=== PATIENT | female | born 1950 | race Caucasian/White ===

== ENCOUNTER 2017-02-07 13:46 | Emergency (ER) | payer MEDICARE, MEDICAID, SELFPAY | END 2017-02-07 17:44 | disposition home or self-care (01) | PROVIDERS: Emergency Provider Emergency Medicine; Family Provider Nurse Practitioner Family; PCP Nurse Practitioner Family; Visit Provider Emergency Medicine | DX: N39.0 Urinary tract infection, site not specified (principal); R31.9 Hematuria, unspecified; E87.6 Hypokalemia; I10 Essential (primary) hypertension; F20.9 Schizophrenia, unspecified; F79 Unspecified intellectual disabilities; F32.9 Major depressive disorder, single episode, unspecified; F41.9 Anxiety disorder, unspecified; R41.82 Altered mental status, unspecified; Z90.710 Acquired absence of both cervix and uterus; E11.9 Type 2 diabetes mellitus without complications; J45.909 Unspecified asthma, uncomplicated; Z79.51 Long term (current) use of inhaled steroids; Z79.899 Other long term (current) drug therapy | CPT/HCPCS: 36415; 71010; 80053; 81001; 82550; 82553; 83605; 84484; 85025; 87040; 87077; 87086; 87088; 87186; 93005; 93041; 99283 ==

== ENCOUNTER 2017-02-08 12:40 | Inpatient (IN) | payer MEDICAID, MEDICARE, SELFPAY | END 2017-02-10 15:37 | DRG 690 | PROVIDERS: Admitting Provider Emergency Medicine; Emergency Provider Emergency Medicine; Family Provider Emergency Medicine; Visit Provider Emergency Medicine | DX: N39.0 Urinary tract infection, site not specified (principal); B95.2 Enterococcus as the cause of diseases classified elsewhere; E11.9 Type 2 diabetes mellitus without complications; I10 Essential (primary) hypertension; B96.20 Unspecified Escherichia coli [E. coli] as the cause of diseases classified elsewhere | CPT/HCPCS: 36415; 36569; 70450; 71010; 80048; 80053; 81001; 82550; 82553; 82803; 82962; 83605; 84484; 85025; 87040; 87077; 87086; 87088; 87186; 93005; 93041; 94760; 96365; 96366; 99283; 99285; C1751; J3370 ==

== ENCOUNTER → 2017-02-12 | Outpatient (CLI) | payer MEDICARE, MEDICAID, SELFPAY | PROVIDERS: Visit Provider Emergency Medicine | DX: N39.0 Urinary tract infection, site not specified (principal); R41.82 Altered mental status, unspecified; E87.6 Hypokalemia; Z51.81 Encounter for therapeutic drug level monitoring | CPT/HCPCS: 80048; 80202 ==

== ENCOUNTER → 2017-02-17 | Outpatient (CLI) | payer MEDICARE, MEDICAID, SELFPAY | PROVIDERS: Visit Provider Emergency Medicine | DX: R41.82 Altered mental status, unspecified (principal); N39.0 Urinary tract infection, site not specified; Z51.81 Encounter for therapeutic drug level monitoring | CPT/HCPCS: 80202 ==

== ENCOUNTER → 2017-03-14 13:27 | Outpatient (CLI) | payer MEDICARE, MEDICAID, SELFPAY ==
--- NOTE | 2017-03-14 13:36 | XR_ITS ---
XR ankle RT min 3V HISTORY: Right ankle pain and swelling and bruising ITS.REASON: possible right ankle fracture ORDERING PHYSICIAN: Shilo Martínez MD PATIENT AGE: 66 years COMPARISON: None FINDINGS: No fracture or dislocation. No lytic or blastic change. There is normal mineralization.. The joint spaces are well-preserved. No significant degenerative/arthritic changes. No erosive changes evident. There are 2 small calcific densities at the tip of the medial malleolus and may be due to old injury. IMPRESSION: No acute finding
== END ==
PROVIDERS: PCP Emergency Medicine; Visit Provider Orthopaedic Surgery
DX: S99.919A Unspecified injury of unspecified ankle, initial encounter (principal)
CPT/HCPCS: 73610

== ENCOUNTER → 2017-03-24 09:23 | Outpatient (CLI) | payer MEDICARE, MEDICAID, SELFPAY ==
--- NOTE | 2017-03-24 09:29 | XR_ITS ---
XR ankle RT min 3V HISTORY: Follow-up fracture ITS.REASON: RT ankle fracture ORDERING PHYSICIAN: Shilo Martínez MD PATIENT AGE: 66 years COMPARISON: 03/14/2017 FINDINGS: Limited evaluation with limited patient positioning and shot through a splint. No displaced fracture or dislocation apparent. Small calcific densities once again noted with tip of the medial malleolus possibly related to avulsion injuries either acute or old. Otherwise negative. IMPRESSION: Limited study. Avulsion fractures age-indeterminate at the tip of the medial malleolus otherwise negative
== END ==
PROVIDERS: PCP Emergency Medicine; Visit Provider Orthopaedic Surgery
DX: S82.899A Other fracture of unspecified lower leg, initial encounter for closed fracture (principal)
CPT/HCPCS: 73610

== ENCOUNTER → 2017-04-19 12:42 | Outpatient (CLI) | payer MEDICARE, MEDICAID, SELFPAY ==
--- NOTE | 2017-04-19 12:47 | XR_ITS ---
XR ankle RT min 3V HISTORY: Follow-up fracture ITS.REASON: right ankle fracture ORDERING PHYSICIAN: Shilo Martínez MD PATIENT AGE: 66 years COMPARISON: 03-24-17 FINDINGS: There is a splint present posteriorly and medially. Avulsion fracture noted tip of the medial malleolus as before. No other significant anomalies evident. There is generalized osteopenia. IMPRESSION: Overall no change age-indeterminate avulsion fracture of the medial malleolus
== END ==
PROVIDERS: PCP Emergency Medicine; Visit Provider Orthopaedic Surgery
DX: S99.911A Unspecified injury of right ankle, initial encounter (principal)
CPT/HCPCS: 73610

== ENCOUNTER → 2017-06-14 12:20 | Outpatient (CLI) | payer MEDICARE, MEDICAID, SELFPAY ==
--- NOTE | 2017-06-14 12:25 | CA_ITS ---
PROCEDURE: 2-D M-mode and color Doppler study INDICATIONS FOR THE TEST: Chest pain+ COPD Heart Murmur Tobacco Smoking Palpitations Fatigue+ Syncope Edema+ Hypertension+Diabetes Mellitus+ Rheumatic Fever SOB GO Obesity Hyperlipidemia+ Family History HD Additional History tachycardia, abn ekg, cardiomegaly, dizziness PATIENT INFORMATION HEIGHT: 65 WEIGHT: 212 GENDER: Female B/P:147/79 2-D/M-MODE INTERPRETATION: 2-D MEASUREMENTS OBSERVED VALUES IN CMS Right Ventricular Dimension (RVDd) 2.8 Interventricular Septum (Thickness)(IVsd) 1.0 Left Ventricular Internal Dimensions(LVIDd) 4.2 Left Ventricular Posterior Wall (Thickness)(LVPWd) 1.0 Aortic Root 2.9 Aortic Cusp Separation 2.1 Left Atrial Dimensions (LAD) 4.0 2D 1. Technically difficult study because of the patient's factor and poor acoustic windows. 2. The left atrium is mildly enlarged, left ventricle is normal size, left ventricle wall thickness is upper limit of the normal, there is preserved left ventricular systolic function, visually estimated ejection fraction 55% with no obvious regional wall motion abnormality, endocardial surface of very poorly visualized. 3. The right atrium and right ventricle are mildly enlarged with normal contractility. 4. The aortic valve is minimally thickened and fibrosed. 5. The mitral and tricuspid valve are grossly normal. 6. No significant pericardial effusion noted. DOPPLER INTERROGATION: Doppler interrogation of the aortic, mitral and tricuspid valvular presence of mild mitral and tricuspid regurgitation, tricuspid and jet velocity insufficient for calculation of the right ventricular systolic pressure, diastolic parameters are inconclusive. CONCLUSION: 1. Technically difficult study because of the patient's factor and poor acoustic windows 2. Mildly enlarged left atrium, normal left ventricular size, visually estimated ejection fraction of 55% with no obvious regional wall motion abnormality, diastolic parameters are inconclusive. 3. Mild mitral and tricuspid regurgitation 4. No significant pericardial effusion noted.
== END ==
PROVIDERS: Family Provider Emergency Medicine; PCP Emergency Medicine; Visit Provider Internal Medicine
DX: R94.31 Abnormal electrocardiogram [ECG] [EKG] (principal)
CPT/HCPCS: 93306

== ENCOUNTER → 2017-08-02 12:50 | Outpatient (CLI) | payer MEDICARE, MEDICAID, SELFPAY ==
--- NOTE | 2017-08-02 12:53 | XR_ITS ---
XR humerus RT CLINICAL INDICATION: ITS.REASON: Right upper arm pain ORDERING PHYSICIAN: Shilo Martínez MD PATIENT AGE: 67 years Comparison: None FINDINGS: No fracture or dislocation. There are at least 4 calcific densities along the proximal aspect of the humerus at the humeral neck region the largest of these calcifications measures 10 x 7 mm. These are consistent with synovial osteochondromas IMPRESSION: Synovial osteochondromas along the proximal humerus otherwise negative
== END ==
PROVIDERS: PCP Emergency Medicine; Visit Provider Orthopaedic Surgery
DX: M79.621 Pain in right upper arm (principal)
CPT/HCPCS: 73060

== ENCOUNTER → 2018-07-03 17:00 | Outpatient (CLI) | payer MEDICARE, MEDICAID, SELFPAY ==
[2018-07-03 18:24] LABS: Occult Blood,Stool Positive (Negative)
== END ==
PROVIDERS: Visit Provider Emergency Medicine
DX: K92.1 Melena (principal); Z79.899 Other long term (current) drug therapy
CPT/HCPCS: 82272; G0328

== ENCOUNTER → 2018-08-28 08:43 | Outpatient (CLI) | payer MEDICARE, MEDICAID, SELFPAY ==
--- NOTE | 2018-08-28 09:18 | XR_ITS ---
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 Barium enema could therefore not be performed. There are osteoarthritic changes of the hips and degenerative changes of the spine. IMPRESSION: Constipation with rectal impaction
== END ==
PROVIDERS: PCP Emergency Medicine; Visit Provider Surgery
DX: K59.00 Constipation, unspecified (principal); R10.9 Unspecified abdominal pain
CPT/HCPCS: 74018

== ENCOUNTER → 2018-09-04 09:49 | Outpatient (CLI) | payer MEDICARE, MEDICAID, SELFPAY ==
--- NOTE | 2018-09-04 10:26 | XR_ITS ---
XR KUB HISTORY: ITS.REASON: UNSUCCESSFUL PREP FOR BE ORDERING PHYSICIAN: Keenan Castellanos MD PATIENT AGE: 68 years COMPARISON: 08/28/2018 FINDINGS: The patient was scheduled for barium enema. Although the amount of formed stool appears decreased compared to the previous exam, there is still moderate amount of feces in the splenic flexure with mild amount of feces in the sigmoid colon. Patient is instructed to repeat the prep and reschedule barium enema. There is a moderate amount of gas also present in the colon and small bowel. IMPRESSION: Residual feces and gas within the colon
== END ==
PROVIDERS: PCP Emergency Medicine; Visit Provider Surgery
DX: R10.9 Unspecified abdominal pain (principal); K59.00 Constipation, unspecified
CPT/HCPCS: 74018

== ENCOUNTER → 2018-09-05 10:05 | Outpatient (CLI) | payer MEDICARE, MEDICAID, SELFPAY ==
--- NOTE | 2018-09-05 10:18 | FL_ITS ---
FL barium enema CLINICAL INDICATION: ITS.REASON: abdominal pain and constipation ORDERING PHYSICIAN: Keenan Castellanos MD PATIENT AGE: 68 years Comparison: None Fluoroscopy time: 1 minute and 21 seconds FINDINGS: The braider operator exam showed a mild amount of residual stool and moderate amount of residual gas within the colon. This was a patient's third attempt for colon cleansing for the barium enema. The enema was therefore performed. Contrast was instilled into the rectum to the mid sigmoid region. The patient immediately loss the barium and was unable to retain the barium for the exam. Study was then discontinued. No abnormality is evident within the rectosigmoid region. The remaining colon was not able to be visualized. IMPRESSION: Incomplete exam. Unremarkable rectosigmoid area
== END ==
PROVIDERS: PCP Emergency Medicine; Visit Provider Surgery
DX: K59.00 Constipation, unspecified (principal); R10.9 Unspecified abdominal pain
CPT/HCPCS: 74270

== ENCOUNTER → 2018-12-13 10:25 | Outpatient (CLI) | payer MEDICARE, MEDICAID, SELFPAY ==
[2018-12-13 10:52] LABS: Anion Gap 10.5 mEq/L (5-15); Blood Urea Nitrogen 17 mg/dL (7-18); Calcium 8.4 mg/dL (8.5-10.1); Carbon Dioxide 30 mmol/L (21.0-32.0); Chloride 100 mmol/L (98-107); Creatinine,Serum 1.31 mg/dL (0.55-1.02); Estimated Glomerular Filt Rate 40 ml/min (>60); GFR (African American) 49 ML/MIN (>60); Glucose 102 mg/dL (74-106); Potassium 3.5 mmoL/L (3.5-5.1); Sodium 137 mmol/L (136-145)
== END ==
PROVIDERS: Visit Provider Emergency Medicine
DX: E83.51 Hypocalcemia (principal)
CPT/HCPCS: 80048

== ENCOUNTER 2019-04-09 10:30 | Inpatient (IN) ==
[2019-04-09 11:05] LABS: Eosinophils # 0.3 K/mm3 (0.0-0.4); Lymphocytes # 0.9 K/mm3 (0.7-4.5); Mean Platelet Volume 7.4 fl (7.4-10.4); Monocytes # 0.6 K/mm3 (0.1-1.0)
--- NOTE | 2019-04-09 11:07 | Emergency Department Note ---
ED Disposition Clinical Impression: Vasovagal syncope, Anemia, Hypokalemia Clinical Impression: (Ruled Out): Hypocalcemia Disposition: Admitted As Inpatient Condition on Discharge: Fair Instructions: DI for Syncope in Adults (Fainting), DI for Syncope in Children (Fainting) Referrals: Jose Antoine MD [Primary Care Provider] - - Critical Care Critical Care Time: No Attestation: On 04/09/19, the high probability of a clinically significant, sudden or life threatening deterioration of the following system(s) required my full and direct attention, intervention and personal management. The time I documented below is in addition to time spent performing reported procedures but includes the following listed in this critical care notation. Medical Decision Making - Brigido Inquiry Pt receiving controlled substance: No Brigido was queried for this patient: No Comment: Call Dr. Baker and discussed the case with him and accepted the patient. Vital Signs: 04/09/19 10:26 04/09/19 10:56 Temperature 98.4 F Temperature Source Oral Pulse Rate [Radial] 84 68 Respiratory Rate 18 18 Blood Pressure [Right Arm] 118/52 L 112/58 L Blood Pressure Mean [Right Arm] 74 76 Blood Pressure Source [Right Arm] Automatic Cuff Automatic Cuff Blood Pressure Position [Right Arm] Sitting 02 Sat by Pulse Oximetry 98 97 Oxygen Delivery Method Room Air Room Air - Lab Data Lab Results 04/09/19 10:56: WBC 14.8 H, RBC 3.46 L, Hgb 5.9 L*, Hct 22.9 L*, MCV 66.0 L, MCH 17.2 L, MCHC 26.0 L, RDW 18.4 H, Plt Count 472 H, MPV 7.4, Neut % (Auto) 87.6 H, Lymph % (Auto) 6.2 L, [place] % (Auto) 4.0, Eos % (Auto) 1.7, Baso % (Auto) 0.4, Neut # (Auto) 12.9 H, Lymph # (Auto) 0.9, [place] # (Auto) 0.6, Eos # (Auto) 0.3, Baso # (Auto) 0.1, Total Counted 100, Neutrophils % (Manual) 89 H, Lymphocytes % (Manual) 9 L, Eosinophils % (Manual) 2, Nucleated RBCs 4, Platelet Estimate Normal, Hypochromasia 3+, Poikilocytosis 2+, Anisocytosis 2+, Microcytosis 2+, Ovalocytes 2+, Stomatocytes 1+, Rouleaux 1+ 04/09/19 10:56: Sodium 139, Potassium 2.6 L*, Chloride 107, Carbon Dioxide 23, Anion Gap 11.6, BUN 13, Creatinine 1.08 H, Estimated Creat Clear 66, Estimated GFR 50 L, Est GFR ( Amer) 61, Glucose 91, Calcium 6.1 L, Total Bilirubin 0.2, AST 20, ALT 18, Alkaline Phosphatase 119 H, Troponin I 0.02, Total Protein 4.7 L, Albumin 1.9 L, Globulin 2.8, Albumin/Globulin Ratio 0.7 L 04/09/19 11:28: Stool Occult Blood Positive A Result diagrams: 04/09/19 10:56 04/09/19 10:56 Orders (Tests/Meds): ED MEDICATIONS Generic Name Dose Route Start Last Admin Trade Name Freq PRN Reason Stop Dose Admin Sodium Chloride 250 mls @ 25 mls/hr 04/09/19 12:00 Sod Chlor 0.9% 250ml Bag IV 04/10/19 11:59 .Q10H ROSALEE Discontinued Medications Generic Name Dose Route Start Last Admin Trade Name Freq PRN Reason Stop Dose Admin Sodium Chloride 1,000 mls @ 999 mls/hr 04/09/19 10:45 04/09/19 11:04 Sod Chlor 0.9% 1000ml Bag IV 04/09/19 11:45 999 mls/hr .Q1H1M ROSALEE Administration ORDERS Category Date Time Status Blood transfusion [Red Blood Cells] Stat BBK 04/09/19 11:48 Ordered Type and Screen Stat BBK 04/09/19 11:[address] head/brain wo con Stat Cat Scan 04/09/19 11:08 Ordered Lactic Acid Stat Lab 04/09/19 11:17 Ordered Troponin I Q3H Lab 04/09/19 13:45 Ordered Troponin I Q3H Lab 04/09/19 16:45 Ordered Blood Culture Stat Micro 04/09/19 11:17 Ordered General Adult HPI - General Chief complaint: Syncope Stated complaint: syncope Time Seen by Provider: 04/09/19 10:40 Mode of Arrival: EMS Limitations: No Limitations Description of Symptoms (Recalled from ER Triage Doc. by RN): Per alf patient went unresponsive and was not breathing for 2-3 minutes. States she may have had a syncopal episode. Patient is alert and oriented at this time and states that it just hurts to breathe. - History of Present Illness HPI narrative: -year-old female who lives in a alf. History of schizophrenia. According to nursing staff she had one episode of syncope. Lasted about 1 minute. Patient in the emergency room denies any chest pain or shortness of breath. She is very alert oriented and follows commands. Denies any complaints. - Related Data Home Medications Medication Instructions Recorded Confirmed acetaminophen 500 mg capsule 500 mg PO Q6H PRN 03/14/17 03/26/19 allopurinol 300 mg tablet 300 mg PO QDAY 03/14/17 03/26/19 bethanechol chloride 25 mg tablet 25 mg PO TID 03/14/17 03/26/19 bisacodyl 10 mg rectal suppository 10 mg MS QDAY PRN 03/14/17 03/26/19 dicyclomine 20 mg tablet 20 mg PO Q6H 03/14/17 03/26/19 glipizide 5 mg tablet 5 mg PO BID 03/14/17 03/26/19 montelukast 10 mg tablet 10 mg PO QHS 03/14/17 03/26/19 olanzapine 10 mg tablet 10 mg PO QDAY 03/14/17 03/26/19 oxcarbazepine 600 mg tablet 600 mg PO BID 03/14/17 03/26/19 pravastatin 20 mg tablet 20 mg PO QHS 03/14/17 03/26/19 triamterene 37.5 1 cap PO QAM 03/14/17 03/26/19 mg-hydrochlorothiazide 25 mg capsule polyethylene glycol 3350 17 17 g PO Q10M 03/24/17 03/26/19 gram/dose oral powder sennosides 8.6 mg-docusate sodium 1 tab PO QHS PRN 03/24/17 03/26/19 50 mg tablet desvenlafaxine 100 mg 100 mg PO DAILY tab 06/06/17 03/26/19 tablet,extended release 24 hour fluticasone propionate 50 50 mcg INTRANASAL DAILY g 06/06/17 03/26/19 mcg/actuation nasal spray,suspension risperidone 2 mg tablet 2 mg PO DAILY tab 06/06/17 03/26/19 potassium chloride 20 mEq 20 meq PO DAILY tab 07/11/17 03/26/19 tablet,extended release(part/cryst) ropinirole 1 mg tablet 1 mg PO QHS tab 07/11/17 03/26/19 aluminum hydrox-magnesium carb 95 15 ml PO QPCHS 08/17/18 03/26/19 mg-358 mg/15 mL oral suspension ranitidine HCl 150 mg capsule 150 mg PO DAILY 08/17/18 03/26/19 Sodium, Potassium,Mag Sulfates 177 ml PO DAILY 09/28/18 03/26/19 [Suprep Bowel Prep Kit] bisoproloL fumarate [Bisoprolol 10 mg PO DAILY 09/28/18 03/26/19 10mg Tablet] Amantadine HCl [Amantadine] 50 mg PO DAILY 10/02/18 03/26/19 Eyelid Cleanser Combination #9 1 each TP DAILY 10/02/18 03/26/19 [Systane] Lactulose 10 gm PO DAILY 10/02/18 03/26/19 Levocetirizine Dihydrochloride 5 mg PO DAILY 10/02/18 03/26/19 Mag Carb/Aluminum Hydrox/Algin 355 ml PO DAILY 10/02/18 03/26/19 [Gaviscon Liquid] guaiFENesin [Robafen] 100 mg PO DAILY 10/02/18 03/26/19 Allergies Allergy/AdvReac Type Severity Reaction Status Date / Time Antihistamines - Alkylamine Allergy Unknown Verified 03/26/19 18:17 [ANTIHISTAMINES - ALKYLAMINE] aspirin [ASPIRIN] Allergy Unknown Verified 03/26/19 18:17 loratadine [LORATADINE] Allergy Unknown Verified 03/26/19 18:17 sertraline [SERTRALINE] Allergy Unknown Verified 03/26/19 18:17 [facility] History - Hepatitis A Screen Drug use history?: No High risk sexual behaviors?: No History of sexually transmitted infection?: No Currently employed?: No Childcare worker?: No Do you have indoor plumbing?: Yes Do you have electricity?: Yes Attestation statement:: This patient has been screened for Hepatitis A risk factors. Medical History: Reports:: Anxiety, Asthma, Depression, Diabetes Mellitus Type 2, Hyperlipidemia, Hypertension, Lung Disease, Migraine, Renal Disease Denies:: Diabetes Mellitus Type 1, Internal Pacemaker, Seizures Other Medical History: Reports: Other. Denies: Blood Transfusion Reaction Comment: ibs,extrapyramidal and movement dz,rls,schizophrenia,mild intellectual disabilities Other Surgeries: Yes: Colonoscopy, Other. No: Pacemaker Amputation: No Fractures: No - Social History Educational Level: Completed High School Smoking Status: Never smoker Alcohol Intake: never Alcohol Intake Frequency:: other Substance Use Type: denies use Occupational Status: other Housing: house - Psychiatric History Pschychiatric History:: Reports:: Anxiety, Depression Family Hx:: Unable to obtain ROS Obtained: Yes All systems reviewed & no additional complaints - Constitutional Constitutional: Reports system reviewed and no additional complaints, except as docu - Eyes Eyes: Reports system reviewed and no additional complaints, except as docu - ENT Ears, Nose, Mouth, and Throat: Reports system reviewed and no additional complaints, except as docu - Cardiovascular Cardiovascular: Reports system reviewed and no additional complaints, except as docu - Respiratory Respiratory: Yes system reviewed and no additional complaints, except as docu - Gastrointestinal Gastrointestingal: Reports: system reviewed and no additional complaints, except as docu - Musculoskeletal Musculoskeletal: Reports system reviewed and no additional complaints, except as docu - Integumentary/Breasts Skin/Breast: Reports system reviewed and no additional complaints, except as docu - Neurologic Neurologic: Reports system reviewed and no additional complaints, except as docu, Reports dizziness - Endocrine Endocrine: Reports system reviewed and no additional complaints, except as docu - Hematologic/Lymphatic Henatologic/Lymphatic: Reports system reviewed and no additional complaints, except as docu - Allergic/Immunologic Allergic/Immunologic: Reports system reviewed and no additional complaints, except as docu Physical Exam - General General appearance: alert, in no apparent distress - Head Head exam: atraumatic, normocephalic, normal inspection - Eye Eye exam: Present: normal appearance, PERRL, EOMI - ENT ENT exam: Present: normal exam, normal oropharynx, mucous membranes moist, TM's normal bilaterally, normal external ear exam - Neck Neck exam: Present: normal inspection, full ROM, trachea midline. Absent: meningismus, lymphadenopathy - Chest Chest inspection: Present: normal inspection, symmetric chest wall rise. Absent: tenderness - Respiratory Respiratory exam: Present: normal lung sounds bilaterally. Absent: respiratory distress - Cardiovascular Cardiovascular exam: Present: regular rate, normal rhythm. Absent: JVD - Abdominal Exam Abdominal exam: Present: soft, normal bowel sounds. Absent: distention, tendern ess, guarding - Extremities Exam Extremities exam: Present: normal inspection, full ROM, normal capillary refill. Absent: calf tenderness - Back Exam Back exam: Present: normal inspection. Absent: tenderness - Neurological Exam Neurological exam: Present: alert, oriented X3 - Psychiatric Psychiatric exam: Present: normal affect, normal mood - Skin Skin exam: Present: warm, dry, intact, normal color - Lymphatic Lymphatic Findings: no adenopathy
[2019-04-09 11:10] LABS: Basophils # 0.1 K/mm3 (0-0.2); Basophils % 0.4 % (0.1-2.0); Eosinophils % 1.7 % (0.1-12.0); Lymphocytes % 6.2 % (10-50); Neutrophils # 12.9 K/mm3 (1.8-7.8); Neutrophils % 87.6 % (37.0-80.0); Platelet Count 472 K/mm3 (142-424); Red Blood Count 3.46 M/mm3 (4.20-5.40); Red Cell Distribution Width 18.4 % (11.5-17.5); White Blood Count 14.8 K/mm3 (4.8-10.8)
[2019-04-09 11:12] LABS: Hematocrit 22.9 % (37.0-47.0); Hemoglobin 5.9 g/dL (12.2-16.2)
[2019-04-09 11:18] LABS: Albumin Level 1.9 g/dL (3.4-5.0); Albumin/Globulin Ratio 0.7 (1.1-1.8); Anion Gap 11.6 mEq/L (5-15); Bilirubin,Total 0.2 mg/dL (0.2-1.0); Globulin 2.8 g/dL (1.3-3.2); Total Protein,Serum 4.7 g/dL (6.4-8.2)
[2019-04-09 11:19] LABS: Eosinophils % 2 % (0-3); Lymphocytes % 9 % (10-50); Neutrophils % 89 % (42-76); Nucleated Red Blood Cells 4; Total Cells Counted 100
[2019-04-09 11:20] LABS: Anisocytosis 2+; Hypochromasia 3+; Rouleaux 1+
[2019-04-09 11:21] LABS: Ovalocytes 2+; Stomatocytes 1+
[2019-04-09 11:29] LABS: Calcium 6.1 mg/dL (8.5-10.1)
--- NOTE | 2019-04-09 13:55 | Pharmacy Consult Notes ---
[facility] Pharmacy VTE Monitoring - Patient Demographics Admission date: 04/09/19 Report Date: 04/09/19 Time: 13:54 Allergies/Adverse Reactions: Patient Allergies Antihistamines - Alkylamine [ANTIHISTAMINES - ALKYLAMINE] Allergy (Unknown, Verified 03/26/19 18:17) aspirin [ASPIRIN] Allergy (Unknown, Verified 03/26/19 18:17) loratadine [LORATADINE] Allergy (Unknown, Verified 03/26/19 18:17) sertraline [SERTRALINE] Allergy (Unknown, Verified 03/26/19 18:17) Height: 1.65 m Weight: 86.183 kg Patient Problems: Current Active Problems Vasovagal syncope (Acute) Anemia (Acute) Hypokalemia (Acute) - VTE Risk Labs: VTE Related Lab Results Hgb 5.9 g/dL (12.2-16.2) L* 04/09/19 10:56 Hct 22.9 % (37.0-47.0) L* 04/09/19 10:56 Plt Count 472 K/mm3 (142-424) H 04/09/19 10:56 BUN 13 mg/dL (7-18) 04/09/19 10:56 Creatinine 1.08 mg/dL (0.55-1.02) H 04/09/19 10:56 Estimated Creat Clear 66 mL/min (50-200) 04/09/19 10:56 - Prophylaxis VTE Prophylaxis Ordered?: Yes Types of VTE Prophylaxis: TEDS Knee High Location of Applied Device: Bilateral Lower Extremeties
[2019-04-09 16:33] LABS: ABG Base Excess -0.7 mmol/L (-2.4-2.3); ABG Oxygen Saturation 95 % (90-100); ABG PCO2 39.6 mmhg (35.0-45.0); ABG PO2 82.3 mmhg (80-100); ABG TCO2 25.3 mmhg (23-27)
[2019-04-09 16:35] LABS: Allen's Test Patient Unable; Oxygen Room Air %
--- NOTE | 2019-04-09 20:28 | Electrocardiograph Report ---
APPROVED REPORT Exam: Resting ECG HR:81 bpm ECG Measurements Heart Rate 81 AXES [place] 208 P 48 QRSd 88 QRS 57 QT 372 T9 QTc 432 <Conclusion> Normal sinus rhythm Cannot rule out Anterior infarct, age undetermined Abnormal ECG Electronically signed by : Hernandez Yi, 04/09/2019 20:27:59
[2019-04-09 23:00] LABS: Hematocrit 26.3 % (37.0-47.0)
[2019-04-09 23:05] LABS: Hemoglobin 7.5 g/dL (12.2-16.2)
[2019-04-10 07:38] LABS: Basophils # 0.1 K/mm3 (0-0.2); Basophils % 0.6 % (0.1-2.0); Eosinophils # 0.4 K/mm3 (0.0-0.4); Eosinophils % 3.6 % (0.1-12.0); Hematocrit 27.9 % (37.0-47.0); Lymphocytes # 1.1 K/mm3 (0.7-4.5); Lymphocytes % 11.1 % (10-50); Mean Corpuscular HGB Conc 28.3 g/dL (31.8-35.4); Mean Corpuscular Volume 70.6 fl (81-99); Mean Platelet Volume 8.3 fl (7.4-10.4); Monocytes # 0.4 K/mm3 (0.1-1.0); Monocytes % 4.4 % (1.7-9.3); Neutrophils # 7.7 K/mm3 (1.8-7.8); Neutrophils % 80.2 % (37.0-80.0); Platelet Count 414 K/mm3 (142-424); Red Blood Count 3.95 M/mm3 (4.20-5.40); Red Cell Distribution Width 20.4 % (11.5-17.5); White Blood Count 9.7 K/mm3 (4.8-10.8)
[2019-04-10 07:46] LABS: Hemoglobin 7.9 g/dL (12.2-16.2)
--- NOTE | 2019-04-10 10:15 | History & Physical Report ---
*Admission Date: 04/09/19 *Chief complaint: Syncope *History of present illness: 68 YOF year-old female who lives in a [facility]pc. History of schizophrenia. According to nursing staff she had one episode of syncope. Lasted about 1 minute. Patient in the emergency room denies any chest pain or shortness of breath. She is very alert oriented and follows commands. Denies any complaints (Per Dr. Martin). Per fpc: patient went unresponsive and was not breathing for 2-3 minutes. States she may have had a syncopal episode. Patient is alert and oriented at this time and states that it just hurts to breathe. She went to the floor and rec 2 units PRBC's, H/H this AM 7.9/27.9. She will rec 2 more units PRBC's today She is C/O mid-sternal CP, denies radiation or SOA. She reports she has had this pain "for sometime, maybe months". 04/09/2019 CXR: IMPRESSION: Hypoinflation with bibasilar lung densities right greater than left. Atelectasis is favored over pneumonitis. Dictated by: Dr. Gonzales 04/09/[address]: IMPRESSION: No acute intracranial finding Dictated by: Christian [facility] History Medical History: Reports:: Anxiety, Asthma, Depression, Diabetes Mellitus Type 2, Hyperlipidemia, Hypertension, Lung Disease, Migraine, Renal Disease Denies:: Diabetes Mellitus Type 1, Internal Pacemaker, Seizures *Have you ever received a pneumonia vaccine?: No (unsure) *Have you received a flu vaccine this season?: No (unsure) Other Medical History: Reports: Other. Denies: Blood Transfusion Reaction Other Surgeries: Yes: Colonoscopy, Other. No: Pacemaker Amputation: No Fractures: No - *Social History Educational Level: Completed High School Smoking Status: Never smoker Alcohol Intake: never Alcohol Intake Frequency:: other Substance Use Type: denies use *Occupational Status:: disabled Housing: house *Travel in the last 8 weeks: None - Psychiatric History Pschychiatric History:: Reports:: Anxiety, Depression Family Hx:: Unable to obtain Review of Systems - Constitutional Denies anorexia, Denies body ache(s) - Eyes Denies blurry vision, Denies change in vision - ENT Denies difficulty swallowing, Denies nasal congestion - *Cardiovascular Denies chest pain, Denies shortness of breath - *Respiratory Denies shortness of breath - *Gastrointestinal Denies abdominal pain, Denies constipation - *Musculoskeletal Denies joint pain, Denies decreased muscle mass - Integumentary/Breasts Denies yellowing of the skin, Denies unusual bruising - *Neurologic Reports dizziness - Psychiatric Denies anxiety - Endocrine Denies rapid, pounding, or irregular heartbeat - Hematologic/Lymphatic Denies easy bleeding, Denies easy bruising - Allergic/Immunologic Denies throat swelling, Denies tongue swelling Meds Home Medications Medication Instructions Recorded Confirmed Type bethanechol chloride 25 mg tablet 25 mg PO TID 03/14/17 04/09/19 History dicyclomine 20 mg tablet 20 mg PO DAILY 03/14/17 04/09/19 History glipizide 5 mg tablet 5 mg PO DAILY 03/14/17 04/09/19 History montelukast 10 mg tablet 10 mg PO HS 03/14/17 04/09/19 History pravastatin 20 mg tablet 20 mg PO HS 03/14/17 04/09/19 History sennosides 8.6 mg-docusate sodium 2 tab PO BID 03/24/17 04/09/19 History 50 mg tablet potassium chloride 20 mEq 20 meq PO DAILY tab 07/11/17 04/09/19 History tablet,extended release(part/cryst) Levocetirizine Dihydrochloride 5 mg PO DAILY 10/02/18 04/09/19 History Acetaminophen [Non-Aspirin Extra 500 mg PO Q4HP PRN 04/09/19 04/09/19 History Strength] Bisacodyl [Dulcolax 10mg Supp] 10 mg RC DAILYP PRN 04/09/19 04/09/19 History Bisoprolol Fumarate [Bisoprolol 5 mg PO DAILY 04/09/19 04/09/19 History 5mg Tablet] Guaifenesin/Dextromethorphan 10 ml PO Q4HP PRN 04/09/19 04/09/19 History [Robafen-Dm Syrup] Lactulose [Lactulose 10gm/15ml 30 ml PO DAILYP PRN 04/09/19 04/09/19 History Oral Soln] Mag Carb/Aluminum Hydrox/Algin 30 ml PO QIDP PRN 04/09/19 04/09/19 History [Gaviscon Extra Strength Liquid] OLANZapine [Olanzapine] 10 mg PO BID 04/09/19 04/09/19 History OXcarbazepine [Trileptal] 600 mg PO BID 04/09/19 04/09/19 History Propylene Glycol [Systane Balance] 2 drops OU TIDP PRN 04/09/19 04/09/19 History Rivaroxaban [Xarelto 20mg Tablet*] 20 mg PO DAILY 04/09/19 04/09/19 History Ropinirole HCl [Requip 1mg Tablet] 1 mg PO HS 04/09/19 04/09/19 History Simethicone [Gas Relief 80] 80 mg PO TIDP PRN 04/09/19 04/09/19 History Triamterene/Hydrochlorothiazid 1 each PO DAILY 04/09/19 04/09/19 History [Dyazide 37.5-25 Capsule] Venlafaxine HCl 50 mg PO TID 04/09/19 04/09/19 History allopurinoL [Allopurinol 300mg 300 mg PO DAILY 04/09/19 04/09/19 History tablet] amantadine HCL [Symmetrel 100mg 100 mg PO DAILY 04/09/19 04/09/19 History capsule] polyethylene glycoL 3350 17 g PO DAILYP PRN 04/09/19 04/09/19 History [Polyethylene Glycol 3350] risperiDONE [Risperdal 1mg Tablet] 1 mg PO BID 04/09/19 04/09/19 History Allergies Allergy/AdvReac Type Severity Reaction Status Date / Time Antihistamines - Alkylamine Allergy Unknown Verified 03/26/19 18:17 [ANTIHISTAMINES - ALKYLAMINE] aspirin [ASPIRIN] Allergy Unknown Verified 03/26/19 18:17 loratadine [LORATADINE] Allergy Unknown Verified 03/26/19 18:17 sertraline [SERTRALINE] Allergy Unknown Verified 03/26/19 18:17 Exam Vital signs and Labs for Last 24 Hours: Temp Pulse Resp BP Pulse Ox 98.1 F 94 H 18 142/88 H 90 L 04/10/19 07:25 04/10/19 07:25 04/10/19 07:25 04/10/19 07:25 04/10/19 07:25 Laboratory Results - last 24 hr 04/09/19 10:56: WBC 14.8 H, RBC 3.46 L, Hgb 5.9 L*, Hct 22.9 L*, MCV 66.0 L, MCH 17.2 L, MCHC 26.0 L, RDW 18.4 H, Plt Count 472 H, MPV 7.4, Neut % (Auto) 87.6 H , Lymph % (Auto) 6.2 L, [place] % (Auto) 4.0, Eos % (Auto) 1.7, Baso % (Auto) 0.4, Neut # (Auto) 12.9 H, Lymph # (Auto) 0.9, [place] # (Auto) 0.6, Eos # (Auto) 0.3, Baso # (Auto) 0.1, Total Counted 100, Neutrophils % (Manual) 89 H, Lymphocytes % (Manual) 9 L, Eosinophils % (Manual) 2, Nucleated RBCs 4, Platelet Estimate Normal, Hypochromasia 3+, Poikilocytosis 2+, Anisocytosis 2+, Microcytosis 2+, Ovalocytes 2+, Stomatocytes 1+, Rouleaux 1+ 04/09/19 10:56: Sodium 139, Potassium 2.6 L*, Chloride 107, Carbon Dioxide 23, Anion Gap 11.6, BUN 13, Creatinine 1.08 H, Estimated Creat Clear 66, Estimated GFR 50 L, Est GFR ( Amer) 61, Glucose 91, Calcium 6.1 L, Total Bilirubin 0.2, AST 20, ALT 18, Alkaline Phosphatase 119 H, Troponin I 0.02, Total Protein 4.7 L, Albumin 1.9 L, Globulin 2.8, Albumin/Globulin Ratio 0.7 L 04/09/19 11:28: Stool Occult Blood Positive A 04/09/19 12:35: Lactate 2.2 H 04/09/19 12:35: Blood Type O Positive, Antibody Screen Negative, Crossmatch (AHG) See Detail 04/09/19 13:08: Blood Type Confirm O Positive 04/09/19 16:09: POC Glucose 135 H 04/09/19 16:14: Specimen Source Right brachial, O2 % Room air, ABG pH 7.40, ABG pCO2 39.6, ABG pO2 82.3, ABG HCO3 24.0, ABG Total CO2 25.3, ABG O2 Saturation 95, ABG Base Excess -0.7, Howard Test Patient unable 04/09/19 17:22: Lactate 0.9 04/09/19 21:39: POC Glucose 137 H 04/09/19 22:35: Hgb 7.5 L* D, Hct 26.3 L 04/10/19 05:32: POC Glucose 139 H 04/10/19 07:20: WBC 9.7 D, RBC 3.95 L, Hgb 7.9 L*, Hct 27.9 L, MCV 70.6 L, MCH 20.0 L, MCHC 28.3 L, RDW 20.4 H, Plt Count 414, MPV 8.3, Neut % (Auto) 80.2 H, Lymph % (Auto) 11.1, [place] % (Auto) 4.4, Eos % (Auto) 3.6, Baso % (Auto) 0.6, Neut # (Auto) 7.7, Lymph # (Auto) 1.1, [place] # (Auto) 0.4, Eos # (Auto) 0.4, Baso # (Auto) 0.1 I & O for Last 24 hours: Intake & Output 04/07/19 04/08/19 04/09/19 04/10/19 23:59 23:59 23:59 23:59 Intake Total 4.71 / 2294.71 544 / 544 Output Total 1100 / 1100 Balance 4.71 / 2294.71 -556 / -556 Weight 204 lb 8 oz 204 lb 4 oz - Constitutional no acute distress - *Routine HEENT Exam Head: Present: normocephalic, atraumatic. Absent: tenderness of temporal artery Eye: Present: EOMI, PERRL. Absent: periorbital tenderness ENT: Present: mucous membranes dry. Absent: sinus tenderness - *Routine Neck Exam Present: full ROM, trachea midline. Absent: tracheal deviation - *Routine Respiratory Exam Present: wheezes. Absent: accessory muscle use - *Routine Cardiovascular Exam Present: RRR - *Routine Abdominal Exam Present: soft, normoactive bowel sounds. Absent: tenderness, firm - *Routine Extremities Exam Present: full ROM, pulses intact. Absent: calf tenderness - Routine Back/Spine/Pelvis Exam Back/Spine: Present: full ROM. Absent: CVA tenderness - *Routine Skin Exam Present: intact. Absent: erythema, jaundice - *Routine Neurological Exam Present: alert, CN II-XII intact - Routine Psychiatric Exam Present: normal affect Assessment and Plan (1) Anemia Current visit: Yes Status: Acute Category: Medical Code(s): D64.9 - Anemia, unspecified (2) Hypokalemia Current visit: Yes Status: Acute Category: Medical Code(s): E87.6 - Hypokalemia (3) Chest pain Current visit: No Status: Acute Qualifiers: Qualified Code(s): R07.89 - Other chest pain Category: Medical Code(s): R07.9 - Chest pain, unspecified - Assessment and plan all Dx Assessment and Plan for all problems:: Rounded w/ Dr. Antoine, all orders per Dr. Antoine 1. Surgery consult 2. 2 units PRBC's 3. ECHO, Trop, EKG
--- NOTE | 2019-04-10 12:33 | Consult Report ---
*Admission Date: 04/09/19 *Reason for consult:: Hemoccult positive stool *History of present illness: Patient is a 68-[facility]-old female [facility] resident with cognitive deficit, reported schizophrenia, extrapyramidal movement disorder, diabetes, anxiety, depression, chronic renal insufficiency. She is chronically debilitated and essentially wheelchair-bound. She was admitted after being seen in the [facility] department yesterday morning due to mental status changes and reported syncope. At that time she was found to be anemic with a hemoglobin of 5.9 and was found to have Hemoccult positive stool. She was admitted and transfused 2 units packed red blood cells with appropriate response with hemoglobin of 7.9. SHe is being transfused 2 additional units packed red blood cells. Surgical consultation was ordered this afternoon. History is difficult to obtain from the patient. She states that she does have some abdominal discomfort. She is hungry and states that she wants a cheeseburger. However, she was given a breakfast tray this morning. Of note, I had seen the patient last year as a referral for a colonoscopy for constipation. She had failed 2 or 3 attempts at a barium enema and she ultimately did undergo colonoscopy in September 2018 which, other than melanosis coli and findings of possible rectal prolapse and diminutive polyps, was unremarkable. Review of Systems - Review of Systems Review of systems:: unable to obtain - *Neurologic Reports dizziness [facility] History Medical History: Reports:: Anxiety, Asthma, Depression, Diabetes Mellitus Type 2 , Hyperlipidemia, Hypertension, Lung Disease, Migraine, Renal Disease Denies:: Diabetes Mellitus Type 1, Internal Pacemaker, Seizures *Have you ever received a pneumonia vaccine?: No (unsure) *Have you received a flu vaccine this season?: No (unsure) Other Medical History: Reports: Other. Denies: Blood Transfusion Reaction Other Surgeries: Yes: Colonoscopy, Other. No: Pacemaker Amputation: No Fractures: No - *Social History Educational Level: Completed High School Smoking Status: Never smoker Alcohol Intake: never Alcohol Intake Frequency:: other Substance Use Type: denies use *Occupational Status:: disabled Housing: house *Travel in the last 8 weeks: None - Psychiatric History Pschychiatric History:: Reports:: Anxiety, Depression Family Hx:: Unable to obtain Meds Home Medications Medication Instructions Recorded Confirmed Type bethanechol chloride 25 mg tablet 25 mg PO TID 03/14/17 04/09/19 History dicyclomine 20 mg tablet 20 mg PO DAILY 03/14/17 04/09/19 History glipizide 5 mg tablet 5 mg PO DAILY 03/14/17 04/09/19 History montelukast 10 mg tablet 10 mg PO HS 03/14/17 04/09/19 History pravastatin 20 mg tablet 20 mg PO HS 03/14/17 04/09/19 History sennosides 8.6 mg-docusate sodium 2 tab PO BID 03/24/17 04/09/19 History 50 mg tablet potassium chloride 20 mEq 20 meq PO DAILY tab 07/11/17 04/09/19 History tablet,extended release(part/cryst) Levocetirizine Dihydrochloride 5 mg PO DAILY 10/02/18 04/09/19 History Acetaminophen [Non-Aspirin Extra 500 mg PO Q4HP PRN 04/09/19 04/09/19 History Strength] Bisacodyl [Dulcolax 10mg Supp] 10 mg RC DAILYP PRN 04/09/19 04/09/19 History Bisoprolol Fumarate [Bisoprolol 5 mg PO DAILY 04/09/19 04/09/19 History 5mg Tablet] Guaifenesin/Dextromethorphan 10 ml PO Q4HP PRN 04/09/19 04/09/19 History [Robafen-Dm Syrup] Lactulose [Lactulose 10gm/15ml 30 ml PO DAILYP PRN 04/09/19 04/09/19 History Oral Soln] Mag Carb/Aluminum Hydrox/Algin 30 ml PO QIDP PRN 04/09/19 04/09/19 History [Gaviscon Extra Strength Liquid] OLANZapine [Olanzapine] 10 mg PO BID 04/09/19 04/09/19 History OXcarbazepine [Trileptal] 600 mg PO BID 04/09/19 04/09/19 History Propylene Glycol [Systane Balance] 2 drops OU TIDP PRN 04/09/19 04/09/19 History Rivaroxaban [Xarelto 20mg Tablet*] 20 mg PO DAILY 04/09/19 04/09/19 History Ropinirole HCl [Requip 1mg Tablet] 1 mg PO HS 04/09/19 04/09/19 History Simethicone [Gas Relief 80] 80 mg PO TIDP PRN 04/09/19 04/09/19 History Triamterene/Hydrochlorothiazid 1 each PO DAILY 04/09/19 04/09/19 History [Dyazide 37.5-25 Capsule] Venlafaxine HCl 50 mg PO TID 04/09/19 04/09/19 History allopurinoL [Allopurinol 300mg 300 mg PO DAILY 04/09/19 04/09/19 History tablet] amantadine HCL [Symmetrel 100mg 100 mg PO DAILY 04/09/19 04/09/19 History capsule] polyethylene glycoL 3350 17 g PO DAILYP PRN 04/09/19 04/09/19 History [Polyethylene Glycol 3350] risperiDONE [Risperdal 1mg Tablet] 1 mg PO BID 04/09/19 04/09/19 History Allergies Allergy/AdvReac Type Severity Reaction Status Date / Time Antihistamines - Alkylamine Allergy Unknown Verified 03/26/19 18:17 [ANTIHISTAMINES - ALKYLAMINE] aspirin [ASPIRIN] Allergy Unknown Verified 03/26/19 18:17 loratadine [LORATADINE] Allergy Unknown Verified 03/26/19 18:17 sertraline [SERTRALINE] Allergy Unknown Verified 03/26/19 18:17 Exam Vital signs and Labs for Last 24 Hours: Temp Pulse Resp BP Pulse Ox 97.9 F 79 18 123/53 L 95 04/10/19 12:20 04/10/19 12:20 04/10/19 12:20 04/10/19 12:20 04/10/19 12:20 Laboratory Results - last 24 hr 04/09/19 12:35: Lactate 2.2 H 04/09/19 12:35: Blood Type O Positive, Antibody Screen Negative, Crossmatch (AHG) See Detail 04/09/19 13:08: Blood Type Confirm O Positive 04/09/19 16:09: POC Glucose 135 H 04/09/19 16:14: Specimen Source Right brachial, O2 % Room air, ABG pH 7.40, ABG pCO2 39.6, ABG pO2 82.3, ABG HCO3 24.0, ABG Total CO2 25.3, ABG O2 Saturation 95, ABG Base Excess -0.7, Howard Test Patient unable 04/09/19 17:22: Lactate 0.9 04/09/19 21:39: POC Glucose 137 H 04/09/19 22:35: Hgb 7.5 L* D, Hct 26.3 L 04/10/19 05:32: POC Glucose 139 H 04/10/19 07:20: WBC 9.7 D, RBC 3.95 L, Hgb 7.9 L*, Hct 27.9 L, MCV 70.6 L, MCH 20.0 L, MCHC 28.3 L, RDW 20.4 H, Plt Count 414, MPV 8.3, Neut % (Auto) 80.2 H, Lymph % (Auto) 11.1, [place] % (Auto) 4.4, Eos % (Auto) 3.6, Baso % (Auto) 0.6, Neut # (Auto) 7.7, Lymph # (Auto) 1.1, [place] # (Auto) 0.4, Eos # (Auto) 0.4, Baso # (Auto) 0.1 I & O for Last 24 hours: Intake & Output 04/08/19 04/09/19 04/10/19 04/11/19 11:59 11:59 11:59 11:59 Intake Total 2598.71 / 2598.71 0 / 0 Output Total 1100 / 1100 Balance 1498.71 / 1498.71 0 / 0 Weight 190 lb 204 lb 4 oz - *Routine Abdominal Exam Present: soft. Absent: tenderness Comments: Patient has some subjective discomfort to palpation of the lower abdomen but no guarding or rebound. Her subjective complaints are unreliable and unreproducible as well. Results - Labs 04/10/19 07:20 04/09/19 10:56 Laboratory Results - last 24 hr 04/09/19 12:35: Lactate 2.2 H 04/09/19 12:35: Blood Type O Positive, Antibody Screen Negative, Crossmatch (AHG) See Detail 04/09/19 13:08: Blood Type Confirm O Positive 04/09/19 16:09: POC Glucose 135 H 04/09/19 16:14: Specimen Source Right brachial, O2 % Room air, ABG pH 7.40, ABG pCO2 39.6, ABG pO2 82.3, ABG HCO3 24.0, ABG Total CO2 25.3, ABG O2 Saturation 95, ABG Base Excess -0.7, Howard Test Patient unable 04/09/19 17:22: Lactate 0.9 04/09/19 21:39: POC Glucose 137 H 04/09/19 22:35: Hgb 7.5 L* D, Hct 26.3 L 04/10/19 05:32: POC Glucose 139 H 04/10/19 07:20: WBC 9.7 D, RBC 3.95 L, Hgb 7.9 L*, Hct 27.9 L, MCV 70.6 L, MCH 20.0 L, MCHC 28.3 L, RDW 20.4 H, Plt Count 414, MPV 8.3, Neut % (Auto) 80.2 H, Lymph % (Auto) 11.1, [place] % (Auto) 4.4, Eos % (Auto) 3.6, Baso % (Auto) 0.6, Neut # (Auto) 7.7, Lymph # (Auto) 1.1, [place] # (Auto) 0.4, Eos # (Auto) 0.4, Baso # (Auto) 0.1 Assessment and Plan - Assessment and plan all Dx Assessment and Plan for all problems:: May be reasonable to proceed with upper endoscopy at some point.
[2019-04-10 17:23] LABS: Microscopic, Urine URINE MICROSCOPIC (MICROSCOPIC)
[2019-04-10 17:33] LABS: Appearance,Urine CLEAR (Clear); Bilirubin,Urine Negative (Negative); Blood, Urine Negative (Negative); Color,Urine YELLOW (Yellow); Glucose,Urine (UA) Negative (Negative); Ketones,Urine Negative (Negative); Leukocyte Esterase,Urine TRACE (Negative); PH,Urine 7.5 (5.0-8.5); Protein,Urine Negative (Negative); Urobilinogen,Urine 0.2 EU/dl (0.2)
--- NOTE | 2019-04-10 17:44 | Electrocardiograph Report ---
APPROVED REPORT Exam: Resting ECG HR:74 bpm ECG Measurements Heart Rate 74 AXES [place] 230 P 39 QRSd 100 QRS -12 QT 408 T11 QTc 452 <Conclusion> Sinus rhythm with 1st degree AV block Otherwise normal ECG Electronically signed by : Moo Cortez, 04/10/2019 17:44:19
[2019-04-10 18:04] LABS: Bacteria,Urine 2+ /lpf
[2019-04-10 20:50] LABS: Hematocrit 32.4 % (37.0-47.0)
[2019-04-10 21:02] LABS: Hemoglobin 9.7 g/dL (12.2-16.2)
--- NOTE | 2019-04-11 06:48 | Progress Note ---
Subjective Narrative: resting Exam Vital signs and Labs for Last 24 Hours: Temp Pulse Resp BP Pulse Ox 97.9 F 81 15 142/67 H 95 04/11/19 04:00 04/11/19 04:00 04/11/19 04:00 04/11/19 04:00 04/11/19 04:00 Laboratory Results - last 24 hr 04/09/19 12:35: Blood Type O Positive, Antibody Screen Negative, Crossmatch (AHG) See Detail 04/10/19 07:20: WBC 9.7 D, RBC 3.95 L, Hgb 7.9 L*, Hct 27.9 L, MCV 70.6 L, MCH 20.0 L, MCHC 28.3 L, RDW 20.4 H, Plt Count 414, MPV 8.3, Neut % (Auto) 80.2 H, Lymph % (Auto) 11.1, [place] % (Auto) 4.4, Eos % (Auto) 3.6, Baso % (Auto) 0.6, Neut # (Auto) 7.7, Lymph # (Auto) 1.1, [place] # (Auto) 0.4, Eos # (Auto) 0.4, Baso # (Auto) 0.1 04/10/19 14:20: Troponin I < 0.01 04/10/19 15:10: Urine Color Yellow, Urine Appearance Clear, Urine pH 7.5, Ur Specific [place] 1.020, Urine Protein Negative, Urine Glucose (UA) Negative, Urine Ketones Negative, Urine Blood Negative, Urine Nitrate Negative, Urine Bilirubin Negative, Urine Urobilinogen 0.2, Ur Leukocyte Esterase Trace, Urine WBC 5-10, Ur Squamous Epith Cells 10-20, Urine Bacteria 2+ 04/10/19 17:00: Troponin I < 0.01 04/10/19 20:40: Troponin I < 0.01 04/10/19 20:40: Hgb 9.7 L D, Hct 32.4 L I & O for Last 24 hours: Intake & Output 04/08/19 04/09/19 04/10/19 04/11/19 11:59 11:59 11:59 11:59 Intake Total 2598.71 / 2598.71 272.39 / 272.39 Output Total 1100 / 1100 1750 / 1750 Balance 1498.71 / 1498.71 -1477.61 / -1477.61 Weight 190 lb 204 lb 4 oz 203 lb 4 oz - Constitutional no acute distress - *Routine Respiratory Exam Absent: respiratory distress - *Routine Cardiovascular Exam Present: RRR Progress Note: A&P (1) Anemia Status: Acute Assessment and plan: EGD later this AM Current Visit: Yes (2) Hypokalemia Status: Acute Current Visit: Yes (3) Chest pain Status: Acute Current Visit: No
[2019-04-11 08:58] LABS: Basophils % 0.5 % (0.1-2.0); Eosinophils # 0.5 K/mm3 (0.0-0.4); Eosinophils % 5.2 % (0.1-12.0); Hematocrit 32.7 % (37.0-47.0); Hemoglobin 9.7 g/dL (12.2-16.2); Lymphocytes # 1.3 K/mm3 (0.7-4.5); Lymphocytes % 14.2 % (10-50); Mean Corpuscular HGB Conc 29.6 g/dL (31.8-35.4); Mean Platelet Volume 8.6 fl (7.4-10.4); Monocytes # 0.5 K/mm3 (0.1-1.0); Monocytes % 5.9 % (1.7-9.3); Neutrophils # 6.8 K/mm3 (1.8-7.8); Neutrophils % 74.2 % (37.0-80.0); Platelet Count 377 K/mm3 (142-424); Red Blood Count 4.49 M/mm3 (4.20-5.40); Red Cell Distribution Width 21.3 % (11.5-17.5); White Blood Count 9.1 K/mm3 (4.8-10.8)
--- NOTE | 2019-04-11 09:00 | Progress Note ---
Internal Medicine - PN: Subj *Date: 04/11/19 *Time: 08:57 Interval history: Patient laying in bed Exam Vital signs and Labs for Last 24 Hours: Temp Pulse Resp BP Pulse Ox 98.0 F 78 17 137/74 96 04/11/19 07:29 04/11/19 07:29 04/11/19 07:29 04/11/19 07:29 04/11/19 07:29 Laboratory Results - last 24 hr 04/09/19 12:35: Blood Type O Positive, Antibody Screen Negative, Crossmatch (AHG) See Detail 04/10/19 14:20: Troponin I < 0.01 04/10/19 15:10: Urine Color Yellow, Urine Appearance Clear, Urine pH 7.5, Ur Specific [place] 1.020, Urine Protein Negative, Urine Glucose (UA) Negative, Urine Ketones Negative, Urine Blood Negative, Urine Nitrate Negative, Urine Bilirubin Negative, Urine Urobilinogen 0.2, Ur Leukocyte Esterase Trace, Urine WBC 5-10, Ur Squamous Epith Cells 10-20, Urine Bacteria 2+ 04/10/19 17:00: Troponin I < 0.01 04/10/19 20:40: Troponin I < 0.01 04/10/19 20:40: Hgb 9.7 L D, Hct 32.4 L I & O for Last 24 hours: Intake & Output 04/08/19 04/09/19 04/10/19 04/11/19 11:59 11:59 11:59 11:59 Intake Total 2598.71 / 2598.71 272.39 / 272.39 Output Total 1100 / 1100 1750 / 1750 Balance 1498.71 / 1498.71 -1477.61 / -1477.61 Weight 190 lb 204 lb 4 oz 203 lb 4 oz - Constitutional no acute distress, morbidly obese, chronically ill appearing - *Routine HEENT Exam Head: Present: normocephalic Eye: Present: PERRL ENT: Present: mucous membranes moist - *Routine Neck Exam Present: supple. Absent: lymphadenopathy - *Routine Respiratory Exam Present: CTA bilaterally, diminished air movement - *Routine Cardiovascular Exam Present: RRR - *Routine Abdominal Exam Present: soft, normoactive bowel sounds. Absent: tenderness - *Routine Extremities Exam Present: normal capillary refill. Absent: cyanosis, clubbing, edema - *Routine Skin Exam Present: warm. Absent: rash - *Routine Neurological Exam Present: alert, oriented X3 Patient is not mobile she is wheelchair dependent - Routine Psychiatric Exam Present: normal affect Assessment and Plan (1) Anemia Current visit: Yes Status: Acute Category: Medical Code(s): D64.9 - Anemia, unspecified EGD today (2) Hypokalemia Current visit: Yes Status: Acute Category: Medical Code(s): E87.6 - Hypokalemia (3) Chest pain Current visit: No Status: Acute Qualifiers: Chest pain type: other chest pain Qualified Code(s): R07.89 - Other chest pain; R07.8 - Other chest pain Category: Medical Code(s): R07.9 - Chest pain, unspecified (4) Wheelchair bound Current visit: Yes Status: Acute Category: Medical Code(s): Z99.3 - Dependence on wheelchair - Assessment and plan all Dx Assessment and Plan for all problems:: Rounded with Dr. Antoine all orders per Dr. Antoine EGD today Will discharge back to [place] tomorrow
[2019-04-11 09:02] LABS: Anion Gap 10.5 mEq/L (5-15)
[2019-04-11 09:03] LABS: Calcium 8.8 mg/dl (8.4-10.2)
--- NOTE | 2019-04-11 10:20 | Procedure Note ---
- Procedure: Date: 04/11/19 Procedure Performed:: Esophagogastroduodenoscopy with biopsy Indications:: Anemia Gastrointestinal bleed Performing Provider:: George Gallo MD Referring Provider:: Dr. Antoine Sedation:: Monitored anesthesia care Procedure:: After informed consent was obtained the patient was taken to the endoscopy suite. Sedation ensued after the patient was transferred to the left lateral decubitus position. Pulse, blood pressure, and oxygen saturation were monitored throughout the procedure. The endoscope was advanced beyond the duodenal bulb. Retroflexion within the gastric lumen was accomplished. The gastroscope was carefully removed and the patient was transferred to recovery in stable condition. Please see "findings" and "specimens" below for detail. Findings:: Large complex hiatal hernia Streaking proximal gastritis with small linear ulcerations No active bleeding No obvious antral/duodenal bulb ulcerations Scattered calcific changes in duodenum (including calcific inflammatory changes at ampulla) Specimens:: Biopsy of a calcified polyp/lesion in D2/D3 Antral biopsy Gastric cardia/mid gastric body junction biopsy (area of shallow linear ulceration/streaking gastritis) Recommendations:: Ideally, discontinuation of Xarelto would be beneficial as she is likely to have ongoing blood loss secondary to inflammatory changes in proximal stomach secondary to complex sliding hiatal hernia. If ongoing blood loss or recurrent blood loss becomes evident...extended evaluation for possible additional source may be necessary. She is not an ideal candidate for hiatal hernia repair; however, if she is unable to discontinue Xarelto or if she has ongoing blood loss off Xarelto consideration of repair will be ongoing (possible consultation with Dr. Aldo Edmonds at the [facility]). Particularly reasonable to consider hiatal hernia repair if no other source can be identified. Complications:: No immediate Estimated blood obtained (mL): 1
--- NOTE | 2019-04-11 16:05 | Cardiology Report ---
APPROVED REPORT EXAM: Comprehensive 2D, Doppler, and color-flow Echocardiogram Commercial Pest [employer] Technician: Seema Huynh CRT Ht: 5 ft 8 in Wt: 204lbs BSA: 2.06 BP: 142/88 mmHg Indications: Chest Pain, COPD, Diabetes, Hypertension/HDD M-Mode Dimensions RVDd 2.71 cm (0.9-2.6)LVDd 5.28 cm (3.5-5.7) LVDs 3.72 cm (3.5-5.7)IVSd 0.68 cm (0.6-1.1) PWd 0.93 cm (0.6-1.1)EF (Teich) 56.10% FS 29.50% EDV (Teich) 134.20 mL ESV (Teich) 58.90 mL LV Diastology E/A Ratio 1.10 Mitral Valve MV A Velocity 73.00 (40-130 cm/s) Left Ventricle Left atrium is mildly enlarged, left ventricle is normal size, mild concentric left ventricular hypertrophy, visually estimated ejection fraction 55% with no regional wall motion abnormality. Grade 1 diastolic dysfunction seen without tissue Doppler evidence of raise left atrial pressure. Right Ventricle Right atrium and right ventricular mildly enlarged with normal contractility. Aortic Valve Aortic valve is minimally thickened and fibrosed, there is no aortic stenosis or aortic insufficiency. Mitral Valve Mitral valve is grossly normal, there is mild mitral regurgitation. Tricuspid Valve Tricuspid valve is grossly normal, there is mild tricuspid regurgitation, tricuspid regurgitation jet velocity is inadequate for calculation of the right ventricular systolic pressure. Pulmonic Valve Pulmonic valve is poorly visualized. Great Vessels Aortic root is normal size. Pericardium No significant pericardial effusion noted Conclusion 1. Mild biatrial alignment, normal left ventricular size, mild concentric left ventricular hypertrophy, visually estimated ejection fraction 55% with no regional wall motion abnormality, grade 1 diastolic dysfunction seen without tissue Doppler evidence of raise left atrial pressure. 2. The right atrium and right ventricle are mildly enlarged with normal contractility. 3. The aortic valve is minimally thickened and fibrosed. There is no aortic stenosis or aortic insufficiency. 4. Mild mitral and tricuspid regurgitation. 5. No significant pericardial effusion noted. Electronically signed by : Edwin Acevedo, 04/11/2019 16:05:39
--- NOTE | 2019-04-12 08:59 | Discharge Summary ---
General - General Admission date:: 04/09/19 HPI HPI: 68 YOF year-old female who lives in a [facility]. History of schizophrenia. According to nursing staff she had one episode of syncope. Lasted about 1 minute. Patient in the emergency room denies any chest pain or shortness of breath. She is very alert oriented and follows commands. Denies any complaints (Per Dr. Martin). Per [facility]: patient went unresponsive and was not breathing for 2-3 minutes. States she may have had a syncopal episode. Patient is alert and oriented at this time and states that it just hurts to breathe. She went to the floor and rec 2 units PRBC's, H/H this AM 7.9/27.9. She will r ec 2 more units PRBC's today She is C/O mid-sternal CP, denies radiation or SOA. She reports she has had this pain "for sometime, maybe months". 04/09/2019 CXR: IMPRESSION: Hypoinflation with bibasilar lung densities right greater than left. Atelectasis is favored over pneumonitis. Dictated by: Dr. Gonzales 04/09/[address]: IMPRESSION: No acute intracranial finding Dictated by: Christian, Objective Vital signs: Temp Pulse Resp BP Pulse Ox 98.3 F 77 18 127/70 95 04/12/19 07:29 04/12/19 07:29 04/12/19 07:29 04/12/19 07:29 04/12/19 07:29 Results Labs on day of discharge: Labs from last 24 hours 04/11/19 04/11/19 04/10/19 08:40 08:40 15:10 WBC 9.1 RBC 4.49 Hgb 9.7 L Hct 32.7 L MCV 73.0 L MCH 21.6 L MCHC 29.6 L RDW 21.3 H Plt Count 377 MPV 8.6 Neut % (Auto) 74.2 Lymph % (Auto) 14.2 Lyman % (Auto) 5.9 Eos % (Auto) 5.2 Baso % (Auto) 0.5 Neut # (Auto) 6.8 Lymph # (Auto) 1.3 Lyman # (Auto) 0.5 Eos # (Auto) 0.5 H Baso # (Auto) 0.0 Sodium 134 L Potassium 3.5 Chloride 97 L Carbon Dioxide 30 Anion Gap 10.5 BUN 14 Creatinine 1.20 H Estimated Creat Clear 63 Estimated GFR 44 L Est GFR ( Amer) 54 L Glucose 92 Calcium 8.8 Urine Color Yellow Urine Appearance Clear Urine pH 7.5 Ur Specific [place] 1.020 Urine Protein Negative Urine Glucose (UA) Negative Urine Ketones Negative Urine Blood Negative Urine Nitrate Negative Urine Bilirubin Negative Urine Urobilinogen 0.2 Ur Leukocyte Esterase Trace Urine WBC 5-10 Ur Squamous Epith Cells 10-20 Urine Bacteria 2+ Preliminary micro results at discharge 04/09/19 12:35 Blood Culture - Preliminary Blood NO GROWTH AFTER 48 HOURS 04/09/19 12:35 Blood Culture - Preliminary Blood NO GROWTH AFTER 48 HOURS DS: Diagnosis - Discharge Diagnosis (1) Anemia Status: Acute (2) Hypokalemia Status: Acute (3) Chest pain Status: Acute (4) Wheelchair bound Status: Acute (5) Acute blood loss anemia Status: Acute (6) BMI 30.0-30.9,adult Status: Acute (7) Acute upper GI bleeding Status: Acute (8) Schizo affective schizophrenia Status: Acute (9) Hiatal hernia Status: Acute (10) Gastritis and gastroduodenitis with hemorrhage Status: Acute Discharge Plan - Patient Discharge Instructions Patient Instructions: DI for Syncope in Adults (Fainting), Anemia, DI for Hypokalemia - Follow up Plan Follow up with: Jose Antoine MD [Primary Care Provider] - Home Medications: Home Medications Medication Instructions Recorded Confirmed Type bethanechol chloride 25 mg tablet 25 mg PO TID 03/14/17 04/09/19 History dicyclomine 20 mg tablet 20 mg PO DAILY 03/14/17 04/09/19 History glipizide 5 mg tablet 5 mg PO DAILY 03/14/17 04/09/19 History montelukast 10 mg tablet 10 mg PO HS 03/14/17 04/09/19 History pravastatin 20 mg tablet 20 mg PO HS 03/14/17 04/09/19 History sennosides 8.6 mg-docusate sodium 2 tab PO BID 03/24/17 04/09/19 History 50 mg tablet potassium chloride 20 mEq 20 meq PO DAILY tab 07/11/17 04/09/19 History tablet,extended release(part/cryst) Levocetirizine Dihydrochloride 5 mg PO DAILY 10/02/18 04/09/19 History Acetaminophen [Non-Aspirin Extra 500 mg PO Q4HP PRN 04/09/19 04/09/19 History Strength] Bisacodyl [Dulcolax 10mg Supp] 10 mg RC DAILYP PRN 04/09/19 04/09/19 History Bisoprolol Fumarate [Bisoprolol 5 mg PO DAILY 04/09/19 04/09/19 History 5mg Tablet] Guaifenesin/Dextromethorphan 10 ml PO Q4HP PRN 04/09/19 04/09/19 History [Robafen-Dm Syrup] Lactulose [Lactulose 10gm/15ml 30 ml PO DAILYP PRN 04/09/19 04/09/19 History Oral Soln] Mag Carb/Aluminum Hydrox/Algin 30 ml PO QIDP PRN 04/09/19 04/09/19 History [Gaviscon Extra Strength Liquid] OLANZapine [Olanzapine] 10 mg PO BID 04/09/19 04/09/19 History OXcarbazepine [Trileptal] 600 mg PO BID 04/09/19 04/09/19 History Propylene Glycol [Systane Balance] 2 drops OU TIDP PRN 04/09/19 04/09/19 History Rivaroxaban [Xarelto 20mg Tablet*] 20 mg PO DAILY 04/09/19 04/09/19 History Ropinirole HCl [Requip 1mg Tablet] 1 mg PO HS 04/09/19 04/09/19 History Simethicone [Gas Relief 80] 80 mg PO TIDP PRN 04/09/19 04/09/19 History Triamterene/Hydrochlorothiazid 1 each PO DAILY 04/09/19 04/09/19 History [Dyazide 37.5-25 Capsule] Venlafaxine HCl 50 mg PO TID 04/09/19 04/09/19 History allopurinoL [Allopurinol 300mg 300 mg PO DAILY 04/09/19 04/09/19 History tablet] amantadine HCL [Symmetrel 100mg 100 mg PO DAILY 04/09/19 04/09/19 History capsule] polyethylene glycoL 3350 17 g PO DAILYP PRN 04/09/19 04/09/19 History [Polyethylene Glycol 3350] risperiDONE [Risperdal 1mg Tablet] 1 mg PO BID 04/09/19 04/09/19 History Prescriptions/Medication Reconciliation: No Action bethanechol chloride 25 mg tablet 25 mg PO TID dicyclomine 20 mg tablet 20 mg PO DAILY glipizide 5 mg tablet 5 mg PO DAILY montelukast 10 mg tablet 10 mg PO HS sennosides 8.6 mg-docusate sodium 50 mg tablet 2 tab PO BID potassium chloride 20 mEq tablet,extended release(part/cryst) 20 meq PO DAILY tab pravastatin 20 mg tablet 20 mg PO HS Rivaroxaban [Xarelto 20mg Tablet*] 20 mg PO DAILY Bisoprolol Fumarate [Bisoprolol 5mg Tablet] 5 mg PO DAILY OLANZapine [Olanzapine] 10 mg PO BID Ropinirole HCl [Requip 1mg Tablet] 1 mg PO HS Venlafaxine HCl 50 mg PO TID Mag Carb/Aluminum Hydrox/Algin [Gaviscon Extra Strength Liquid] 30 ml PO QIDP PRN PRN Reason: stomach upset Simethicone [Gas Relief 80] 80 mg PO TIDP PRN PRN Reason: Gas Pain And Discomfort polyethylene glycoL 3350 [Polyethylene Glycol 3350] 17 g PO DAILYP PRN PRN Reason: Constipation Lactulose [Lactulose 10gm/15ml Oral Soln] 30 ml PO DAILYP PRN PRN Reason: constipation Acetaminophen [Non-Aspirin Extra Strength] 500 mg PO Q4HP PRN PRN Reason: pain Triamterene/Hydrochlorothiazid [Dyazide 37.5-25 Capsule] 1 each PO DAILY Levocetirizine Dihydrochloride 5 mg PO DAILY allopurinoL [Allopurinol 300mg tablet] 300 mg PO DAILY amantadine HCL [Symmetrel 100mg capsule] 100 mg PO DAILY Propylene Glycol [Systane Balance] 2 drops OU TIDP PRN PRN Reason: Eye Irritation OXcarbazepine [Trileptal] 600 mg PO BID risperiDONE [Risperdal 1mg Tablet] 1 mg PO BID Guaifenesin/Dextromethorphan [Robafen-Dm Syrup] 10 ml PO Q4HP PRN PRN Reason: Cough Bisacodyl [Dulcolax 10mg Supp] 10 mg RC DAILYP PRN PRN Reason: Constipation - Problem Reconciliation Problems Reviewed?: Yes
--- NOTE | 2019-04-12 09:34 | Consult Report ---
History of Present Illness Consult date: 04/12/19 Requesting physician: Jose Antoine Chief complaint: syncope, history of a/c for DVT, now with severe anemia Additional Medical History:: 1. Schizophrenia 2. HTN A. Echo, 03/2019, 1. Mild biatrial alignment, normal left ventricular size, mild concentric left ventricular hypertrophy, visually estimated ejection fraction 55% with no regional wall motion abnormality, grade 1 diastolic dysfunction seen without tissue Doppler evidence of raise left atrial pressure. 2. The right atrium and right ventricle are mildly enlarged with normal contractility. 3. The aortic valve is minimally thickened and fibrosed. There is no aortic stenosis or aortic insufficiency. 4. Mild mitral and tricuspid regurgitation. 5. No significant pericardial effusion noted 3. Limited mobility with history of extrapyramidal movement disorder 4. History of DVT, 11/2018 A. Xarelto therapy stopped 03/2019 due to severe anemia with Hgb of 5.9 5. marked anemia with heme positive stool, 03/2019, requiring transfusion of 4 units PRBC A. EGD, 03/2019, Large complex hiatal hernia Streaking proximal gastritis with small linear ulcerations No active bleeding No obvious antral/duodenal bulb ulcerations Scattered calcific changes in duodenum (including calcific inflammatory changes at ampulla) 6. History of anxiety/depression 7. Diabetes mellitus type 2 8. History of migraine headaches 9. History of chronic kidney disease, stage II, creatinine 1.08-1.2, GFR 44-50 History of present illness: 68 YOF year-old female who lives in a correction. History of schizophrenia. According to nursing staff she had one episode of syncope. Lasted about 1 minute. Patient in the emergency room denies any chest pain or shortness of breath. She is very alert oriented and follows commands. Denies any complaints (Per Dr. Martin). Per correction: patient went unresponsive and was not breathing for 2-3 minutes. States she may have had a syncopal episode. Patient is alert and oriented at this time and states that it just hurts to breathe. She went to the floor and rec 2 units PRBC's, H/H this AM 7.9/27.9. She will rec 2 more units PRBC's today She is C/O mid-sternal CP, denies radiation or SOA. She reports she has had this pain "for sometime, maybe months". The above per Bobby Resendiz APRN for Dr. Antoine Patient is a poor historian and most information is obtained from the chart. SOA has improved since transfusion of 4 units of blood. EGD showed sliding hiatal hernia with some gastritis but no active bleeding. Non-surgical treatment recommended. Currently denies any chest pain but does relate occasional shortness of breath. EKG is sinus with first degree AV block. Troponins normal X 3. She does confirm that she has little ambulatory movement and mostly stays in the bed or in a wheelchair. Review of records shows diagnosis of DVT sometime in November 2018 at which time she was placed on Xarelto therapy. Doppler ultrasound of both lower extremities today shows no evidence of acute or chronic DVT. [facility] History Medical History: Reports:: Anxiety, Asthma, Depression, Diabetes Mellitus Type 2, Hyperlipidemia, Hypertension, Lung Disease, Migraine, Renal Disease Denies:: Diabetes Mellitus Type 1, Internal Pacemaker, Seizures *Have you ever received a pneumonia vaccine?: No (unsure) *Have you received a flu vaccine this season?: No (unsure) Other Medical History: Reports: Other. Denies: Blood Transfusion Reaction Other Surgeries: Yes: Colonoscopy, Other. No: Pacemaker Amputation: No Fractures: No - *Social History Educational Level: Completed High School Smoking Status: Never smoker Alcohol Intake: never Alcohol Intake Frequency:: other Substance Use Type: denies use *Occupational Status:: disabled Housing: house *Travel in the last 8 weeks: None - Psychiatric History Pschychiatric History:: Reports:: Anxiety, Depression Family Hx:: Unable to obtain Meds Home Medications Medication Instructions Recorded Confirmed Type bethanechol chloride 25 mg tablet 25 mg PO TID 03/14/17 04/09/19 History dicyclomine 20 mg tablet 20 mg PO DAILY 03/14/17 04/09/19 History glipizide 5 mg tablet 5 mg PO DAILY 03/14/17 04/09/19 History montelukast 10 mg tablet 10 mg PO HS 03/14/17 04/09/19 History pravastatin 20 mg tablet 20 mg PO HS 03/14/17 04/09/19 History sennosides 8.6 mg-docusate sodium 2 tab PO BID 03/24/17 04/09/19 History 50 mg tablet potassium chloride 20 mEq 20 meq PO DAILY tab 07/11/17 04/09/19 History tablet,extended release(part/cryst) Levocetirizine Dihydrochloride 5 mg PO DAILY 10/02/18 04/09/19 History Acetaminophen [Non-Aspirin Extra 500 mg PO Q4HP PRN 04/09/19 04/09/19 History Strength] Bisacodyl [Dulcolax 10mg Supp] 10 mg RC DAILYP PRN 04/09/19 04/09/19 History Bisoprolol Fumarate [Bisoprolol 5 mg PO DAILY 04/09/19 04/09/19 History 5mg Tablet] Guaifenesin/Dextromethorphan 10 ml PO Q4HP PRN 04/09/19 04/09/19 History [Robafen-Dm Syrup] Lactulose [Lactulose 10gm/15ml 30 ml PO DAILYP PRN 04/09/19 04/09/19 History Oral Soln] Mag Carb/Aluminum Hydrox/Algin 30 ml PO QIDP PRN 04/09/19 04/09/19 History [Gaviscon Extra Strength Liquid] OLANZapine [Olanzapine] 10 mg PO BID 04/09/19 04/09/19 History OXcarbazepine [Trileptal] 600 mg PO BID 04/09/19 04/09/19 History Propylene Glycol [Systane Balance] 2 drops OU TIDP PRN 04/09/19 04/09/19 History Rivaroxaban [Xarelto 20mg Tablet*] 20 mg PO DAILY 04/09/19 04/09/19 History Ropinirole HCl [Requip 1mg Tablet] 1 mg PO HS 04/09/19 04/09/19 History Simethicone [Gas Relief 80] 80 mg PO TIDP PRN 04/09/19 04/09/19 History Triamterene/Hydrochlorothiazid 1 each PO DAILY 04/09/19 04/09/19 History [Dyazide 37.5-25 Capsule] Venlafaxine HCl 50 mg PO TID 04/09/19 04/09/19 History allopurinoL [Allopurinol 300mg 300 mg PO DAILY 04/09/19 04/09/19 History tablet] amantadine HCL [Symmetrel 100mg 100 mg PO DAILY 04/09/19 04/09/19 History capsule] polyethylene glycoL 3350 17 g PO DAILYP PRN 04/09/19 04/09/19 History [Polyethylene Glycol 3350] risperiDONE [Risperdal 1mg Tablet] 1 mg PO BID 04/09/19 04/09/19 History Allergies Allergy/AdvReac Type Severity Reaction Status Date / Time Antihistamines - Alkylamine Allergy Unknown Verified 03/26/19 18:17 [ANTIHISTAMINES - ALKYLAMINE] aspirin [ASPIRIN] Allergy Unknown Verified 03/26/19 18:17 loratadine [LORATADINE] Allergy Unknown Verified 03/26/19 18:17 sertraline [SERTRALINE] Allergy Unknown Verified 03/26/19 18:17 Review of Systems - Review of Systems Review of systems:: pertinent systems reviewed and negative unless documented below - *Cardiovascular Reports shortness of breath with activity, Denies chest pain - *Respiratory Reports shortness of breath with activity - *Gastrointestinal Denies nausea, Denies vomiting - *Genitourinary Denies blood in urine - *Musculoskeletal Reports back pain, Reports muscle cramps - *Neurologic Reports dizziness Exam Vital signs and Labs for Last 24 Hours: Temp Pulse Resp BP Pulse Ox 98.3 F 77 18 127/70 95 04/12/19 07:29 04/12/19 07:29 04/12/19 07:29 04/12/19 07:29 04/12/19 07:29 Laboratory Results - last 24 hr 04/10/19 15:10: Urine Color Yellow, Urine Appearance Clear, Urine pH 7.5, Ur Specific [place] 1.020, Urine Protein Negative, Urine Glucose (UA) Negative, Ur ine Ketones Negative, Urine Blood Negative, Urine Nitrate Negative, Urine Bilirubin Negative, Urine Urobilinogen 0.2, Ur Leukocyte Esterase Trace, Urine WBC 5-10, Ur Squamous Epith Cells 10-20, Urine Bacteria 2+ I & O for Last 24 hours: Intake & Output 04/09/19 04/10/19 04/11/19 04/12/19 11:59 11:59 11:59 11:59 Intake Total 2598.71 / 2598.71 272.39 / 272.39 2226 / 2226 Output Total 1100 / 1100 1750 / 1750 1151 / 1151 Balance 1498.71 / 1498.71 -1477.61 / -1477.61 1075 / 1075 Weight 190 lb 204 lb 4 oz 203 lb 4 oz 202 lb Microbiology Reports for the Last 24 Hours: Microbiology 04/10/19 15:10 Urine,Clean Catch Urine Culture - Final Escherichia coli 04/09/19 12:35 Blood Blood Culture - Preliminary NO GROWTH AFTER 48 HOURS 04/09/19 12:35 Blood Blood Culture - Preliminary NO GROWTH AFTER 48 HOURS - *Routine HEENT Exam Head: Present: normocephalic Eye: Present: EOMI, PERRL ENT: Present: mucous membranes moist - *Routine Neck Exam Present: supple. Absent: JVD, carotid bruit - *Routine Respiratory Exam Present: CTA bilaterally, diminished air movement. Absent: accessory muscle use, rales, rhonchi, wheezes - *Routine Cardiovascular Exam Present: RRR, murmur. Absent: gallop, rubs - *Routine Abdominal Exam Present: soft. Absent: tenderness, distended, guarding - *Routine Extremities Exam Absent: edema, calf tenderness - *Routine Neurological Exam Present: alert, oriented X3, moving all extremities Assessment and Plan (1) Anemia Current visit: Yes Status: Acute Category: Medical Code(s): D64.9 - Anemia, unspecified (2) Hypokalemia Current visit: Yes Status: Acute Category: Medical Code(s): E87.6 - Hypokalemia (3) Chest pain Current visit: No Status: Acute Qualifiers: Chest pain type: other chest pain Qualified Code(s): R07.89 - Other chest pain; R07.8 - Other chest pain Category: Medical Code(s): R07.9 - Chest pain, unspecified (4) Wheelchair bound Current visit: Yes Status: Acute Category: Medical Code(s): Z99.3 - Dependence on wheelchair (5) Acute blood loss anemia Current visit: Yes Status: Acute Category: Medical Code(s): D62 - Acute posthemorrhagic anemia (6) BMI 30.0-30.9,adult Current visit: Yes Status: Acute Category: Medical Code(s): Z68.30 - Body mass index (BMI) 30.0-30.9, adult (7) Acute upper GI bleeding Current visit: Yes Status: Acute Category: Medical Code(s): K92.2 - Gastrointestinal hemorrhage, unspecified (8) Schizo affective schizophrenia Current visit: Yes Status: Acute Category: Medical Code(s): F25.9 - Schizoaffective disorder, unspecified (9) Hiatal hernia Current visit: Yes Status: Acute Category: Medical Code(s): K44.9 - Diaphragmatic hernia without obstruction or gangrene (10) Gastritis and gastroduodenitis with hemorrhage Current visit: Yes Status: Acute Category: Medical Code(s): K29.71 - Gastritis, unspecified, with bleeding; K29.91 - Gastroduodenitis, unspecified, with bleeding - Assessment and plan all Dx Assessment and Plan for all problems:: 1. Bilateral lower extremity venous Doppler today shows no evidence of acute or chronic DVT. Recommend discontinuing Xarelto therapy. Would not recommend IVC filter at this time, however, because of her limited mobility she would benefit from mechanical prophylaxis for DVT (support stockings and use of intermittent pneumatic Lower extremity compression devices like those used to treat lymphedema by the company [employer]). 2. Continue current meds including bisoprolol, maxzide and statin therapy for HTN and HLD. 3. No anticoagulation at this time. 4. Recommend getting CT of chest to look for PE due to history of DVT and complaint of SOA.
--- NOTE | 2019-04-12 10:35 | Cardiology Report ---
APPROVED REPORT Bilateral Lower Extremity Venous Study for DVT. Patient Biller: JOSE Indications hx dvt RLE 11/2018. Patient has been taking Xarelto since. Patient has been treated for GI bleed this hospital stay. Risk Factors Prior Phlebitis/DVT Immobility Obesity Past History DVT : Date : 11/2018 Vein Imaging CFV (R): compressive, spontaneous, phasic, augmentation FEM (R): compressive, spontaneous, phasic, augmentation POP (R): compressive, spontaneous, phasic, augmentation PTV (R): Compressible GSV (R): Compressible SSV (R): Compressible Peroneals (R):Compressible GAS (R): Compressible CFV (L): compressive, spontaneous, phasic, augmentation FEM (L): compressive, spontaneous, phasic, augmentation POP (L): compressive, spontaneous, phasic, augmentation PTV (L): Compressible GSV (L): compressive, spontaneous, phasic, augmentation SSV (L): Compressible Peroneals (L):Compressible GAS (L): Compressible Findings No evidence of DVT or superficial thrombophlebitis in the veins scanned of the right lower extremity. No evidence of DVT or superficial thrombophlebitis in the veins scanned of the left lower extremity. Conclusion No evidence of DVT or superficial thrombophlebitis in the veins scanned of the right lower extremity. No evidence of DVT or superficial thrombophlebitis in the veins scanned of the left lower extremity. Electronically signed by : Jimmy Gonzales, 04/12/2019 10:34:37
--- NOTE | 2019-04-12 13:08 | Consult Report ---
*Admission Date: 04/09/19 *History of present illness: Patient is a 68-year-old female correction resident with cognitive deficit, re ported schizophrenia, extrapyramidal movement disorder, diabetes, anxiety, depression, chronic renal insufficiency. pt is not available at time so history was gathered from chart. she was found to be anemic with a hemoglobin of 5.9 and was found to have Hemoccult positive stool. She was admitted and transfused 2 units packed red blood cells and then 2 additional units packed red blood cells. pt had egd showing inflammation in proximal stomach. 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 pt is wheelchair bound per chart. since admission xarelto has been stopped. she is to have ct pe protocol this afternoon. I do not know if the dvt in november was the first clot or the surr ounding circumstances. [facility] History Medical History: Reports:: Anxiety, Asthma, Depression, Diabetes Mellitus Type 2, Hyperlipidemia, Hypertension, Lung Disease, Migraine, Renal Disease Denies:: Diabetes Mellitus Type 1, Internal Pacemaker, Seizures *Have you ever received a pneumonia vaccine?: No (unsure) *Have you received a flu vaccine this season?: No (unsure) Other Medical History: Reports: Other. Denies: Blood Transfusion Reaction Other Surgeries: Yes: Colonoscopy, Other. No: Pacemaker Amputation: No Fractures: No - *Social History Educational Level: Completed High School Smoking Status: Never smoker Alcohol Intake: never Alcohol Intake Frequency:: other Substance Use Type: denies use *Occupational Status:: disabled Housing: house *Travel in the last 8 weeks: None - Psychiatric History Pschychiatric History:: Reports:: Anxiety, Depression Family Hx:: Unable to obtain Review of Systems - *Neurologic Reports dizziness Meds Home Medications Medication Instructions Recorded Confirmed Type bethanechol chloride 25 mg tablet 25 mg PO TID 03/14/17 04/09/19 History dicyclomine 20 mg tablet 20 mg PO DAILY 03/14/17 04/09/19 History glipizide 5 mg tablet 5 mg PO DAILY 03/14/17 04/09/19 History montelukast 10 mg tablet 10 mg PO HS 03/14/17 04/09/19 History pravastatin 20 mg tablet 20 mg PO HS 03/14/17 04/09/19 History sennosides 8.6 mg-docusate sodium 2 tab PO BID 03/24/17 04/09/19 History 50 mg tablet potassium chloride 20 mEq 20 meq PO DAILY tab 07/11/17 04/09/19 History tablet,extended release(part/cryst) Levocetirizine Dihydrochloride 5 mg PO DAILY 10/02/18 04/09/19 History Acetaminophen [Non-Aspirin Extra 500 mg PO Q4HP PRN 04/09/19 04/09/19 History Strength] Bisacodyl [Dulcolax 10mg Supp] 10 mg RC DAILYP PRN 04/09/19 04/09/19 History Bisoprolol Fumarate [Bisoprolol 5 mg PO DAILY 04/09/19 04/09/19 History 5mg Tablet] Guaifenesin/Dextromethorphan 10 ml PO Q4HP PRN 04/09/19 04/09/19 History [Robafen-Dm Syrup] Lactulose [Lactulose 10gm/15ml 30 ml PO DAILYP PRN 04/09/19 04/09/19 History Oral Soln] Mag Carb/Aluminum Hydrox/Algin 30 ml PO QIDP PRN 04/09/19 04/09/19 History [Gaviscon Extra Strength Liquid] OLANZapine [Olanzapine] 10 mg PO BID 04/09/19 04/09/19 History OXcarbazepine [Trileptal] 600 mg PO BID 04/09/19 04/09/19 History Propylene Glycol [Systane Balance] 2 drops OU TIDP PRN 04/09/19 04/09/19 History Rivaroxaban [Xarelto 20mg Tablet*] 20 mg PO DAILY 04/09/19 04/09/19 History Ropinirole HCl [Requip 1mg Tablet] 1 mg PO HS 04/09/19 04/09/19 History Simethicone [Gas Relief 80] 80 mg PO TIDP PRN 04/09/19 04/09/19 History Triamterene/Hydrochlorothiazid 1 each PO DAILY 04/09/19 04/09/19 History [Dyazide 37.5-25 Capsule] Venlafaxine HCl 50 mg PO TID 04/09/19 04/09/19 History allopurinoL [Allopurinol 300mg 300 mg PO DAILY 04/09/19 04/09/19 History tablet] amantadine HCL [Symmetrel 100mg 100 mg PO DAILY 04/09/19 04/09/19 History capsule] polyethylene glycoL 3350 17 g PO DAILYP PRN 04/09/19 04/09/19 History [Polyethylene Glycol 3350] risperiDONE [Risperdal 1mg Tablet] 1 mg PO BID 04/09/19 04/09/19 History Allergies Allergy/AdvReac Type Severity Reaction Status Date / Time Antihistamines - Alkylamine Allergy Unknown Verified 03/26/19 18:17 [ANTIHISTAMINES - ALKYLAMINE] aspirin [ASPIRIN] Allergy Unknown Verified 03/26/19 18:17 loratadine [LORATADINE] Allergy Unknown Verified 03/26/19 18:17 sertraline [SERTRALINE] Allergy Unknown Verified 03/26/19 18:17 Exam Vital signs and Labs for Last 24 Hours: Temp Pulse Resp BP Pulse Ox 98.3 F 77 18 127/70 95 04/12/19 07:29 04/12/19 07:29 04/12/19 07:29 04/12/19 07:29 04/12/19 08:00 I & O for Last 24 hours: Intake & Output 04/10/19 04/11/19 04/12/19 04/13/19 11:59 11:59 11:59 11:59 Intake Total 2598.71 / 2598.71 272.39 / 272.39 2226 / 2226 Output Total 1100 / 1100 1750 / 1750 1151 / 1151 Balance 1498.71 / 1498.71 -1477.61 / -1477.61 1075 / 1075 Weight 204 lb 4 oz 203 lb 4 oz 202 lb Microbiology Reports for the Last 24 Hours: Microbiology 04/10/19 15:10 Urine,Clean Catch Urine Culture - Final Escherichia coli 04/09/19 12:35 Blood Blood Culture - Preliminary NO GROWTH AFTER 48 HOURS 04/09/19 12:35 Blood Blood Culture - Preliminary NO GROWTH AFTER 48 HOURS Narrative: exam not done- pt not available - *Routine HEENT Exam Head: Present: normocephalic Eye: Present: EOMI, PERRL ENT: Present: mucous membranes moist - *Routine Neck Exam Present: supple. Absent: lymphadenopathy - *Routine Respiratory Exam Present: CTA bilaterally - *Routine Cardiovascular Exam Present: RRR - *Routine Abdominal Exam Present: soft, normoactive bowel sounds. Absent: tenderness - *Routine Extremities Exam Absent: cyanosis, clubbing, edema - *Routine Skin Exam Present: warm. Absent: rash - *Routine Neurological Exam Present: alert, oriented X3 - Detailed Eye Exam Eyelids: Left normal inspection Internal Medicine - CN: Reslt - Labs CBC & Chem 7: 04/11/19 08:40 04/11/19 08:40 - ABG Interpretation ABG results: 04/09/19 16:14 ABG pH 7.40 ABG pCO2 39.6 ABG pO2 82.3 ABG HCO3 24.0 ABG Total CO2 25.3 ABG O2 Saturation 95 ABG Base Excess -0.7 Assessment and Plan (1) Anemia Current visit: Yes Status: Acute Category: Medical Code(s): D64.9 - Anemia, unspecified (2) Hypokalemia Current visit: Yes Status: Acute Category: Medical Code(s): E87.6 - Hypokalemia (3) Chest pain Current visit: No Status: Acute Qualifiers: Chest pain type: other chest pain Qualified Code(s): R07.89 - Other chest pain; R07.8 - Other chest pain Category: Medical Code(s): R07.9 - Chest pain, unspecified (4) Wheelchair bound Current visit: Yes Status: Acute Category: Medical Code(s): Z99.3 - Dependence on wheelchair (5) Acute blood loss anemia Current visit: Yes Status: Acute Category: Medical Code(s): D62 - Acute posthemorrhagic anemia (6) BMI 30.0-30.9,adult Current visit: Yes Status: Acute Category: Medical Code(s): Z68.30 - Body mass index (BMI) 30.0-30.9, adult (7) Acute upper GI bleeding Current visit: Yes Status: Acute Category: Medical Code(s): K92.2 - Gastrointestinal hemorrhage, unspecified (8) Schizo affective schizophrenia Current visit: Yes Status: Acute Category: Medical Code(s): F25.9 - Schizoaffective disorder, unspecified (9) Hiatal hernia Current visit: Yes Status: Acute Category: Medical Code(s): K44.9 - Diaphragmatic hernia without obstruction or gangrene (10) Gastritis and gastroduodenitis with hemorrhage Current visit: Yes Status: Acute Category: Medical Code(s): K29.71 - Gastritis, unspecified, with bleeding; K29.91 - Gastroduodenitis, unspecified, with bleeding - Assessment and plan all Dx Assessment and Plan for all problems:: blood loss anemia- on xarelto for h/o dvt in november 2018. now stopped. agree with stopping anticoagulation. recent doppler of lower ext is negative for dvt. pe protocol is pending. since no current lower ext clot do not recommend ivc filter based on the infomration available. if there is a h/o recurrent dvt then she would benefit from filter. recommend compression stockings due to immoblility. anemia- check iron studies in a week. iron levels likely inaccurate now due to recent transfusiosns. may need iron replacement.
--- NOTE | 2019-04-12 14:55 | Discharge Summary ---
General - General Admission date:: 04/09/19 Discharge date: 04/12/19 HPI HPI: 68 YOF year-old female who lives in a group home. History of schizophrenia. According to nursing staff she had one episode of syncope. Lasted about 1 minute. Patient in the emergency room denies any chest pain or shortness of breath. She is very alert oriented and follows commands. Denies any complaints (Per Dr. Martin). Per group home: patient went unresponsive and was not breathing for 2-3 minutes. States she may have had a syncopal episode. Patient is alert and oriented at this time and states that it just hurts to breathe. She went to the floor and rec 2 units PRBC's, H/H this AM 7.9/27.9. She will rec 2 more units PRBC's today She is C/O mid-sternal CP, denies radiation or SOA. She reports she has had this pain "for sometime, maybe months". 04/09/2019 CXR: IMPRESSION: Hypoinflation with bibasilar lung densities right greater than left. Atelectasis is favored over pneumonitis. Dictated by: Dr. Gonzales 04/09/[address]: IMPRESSION: No acute intracranial finding Dictated by: Christian, Hospital Course Hospital Course: Laboratory Results - last 48 hr 04/09/19 04/10/19 04/10/19 12:35 14:20 15:10 WBC RBC Hgb Hct MCV MCH MCHC RDW Plt Count MPV Neut % (Auto) Lymph % (Auto) Fergus % (Auto) Eos % (Auto) Baso % (Auto) Neut # (Auto) Lymph # (Auto) Fergus # (Auto) Eos # (Auto) Baso # (Auto) Sodium Potassium Chloride Carbon Dioxide Anion Gap BUN Creatinine Estimated Creat Clear Estimated GFR Est GFR ( Amer) Glucose Calcium Troponin I < 0.01 Urine Color Yellow Urine Appearance Clear Urine pH 7.5 Ur Specific [place] 1.020 Urine Protein Negative Urine Glucose (UA) Negative Urine Ketones Negative Urine Blood Negative Urine Nitrate Negative Urine Bilirubin Negative Urine Urobilinogen 0.2 Ur Leukocyte Esterase Trace Urine WBC 5-10 Ur Squamous Epith Cells 10-20 Urine Bacteria 2+ Blood Type O Positive Antibody Screen Negative Crossmatch ([facility]) See Detail 04/10/19 04/10/19 04/10/19 17:00 20:40 20:40 WBC RBC Hgb 9.7 L D Hct 32.4 L MCV MCH MCHC RDW Plt Count MPV Neut % (Auto) Lymph % (Auto) Fergus % (Auto) Eos % (Auto) Baso % (Auto) Neut # (Auto) Lymph # (Auto) Fergus # (Auto) Eos # (Auto) Baso # (Auto) Sodium Potassium Chloride Carbon Dioxide Anion Gap BUN Creatinine Estimated Creat Clear Estimated GFR Est GFR ( Amer) Glucose Calcium Troponin I < 0.01 < 0.01 Urine Color Urine Appearance Urine pH Ur Specific [place] Urine Protein Urine Glucose (UA) Urine Ketones Urine Blood Urine Nitrate Urine Bilirubin Urine Urobilinogen Ur Leukocyte Esterase Urine WBC Ur Squamous Epith Cells Urine Bacteria Blood Type Antibody Screen Crossmatch ([facility]) 04/11/19 04/11/19 08:40 08:40 WBC 9.1 RBC 4.49 Hgb 9.7 L Hct 32.7 L MCV 73.0 L MCH 21.6 L MCHC 29.6 L RDW 21.3 H Plt Count 377 MPV 8.6 Neut % (Auto) 74.2 Lymph % (Auto) 14.2 Fergus % (Auto) 5.9 Eos % (Auto) 5.2 Baso % (Auto) 0.5 Neut # (Auto) 6.8 Lymph # (Auto) 1.3 Fergus # (Auto) 0.5 Eos # (Auto) 0.5 H Baso # (Auto) 0.0 Sodium 134 L Potassium 3.5 Chloride 97 L Carbon Dioxide 30 Anion Gap 10.5 BUN 14 Creatinine 1.20 H Estimated Creat Clear 63 Estimated GFR 44 L Est GFR ( Amer) 54 L Glucose 92 Calcium 8.8 Troponin I Urine Color Urine Appearance Urine pH Ur Specific [place] Urine Protein Urine Glucose (UA) Urine Ketones Urine Blood Urine Nitrate Urine Bilirubin Urine Urobilinogen Ur Leukocyte Esterase Urine WBC Ur Squamous Epith Cells Urine Bacteria Blood Type Antibody Screen Crossmatch ([facility]) ct abd/pelvis:IMPRESSION: Appearance of wall thickening of hepatic flexure. Differential possibilities are described. Annular constricting lesion including neoplasm or colitis could give this appearance. Spasm is a possibility. Bibasilar infiltrates and/or atelectasis with pleural effusions. Large hiatal hernia. venous doppler:Conclusion No evidence of DVT or superficial thrombophlebitis in the veins scanned of the right lower extremity. No evidence of DVT or superficial thrombophlebitis in the veins scanned of the left lower extremity. echo:Conclusion 1. Mild biatrial alignment, normal left ventricular size, mild concentric left ventricular hypertrophy, visually estimated ejection fraction 55% with no regional wall motion abnormality, grade 1 diastolic dysfunction seen without tissue Doppler evidence of raise left atrial pressure. 2. The right atrium and right ventricle are mildly enlarged with normal contractility. 3. The aortic valve is minimally thickened and fibrosed. There is no aortic stenosis or aortic insufficiency. 4. Mild mitral and tricuspid regurgitation. 5. No significant pericardial effusion noted. chest x ray: IMPRESSION: Hypoinflation with bibasilar lung densities right greater than left. Atelectasis is favored over pneumonitis. head ct:neg 2 units prbc surgery consult- see note- egd- see report dr gorman consult_see note dr trevizo see note will dc back to [facility] no blood thinners, will need colonoscopy as a outpt. out of bed daily Objective Vital signs: Temp Pulse Resp BP Pulse Ox 98.3 F 77 18 127/70 95 04/12/19 07:29 04/12/19 07:29 04/12/19 07:29 04/12/19 07:29 04/12/19 08:00 no acute distress, chronically ill appearing - *Routine HEENT Exam Head: Present: normocephalic Eye: Present: PERRL ENT: Present: mucous membranes moist - *Routine Neck Exam Present: supple - *Routine Respiratory Exam Present: CTA bilaterally - *Routine Cardiovascular Exam Present: RRR - *Routine Abdominal Exam Present: soft, normoactive bowel sounds. Absent: tenderness - *Routine Extremities Exam Present: normal capillary refill. Absent: cyanosis, clubbing, edema Comments: pt is not ambulatory - *Routine Skin Exam Present: warm. Absent: rash - *Routine Neurological Exam Present: alert, oriented X3 - Routine Psychiatric Exam Present: normal affect Results Labs on day of discharge: Preliminary micro results at discharge 04/09/19 12:35 Blood Culture - Preliminary Blood NO GROWTH AFTER 48 HOURS 04/09/19 12:35 Blood Culture - Preliminary Blood NO GROWTH AFTER 48 HOURS - Additional Comments rounded with dr douglas all orders per dr douglas DS: Diagnosis - Discharge Diagnosis (1) Anemia Status: Acute (2) Hypokalemia Status: Acute (3) Chest pain Status: Acute (4) Wheelchair bound Status: Acute (5) Acute blood loss anemia Status: Acute (6) BMI 30.0-30.9,adult Status: Acute (7) Acute upper GI bleeding Status: Acute (8) Schizo affective schizophrenia Status: Acute (9) Hiatal hernia Status: Acute (10) Gastritis and gastroduodenitis with hemorrhage Status: Acute (11) Abnormal abdominal CT scan Status: Acute Discharge Plan - Patient Discharge Instructions ACTIVITY: Continue current activity DIET: continue same diet Patient Instructions: DI for Syncope in Adults (Fainting), Anemia, DI for Hypokalemia - Follow up Plan Follow up with: Jose Douglas MD [Primary Care Provider] - George Gallo MD [Staff Physician] - 2 weeks Disposition: [facility] Home Medications: Home Medications Medication Instructions Recorded Confirmed Type bethanechol chloride 25 mg tablet 25 mg PO TID 03/14/17 04/09/19 History dicyclomine 20 mg tablet 20 mg PO DAILY 03/14/17 04/09/19 History glipizide 5 mg tablet 5 mg PO DAILY 03/14/17 04/09/19 History montelukast 10 mg tablet 10 mg PO HS 03/14/17 04/09/19 History pravastatin 20 mg tablet 20 mg PO HS 03/14/17 04/09/19 History sennosides 8.6 mg-docusate sodium 2 tab PO BID 03/24/17 04/09/19 History 50 mg tablet potassium chloride 20 mEq 20 meq PO DAILY tab 07/11/17 04/09/19 History tablet,extended release(part/cryst) Levocetirizine Dihydrochloride 5 mg PO DAILY 10/02/18 04/09/19 History Acetaminophen [Non-Aspirin Extra 500 mg PO Q4HP PRN 04/09/19 04/09/19 History Strength] Bisacodyl [Dulcolax 10mg Supp] 10 mg RC DAILYP PRN 04/09/19 04/09/19 History Bisoprolol Fumarate [Bisoprolol 5 mg PO DAILY 04/09/19 04/09/19 History 5mg Tablet] Guaifenesin/Dextromethorphan 10 ml PO Q4HP PRN 04/09/19 04/09/19 History [Robafen-Dm Syrup] Lactulose [Lactulose 10gm/15ml 30 ml PO DAILYP PRN 04/09/19 04/09/19 History Oral Soln] Mag Carb/Aluminum Hydrox/Algin 30 ml PO QIDP PRN 04/09/19 04/09/19 History [Gaviscon Extra Strength Liquid] OLANZapine [Olanzapine] 10 mg PO BID 04/09/19 04/09/19 History OXcarbazepine [Trileptal] 600 mg PO BID 04/09/19 04/09/19 History Propylene Glycol [Systane Balance] 2 drops OU TIDP PRN 04/09/19 04/09/19 History Rivaroxaban [Xarelto 20mg Tablet*] 20 mg PO DAILY 04/09/19 04/09/19 History Ropinirole HCl [Requip 1mg Tablet] 1 mg PO HS 04/09/19 04/09/19 History Simethicone [Gas Relief 80] 80 mg PO TIDP PRN 04/09/19 04/09/19 History Triamterene/Hydrochlorothiazid 1 each PO DAILY 04/09/19 04/09/19 History [Dyazide 37.5-25 Capsule] Venlafaxine HCl 50 mg PO TID 04/09/19 04/09/19 History allopurinoL [Allopurinol 300mg 300 mg PO DAILY 04/09/19 04/09/19 History tablet] amantadine HCL [Symmetrel 100mg 100 mg PO DAILY 04/09/19 04/09/19 History capsule] polyethylene glycoL 3350 17 g PO DAILYP PRN 04/09/19 04/09/19 History [Polyethylene Glycol 3350] risperiDONE [Risperdal 1mg Tablet] 1 mg PO BID 04/09/19 04/09/19 History cephALEXin [Keflex 500mg Cap] 500 mg PO BID 10 Days #20 cap 04/12/19 Rx Prescriptions/Medication Reconciliation: New cephALEXin [Keflex 500mg Cap] 500 mg PO BID 10 Days #20 cap Continued bethanechol chloride 25 mg tablet 25 mg PO TID dicyclomine 20 mg tablet 20 mg PO DAILY glipizide 5 mg tablet 5 mg PO DAILY montelukast 10 mg tablet 10 mg PO HS sennosides 8.6 mg-docusate sodium 50 mg tablet 2 tab PO BID potassium chloride 20 mEq tablet,extended release(part/cryst) 20 meq PO DAILY tab pravastatin 20 mg tablet 20 mg PO HS Bisoprolol Fumarate [Bisoprolol 5mg Tablet] 5 mg PO DAILY OLANZapine [Olanzapine] 10 mg PO BID Ropinirole HCl [Requip 1mg Tablet] 1 mg PO HS Venlafaxine HCl 50 mg PO TID Mag Carb/Aluminum Hydrox/Algin [Gaviscon Extra Strength Liquid] 30 ml PO QIDP PRN PRN Reason: stomach upset Simethicone [Gas Relief 80] 80 mg PO TIDP PRN PRN Reason: Gas Pain And Discomfort polyethylene glycoL 3350 [Polyethylene Glycol 3350] 17 g PO DAILYP PRN PRN Reason: Constipation Lactulose [Lactulose 10gm/15ml Oral Soln] 30 ml PO DAILYP PRN PRN Reason: constipation Acetaminophen [Non-Aspirin Extra Strength] 500 mg PO Q4HP PRN PRN Reason: pain Triamterene/Hydrochlorothiazid [Dyazide 37.5-25 Capsule] 1 each PO DAILY Levocetirizine Dihydrochloride 5 mg PO DAILY allopurinoL [Allopurinol 300mg tablet] 300 mg PO DAILY amantadine HCL [Symmetrel 100mg capsule] 100 mg PO DAILY Propylene Glycol [Systane Balance] 2 drops OU TIDP PRN PRN Reason: Eye Irritation OXcarbazepine [Trileptal] 600 mg PO BID risperiDONE [Risperdal 1mg Tablet] 1 mg PO BID Guaifenesin/Dextromethorphan [Robafen-Dm Syrup] 10 ml PO Q4HP PRN PRN Reason: Cough Bisacodyl [Dulcolax 10mg Supp] 10 mg RC DAILYP PRN PRN Reason: Constipation Discontinued Rivaroxaban [Xarelto 20mg Tablet*] 20 mg PO DAILY - Problem Reconciliation Problems Reviewed?: Yes
== END 2019-04-12 16:08 | DRG 378 ==
LOC: ER 10:30 → 2ND 10:30 → OBSVTOIN 13:33
PROVIDERS: ADMIT Emergency Medicine; ATTEND Emergency Medicine
DX: K31.7 Polyp of stomach and duodenum; I12.9 Hypertensive chronic kidney disease with stage 1 through stage 4 chronic kidney disease, or unspecified chronic kidney disease; Z86.718 Personal history of other venous thrombosis and embolism; E11.22 Type 2 diabetes mellitus with diabetic chronic kidney disease; K29.71 Gastritis, unspecified, with bleeding; Z88.8 Allergy status to other drugs, medicaments and biological substances; D62 Acute posthemorrhagic anemia; Z99.3 Dependence on wheelchair; J44.9 Chronic obstructive pulmonary disease, unspecified; F25.9 Schizoaffective disorder, unspecified; Z79.01 Long term (current) use of anticoagulants; K44.9 Diaphragmatic hernia without obstruction or gangrene; N18.2 Chronic kidney disease, stage 2 (mild); Z79.84 Long term (current) use of oral hypoglycemic drugs; Z79.899 Other long term (current) drug therapy
CPT/HCPCS: 36415; 70450; 71010; 71045; 71260; 74177; 80048; 80053; 81001; 82272; 82378; 82803; 82962; 83605; 84484; 85007; 85014; 85018; 85025; 86850; 87040; 87086; 87088; 87186; 88305; 93005; 93306; 93970; 96365; 99285; G0328; J1335; P9016; Q9967

== ENCOUNTER → 2019-05-29 09:20 | Outpatient (CLI) | payer MEDICARE, MEDICAID, SELFPAY ==
--- NOTE | 2019-05-29 09:23 | MM_ITS ---
PROCEDURE: MM DIG SCREENING MAMM BI W/CAD DIGITAL BREAST TOMOSYNTHESIS INCLUDED Patient Age:68Y CLINICAL INDICATION: SCREENING no hormones. Patient reportedly has cancer unknown origin and trying to find the primary COMPARISON: No exams were available for comparison CT chest March 2019 TECHNIQUE: Standard CC and MLO images were obtained. R2 CAD reviewed. Bilateral digital breast tomosynthesis included. FINDINGS: Patient was very difficult position. Wheelchair patient unable to lean into the machine so difficult to image, deep breast bilaterally not included. With less than optimal polysomnography technologist estimated that 1/4-1/2 of of deep breast was not included. Thus March CT chest was used to correlate RIGHT BREAST: On today's CC view appears to be a region of architectural distortion lateral right breast. This dissipates and becomes less evident on MLO view and less suspicious tomosynthesis views.-Thus this appearance on CC view may possibly due to difficulty in positioning. However given its striking CC view appearance at lateral breast at area labeled 'A', this area does warrant additional spot view and ultrasound to further evaluate, particularly in view of history... Axillary CC view right breast should be included as well . (I would note CT chest March 2019 does show some mild accentuated breast density towards axillary right breast which likely corresponds to area noted on today's CC view as well ) Small area labeled B at the medial breast on today's CC view also noted and would benefit from ultrasound evaluation and spot views when patient returns as well. It also is evident on the tomosynthesis view suggesting, summation shadow. (Note: Given the current fair virus environment, with this advanced age [facility] patient, I would note that these additional breast imaging not particularly urgent; can be performed when felt best and with appropriate discretion. These additional images could performed in the next 6-8 weeks with noting MLO images are quite unimpressive and tomosynthesis views less concerning as well..) LEFT BREAST: No significant findings at left breast on these limited views. The deep left breast not included may want attempted axillary CC view when the patient returns as well IMPRESSION: Wheelchair patient very difficult positioning with compromise limited mammogram. Lack of imaging of the deep breast as per technologist aging Right breast: Today's CC views suggest architectural distortion lateral right breast but this is unimpressive and does not persist other images-thus suspect may be manifestation of difficult with positioning this patient rather than true pathology. However with this appearance patient does warrant additional imaging right breast: . Ultrasound would likely easiest and initial study to perform . Additional mammogram views right breast would be suggested subsequently as well (Because of this of these additional view are not urgent and should be obtained and context of the the fair virus environment especially to limit exposure in this older [facility] patient) Also note March 2019 CT of chest demonstrated some abnormal pulmonary densities and nodules issue which you may want to [id number] as this CT chest might also helpful in this case follow-up imaging of the deep breast on right, to survey for any obvious interval change (Note: these additional view are not felt to be urgent, thus they should be obtained within context of the current fair virus environment, especially so as to to limit exposure in this older [facility] patient and others at the [facility]. And thus I feel these could be obtained in 6-8 week
== END ==
PROVIDERS: PCP Emergency Medicine; Visit Provider Emergency Medicine
DX: Z12.31 Encounter for screening mammogram for malignant neoplasm of breast (principal)
CPT/HCPCS: 77063; 77067

== ENCOUNTER → 2019-06-03 13:38 | Outpatient (CLI) | payer MEDICARE, MEDICAID, SELFPAY ==
--- NOTE | 2019-06-03 13:44 | CA_ITS ---
APPROVED REPORT EXAM: Limited 2D Echocardiogram Remelt Worker: Promise Tang RVT Ht: 5 ft 8 in Wt: 210lbs BSA: 2.09 BP: 118/52 mmHg Indications: TRACE PERICARIDAL EFFUSION AND PLEURAL EFFUSION SEEN ON RECENT PET SCAN COPD,HTN,HLD,DM PT WC BOUND-SCANNED IN W/C,TDS 2D Dimensions LVOT 1.90 cm (M/F) 1.5-2.5 M-Mode Dimensions RVDd 2.19 cm (0.9-2.6) LVDd 4.56 cm (3.5-5.7) LVDs 3.26 cm (3.5-5.7) IVSd 0.80 cm (0.6-1.1) PWd 0.76 cm (0.6-1.1) EF (Teich) 55.10% FS 28.50% EDV (Teich) 95.40 mL ESV (Teich) 42.80 mL Left Ventricle Left atrium is mildly enlarged, left ventricle is normal size, mild concentric left ventricular hypertrophy, visually estimated ejection fraction 55% with no regional wall motion abnormality. Right Ventricle Right atrium right ventricular mildly enlarged with normal contractility. Aortic Valve Aortic valve is thickened and calcified leaflet continue to display mobility, there is no aortic stenosis. Mitral Valve Mitral valve is grossly normal. Tricuspid Valve Tricuspid valve is grossly normal. Pulmonic Valve Pulmonic valve is poorly visualized. Great Vessels Aortic root is normal size. Pericardium Trivial pericardial effusion noted Conclusion 1. Mildly enlarged left atrium, normal left ventricular size, mild concentric left ventricular hypertrophy visually estimated ejection fraction 55% with no regional wall motion abnormality. 2. Trivial pericardial effusion noted 3. No Doppler performed. Electronically signed by : Edwin Acevedo, 06/03/2019 20:20:07
== END ==
PROVIDERS: PCP Emergency Medicine; Visit Provider Nurse Practitioner Family
DX: E78.2 Mixed hyperlipidemia (principal); I10 Essential (primary) hypertension; I31.3 Pericardial effusion (noninflammatory); J90 Pleural effusion, not elsewhere classified; R06.00 Dyspnea, unspecified; R60.9 Edema, unspecified; Z91.81 History of falling
CPT/HCPCS: 93308

== ENCOUNTER → 2019-06-11 13:15 | Outpatient (CLI) | payer MEDICARE, MEDICAID, SELFPAY ==
--- NOTE | 2019-06-11 13:28 | US_ITS ---
PROCEDURE: US BREAST RT COMPLETE CLINICAL INDICATION: ABN MAMM COMPARISON: MM DIG SCREENING MAMM BI W/CAD from 05/29/2019 FINDINGS: Patient was scheduled for right breast ultrasound and spot views of the right breast. Ultrasound is performed showing no suspicious abnormalities that would correspond to the area of asymmetry in the lateral aspect of the right breast. There is some mild ductal ectasia noted. The patient could not tolerate performing a right breast mammogram with inability to get patient upon the table. With a negative ultrasound, therefore would recommend six-month follow-up IMPRESSION: BI-RADS category 3 probably benign. Recommend six-month mammographic and sonographic follow-up of the right breast Dictated by: Howard Brewer MD 06/21/2019 13:49 Electronically signed by Howard Brewer MD in [place] 06/21/2019 13:49
== END ==
PROVIDERS: PCP Emergency Medicine; Visit Provider Emergency Medicine
DX: R92.8 Other abnormal and inconclusive findings on diagnostic imaging of breast (principal)
CPT/HCPCS: 76641

== ENCOUNTER → 2019-06-13 11:17 | Outpatient (CLI) | payer MEDICARE, MEDICAID, SELFPAY ==
[2019-06-13 12:12] LABS: Basophils # 0.1 K/mm3 (0-0.2); Basophils % 0.7 % (0.1-2.0); Eosinophils # 0.3 K/mm3 (0.0-0.4); Eosinophils % 3.1 % (0.1-12.0); Lymphocytes # 0.9 K/mm3 (0.7-4.5); Mean Corpuscular HGB Conc 29.6 g/dL (31.8-35.4); Mean Corpuscular Hemoglobin 22.6 pg (27.0-31.2); Mean Corpuscular Volume 76.5 fl (81-99); Mean Platelet Volume 8.2 fl (7.4-10.4); Monocytes # 0.4 K/mm3 (0.1-1.0); Monocytes % 5.1 % (1.7-9.3); Neutrophils % 81.3 % (37.0-80.0); Platelet Count 353 K/mm3 (142-424); Red Cell Distribution Width 19.1 % (11.5-17.5); White Blood Count 8.6 K/mm3 (4.8-10.8)
[2019-06-13 12:16] LABS: Hematocrit 33.1 % (37.0-47.0); Hemoglobin 9.8 g/dL (12.2-16.2); Red Blood Count 4.34 M/mm3 (4.20-5.40)
[2019-06-13 12:31] LABS: Alanine Aminotransferase 14 U/L (12-78); Albumin Level 3.5 g/dl (3.5-5.0); Albumin/Globulin Ratio 1.5 (1.1-1.8); Alkaline Phosphatase 199 U/L (38-126); Anion Gap 10.5 mEq/L (5-15); Aspartate Amino Transferase 18 U/L (14-36); Blood Urea Nitrogen 16 mg/dl (7-17); Carbon Dioxide 28 mmol/L (22.0-30.0); Chloride 98 mmol/L (98-107); Estimated Glomerular Filt Rate 44 ml/min (>60); GFR (African American) 54 ML/MIN (>60); Globulin 2.4 g/dL (1.3-3.2); Glucose 83 mg/dl (74-100); Potassium 3.5 mmoL/L (3.5-5.1); Sodium 133 mmol/L (136-145); Total Protein,Serum 5.9 g/dl (6.3-8.2)
[2019-06-13 12:32] LABS: Bilirubin,Total < 0.1 mg/dl (0.2-1.3)
[2019-06-13 13:07] LABS: Ferritin 8.59 ng/ml (11.1-264)
[2019-06-14 03:47] LABS: Iron 13 ug/dL (27-139); UIBC 320 ug/dL (118-369)
[2019-06-14 06:18] LABS: Folate 8.2 ng/mL (>3.0); Haptoglobin 256 mg/dL (37-355); Iron Saturation 4 % (15-55)
[2019-06-14 12:17] LABS: Immunoglobulin A, Qn 120 mg/dL (87-352)
[2019-06-14 14:34] LABS: Immunoglobulin G, Qn 693 mg/dL (586-1602); Immunoglobulin M, Qn 41 mg/dL (26-217); Vitamin B12 397 pg/mL (232-1245)
[2019-06-14 14:48] LABS: Alpha-1-Globulin 0.3 g/dL (0.0-0.4); Free Kappa Lt Chains 35.5 mg/L (3.3-19.4); Free Lambda Lt Chains 42.5 mg/L (5.7-26.3); Gamma Globulin 0.7 g/dL (0.4-1.8); Protein, Total 5.8 g/dL (6.0-8.5)
== END ==
PROVIDERS: Visit Provider Internal Medicine Medical Oncology
DX: D64.9 Anemia, unspecified (principal); D62 Acute posthemorrhagic anemia
CPT/HCPCS: 36415; 80053; 82607; 82728; 82746; 82784; 83010; 83540; 83550; 83883; 84155; 84165; 85025; 86334

== ENCOUNTER 2019-06-19 12:27 | Outpatient (CLI) | payer MEDICARE, MEDICAID, SELFPAY ==
[2019-06-19 13:05] VITALS: BP 120/67; PULSE 98; RESP 18; TEMP 36.9; O2SAT 98
[2019-06-19 13:35] VITALS: BP 134/89; PULSE 89; RESP 18
== END 2019-06-19 13:40 | disposition home or self-care (01) ==
LOC: INF 12:27
PROVIDERS: Visit Provider Internal Medicine Medical Oncology
DX: D50.9 Iron deficiency anemia, unspecified (principal); T45.4X5A Adverse effect of iron and its compounds, initial encounter
CPT/HCPCS: 96365; J1439

== ENCOUNTER 2019-06-26 12:42 | Outpatient (CLI) | payer MEDICARE, MEDICAID, SELFPAY ==
[2019-06-26 13:30] VITALS: BP 125/80; PULSE 91; RESP 18; TEMP 36.2; O2SAT 96
[2019-06-26 14:00] VITALS: BP 125/77; PULSE 94; RESP 18
== END 2019-06-26 14:10 | disposition home or self-care (01) ==
LOC: INF 12:42
PROVIDERS: Visit Provider Internal Medicine Medical Oncology
DX: D50.9 Iron deficiency anemia, unspecified (principal); T45.4X5A Adverse effect of iron and its compounds, initial encounter
CPT/HCPCS: 96365; J1439

== ENCOUNTER → 2019-12-11 10:02 | Outpatient (CLI) | payer MEDICARE, MEDICAID, SELFPAY ==
--- NOTE | 2019-12-11 10:10 | MM_ITS ---
PROCEDURE: MM DIG SCREENING MAMM BI W/CAD Digital Breast Tomosynthesis Included CLINICAL INDICATION: SCREENING Performed in a wheelchair, the patient could not stand and was uncooperative and MLO views could not be obtained. COMPARISON: MG MM DIG SCREENING MAMM BI W/CAD from 05/29/2019 TECHNIQUE: Standard CC and and 3D Tomosynthesis was obtained. R2 CAD reviewed. FINDINGS: Moderate fibroglandular densities are seen in the central portions of both breasts. Again noted is a slightly asymmetrically increased area of glandular elements outer quadrant right breast which is stable unchanged from the previous exam. Also the other small nodular density inner quadrant is stable and unchanged. The MLO view obtained on the previous mammogram 05/29/2019 showed no abnormality suggesting at the asymmetric density outer quadrant right breast may represent a summation shadow. There are couple of benign-appearing microcalcifications in each breast. There is no definite suspicious lesion in either breast and no suspicious microcalcifications. IMPRESSION: Somewhat incomplete exam but with no definite suspicious lesions seen BI-RAD Category: 2 Benign Finding(s) FOLLOW-UP: 1YR 1 Year Follow-up (A letter has been sent to the patient regarding results of the study.) Dictated by: Dr. Giovanni Nugent MD 12/17/2019 13:05 Dr. Giovanni Nugent MD in [place] 12/17/2019 13:05
== END ==
PROVIDERS: PCP Emergency Medicine; Visit Provider Internal Medicine Medical Oncology
DX: Z12.31 Encounter for screening mammogram for malignant neoplasm of breast (principal)
CPT/HCPCS: 77063; 77067

== ENCOUNTER 2020-06-03 12:54 | Outpatient (CLI) | payer MEDICARE, MEDICAID, SELFPAY ==
[2020-06-03 14:40] VITALS: BP 137/61; PULSE 81; RESP 20; TEMP 36.9; O2SAT 95
[2020-06-03 15:10] VITALS: BP 136/74; PULSE 68; RESP 20; TEMP 36.9; O2SAT 95
== END 2020-06-03 15:10 | disposition home or self-care (01) ==
LOC: INF 12:54
PROVIDERS: Visit Provider Internal Medicine Medical Oncology
DX: D50.9 Iron deficiency anemia, unspecified (principal)
CPT/HCPCS: 96365

== ENCOUNTER 2020-06-10 12:45 | Outpatient (CLI) | payer MEDICARE, MEDICAID, SELFPAY ==
[2020-06-10 15:05] VITALS: BP 107/69; PULSE 74; RESP 17; TEMP 36.3; O2SAT 95
[2020-06-10 15:30] VITALS: BP 130/83; PULSE 73; RESP 18
== END 2020-06-10 15:45 | disposition home or self-care (01) ==
LOC: INF 12:54
PROVIDERS: Visit Provider Internal Medicine Medical Oncology
DX: D50.9 Iron deficiency anemia, unspecified (principal)
CPT/HCPCS: 96365; J1439

== ENCOUNTER → 2020-07-30 08:36 | Outpatient (CLI) | payer MEDICARE, MEDICAID, SELFPAY ==
--- NOTE | 2020-07-30 08:40 | CT_ITS ---
PROCEDURE: CT CHEST WO CON CLINICAL INDICATION: F/U NODULE Follow-up pulmonary nodule COMPARISON: CT CT CHEST W CON from 04/12/2019 TECHNIQUE: Axial images obtained with sagittal and coronal reformats. All CT scans at the facility use one or more dose reduction, viz: automated exposure control, ma/kV adjustment per patient size (including targeted exams where dose is matched to indication, i.e. head), or iterative reconstruction technique. FINDINGS: HEART AND MEDIASTINAL STRUCTURES: 1.8 cm nodules present along the lower pole of the left thyroid gland and may be better evaluated with ultrasound. This may be slightly larger from the previous exam. Small amount fluid is present in the superior pericardial recess. There is mild thickening of the pericardium inferiorly and anteriorly. There is a large hiatal hernia containing 1/3 of the stomach.. No mediastinal or hilar mass. LUNGS AND PLEURAL SPACES: 4 mm right upper lobe nodule stable. There are trace bilateral effusions with atelectatic changes in the lung bases. There is patchy ground-glass attenuation in the left upper lobe peripherally. There is left lower lobe volume loss with mediastinal shift toward the left similar to the previous exam. Subpleural opacities are present in the left lower lobe and left upper lobe laterally which may be secondary to the volume loss. BONY STRUCTURES: Thoracic scoliosis convex right. Multilevel degenerative changes are present in the thoracic spine UPPER ABDOMEN: Unremarkable. ADDITIONAL FINDINGS: No other significant abnormalities. IMPRESSION: Overall stable CT appearance of the chest. No change in the left-sided lung volume loss with mediastinal shift toward the left with atelectatic changes in the left lower lobe and left upper lobe. No change in the right upper lobe nodule and subpleural opacities on the left and right. Trace bilateral effusions slightly smaller. Left thyroid nodule which may be slightly more prominent. Dictated by: Howard Brewer MD 07/31/2020 09:32 Howard Brewer MD in [place] 07/31/2020 09:32
== END ==
PROVIDERS: PCP Emergency Medicine; Visit Provider Emergency Medicine
DX: R91.1 Solitary pulmonary nodule (principal)
CPT/HCPCS: 71250

== ENCOUNTER → 2020-08-17 09:46 | Outpatient (CLI) | payer MEDICARE, MEDICAID, SELFPAY ==
--- NOTE | 2020-08-17 09:47 | US_ITS ---
PROCEDURE: US THYROID CLINICAL INDICATION: to evaluate nodules on thyroid COMPARISON: No exams were available for comparison FINDINGS: Right lobe: 4.5 x 1.7 x 1.4 cm. Partially cystic 14 mm nodules present in the upper pole. 7 mm cyst in the mid polar region. Hypoechoic nodule in the lower pole at 6 mm. Small cyst in the lower pole 5 mm. Left lobe: 3.6 x 1.7 x 1.3 cm. Mixed cystic and solid nodule in the lower pole at 17 mm. Isthmus: Unremarkable Additional findings: IMPRESSION: Bilateral partially cystic and cystic nodules TR level 2. Annual follow-up suggested. Dictated by: Howard Brewer MD 08/17/2020 13:43 Howard Brewer MD in [place] 08/17/2020 13:43
== END ==
PROVIDERS: PCP Emergency Medicine; Visit Provider Emergency Medicine
DX: E04.2 Nontoxic multinodular goiter (principal)
CPT/HCPCS: 76536

== ENCOUNTER 2020-09-07 14:04 | Emergency (ER) | payer MEDICARE, MEDICAID, SELFPAY ==
[2020-09-07 14:06] VITALS: BP 114/60; PULSE 73; RESP 18; TEMP 36.6; O2SAT 97; BMI 33.3
--- NOTE | 2020-09-07 14:08 | HMH.EDGENADL ---
ED Disposition Clinical Impression: Headache Qualifiers: Headache type: post-traumatic Headache chronicity pattern: acute headache Intractability: not intractable Qualified Code(s): G44.319 - Acute post-traumatic headache, not intractable Disposition: Xfer SNF Condition on Discharge: Good Referrals: Provider,Referral, [Primary Care Provider] - - Critical Care Critical Care Time: No Attestation: On , the high probability of a clinically significant, sudden or life threatening deterioration of the following system(s) required my full and direct attention, intervention and personal management. The time I documented below is in addition to time spent performing reported procedures but includes the following listed in this critical care notation. Medical Decision Making - Brigido Inquiry Pt receiving controlled substance: No Vital Signs: 09/07/20 14:06 09/07/20 15:33 09/07/20 16:01 Temperature 97.8 F Temperature Source Oral Pulse Rate 64 62 Pulse Rate [Right] 73 Respiratory Rate 18 Blood Pressure 130/72 135/72 Blood Pressure [Right Arm] 114/60 Blood Pressure Mean 91 93 Blood Pressure Mean [Right Arm] 78 Blood Pressure Source [Right Arm] Automatic Cuff Blood Pressure Position [Right Arm] Supine 02 Sat by Pulse Oximetry 97 95 98 Oxygen Delivery Method Room Air 09/07/20 16:54 Temperature 97.8 F Temperature Source Oral Pulse Rate 64 Pulse Rate [Right] Respiratory Rate 18 Blood Pressure 135/74 Blood Pressure [Right Arm] Blood Pressure Mean Blood Pressure Mean [Right Arm] Blood Pressure Source [Right Arm] Blood Pressure Position [Right Arm] 02 Sat by Pulse Oximetry Oxygen Delivery Method Orders (Tests/Meds): ED MEDICATIONS Discontinued Medications Generic Name Dose Route Start Last Admin Trade Name Mari PRN Reason Stop Dose Admin Acetaminophen 500 mg 09/07/20 14:43 09/07/20 15:00 Acetaminophen 500mg Tab PO 09/07/20 14:44 500 mg ONCE ONE Administration Prochlorperazine Edisylate 10 mg 09/07/20 14:43 09/07/20 15:00 Prochlorperazine 10mg/2ml Vial IM 09/07/20 14:44 10 mg ONCE ONE Administration Medical Decision Narrative: To the ED today after falling from her wheelchair, states that she did not pass out or lose consciousness. Differential diagnosis includes traumatic headache, concussion, subdural hematoma, subarachnoid hemorrhage. Patient is also complaining of right knee pain we will obtain x-ray of this. Patient does not require any laboratory work-up. Will administer 10 mg of IM Compazine. Patient reassessed, remains well-appearing, endorses mild dizziness, has meclizine at her nursing facility, and I have advised her to take this medication. CT head independently interpreted with no evidence of intracranial hemorrhage, subarachnoid hemorrhage, no posterior scalp hematoma. Patient's headache has improved, no evidence of fracture on the x-ray. Patient can be discharged back to nursing facility, given return precautions return to ED with worsening headache, dizziness, confusion, altered mental status and patient is verbalized understanding with this plan. General Adult HPI - General Chief complaint: Fall Stated complaint: fall Time Seen by Provider: 09/07/20 14:09 Source of Information: Patient Limitations: No Limitations - Related Data Home Medications Medication Instructions Recorded Confirmed bethanechol chloride 25 mg tablet 25 mg PO TID 03/14/17 06/10/20 glipizide 5 mg tablet 5 mg PO DAILY 03/14/17 06/10/20 montelukast 10 mg tablet 10 mg PO HS 03/14/17 06/10/20 pravastatin 20 mg tablet 20 mg PO HS 03/14/17 06/10/20 sennosides 8.6 mg-docusate sodium 2 tab PO BID 03/24/17 06/10/20 50 mg tablet potassium chloride 20 mEq 20 meq PO DAILY tab 07/11/17 06/10/20 tablet,extended release(part/cryst) Levocetirizine Dihydrochloride 5 mg PO DAILY 10/02/18 06/10/20 Acetaminophen [Non-Aspirin Extra 500 mg PO Q4HP PRN 04/09/19
--- NOTE | 2020-09-07 14:43 | CT_ITS ---
PROCEDURE: CT HEAD/BRAIN WO CON CLINICAL INDICATION: Fall onto head, headache COMPARISON: CT CT HEAD/BRAIN WO CON from 04/09/2019 TECHNIQUE: Unenhanced CT head with axial images obtained. Dose modulation, automated exposure control, and/or iterative reconstruction were used for dose reduction FINDINGS: Images are slightly degraded due to motion artifact. There is no space-occupying mass or abnormal enhancement.There is no evidence of hemorrhage. Ventricles: The ventricles are within normal limits for size, configuration, and symmetry. The reese-white differentiation is well preserved throughout, with no evidence of acute infarct. Volume: There is mild parenchymal volume loss. Periventricular and deep white matter lucencies likely indicate chronic micovascular ischemic disease. Atherosclerotic calcification are present bilaterally. Osseous Osseous structures are unremarkable. Sinuses: The paranasal sinuses are clear Mastoids: Mastoid air cells are clear. IMPRESSION: 1. No evidence of acute intracranial process. 2. Mild volume loss, chronic microvascular ischemic changes, and atherosclerotic disease. Dictated by: Arlen Ryan 09/07/2020 15:30 Arlen Ryan in [place] 09/07/2020 15:30
--- NOTE | 2020-09-07 14:43 | XR_ITS ---
PROCEDURE: XR KNEE RT 3V CLINICAL INDICATION: Knee pain COMPARISON: No exams were available for comparison FINDINGS: No fracture or dislocation. No lytic or blastic change. Generalized osteopenia is noted. The joint spaces are well-preserved. No significant degenerative/arthritic changes. No erosive changes evident. Other findings:None. IMPRESSION: Osteopenia. No acute fractures or dislocations. Dictated by: Arlen Ryan 09/07/2020 15:33 Arlen Ryan in [place] 09/07/2020 15:33
--- NOTE | 2020-09-07 14:51 | PC.NURSE ---
pt to ct
[2020-09-07 15:33] VITALS: BP 130/72; PULSE 64; O2SAT 95
[2020-09-07 16:01] VITALS: BP 135/72; PULSE 62; O2SAT 98
[2020-09-07 16:54] VITALS: BP 135/74; PULSE 64; RESP 18; TEMP 36.6; O2SAT 99
--- NOTE | 2020-09-07 17:00 | PC.NURSE ---
called report to [facility] on patient condition. EMS here for transport of patient back to [facility].
== END 2020-09-07 17:05 ==
PROVIDERS: Emergency Provider Student in an Organized Health Care Education/Training Program
DX: G44.319 Acute post-traumatic headache, not intractable (principal); F41.8 Other specified anxiety disorders; E11.9 Type 2 diabetes mellitus without complications; K21.9 Gastro-esophageal reflux disease without esophagitis; E78.5 Hyperlipidemia, unspecified; I10 Essential (primary) hypertension; Z79.899 Other long term (current) drug therapy
CPT/HCPCS: 70450; 73562; 96372; 99283

== ENCOUNTER → 2020-12-14 12:48 | Outpatient (CLI) | payer MEDICARE, MEDICAID, SELFPAY ==
--- NOTE | 2020-12-14 13:13 | US_ITS ---
PROCEDURE INFORMATION: Exam: US Right Breast, Complete Exam date and time: 12/14/2020 1:13 PM Age: 70 years old Clinical indication: Screening exam. No personal or family HX of malignancy; the patient was unable to receive mammogram due to difficulty positioning and being in wheelchair. Prior mammograms were severely limited and therefore screening sonogram was performed TECHNIQUE: Imaging protocol: Complete ultrasound of all four quadrants of the right breast and the retroareolar regions, including ultrasound of the axilla when performed. The examination was slightly limited due to difficulty elevating the patient's are and the patient deemed position in the wheelchair.. COMPARISON: US BREAST RT COMPLETE 06/11/2019 2:24 PM FINDINGS: Breast: No suspicious solid or cystic mass is present. No benign-appearing solid or cystic mass is present. No architectural distortion or shadowing is present. No axillary adenopathy is present. IMPRESSION: No sonographic evidence of malignancy. Annual mammographic screening is recommended unless otherwise clinically indicated. ASSESSMENT: BI-RADS category 1: Negative
--- NOTE | 2020-12-14 13:13 | US_ITS ---
PROCEDURE INFORMATION: Exam: US Left Breast, Complete Exam date and time: 12/14/2020 1:13 PM Age: 70 years old Clinical indication: Screening exam. No personal or family HX of malignancy; the patient was unable to receive mammogram due to difficulty positioning and being in wheelchair. Prior mammograms were severely limited and therefore screening sonogram was performed TECHNIQUE: Imaging protocol: Complete ultrasound of all four quadrants of the Left breast and the retroareolar regions, including ultrasound of the axilla when performed. The examination was slightly limited due to difficulty elevating the patient's are and the patient deemed position in the wheelchair. COMPARISON: MG MM DIG SCREENING MAMM BI W/CAD 12/11/2019 10:21 AM FINDINGS: Breast: No suspicious solid or cystic mass is present. No benign-appearing solid or cystic mass is present. No architectural distortion or shadowing is present. No axillary adenopathy is present. IMPRESSION: No sonographic evidence of malignancy. Annual mammographic screening is recommended unless otherwise clinically indicated. ASSESSMENT: BI-RADS category 1: Negative
== END ==
PROVIDERS: PCP Emergency Medicine; Visit Provider Emergency Medicine
DX: R92.8 Other abnormal and inconclusive findings on diagnostic imaging of breast (principal)
CPT/HCPCS: 76641

== ENCOUNTER → 2021-04-23 10:29 | Outpatient (CLI) | payer MEDICARE, MEDICAID, SELFPAY ==
--- NOTE | 2021-04-23 10:34 | XR_ITS ---
FINAL REPORT CLINICAL HISTORY: ankle fracture COMPARISON: April 19, 2017 FINDINGS: RIGHT ANKLE: Three views of the right ankle were obtained. The bones are osteopenic. There is mild degenerative change. There is a fracture of the distal fibular metaphysis. There is a comminuted fracture at the distal tibia with impaction. There are chronic calcifications in the region of the distal Achilles tendon consistent with Achilles tendonitis. There is soft tissue swelling. IMPRESSION: Fractures of the distal tibia and fibula. Reviewed, Interpreted and Dictated by Keenan Wan III, MD Transcribed by Kaushik Melgar Authenticated by Keenan Wan III, MD on 04/23/2021 12:18:43 PM [facility]
--- NOTE | 2021-04-23 11:54 | CT_ITS ---
FINAL REPORT CLINICAL HISTORY: ankle fracture COMPARISON: Plain films from the same day FINDINGS: CT RIGHT ANKLE WITHOUT CONTRAST Technique: Axial images through the right ankle were performed by computed tomography. 3D reconstruction images were submitted and reviewed. Sagittal and coronal reconstruction images were performed. This study was performed with techniques to keep radiation doses as low as reasonably achievable (ALARA). Individualized dose reduction techniques using automated exposure control or adjustment of mA and/or kV according to the patient's size were employed. The bones are osteopenic. There is mild degenerative change. There is a subacute fracture of the distal fibular metaphysis with some callus formation. There is 2 mm of lateral displacement of the distal fracture fragment. There is a subacute comminuted fracture of the distal tibia. Fracture lines extend to the tibiotalar joint. There is a fracture line through the base of the medial malleolus. There is some callus formation. There is a chronic calcification in the region of the distal Achilles tendon. There is circumferential subcutaneous edema. IMPRESSION: Fractures of the distal tibia and fibula as described. Reviewed, Interpreted and Dictated by Keenan Wan III, MD Transcribed by Kaushik Melgar Authenticated by Keenan Wan III, MD on 04/23/2021 01:13:20 PM [facility]
== END ==
PROVIDERS: PCP Emergency Medicine; Visit Provider Orthopaedic Surgery
DX: S82.891A Other fracture of right lower leg, initial encounter for closed fracture (principal)
CPT/HCPCS: 73610; 73700

== ENCOUNTER → 2021-04-30 10:05 | Outpatient (CLI) | payer MEDICARE, MEDICAID, SELFPAY ==
--- NOTE | 2021-04-30 10:10 | XR_ITS ---
FINAL REPORT CLINICAL HISTORY: akle fracture COMPARISON: April 23, 2021 FINDINGS: RIGHT ANKLE 3 views of the right ankle were obtained. There are fractures of the distal fibular metaphysis, base of the medial malleolus and anterior distal tibia. There is no significant change in bony alignment. The overlying cast material obscures some of the bony detail. There is a soft tissue calcification posteriorly. IMPRESSION: Multiple fractures as above without significant change in bony alignment. Reviewed, Interpreted and Dictated by Keenan Wan III, MD Transcribed by Suzie Boland Authenticated by Keenan Wan III, MD on 04/30/2021 12:29:19 PM [facility]
== END ==
PROVIDERS: PCP Emergency Medicine; Visit Provider Orthopaedic Surgery
DX: S82.891A Other fracture of right lower leg, initial encounter for closed fracture (principal)
CPT/HCPCS: 73610

== ENCOUNTER → 2021-05-14 13:12 | Outpatient (CLI) | payer MEDICARE, MEDICAID, SELFPAY ==
--- NOTE | 2021-05-14 13:16 | XR_ITS ---
FINAL REPORT CLINICAL HISTORY: F/U RT ankle fracture COMPARISON: April 30, 2021 FINDINGS: RIGHT ANKLE 3 views of the right ankle were obtained. There is an overlying cast which obscures the bony detail. There is a moderately displaced oblique fracture through the lateral malleolus. There is an oblique fracture through the base of the medial malleolus. The mortise appears intact. Soft tissues are unremarkable. IMPRESSION: In comparison to prior, the fracture fragments are unchanged in position. Reviewed, Interpreted and Dictated by Meño Torre MD Transcribed by Nandini Tripp Authenticated by Meño Torre MD on 05/14/2021 02:43:[address] [facility]
== END ==
PROVIDERS: PCP Emergency Medicine; Visit Provider Orthopaedic Surgery
DX: S99.911A Unspecified injury of right ankle, initial encounter (principal); M25.571 Pain in right ankle and joints of right foot
CPT/HCPCS: 73610

== ENCOUNTER → 2021-05-28 13:30 | Outpatient (CLI) | payer MEDICARE, MEDICAID, SELFPAY ==
--- NOTE | 2021-05-28 13:34 | XR_ITS ---
FINAL REPORT CLINICAL HISTORY: right ankle injury COMPARISON: May 14, 2021 FINDINGS: RIGHT ANKLE: Three views of the right ankle were obtained. A cast obscures detail. There is a fracture of the medial malleolus and distal fibular metaphysis. There is also a fracture of the anterior distal tibia. Bony alignment is stable. There is increased callus formation. The joint spaces and mortise are intact. There is a calcification in the region of the Achilles tendon. IMPRESSION: Stable fractures as described. Reviewed, Interpreted and Dictated by Keenan Wan III, MD Transcribed by Nandini Tripp Authenticated by Keenan Wan III, MD on 05/28/2021 02:34:06 PM [facility]
== END ==
PROVIDERS: PCP Emergency Medicine; Visit Provider Orthopaedic Surgery
DX: S99.911A Unspecified injury of right ankle, initial encounter (principal)
CPT/HCPCS: 73610

== ENCOUNTER → 2021-06-25 13:34 | Outpatient (CLI) | payer MEDICARE, MEDICAID, SELFPAY ==
--- NOTE | 2021-06-25 13:40 | XR_ITS ---
FINAL REPORT CLINICAL HISTORY: RT knee pain FINDINGS: AP, lateral and oblique views of the right knee were obtained. Comparison is made to an exam dated September 07, 2020. The bones are osteopenic. There is no acute osseous abnormality of the right knee. There is mild patellofemoral degenerative disease. The soft tissues are normal. There is no joint effusion. IMPRESSION: Mild patellofemoral degenerative disease. No acute osseous abnormality of the right knee. Reviewed, Interpreted and Dictated by Carolyne Briscoe MD Transcribed by Kaushik Melgar Authenticated by Carolyne Briscoe MD on 06/25/2021 03:43:10 PM [facility]
--- NOTE | 2021-06-25 13:40 | XR_ITS ---
FINAL REPORT CLINICAL HISTORY: F/U RT ankle fx FINDINGS: AP, oblique, and lateral views of the right ankle were obtained. Comparison is made to an exam dated May 28, 2021. A plaster cast is present. There are healing medial and lateral malleoli fractures. There is degenerative disc disease. There continues to be soft tissue edema. IMPRESSION: Healing medial and lateral malleoli fractures with degenerative disease, stable. Reviewed, Interpreted and Dictated by Carolyne Briscoe MD Transcribed by Kaushik Melgar Authenticated by Carolyne Briscoe MD on 06/25/2021 03:43:11 PM [facility]
== END ==
PROVIDERS: PCP Emergency Medicine; Visit Provider Nurse Practitioner
DX: S82.891A Other fracture of right lower leg, initial encounter for closed fracture; M25.561 Pain in right knee
CPT/HCPCS: 73562; 73610

== ENCOUNTER → 2021-06-28 06:33 | Outpatient (CLI) | payer MEDICARE, MEDICAID, SELFPAY ==
--- NOTE | 2021-06-28 06:36 | CA_ITS ---
APPROVED REPORT Exam: Pharmacologic Technologist: Yue Baldwin, Ht: 5 ft 8 in Wt: 217 lbs BSA: 2.12 m2 HR: 87 bpm BP: 135/68 mmHg Medical History Medications: Coumadin,,,,, Allopurinol,,,,, Glipizide,,,,, Tylenol,,,,, ReQUIP,,,,, ZeBETA,,,,, Singulair,,,,, GaVISCON,,,,, TriLEPTAL,,,,, ZYprexa,,,,, Zofran,,,,, AmANTADINE,,,,, Stress Test Details Test: LEXISCAN HR Resting HR: 86 bpm Max Heart Rate (APMHR): 147.459703 bpm Max HR Achieved: 97 bpm Target HR (85% APMHR): 124.363897 bpm % of APMHR: 65.99 Recovery HR: 85 bpm BP Resting BP: 135.0/68.0 mmHg Max BP: 135.0/68.0 mmHg Recovery BP: 100.0/68.0 mmHg ECG Resting ECG: NSR, NSTTW Abnormalaties Clinical Reason for Termination: Completed Protocol Exercise duration: 04:01 min Highest Stage Achieved: Exercise capacity: 1.0 METs Stress ECG Conclusion Symptoms: None Arrhythmias/Ectopy: None ST-T Changes: <1.5mm ST Segment changes Conclusion: Non-Diagnostic Test Summary RECOVERY 02:00 . . 90 . . . . Stage 1 01:00 . . 92 . . . . Stage 2 01:00 . . 96 . 104/ 51 . . Stage 3 01:00 . . 91 . 106/ 60 . . Stage 4 01:00 . . 91 . 108/ 56 . . Stage 4 01:01 . . 92 . 108/ 56 . Stop exercise at 04:01 RECOVERY 01:00 . . 91 . . . . RECOVERY 02:00 . . 90 . . . . RECOVERY 03:00 . . 85 . . . . RECOVERY 03:24 . . 92 . 100/ 68 . . Electronically signed by : Edwin Acevedo MD 06/28/2021 15:05:47
--- NOTE | 2021-06-28 06:36 | NM_ITS ---
APPROVED REPORT Exam: Nuclear Stress Test Indication: Chest pain, Abnormal EKG, HTN, DM, High cholesterol Patient Location: Outpatient Stress Tech: Yue Solares [place] Tech:Josefina Gilbert, ARRT, RT (R)(N) Ht: 5 ft 8 in Wt: 217 lbs Bra Size: B HR: 87 bpm BP: 135/68 mmHg BSA: 2.12 m2 TID: 87 BMI: 32.9 History: Chest pain, Abnormal EKG, HTN, DM, High cholesterol Procedure: Patient received a 0.4 mg of intravenous Lexiscan, resting heart rate 87 bpm, resting blood pressure 135/68 mmHg, with Lexiscan maximum heart rate achived was 96 bpm which is Less than 85 % of the maximum predicted heart rate and blood pressure was 104/51 mmHg. With Lexiscan, patient denied any complaint of chest pain. Electrocardiogram Resting electrocardiogram shows sinus rhythm nonspecific ST-T changes, with Lexiscan there is less than 1.[address] segment depression noted from the baseline EKG. The EKG portion of the Lexiscan is nondiagnostic. Cardiac Stress and Resting SPECT Images: Cardiac Stress and Resting SPECT images were obtained using technetium 99m Myoview 30.2 mCi stress and 10.33 mCi at rest. Patient unable to lay on stomach for prone images. Gated SPECT for analysis of segmental wall motion and calculation of the ejection fraction also done. Cardiac stress and rest SPECT images show uniform myocardial activity without segmental perfusion abnormality, computer derived ejection fraction is over 65% with no regional wall motion abnormality, right ventricle is normal size and contractility. Conclusion: 1. The EKG portion of the Lexiscan is nondiagnostic. 2. No scintigraphic evidence of reversible ischemia seen, computer derived ejection fraction was 65% with no regional wall motion abnormality, right ventricle is normal size and contractility. 3. Normal Lexiscan Myoview study. Electronically signed by : Edwin Acevedo MD 06/28/2021 15:08:13
--- NOTE | 2021-06-28 08:32 | HMH.ITSHM ---
Current Home Medications as stated by this patient Rebeca Williamson or education courses sales representative. []BISACIDYL ONDANSTRON ROBAFEN SIMETHICONE ALLOPURINOL BETHANECHOL BISOPROLOL FLUTICASONE GLIPIZIDE LEVOCETIRIZINE MONTELUKAST OLANZAPINE OMEPRAZOLE OXCARAZEPINE POTASSIUM PRAVASTATIN RISPERIDONE ROPINIROLE SENEXON TRIAMTERENE VENLAFAXINE WARFARIN
== END ==
PROVIDERS: PCP Emergency Medicine; Visit Provider Nurse Practitioner
DX: E11.9 Type 2 diabetes mellitus without complications (principal); E78.2 Mixed hyperlipidemia; F06.4 Anxiety disorder due to known physiological condition; F20.89 Other schizophrenia; I10 Essential (primary) hypertension; K21.9 Gastro-esophageal reflux disease without esophagitis; R07.89 Other chest pain; R42 Dizziness and giddiness; R94.31 Abnormal electrocardiogram [ECG] [EKG]; Z79.84 Long term (current) use of oral hypoglycemic drugs
CPT/HCPCS: 78452; 93017; A9502; J2785

== ENCOUNTER → 2021-07-14 10:00 | Outpatient (CLI) | payer MEDICARE, MEDICAID, SELFPAY ==
--- NOTE | 2021-07-14 10:01 | FL_ITS ---
FINAL REPORT CLINICAL HISTORY: dysphagia ft: 1:04 FINDINGS: ESOPHAGRAM History: Difficulty swallowing Findings: Examination is markedly limited due to patient's condition. The patient ingested barium contrast. The esophagus is dilated and tortuous. No convincing esophageal stricture is identified. There is a moderate to large paraesophageal hiatal hernia. IMPRESSION: Dilated tortuous esophagus. Moderate to large paraesophageal hiatal hernia. Images reviewed, dictated and interpreted by Dr. Briscoe. Transcribed by ANICETO Meléndez. Reviewed, Interpreted and Dictated by Carolyne Briscoe MD Transcribed by JESUS Meléndez Authenticated by Carolyne Briscoe MD on 07/15/2021 09:03:07 AM [facility]
== END ==
PROVIDERS: PCP Emergency Medicine; Visit Provider Nurse Practitioner Family
DX: E11.9 Type 2 diabetes mellitus without complications (principal); E78.2 Mixed hyperlipidemia; F06.4 Anxiety disorder due to known physiological condition; F20.89 Other schizophrenia; I10 Essential (primary) hypertension; K21.9 Gastro-esophageal reflux disease without esophagitis; R07.89 Other chest pain; R13.10 Dysphagia, unspecified; R42 Dizziness and giddiness; R94.31 Abnormal electrocardiogram [ECG] [EKG]; Z79.84 Long term (current) use of oral hypoglycemic drugs
CPT/HCPCS: 74220

== ENCOUNTER → 2021-08-16 10:43 | Outpatient (CLI) | payer MEDICARE, MEDICAID, SELFPAY ==
--- NOTE | 2021-08-16 11:03 | FL_ITS ---
FINAL REPORT CLINICAL HISTORY: modified barium swallow- speech therapy report is already scanned into the study FINDINGS: MODIFIED BARIUM SWALLOW History: Dysphagia FINDINGS: Fluoroscopy was provided for the speech pathologist to evaluate the swallowing mechanism. The patient was given several different consistencies of barium while the swallow was visualized fluoroscopically. The report of the speech pathologist should be consulted prior to making dietary decisions. FLUOROSCOPY TIME: 1 minute 46 seconds. 17 cine runs were obtained. IMPRESSION: Modified barium swallow under fluoroscopic guidance. Please see the report of the speech pathologist for Dietary recommendations. Films reviewed , interpreted and dictated by Dr. Wan. Transcribed by Bjorn Kraft PA-C. Reviewed, Interpreted and Dictated by Keenan Wan III, MD Transcribed by JESUS Meléndez Authenticated and [facility]
--- NOTE | 2021-08-16 13:33 | HMH.SLMBS2 ---
Speech & Language Evaluation Speech/Language Mod Barium Swallow Start: 08/16/21 11:40 Freq: once Status: Complete Protocol: Document 08/16/21 11:40 RAFAEL (Rec: 08/16/21 13:33 [id number]) General Information General Current Food Consistency Mechanical Soft,Thin Liquids Dentition Edentulous Oxygen Status Room Air Facial Symmetry Symmetrical Ability to Follow Directions Fair Communication Ability Mild Impairment MBS Recommendations Diet Dietary Recommendations Mechanical Soft,Thin Liquids Treatment/Strategies Strategy/Precaution Recommend Sitting Upright (90 deg),Small Bites and Sips,Alternate Liquids/Solids Mod Barium Swallow Impressions Summary and Impressions Oral Phase Impression Minimal Impairment Oral Phase Summary Mildly prolonged mastication noted with all solids 2' to dentition. No oral residue noted during the study. Pharyngeal Phase Impression Minimal Impairment Pharyngeal Phase Summary No aspiration or penetration noted on the study. Minimal diffuse pharyngeal residue throughout trials, which patient clears independently. Minimal retrograde flow of material through UES noted during the study. Speech/Language MBS Assessment/Goals/Plan Assessment Date of Evaluation: 08/16/21 Evaluation Type Initial Certification Does Patient Qualify for Service No Qualify/Failure Comment Based on MBSS, pt does not qualify for skilled ST services at this time. Recommendations PHYSICIAN CERTIFICATION: The specified therapy services are required, authorized, and reviewed every 30 days. Diet Recommendations Mechanical Soft Liquid Type Recommendations Normal/Thin SL Swallow Guidelines Alt bite w/sip thru meal, Standard Aspiration Prec. Dysphagia Swallow Precautions/Strategies Sitting Upright (90 deg),Small Bites and Sips,Alternate Liquids/Solids Plan Pt/Guardian verbally ack understanding Yes of dx/prognosis/goals Pt/Guardian verbally ack understanding Yes of/consent to tx prog G -code Required No Education Instructions provided MBSS recommendations discussed with pt and aide, and results were written in consult report to go back to [place]. Pt/Car
== END ==
PROVIDERS: PCP Emergency Medicine; Visit Provider Surgery
DX: R13.10 Dysphagia, unspecified (principal)
CPT/HCPCS: 70371; 92611

== ENCOUNTER → 2021-10-01 13:46 | Outpatient (CLI) | payer MEDICARE, MEDICAID, SELFPAY ==
--- NOTE | 2021-10-01 14:05 | XR_ITS ---
FINAL REPORT CLINICAL HISTORY: ankle fracture COMPARISON: June 25, 2021 FINDINGS: RIGHT ANKLE: Three views of the right ankle were obtained. A cast has been removed. There are subacute fractures of the medial and lateral malleoli and the posterior distal tibia. The bones are osteopenic. There is mild degenerative change. There is a chronic calcification in the region of the distal Achilles tendon. IMPRESSION: Subacute fractures of the medial lateral malleoli and posterior distal tibia. Reviewed, Interpreted and Dictated by Keenan Wan III, MD Transcribed by Nandini Tripp Authenticated and . [facility]
== END ==
PROVIDERS: PCP Emergency Medicine; Visit Provider Orthopaedic Surgery
DX: S82.892A Other fracture of left lower leg, initial encounter for closed fracture (principal)
CPT/HCPCS: 73610

== ENCOUNTER → 2022-03-25 12:59 | Outpatient (CLI) | payer MEDICARE, MEDICAID, SELFPAY ==
--- NOTE | 2022-03-25 13:03 | XR_ITS ---
FINAL REPORT CLINICAL HISTORY: ankle pain FINDINGS: Left knee Three views were obtained. There is no acute fracture or dislocation. There are mild degenerative changes. The bones are osteopenic. No soft tissue abnormality is identified. IMPRESSION: Mild degenerative changes. Reviewed, Interpreted and Dictated by Keenan Wan III, MD Transcribed by Bia Sims Authenticated and [facility]
== END ==
PROVIDERS: PCP Emergency Medicine; Visit Provider Orthopaedic Surgery
DX: M25.572 Pain in left ankle and joints of left foot (principal)
CPT/HCPCS: 73610

== ENCOUNTER 2022-07-12 18:07 | Emergency (ER) | payer MEDICARE, MEDICAID, SELFPAY ==
[2022-07-12] VITALS (9 sets, daily range): BP systolic 117–151; BP diastolic 48–75; PULSE 110–134; RESP 16–19; TEMP 36.6; O2SAT 90–96; BMI 34.6
--- NOTE | 2022-07-12 18:12 | CT_ITS ---
PROCEDURE INFORMATION: Exam: CT Head Without Contrast Exam date and time: 07/12/2022 6:08 PM Age: 72 years old Clinical indication: Stroke-like symptoms; Right facial droop; Additional info: Stroke alert TECHNIQUE: Imaging protocol: Computed tomography of the head without contrast. Radiation optimization: All CT scans at this facility use at least one of these dose optimization techniques: automated exposure control; mA and/or kV adjustment per patient size (includes targeted exams where dose is matched to clinical indication); or iterative reconstruction. Other technique: STROKE PROTOCOL was implemented. REPORTING DATA: Count of CT and Cardiac NM exams in prior 12 months: This patient has received 0 known CTs and 0 known cardiac nuclear medicine studies in the 12 months prior to the current study. COMPARISON: CT HEAD/BRAIN WO CON 09/07/2020 3:15 PM FINDINGS: Brain: No acute intracranial hemorrhage is visualized. The cuenca-white differentiation is preserved demonstrating no acute territorial type infarct. There is moderate cerebral white matter hypodensity, likely representing small vessel ischemic disease in a patient this age. The acuity of the white matter disease is indeterminate. Artifact limits evaluation of the brainstem. Hypodense dilated perivascular spaces are visualized below the right basal ganglia. There is no midline shift. Cerebral ventricles: There is moderate prominence of the ventricles and sulci, compatible with atrophy. Paranasal sinuses: Visualized sinuses are unremarkable. No fluid levels. Mastoid air cells: Minimal effusions within left mastoid air cells. Auditory system: Abnormal density is visualized within the right external auditory canal. Cerumen is suggested. Bones/joints: The calvarium demonstrates no evidence for a depressed fracture. Soft tissues: Unremarkable. Vasculature: Intracranial atherosclerosis visualized. IMPRESSION: 1. No acute intracranial hemorrhage or acute territorial type infarct. 2. There is moderate cerebral white matter hypodensity, likely representing small vessel ischemic disease in a patient this age. 3. Moderate atrophy. 4. Additional findings described above. 5. If further evaluation is clinically indicated, an MRI of the brain is recommended. ASSESSMENT: [facility] Stroke Program Early CT Score (ASPECTS) = 10
--- NOTE | 2022-07-12 18:12 | CT_ITS ---
PROCEDURE INFORMATION: Exam: CTA Head With Contrast, Arteriography Exam date and time: 07/12/2022 6:30 PM Age: 72 years old Clinical indication: Stroke-like symptoms; Bilateral facial droop TECHNIQUE: Imaging protocol: Computed tomographic angiography of the head with contrast. Exam focused on the arteries. 3D rendering (Not supervised by radiologist): MIP and/or 3D reconstructed images were created by the technologist. Radiation optimization: All CT scans at this facility use at least one of these dose optimization techniques: automated exposure control; mA and/or kV adjustment per patient size (includes targeted exams where dose is matched to clinical indication); or iterative reconstruction. Contrast material: ISOVUE 370; Contrast volume: 100 ml; Contrast route: INTRAVENOUS (IV); REPORTING DATA: Count of CT and Cardiac NM exams in prior 12 months: This patient has received 0 known CTs and 0 known cardiac nuclear medicine studies in the 12 months prior to the current study. COMPARISON: CT HEAD/BRAIN WO CON 07/12/2022 6:08 PM FINDINGS: ANTERIOR CIRCULATION: Right internal carotid artery: Intracranial segment is patent with no significant stenosis. No aneurysm. Right middle cerebral artery: No occlusion or significant stenosis. No aneurysm. Right anterior cerebral artery: No occlusion or significant stenosis. No aneurysm. Left internal carotid artery: Intracranial segment is patent with no significant stenosis. No aneurysm. Left middle cerebral artery: No occlusion or significant stenosis. No aneurysm. Left anterior cerebral artery: No occlusion or significant stenosis. No aneurysm. POSTERIOR CIRCULATION: Right vertebral artery: No occlusion or significant stenosis. No aneurysm. Left vertebral artery: No occlusion or significant stenosis. No aneurysm. Basilar artery: No occlusion or significant stenosis. No aneurysm. Right posterior cerebral artery: No occlusion or significant stenosis. No aneurysm. Left posterior cerebral artery: No occlusion or significant stenosis. No aneurysm. Cavernous Sinus: Evaluation of dural venous sinuses is suboptimal due to poor dural venous enhancement. Brain: Refer to the CT head report from the same day. Cerebral ventricles: There is moderate prominence of the ventricles and sulci, compatible with atrophy. Bones/joints: No acute fracture. Soft tissues: Unremarkable. IMPRESSION: 1. No large vessel arterial occlusion on this CTA head. 2. Additional findings described above.
--- NOTE | 2022-07-12 18:12 | CT_ITS ---
PROCEDURE INFORMATION: Exam: CTA Neck With Contrast Exam date and time: 07/12/2022 6:30 PM Age: 72 years old Clinical indication: Stroke-like symptoms; Speech disturbance TECHNIQUE: Imaging protocol: Computed tomographic angiography of the neck with contrast. 3D rendering (Not supervised by radiologist): MIP and/or 3D reconstructed images were created by the technologist. Radiation optimization: All CT scans at this facility use at least one of these dose optimization techniques: automated exposure control; mA and/or kV adjustment per patient size (includes targeted exams where dose is matched to clinical indication); or iterative reconstruction. Contrast material: ISOVUE 370; Contrast volume: 100 ml; Contrast route: INTRAVENOUS (IV); REPORTING DATA: Count of CT and Cardiac NM exams in prior 12 months: This patient has received 0 known CTs and 0 known cardiac nuclear medicine studies in the 12 months prior to the current study. COMPARISON: 1. CT HEAD/BRAIN WO CON 07/12/2022 6:[address] CHEST WO CON 07/30/2020 9:01 AM FINDINGS: Right common carotid artery: Artifact limits evaluation of the proximal right common carotid artery, without occlusion. No significant stenosis or occlusion of the remaining right common carotid artery. Right internal carotid artery: No stenosis of the proximal right internal carotid artery using NASCET criteria. Irregular contour of the distal right internal carotid artery, suggestive of fibromuscular dysplasia. Right external carotid artery: No occlusion or significant stenosis. Left common carotid artery: Artifact limits evaluation of the proximal to mid left common carotid artery, without occlusion. No significant stenosis or occlusion of the remaining left common carotid artery. Increased tortuosity of the left common carotid artery. Left internal carotid artery: No stenosis of the proximal left internal carotid artery using NASCET criteria. Irregular contour of the distal right internal carotid artery, suggestive of fibromuscular dysplasia. Increased tortuosity of the left internal carotid artery. There is a small vascular bulge of the distal left internal carotid artery measuring 0.2 x 0.3 cm. This is consistent with aneurysm or ulcerating plaque. Left external carotid artery: No occlusion or significant stenosis. Right vertebral artery: Mild irregular contour and stenosis of the V3 segment of the right vertebral artery proximally. Left vertebral artery: No significant stenosis. No dissection or occlusion. Aorta: Artifact limits evaluation at the ascending aorta. Salivary glands: There is hypodense fatty infiltration of the parotid glands. Thyroid: Thyroid nodules are visualized. Within the right thyroid lobe, there is a 9 mm nodule. Soft tissues: No significant soft tissue swelling. Bones/joints: Mild anterolisthesis of C3 on C4 and C4 on C5. Mild anterior wedging/compression fractures are identified of the C4 and C5 vertebral bodies, indeterminate in acuity. Degenerative changes are visualized involving the cervical and upper thoracic spine. Varying degrees of neural foraminal narrowing at multiple cervical levels. Artifact limits evaluation of the spinal canal. Rotation of C1 on C2. Lungs: Within the right upper lobe of the lung on series 5, image 1, there is a 5 mm nodule. Nonspecific increased interstitial markings and atelectatic changes are identified within the left lung. Esophagus: Mild gaseous distention of the esophagus. IMPRESSION: 1. Irregular contour of the bilateral internal carotid arteries, suggestive of fibromuscular dysplasia. 2. There is a small vascular bu
--- NOTE | 2022-07-12 18:13 | XR_ITS ---
PROCEDURE INFORMATION: Exam: XR Chest Exam date and time: 07/12/2022 6:34 PM Age: 72 years old Clinical indication: Shortness of breath; Additional info: SOA TECHNIQUE: Imaging protocol: Radiologic exam of the chest. Views: 1 view. COMPARISON: CT CHEST WO CON 07/30/2020 9:01 AM FINDINGS: Lungs: Nonspecific increased interstitial markings within the lungs. Right basilar atelectatic change. Left lung consolidation cannot be excluded due to limitations of this study. Pleural spaces: Blunting of the left costophrenic angle, with a small left pleural effusion. Heart/Mediastinum: The left heart border is partially obscured. Bones/joints: Hypertrophic degenerative changes are noted involving the spine. Diffuse osteopenia. Other findings: This study is limited by patient rotation to the left. IMPRESSION: 1. Nonspecific increased interstitial markings within the lungs. Right basilar atelectatic change. Left lung consolidation cannot be excluded due to limitations of this study. Follow-up radiographs or correlation with chest CT is recommended, as clinically indicated. 2. Blunting of the left costophrenic angle, with a small left pleural effusion.
--- NOTE | 2022-07-12 18:22 | HMH.EDGENADL ---
Discharge Plan Disposition Patient Disposition: Xfer Short-Term Hosp Condition: Good Prescriptions Prescriptions: No Action ropinirole 1 mg tablet 1 mg PO HS venlafaxine 75 mg tablet 75 mg PO DAILY omeprazole 40 mg capsule,delayed release(DR/EC) 40 mg PO DAILY amantadine HCl 100 mg capsule 100 mg PO DAILY triamterene-hydrochlorothiazid 37.5-25 mg capsule 1 cap PO DIRECTED Rx Instructions: Every M W F bisoprolol fumarate 5 mg tablet 5 mg PO DAILY bethanechol chloride 25 mg tablet 25 mg PO DAILY potassium chloride 20 mEq tablet,ER particles/crystals 20 meq PO DAILY meclizine 25 mg tablet 25 mg PO TIDP PRN (Reason: Dizziness) warfarin 2 mg tablet 2 mg PO DAILY oxcarbazepine 600 mg tablet 600 mg PO BID montelukast 10 mg tablet 10 mg PO DAILY allopurinol 300 mg tablet 300 mg PO DAILY pravastatin 20 mg tablet 20 mg PO HS fluticasone propionate 50 mcg/actuation spray,suspension 2 spray INTRANASAL DAILY risperidone 1 mg tablet 1 mg PO TID olanzapine 20 mg tablet 20 mg PO HS glipizide 5 mg tablet 5 mg PO DAILY lactulose 10 gram/15 mL solution 30 ml PO DAILYP PRN (Reason: Constipation) levocetirizine 5 mg tablet 2.5 mg PO DIRECTED Rx Instructions: Every other day Referrals Follow up/Referrals: Jose Antoine MD [Primary Care Provider] - See instructions Clinical Impressions Clinical Impression: Acute ischemic stroke Discharge ED Provider: Moisés Murphy General Adult HPI <Moisés Murphy MD - Last Filed: 07/12/22 19:50> General Chief complaint: Neuro Symptoms/Deficit Stated complaint: STROKE ALERT Time Seen by Provider: 07/12/22 18:10 Mode of Arrival: EMS Source of Information: EMS Limitations: Physical Limitations Description of Symptoms (Recalled from ER Triage Doc. by RN): 72 F presents via EMS from [facility] with last known well 1430 while giving her a bath. Staff report they went to re-check her around 1730 and noted her to be less responsive, confused, and right facial droop. Upon arrival of EMS they noted the same symptoms. FSBS 167, BP 96/63. They started a 20g to left wrist and infused 500 mL NS in route. Attending and staff met patient at ambulance door and taken straight to CT for Stroke Alert History of Present Illness HPI narrative: 72-year-old female presents via EMS from [facility] with last known normal of 1430 while they were giving her a bath. Staff reported they went in to recheck her and she was less responsive than she normally does with right facial droop. Blood sugar 167 in route. History and exam limited from patient due to dysarthria. Reportedly from the intermediate this is not her baseline. Review of the paperwork from [facility] reveals her being on Coumadin and her being full code. Related Data Home Medications Medication Instructions Recorded Confirmed allopurinol 300 mg tablet 300 mg PO DAILY Gout 07/12/22 07/12/22 amantadine HCl 100 mg capsule 100 mg PO DAILY Parkinson's Disease 07/12/22 07/12/22 bethanechol chloride 25 mg tablet 25 mg PO DAILY Urinary retention 07/12/22 07/12/22 bisoprolol fumarate 5 mg tablet 5 mg PO DAILY High blood pressure 07/12/22 07/12/22 fluticasone propionate 50 2 spray intranasal DAILY Allergy 07/12/22 07/12/22 mcg/actuation nasal symptoms spray,suspension glipizide 5 mg tablet 5 mg PO DAILY Diabetes 07/12/22 07/12/22 lactulose 10 gram/15 mL oral 30 ml PO DAILYP PRN Constipation 07/12/22 07/12/22 solution levocetirizine 5 mg tablet 2.5 mg PO DIRECTED Allergy 07/12/22 07/12/22 symptoms meclizine 25 mg tablet 25 mg PO TIDP PRN Dizziness 07/12/22 07/12/22 montelukast 10 mg tablet 10 mg PO DAILY Allergy symptoms 07/12/22 07/12/22 olanzapine 20 mg tablet 20 mg PO HS Mood 07/12/22 07/12/22 omeprazole 40 mg capsule,delayed 40 mg PO DAILY Acid reflux 05
--- NOTE | 2022-07-12 19:41 | PC.NURSE ---
Provider speaking to Nurse Navigator at [facility]
--- NOTE | 2022-07-12 19:57 | PC.NURSE ---
Attending made aware of continued HR of 130's. NAD from patient. Resting with even, unlabored breaths. Chest rise and fall
[2022-07-12 20:01] LABS: Chloride 95 mmol/L (98-107); Potassium 3.7 mmoL/L (3.5-5.1); Sodium 134 mmol/L (136-145)
[2022-07-12 20:02] LABS: Basophils % 0.2 % (0.1-2.0); Eosinophils # 0.1 K/mm3 (0.0-0.4); Eosinophils % 0.5 % (0.1-12.0); Hematocrit 45.8 % (37.0-47.0); Hemoglobin 14.6 g/dL (12.2-16.2); Lymphocytes # 0.7 K/mm3 (0.7-4.5); Lymphocytes % 3.7 % (10-50); Mean Corpuscular Volume 90.9 fl (81-99); Mean Platelet Volume 8.6 fl (7.4-10.4); Monocytes # 0.8 K/mm3 (0.1-1.0); Monocytes % 4.8 % (1.7-9.3); Neutrophils % 90.8 % (37.0-80.0); Platelet Count 452 K/mm3 (142-424); Red Blood Count 5.04 M/mm3 (4.20-5.40); Red Cell Distribution Width 15.1 % (11.5-17.5); White Blood Count 17.7 K/mm3 (4.8-10.8)
--- NOTE | 2022-07-12 20:03 | PC.NURSE ---
Attending spoke to [facility] Neuro MARKET PRESIDENT and is accepted by Dr. Olivo. Awaiting bed placement at this time
[2022-07-12 20:04] LABS: Alanine Aminotransferase 43 U/L (12-78); Albumin Level 3.3 g/dl (3.5-5.0); Albumin/Globulin Ratio 1.1 (1.1-1.8); Alkaline Phosphatase 223 U/L (38-126); Anion Gap 14.7 mEq/L (5-15); Aspartate Amino Transferase 47 U/L (14-36); Bilirubin,Total 0.9 mg/dl (0.2-1.3); Blood Urea Nitrogen 18 mg/dl (7-17); Calcium 9.2 mg/dl (8.4-10.2); Carbon Dioxide 28 mmol/L (22.0-30.0); Creatinine Clearance Estimated 54 mL/min (50-200); Estimated Glomerular Filt Rate 37 ml/min (>60); GFR (African American) 44 ML/MIN (>60); Glucose 129 mg/dl (74-100); MANUAL DIFFERENTIAL MANUAL DIFFERENTIAL (MANUAL DIFF); Total Protein,Serum 6.3 g/dl (6.3-8.2)
[2022-07-12 20:05] LABS: Magnesium 1.8 mg/dl (1.6-2.3)
[2022-07-12 20:07] LABS: INR 3.04 (0.9-1.1); Prothrombin Time 30.8 seconds (10.1-12.5)
--- NOTE | 2022-07-12 20:12 | PC.NURSE ---
faxed face-sheet to [facility]:
[2022-07-12 20:24] LABS: Troponin I 0.01 ng/ml (0.00-0.034)
[2022-07-12 20:35] LABS: Thyroid Stimulating Hormone 1.07 uIU/mL (0.465-4.68)
--- NOTE | 2022-07-12 20:36 | PC.NURSE ---
Patient had urinary incontinence and needed to be cleaned up. Completed full bed bath with tech. No pressure injuries noted to patient's skin. Urinary cath completed for urine specimen
[2022-07-12 20:38] LABS: Microscopic, Urine URINE MICROSCOPIC (MICROSCOPIC)
[2022-07-12 20:42] LABS: Appearance,Urine CLEAR (Clear); Blood, Urine Negative (Negative); Color,Urine YELLOW (Yellow); Glucose,Urine (UA) Negative (Negative); Ketones,Urine TRACE (Negative); Leukocyte Esterase,Urine TRACE (Negative); Nitrate,Urine Negative (Negative); Protein,Urine TRACE (Negative); Specific Gravity, Urine 1.025 (1.005-1.030)
[2022-07-12 20:58] LABS: Bilirubin,Urine Negative (Negative)
[2022-07-12 21:05] LABS: Bacteria,Urine 1+ /lpf; Squamous Epithelial Cell,Urine Occasional #/hpf (0-5); WBC,Urine Occasional #/hpf (0-3)
--- NOTE | 2022-07-12 22:05 | PC.NURSE ---
Gave report to Promise CLANCY with [facility]. Pt is accepted to Dr. Olivo, [facility] and asked to call when pt leaves [facility] and 10 min out. .
--- NOTE | 2022-07-12 22:10 | PC.NURSE ---
Gave update on pt condition and transfer to Margot @ [facility]
[2022-07-12 22:17] LABS: Lymphocytes % 4 % (10-50); Monocytes % 9 % (2-9); Neutrophils % 87 % (42-76); Total Cells Counted 100
[2022-07-12 22:20] LABS: Platelet Estimate Normal; RBC Morphology Normal
--- NOTE | 2022-07-12 22:55 | PC.NURSE ---
Spoke to Promise with [facility] to let her know patient is being loaded by EMS at this time
[2022-10-17 10:05] LABS: POC Glucose,Bedside 138 (70-110)
== END 2022-07-12 22:55 | disposition short-term general hospital (02) ==
PROVIDERS: Emergency Provider Emergency Medicine; PCP Emergency Medicine
DX: I63.9 Cerebral infarction, unspecified (principal); Z87.891 Personal history of nicotine dependence; Z79.899 Other long term (current) drug therapy
CPT/HCPCS: 36415; 70450; 70496; 70498; 71045; 80053; 81001; 82962; 83735; 84443; 84484; 85007; 85025; 85610; 93005; 99285; 99291; Q9967

== ENCOUNTER 2022-07-26 14:56 | Inpatient (IN) | payer MEDICAID, MEDICARE, SELFPAY ==
[2022-07-26] VITALS (22 sets, daily range): BP systolic 78–172; BP diastolic 37–96; PULSE 90–117; RESP 16–28; TEMP 32.3–36.9; O2SAT 91–98; BMI 36.6; BMI 37.5
--- NOTE | 2022-07-26 15:03 | HMH.EDGENADL ---
Discharge Plan Disposition Patient Disposition: Admitted Prescriptions Prescriptions: No Action atorvastatin 40 mg tablet 40 mg PO HS ferrous sulfate 325 mg (65 mg iron) tablet 325 mg PO DAILY budesonide 0.25 mg/2 mL suspension for nebulization 0.25 mg inhalation BID melatonin 5 mg capsule 5 mg PO HS triamterene-hydrochlorothiazid [Maxzide-25mg] 37.5-25 mg tablet 1 tab PO DIRECTED Qty: 30 3RF Rx Instructions: Take one tablet on Mon/Mon/Frid ropinirole 1 mg tablet 1 mg PO HS venlafaxine 75 mg tablet 75 mg PO DAILY omeprazole 40 mg capsule,delayed release(DR/EC) 40 mg PO DAILY amantadine HCl 100 mg capsule 100 mg PO DAILY bisoprolol fumarate 5 mg tablet 5 mg PO DAILY bethanechol chloride 25 mg tablet 25 mg PO DAILY meclizine 25 mg tablet 25 mg PO TIDP PRN (Reason: Dizziness) warfarin 2 mg tablet 2 mg PO DAILY oxcarbazepine 600 mg tablet 600 mg PO BID allopurinol 300 mg tablet 300 mg PO DAILY fluticasone propionate 50 mcg/actuation spray,suspension 2 spray INTRANASAL DAILY risperidone 1 mg tablet 1 mg PO TID olanzapine 20 mg tablet 20 mg PO HS glipizide 5 mg tablet 5 mg PO DAILY lactulose 10 gram/15 mL solution 30 ml PO DAILYP PRN (Reason: Constipation) levocetirizine 5 mg tablet 2.5 mg PO DIRECTED Rx Instructions: Every other day Clinical Impressions Clinical Impression: Acute encephalopathy, Septic shock, Sepsis with acute hypoxic respiratory failure, Diarrhea, Hypothermia Discharge ED Provider: Valerio Delacruz General Adult HPI General Stated complaint: AMS Time Seen by Provider: 07/26/22 15:03 History of Present Illness HPI narrative: Patient is a 72-year-old female sent from [facility] for change in mental status. She was actually admitted to [facility] several weeks ago for similar presentation was worked up here for a stroke and transferred EMS states that when she was transferred to [facility] they ultimately determined that this was not a stroke but is unclear what the final diagnosis was. According to EMS who from [facility], her baseline mental status is that she is confused at baseline but able to articulate most of her words and this is a change number operator the last 3 to 4 hours. The patient is altered and history is severely limited secondary to this. There have been no fevers or chills or any other symptoms that have been articulated or shared with us from EMS but there is significant amount of information that was lost in transport. We are attempting to get recent discharge summary from [facility]. Related Data Home Medications Medication Instructions Recorded Confirmed allopurinol 300 mg tablet 300 mg PO DAILY Gout 07/12/22 07/21/22 amantadine HCl 100 mg capsule 100 mg PO DAILY Parkinson's Disease 07/12/22 07/21/22 bethanechol chloride 25 mg tablet 25 mg PO DAILY Urinary retention 07/12/22 07/21/22 bisoprolol fumarate 5 mg tablet 5 mg PO DAILY High blood pressure 07/12/22 07/21/22 fluticasone propionate 50 2 spray intranasal DAILY Allergy 07/12/22 07/12/22 mcg/actuation nasal symptoms spray,suspension glipizide 5 mg tablet 5 mg PO DAILY Diabetes 07/12/22 07/21/22 lactulose 10 gram/15 mL oral 30 ml PO DAILYP PRN Constipation 07/12/22 07/21/22 solution levocetirizine 5 mg tablet 2.5 mg PO DIRECTED Allergy 07/12/22 07/21/22 symptoms meclizine 25 mg tablet 25 mg PO TIDP PRN Dizziness 07/12/22 07/21/22 olanzapine 20 mg tablet 20 mg PO HS Mood 07/12/22 07/21/22 omeprazole 40 mg capsule,delayed 40 mg PO DAILY Acid reflux 07/12/22 07/21/22 release oxcarbazepine 600 mg tablet 600 mg PO BID Seizure 07/12/22 07/21/22 risperidone 1 mg tablet 1 mg PO TID Schizophrenia 07/12/22 07/21/22 ropinirole 1 mg tablet 1 mg PO HS RLS 07/12/22 07/21/22 venlafaxine 75 mg tablet 75 mg PO DAILY Mood 07/12/22 07/21/22 warfarin 2 mg table
--- NOTE | 2022-07-26 15:10 | CT_ITS ---
PROCEDURE INFORMATION: Exam: CT Head Without Contrast Exam date and time: 07/26/2022 4:36 PM Age: 72 years old Clinical indication: Other: AMS TECHNIQUE: Imaging protocol: Computed tomography of the head without contrast. Radiation optimization: All CT scans at this facility use at least one of these dose optimization techniques: automated exposure control; mA and/or kV adjustment per patient size (includes targeted exams where dose is matched to clinical indication); or iterative reconstruction. REPORTING DATA: Count of CT and Cardiac NM exams in prior 12 months: This patient has received 3 known CTs and 0 known cardiac nuclear medicine studies in the 12 months prior to the current study. COMPARISON: CT HEAD/BRAIN WO CON 07/12/2022 6:08 PM FINDINGS: Brain: There is no evidence of acute intracranial hemorrhage, extra-axial collection or locoregional mass effect. There are scattered hypodensities in the periventricular and subcortical white matter. The appearance is nonspecific, but most likely represents chronic small vessel disease in a person of this age. Focal hypodensity in the right basal ganglia region can be either a chronic lacunar infarct or a prominent perivascular space. Cerebral ventricles: The ventricles, sulci and cisterns are normal in size and configuration for patient's age. No hydrocephalus or midline structure shift Pituitary gland and sella: Sellar/parasellar structures, craniocervical junction and orbits are unremarkable Paranasal sinuses: Visualized sinuses are unremarkable. No fluid levels. Mastoid air cells: Visualized mastoid air cells are well aerated. Bones/joints: No calvarial fracture Soft tissues: Unremarkable. IMPRESSION: No acute intracranial abnormality. No calvarial fracture. If focal neurological symptoms persist brain MRI can be obtained for better evaluation
--- NOTE | 2022-07-26 15:10 | CT_ITS ---
PROCEDURE INFORMATION: Exam: CTA Neck With Contrast Exam date and time: 07/26/2022 4:39 PM Age: 72 years old Clinical indication: Other: AMS TECHNIQUE: Imaging protocol: Computed tomographic angiography of the neck with contrast. 3D rendering (Not supervised by radiologist): MIP and/or 3D reconstructed images were created by the technologist. Radiation optimization: All CT scans at this facility use at least one of these dose optimization techniques: automated exposure control; mA and/or kV adjustment per patient size (includes targeted exams where dose is matched to clinical indication); or iterative reconstruction. Contrast material: ISOVUE; Contrast volume: 100 ml; Contrast route: INTRAVENOUS (IV); REPORTING DATA: Count of CT and Cardiac NM exams in prior 12 months: This patient has received 3 known CTs and 0 known cardiac nuclear medicine studies in the 12 months prior to the current study. COMPARISON: CT ANGIO NECK 07/12/2022 6:30 PM FINDINGS: Right common carotid artery: The right common carotid artery is widely patent. No stenosis. Right internal carotid artery: There is redemonstration of irregularity along the distal right internal carotid artery. Right external carotid artery: No occlusion or stenosis of the origin. Left common carotid artery: The left common carotid artery is widely patent. No stenosis. Left internal carotid artery: Focal outpouching in the left internal carotid artery is re-identified. There is redemonstration of irregularity along the distal left internal carotid artery. Left external carotid artery: No occlusion or stenosis of the origin. Right vertebral artery: Subtle irregularities along the V3 segment of right vertebral artery are unchanged. Right vertebral artery is otherwise unremarkable without flow-limiting stenosis. Left vertebral artery: Left vertebral artery is unremarkable without flow-limiting stenosis. Right subclavian artery: No flow-limiting stenosis in the proximal right subclavian artery. Left subclavian artery: No flow-limiting stenosis in the proximal left subclavian artery. Soft tissues: Normal. No significant soft tissue swelling. Bones/joints: No acute fracture. IMPRESSION: Findings suspicious for fibromuscular dysplasia. Subtle outpouching along the left internal carotid artery is re-identified. REFERENCES: NASCET CRITERIA. The degree of stenosis in the cervical segment of the internal carotid artery is based on NASCET criteria. Normal is no stenosis. Mild is less than 50% stenosis. Moderate is 50-69% stenosis. Severe is 70% to 99% stenosis. Total occlusion is no detectable patent lumen.
--- NOTE | 2022-07-26 15:10 | CT_ITS ---
PROCEDURE INFORMATION: Exam: CTA Head With Contrast, Arteriography Exam date and time: 07/26/2022 4:39 PM Age: 72 years old Clinical indication: Other: AMS TECHNIQUE: Imaging protocol: Computed tomographic angiography of the head with contrast. Exam focused on the arteries. 3D rendering (Not supervised by radiologist): MIP and/or 3D reconstructed images were created by the technologist. Radiation optimization: All CT scans at this facility use at least one of these dose optimization techniques: automated exposure control; mA and/or kV adjustment per patient size (includes targeted exams where dose is matched to clinical indication); or iterative reconstruction. Contrast material: ISOVUE; Contrast volume: 100 ml; Contrast route: INTRAVENOUS (IV); REPORTING DATA: Count of CT and Cardiac NM exams in prior 12 months: This patient has received 3 known CTs and 0 known cardiac nuclear medicine studies in the 12 months prior to the current study. COMPARISON: CT ANGIO HEAD 07/12/2022 6:30 PM FINDINGS: ANTERIOR CIRCULATION: Right internal carotid artery: Intracranial segment is patent with no significant stenosis. No aneurysm. Right middle cerebral artery: Right middle cerebral artery is patent. No significant stenosis. No aneurysm. Right anterior cerebral artery: No occlusion or significant stenosis. No aneurysm. Left internal carotid artery: Intracranial segment is patent with no significant stenosis. No aneurysm. Left middle cerebral artery: Left middle cerebral artery is patent. No significant stenosis. No aneurysm. Left anterior cerebral artery: No occlusion or significant stenosis. No aneurysm. POSTERIOR CIRCULATION: Right vertebral artery: Subtle irregularities along the V3 segment of right vertebral artery are re-identified. Left vertebral artery: Left vertebral artery is unremarkable without flow-limiting stenosis. Basilar artery: Basilar artery is patent. Right posterior cerebral artery: Right posterior cerebral artery is patent. No significant stenosis. No aneurysm. Left posterior cerebral artery: Left posterior cerebral artery is patent. No significant stenosis. No aneurysm. Brain: No definite mass, mass effect, or midline shift. Cerebral ventricles: No ventriculomegaly. Bones/joints: Unremarkable. No acute fracture. Soft tissues: Unremarkable. IMPRESSION: 1. No large vessel occlusion 2. Mild irregularities along the V3 segment of right vertebral artery are re-identified
--- NOTE | 2022-07-26 15:11 | XR_ITS ---
PROCEDURE INFORMATION: Exam: XR Chest Exam date and time: 07/26/2022 4:40 PM Age: 72 years old Clinical indication: Dyspnea TECHNIQUE: Imaging protocol: Radiologic exam of the chest. Views: 1 view. COMPARISON: CR XR CHEST PORTABLE 07/12/2022 6:34 PM FINDINGS: Lungs: No evidence of pneumonia or interstitial edema. Lungs are hypoaerated Pleural spaces: Unremarkable. No pleural effusion. No pneumothorax. Heart/Mediastinum: Hiatal hernia is suspected. Bones/joints: Unremarkable. IMPRESSION: No evidence of pneumonia or interstitial edema.
--- NOTE | 2022-07-26 15:30 | PC.NURSE ---
faxed request for discharge summary from [facility]
--- NOTE | 2022-07-26 15:35 | ECG_ITS ---
APPROVED REPORT Exam: Resting ECG HR:97 bpm ECG Measurements Heart Rate 97 AXES IA 143 P 248 QRSd 99 QRS -49 QT 385 T 35 QTc 439 Conclusion ECTOPIC ATRIAL RHYTHM LOW QRS VOLTAGE IN EXTREMITY LEADS [QRS DEFLECTION < 0.5 mV IN LIMB LEADS] INFERIOR MYOCARDIAL INFARCTION , OF INDETERMINATE AGE [40+ ms Q WAVE AND/OR ST/T ABNORMALITY IN II/aVF] ANTEROLATERAL MYOCARDIAL INFARCTION , PROBABLY OLD [40+ ms Q WAVE IN I/aVL/V3-V6] ABNORMAL ECG UNCONFIRMED REPORT Electronically signed by : Hernandez Yi MD 07/28/2022 09:28:33
[2022-07-26 15:37] LABS: Adenovirus F 40/41, stool Not Detected (NotDetected); Astrovirus Not Detected (NotDetected); Campylobacter Not Detected (NotDetected); Clostridium Difficile A/B, PCR Not Detected (NotDetected); Cryptosporidium Not Detected (NotDetected); Cyclospora Cayetanesis Not Detected (NotDetected); Entamoeba histolytica Not Detected (NotDetected); Enteroaggregative E coli Not Detected (NotDetected); Enteropathogenic E coli Not Detected (NotDetected); Enterotoxigenic E coli Not Detected (NotDetected); Giardia lamblia Not Detected (NotDetected); Norovirus Not Detected (NotDetected); Plesimonas Shigalloides, PCR Not Detected (NotDetected); Rotavirus A Not Detected (NotDetected); Salmonella, PCR Not Detected (NotDetected); Sapovirus Not Detected (NotDetected); Shiga-like toxin E coli Not Detected (NotDetected); Shigella Enterovasive E coli Not Detected (NotDetected); Vibrio Cholerae Not Detected (NotDetected); Vibrio, PCR Not Detected (NotDetected); Yersinia Entercolitica, PCR Not Detected (NotDetected)
[2022-07-26 15:37] LABS: Microscopic, Urine URINE MICROSCOPIC (MICROSCOPIC)
[2022-07-26 15:40] LABS: Chloride 99 mmol/L (98-107); Eosinophils # 0.1 K/mm3 (0.0-0.4); Eosinophils % 0.5 % (0.1-12.0); Lymphocytes # 0.6 K/mm3 (0.7-4.5); Lymphocytes % 2.6 % (10-50); Monocytes # 0.6 K/mm3 (0.1-1.0); Neutrophils % 94.2 % (37.0-80.0); Potassium 3.4 mmoL/L (3.5-5.1); Sodium 137 mmol/L (136-145)
[2022-07-26 15:40] LABS: Appearance,Urine CLEAR (Clear); Bilirubin,Urine Negative (Negative); Blood, Urine Negative (Negative); Color,Urine YELLOW (Yellow); Glucose,Urine (UA) Negative (Negative); Ketones,Urine Negative (Negative); Leukocyte Esterase,Urine Negative (Negative); Nitrate,Urine Negative (Negative); Protein,Urine Negative (Negative); Urobilinogen,Urine 0.2 EU/dl (0.2)
[2022-07-26 15:43] LABS: Alanine Aminotransferase 51 U/L (12-78); Albumin Level 3.5 g/dl (3.5-5.0); Albumin/Globulin Ratio 1.2 (1.1-1.8); Alkaline Phosphatase 208 U/L (38-126); Anion Gap 18.4 mEq/L (5-15); Aspartate Amino Transferase 56 U/L (14-36); Bilirubin,Total 0.8 mg/dl (0.2-1.3); Blood Urea Nitrogen 13 mg/dl (7-17); Carbon Dioxide 23 mmol/L (22.0-30.0); Estimated Glomerular Filt Rate 40 ml/min (>60); GFR (African American) 48 ML/MIN (>60); Total Protein,Serum 6.5 g/dl (6.3-8.2)
[2022-07-26 15:44] LABS: Calcium 9.1 mg/dl (8.4-10.2); Glucose 125 mg/dl (74-100)
[2022-07-26 15:45] LABS: Lactic Acid 4.6 mmol/L (0.7-2.1)
[2022-07-26 15:46] LABS: INR 1.92 (0.9-1.1)
[2022-07-26 15:50] LABS: Basophils % 0.1 % (0.1-2.0); Hematocrit 45.6 % (37.0-47.0); Hemoglobin 14.8 g/dL (12.2-16.2); Mean Corpuscular HGB Conc 32.4 g/dL (31.8-35.4); Mean Corpuscular Volume 92.5 fl (81-99); Mean Platelet Volume 8.5 fl (7.4-10.4); Monocytes % 2.6 % (1.7-9.3); Neutrophils # 21.8 K/mm3 (1.8-7.8); Platelet Count 398 K/mm3 (142-424); Red Blood Count 4.92 M/mm3 (4.20-5.40); Red Cell Distribution Width 15.6 % (11.5-17.5); White Blood Count 23.1 K/mm3 (4.8-10.8)
[2022-07-26 15:57] LABS: Coronavirus 19, PCR Not Detected (NotDetected); Influenza A, PCR Not Detected (NotDetected); Influenza B, PCR Not Detected (NotDetected)
[2022-07-26 16:01] LABS: MANUAL DIFFERENTIAL MANUAL DIFFERENTIAL (MANUAL DIFF)
[2022-07-26 16:08] LABS: VBG Base Excess -3.7 mmol/L (-2.4-2.3); VBG HCO3 22.2 mmol/L (23-30); VBG Oxygen Saturation 65.5 % (50-70); VBG PCO2 42.4 mmol/L (35-51); VBG PH 7.34 mmol/L (7.31-7.41); VBG PO2 38.6 mmol/L (28-40); VBG Total CO2 23.5 mmol/L (23-27)
[2022-07-26 16:09] LABS: Bacteria,Urine Trace /lpf
[2022-07-26 16:14] LABS: Thyroid Stimulating Hormone 7.35 uIU/mL (0.465-4.68)
[2022-07-26 16:22] LABS: Ammonia 40 umol/L (9-30)
[2022-07-26 16:31] LABS: Lymphocytes % 2 % (10-50); Monocytes % 1 % (2-9); Neutrophils % 92 % (42-76); Total Cells Counted 100
[2022-07-26 16:33] LABS: Anisocytosis 2+; Macrocytosis 2+; Platelet Estimate Slight Increase
[2022-07-26 16:36] LABS: Hypochromasia 1+
--- NOTE | 2022-07-26 16:50 | PC.NURSE ---
Dr Delacruz speaking to Dr Marie
--- NOTE | 2022-07-26 16:55 | PC.NURSE ---
pt back from CT
--- NOTE | 2022-07-26 18:04 | PC.NURSE ---
PT RESTING NOTHING NEEDED AT THIS TIME
--- NOTE | 2022-07-26 18:35 | PC.NURSE ---
attempted to call report
--- NOTE | 2022-07-26 18:37 | PC.NURSE ---
2nd liter of fluids delayed d/t abx administration. 2nd line was unable to be obtained and abx are not compatible with LR.
--- NOTE | 2022-07-26 18:55 | PC.NURSE ---
Report called from JULIETH Joseph
--- NOTE | 2022-07-26 18:59 | PC.NURSE ---
report called to JULIETH Concepcion
[2022-07-26 19:35] LABS: Reflex Lactic Add Lactic Reflex
--- NOTE | 2022-07-26 19:55 | PC.NURSE ---
pt arrived to floor at this time
--- NOTE | 2022-07-26 20:20 | PC.NURSE ---
Pt up to floor in room at this time. Vapotherm @ 25L, 80% FIo2 - sat 92-94%. Pt currently receiving rest of Vanc and LR bolus. Pt states no c/o of pain AO to person only, admission done based off of pt medical record and documents from [place]. Pt current temp 96.6 rectal, bear hugger in place Pt skin consistently moist and clammy - FS 134 BLE cold to the touch. Pedal pulses cannot be palpated but are heard with doppler. Pt appears to have drop foot bilaterally. Heel protectors placed on pt and feet elevated.
[2022-07-26 21:50] LABS: Thyroid Stimulating Hormone 3.65 uIU/mL (0.465-4.68)
--- NOTE | 2022-07-26 22:05 | PC.NURSE ---
Notified Jenna jara that pt has had only 20ml urine output x2 hrs. States to give 500ml NS bolus at this time
--- NOTE | 2022-07-26 22:11 | EXP.HP ---
History of Present Illness *Admission Date: 07/26/22 *Reason for visit:: Change in mental status *History of present illness: Ms. Williamson is a 72-year-old female who is a resident of a long-term care facility. She has a past medical history of Schizophrenia, h/o DVT on chronic anticoagulation, Anemia, HTN, GERD and is wheel chair bound. She presents to [facility] from the local [facility] due to a change in mental status. She was noted to have a similar presentation at this hospital 3-weeks earlier for similar symptoms. At that time there was concern for CVA and the patient was transferred to [facility]. Per ER documentation there was no report of CVA, but the [facility] was unsure as to patient's diagnosis at that time of admission. In the ER at [facility] today, the patient was noted on arrival to have a temperature of 90.1, HR was 105, RR was 21, WBC was 23.1, Lactic Acid was 4.6, Ammonia was 40. TSH was elevated at 7.35. Cxray showed no acute findings. CT of the head and CTA of the neck and head showed no acute occlusions. The patient was admitted with initial impression: Sepsis, she was placed on broad spectrum antibiotics, cultures were drawn in the ER. [facility] Disclaimer: The information contained in this section may have been updated after the patient was seen, as this information can be updated by other users. 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lux disease Hiatal hernia Hiatal hernia History of DVT of lower extremity Major depressive disorder, recurrent, unspecified Malignant neoplasm of left lung Malignant neoplasm of right lung Nontoxic thyroid nodule Schizo affective schizophrenia Tachycardia Wheelchair bound Surgical History History of hysterectomy Social History Smoking Status: Never smoker alcohol intake: never substance use type: denies use current occupational status: disabled Travel in the last 8 weeks: None household members: other housing: long-term caffeine: Yes Review of Systems Review of Systems Review of systems:: unable to obtain Meds Home Medications and Allergies Home Medications Medication Instructions Recorded Confirmed Type allopurinol 300 mg tablet 300 mg PO DAILY Gout 07/12/22 07/27/22 History amantadine HCl 100 mg capsule 100 mg PO DAILY Parkinson's Disease 07/12/22 07/27/22 History bethanechol chloride 25 mg tablet 25 mg PO DAILY Urinary retention 07/12/22 07/27/22 History bisoprolol fumarate 5 mg tablet 5 mg PO DAILY Hypertension 07/12/22 07/27/22 History fluticasone propionate 50 2 spray intranasal HS Allergy 07/12/22 07/27/22 History mcg/actuation nasal symptoms spray,suspension glipizide 5 mg tablet 5 mg PO DAILY Diabetes 07/12/22 07/27/22 History lactulose 10 gram/15 mL oral 30 ml PO DAILYP PRN Constipation 07/12/22 07/27/22 History solution levocetirizine 5 mg tablet 2.5 mg PO Q48H Allergy symptoms 07/12/22 07/27/22 History meclizine 25 mg tablet 25 mg PO TID PRN Dizziness 07/12/22 07/27/22 History olanzapine 20 mg tablet 20 mg PO HS Mood 07/12/22 07/27/22 History omeprazole 40 mg capsule,delayed 40 mg PO DAILY Acid reflux 07/12/22 07/27/22 History release oxcarbazepine 600 mg tablet 600 mg PO BID Seizure 07/12/22 07/27/22 History risperidone 1 mg tablet 1 mg PO TID MOOD 07/12/22 07/27/22 History ropinirole 1 mg tablet 1 mg PO HS Restless leg 07/12/22 07/27/22 History venlafaxine 75 mg tablet 75 mg PO TID Mood 07/12/22 07/27/22 History atorvastatin 40 mg tablet 40 mg PO HS Cholestero
[2022-07-26 22:28] LABS: Free T4 (Free Thyroxine) 1.09 ng/dl (0.78-2.19)
--- NOTE | 2022-07-26 22:30 | PC.NURSE ---
multiple staff from lab and nursing staff attempted to get blood work on pt for follow up lactic. Able to get small amount of blood after multiple sticks.
[2022-07-26 22:41] LABS: Hemoglobin A1C 5.1 % (4.0-6.0)
[2022-07-26 22:49] LABS: POC Glucose,Bedside 134 (70-110)
[2022-07-26 22:50] LABS: Lactic Acid Follow Up (RFLX 1) 5.5 mmol/L (0.7-2.1)
--- NOTE | 2022-07-26 23:20 | PC.NURSE ---
Rectal temp 98.5. Bare hugger removed at this time.
--- NOTE | 2022-07-26 23:55 | PC.NURSE ---
Vapotherm titrated down to 20L, 35% per RT at this time. Sat mid 92-96%
[2022-07-27] VITALS (30 sets, daily range): BP systolic 93–127; BP diastolic 35–77; PULSE 70–122; RESP 15–25; TEMP 36.6–37.1; O2SAT 93–100; BMI 33.2; BMI 33.1
[2022-07-27 00:33] LABS: Reflex Lactic (2 hrs) Add Lactic Reflex
--- NOTE | 2022-07-27 00:57 | PC.NURSE ---
Notified Jenna Ford that staff unable to get blood for repeat lactic at this time.
--- NOTE | 2022-07-27 02:55 | EXP.SEPSISRE ---
[facility] Tissue Perfusion Eval Sepsis Re-Evaluation Performed: Yes Date Performed: 07/27/22 Time Performed: 01:15
--- NOTE | 2022-07-27 04:29 | PC.NURSE ---
Notified Jenna Ford of pt low urine output, states she will order a NS bolus.
[2022-07-27 05:32] LABS: POC Glucose,Bedside 122 (70-110)
--- NOTE | 2022-07-27 06:00 | XR_ITS ---
PROCEDURE INFORMATION: Exam: XR Chest Exam date and time: 07/27/2022 5:29 AM Age: 72 years old Clinical indication: Dyspnea TECHNIQUE: Imaging protocol: Radiologic exam of the chest. Views: 1 view. COMPARISON: CR XR CHEST PORTABLE 07/26/2022 4:40 PM FINDINGS: Lungs: Stable retrocardiac opacity. No consolidation. Pleural spaces: Unremarkable. No pleural effusion. No pneumothorax. Heart/Mediastinum: Unremarkable. No cardiomegaly. Bones/joints: Unremarkable. IMPRESSION: Stable retrocardiac opacity likely atelectasis.
[2022-07-27 06:56] LABS: Basophils % 0.2 % (0.1-2.0); Eosinophils # 0.1 K/mm3 (0.0-0.4); Monocytes # 0.6 K/mm3 (0.1-1.0)
[2022-07-27 06:59] LABS: Hematocrit 39.2 % (37.0-47.0); Hemoglobin 12.2 g/dL (12.2-16.2); Lymphocytes # 0.7 K/mm3 (0.7-4.5); Lymphocytes % 5.1 % (10-50); MANUAL DIFFERENTIAL MANUAL DIFFERENTIAL (MANUAL DIFF); Mean Corpuscular HGB Conc 31.2 g/dL (31.8-35.4); Mean Corpuscular Hemoglobin 28.7 pg (27.0-31.2); Mean Platelet Volume 9.6 fl (7.4-10.4); Monocytes % 4.4 % (1.7-9.3); Neutrophils # 11.5 K/mm3 (1.8-7.8); Neutrophils % 89.3 % (37.0-80.0); Platelet Count 334 K/mm3 (142-424); Red Blood Count 4.26 M/mm3 (4.20-5.40); Red Cell Distribution Width 16.2 % (11.5-17.5); White Blood Count 12.9 K/mm3 (4.8-10.8)
[2022-07-27 07:02] LABS: Chloride 108 mmol/L (98-107); Potassium 3.9 mmoL/L (3.5-5.1); Sodium 138 mmol/L (136-145)
[2022-07-27 07:05] LABS: Alanine Aminotransferase 38 U/L (12-78); Albumin Level 2.1 g/dl (3.5-5.0); Alkaline Phosphatase 100 U/L (38-126); Anion Gap 12.9 mEq/L (5-15); Aspartate Amino Transferase 74 U/L (14-36); Bilirubin,Total 0.6 mg/dl (0.2-1.3); Blood Urea Nitrogen 15 mg/dl (7-17); Calcium 7.6 mg/dl (8.4-10.2); Carbon Dioxide 21 mmol/L (22.0-30.0); Creatinine Clearance Estimated 66 mL/min (50-200); Estimated Glomerular Filt Rate 49 ml/min (>60); GFR (African American) 59 ML/MIN (>60); Globulin 2.2 g/dL (1.3-3.2); Glucose 110 mg/dl (74-100); Total Protein,Serum 4.3 g/dl (6.3-8.2)
[2022-07-27 07:06] LABS: Magnesium 1.5 mg/dl (1.6-2.3)
--- NOTE | 2022-07-27 07:54 | DIET.NUTRFU ---
Consulted for low Chance scale. Hx of Dysphasia was indicated in chart. She is from [place], spoke to nurse and her baseline is Mechanical Soft Chopped diet with thin liquids. Needs setup assistance, likes ketchup on everything. They reported wt stable and skin intact. She is currently NPO, will evaluate for supplements when diet is upgraded
--- NOTE | 2022-07-27 08:03 | P.CONPHA_ITS ---
Pharmacy Intervention Comments: MEDICATION RECONCILIATION COMPLETED ON PATIENT USING MAR FROM [facility]. -MARIUM CLOUD, TUCKERD
--- NOTE | 2022-07-27 08:03 | HMH.PHAINT1 ---
Pharmacy Intervention Comments: MEDICATION RECONCILIATION COMPLETED ON PATIENT USING MAR FROM [facility]. -MARIUM CLOUD, [place]
--- NOTE | 2022-07-27 08:08 | EXP.PHA.CONS ---
Pharmacy Consult Date: 07/27/22 Time: 08:09 Referring provider: DR MONK Reason for Consult:: VANCOMYCIN DOSING CONSULT Allergies Allergy/AdvReac Type Severity Reaction Status Date / Time Antihistamines - Alkylamine Allergy Unknown Verified 07/12/22 18:46 [ANTIHISTAMINES - ALKYLAMINE] aspirin [ASPIRIN] Allergy Unknown Verified 03/25/22 13:21 loratadine [LORATADINE] Allergy Unknown Verified 03/25/22 13:21 sertraline [SERTRALINE] Allergy Unknown Verified 03/25/22 13:21 Home Medications Medication Instructions Recorded Confirmed Type allopurinol 300 mg tablet 300 mg PO DAILY Gout 07/12/22 07/27/22 History amantadine HCl 100 mg capsule 100 mg PO DAILY Parkinson's Disease 07/12/22 07/27/22 History bethanechol chloride 25 mg tablet 25 mg PO DAILY Urinary retention 07/12/22 07/27/22 History bisoprolol fumarate 5 mg tablet 5 mg PO DAILY Hypertension 07/12/22 07/27/22 History fluticasone propionate 50 2 spray intranasal HS Allergy 07/12/22 07/27/22 History mcg/actuation nasal symptoms spray,suspension glipizide 5 mg tablet 5 mg PO DAILY Diabetes 07/12/22 07/27/22 History lactulose 10 gram/15 mL oral 30 ml PO DAILYP PRN Constipation 07/12/22 07/27/22 History solution levocetirizine 5 mg tablet 2.5 mg PO Q48H Allergy symptoms 07/12/22 07/27/22 History meclizine 25 mg tablet 25 mg PO TID PRN Dizziness 07/12/22 07/27/22 History olanzapine 20 mg tablet 20 mg PO HS Mood 07/12/22 07/27/22 History omeprazole 40 mg capsule,delayed 40 mg PO DAILY Acid reflux 07/12/22 07/27/22 History release oxcarbazepine 600 mg tablet 600 mg PO BID Seizure 07/12/22 07/27/22 History risperidone 1 mg tablet 1 mg PO TID MOOD 07/12/22 07/27/22 History ropinirole 1 mg tablet 1 mg PO HS Restless leg 07/12/22 07/27/22 History venlafaxine 75 mg tablet 75 mg PO TID Mood 07/12/22 07/27/22 History atorvastatin 40 mg tablet 40 mg PO HS Cholesterol 07/21/22 07/27/22 History budesonide 0.25 mg/2 mL suspension 0.25 mg inhalation BID Breathing 07/21/22 07/27/22 History for nebulization problems ferrous sulfate 325 mg (65 mg 325 mg PO DAILY Supplement 07/21/22 07/27/22 History iron) tablet melatonin 5 mg tablet 5 mg PO HS SLEEP 07/27/22 07/27/22 History sennosides 8.6 mg-docusate sodium 2 tab PO BID CONSTIPATION 07/27/22 07/27/22 History 50 mg tablet (Senna Plus) triamterene 37.5 1 tab PO MOWEFR Fluid 07/27/22 07/27/22 History mg-hydrochlorothiazide 25 mg tablet (Maxzide-25mg) warfarin 3 mg tablet 3 mg PO DAILY HX OF DVT 07/27/22 07/27/22 History New Prescriptions to Start Prescriptions: Height: 1.68 m Weight: 93.6 kg Laboratory Results:: Laboratory Results - last 24 hr 07/26/22 15:05: WBC 23.1 H*, RBC 4.92, Hgb 14.8, Hct 45.6, MCV 92.5, MCH 30.0, MCHC 32.4, RDW 15.6, Plt Count 398, MPV 8.5, Neut % (Auto) 94.2 H, Lymph % (Auto) 2.6 L, Burke % (Auto) 2.6, Eos % (Auto) 0.5, Baso % (Auto) 0.1, Neut # (Auto) 21.8 H, Lymph # (Auto) 0.6 L, Burke # (Auto) 0.6, Eos # (Auto) 0.1, Baso # (Auto) 0.0, Total Counted 100, Neutrophils % (Manual) 92 H, Band Neutrophils % 5.0, Lymphocytes % (Manual) 2 L, Monocytes % (Manual) 1 L, Platelet Estimate Slight increase, Hypochromasia 1+, Anisocytosis 2+, Macrocytosis 2+ 07/26/22 15:05: PT 20.0 H, INR 1.92 H, APTT 34.0 H 07/26/22 15:05: Sodium 137, Potassium 3.4 L, Chloride 99, Carbon Dioxide 23, Anion Gap 18.4 H, BUN 13, Creatinine 1.30 H, Estimated GFR 40 L, Est GFR ( Amer) 48 L, Glucose 125 H, Calcium 9.1, Total Bilirubin 0.8, AST 56 H, ALT 51, Alkaline Phosphatase 208 H, Total Protein 6.5, Albumin 3.5, Globulin 3.0, Albumin/Globulin Ratio 1.2, TSH 7.35 H 07/26/22 15:05: Lactate 4.6 H 07/26/22 15:05: Hemoglobin A1c 5.1 07/26/22 15:24: Stl Aeromonas (PCR) Not detected, Stl C. cayetanensis PCR Not detected, Stool Rotavirus (PCR) Not detected, Stl Adenov F 40/41 PCR Not detected, Stool Astrovirus (PCR) Not detected, Stool Campylobacter PCR Not detected, Stl C.difficile Tox PCR Not detected, Stool Cryptosporidium
[2022-07-27 08:12] LABS: Lymphocytes % 8 % (10-50); Monocytes % 4 % (2-9); Neutrophils % 88 % (42-76); Platelet Estimate Normal; RBC Morphology Normal; Total Cells Counted 100
--- NOTE | 2022-07-27 08:15 | PC.NURSE ---
Notified RT to transition pt to NC from Vapotherm
--- NOTE | 2022-07-27 08:16 | EXP.ACUTE.PN ---
Subjective *Date: 07/27/22 *Time: 20:34 Medical Exam Vital signs and Labs for Last 24 Hours: Vital Signs Temp Pulse Pulse Resp BP BP Pulse Ox 07/27/22 08:00 98.5 F 84 23 102/35 L 95 07/27/22 07:57 95 07/27/22 07:00 101 H 17 101/73 L 96 07/27/22 06:32 120 H 07/27/22 06:04 96 07/27/22 04:00 98.7 F 07/27/22 06:00 96 H 17 108/77 L 96 07/27/22 05:00 117 H 18 102/53 L 95 07/26/22 21:42 110 H 07/27/22 00:00 100 H 07/27/22 04:00 116 H 22 125/76 96 07/27/22 04:00 116 H 97 07/27/22 03:00 70 25 H 117/56 L 96 07/27/22 02:00 97.8 F 117 H 18 93/41 L 94 L 07/27/22 01:00 117 H 21 103/43 L 93 L 07/27/22 00:00 122 H 94 L 07/26/22 23:55 93 L 07/27/22 00:00 98.0 F 91 H 19 101/56 L 97 07/26/22 23:00 98.5 F 117 H 23 118/79 98 07/26/22 22:00 97.3 F L 112 H 22 172/72 H 95 07/26/22 21:00 96.4 F L 115 H 28 H 114/65 92 L 07/26/22 20:15 109 H 92 L 07/26/22 20:05 96.6 F L 112 H 26 H 96/54 L 93 L 07/26/22 20:00 96.9 F L 07/26/22 19:31 106 H 106/88 L 92 L 07/26/22 19:00 105 H 109/96 L 91 L 07/26/22 19:21 95.9 F L 105 H 21 109/96 L 07/26/22 18:31 95.4 F L 105 H 19 92/57 L 95 07/26/22 18:01 104 H 94/58 L 96 07/26/22 17:33 94.8 F L 102 H 20 110/43 L 96 07/26/22 17:00 90 104/57 L 95 07/26/22 16:57 98 H 103/60 L 94 L 07/26/22 17:15 95 07/26/22 14:57 90.1 F L 102 H 16 93/51 L 98 07/26/22 16:21 95.0 F L 99 H 20 86/37 L 97 07/26/22 16:06 95 F L 97 H 20 78/52 L 96 07/26/22 15:29 93.7 F L 98 H 20 90/61 L 92 L 07/26/22 16:13 92 L FiO2 07/27/22 08:00 35 07/27/22 07:57 35 07/27/22 07:00 35 07/27/22 06:32 07/27/22 06:04 35 07/27/22 04:00 07/27/22 06:00 35 07/27/22 05:00 35 07/26/22 21:42 07/27/22 00:00 07/27/22 04:00 35 07/27/22 04:00 35 07/27/22 03:00 35 07/27/22 02:00 35 07/27/22 01:00 35 07/27/22 00:00 35 07/26/22 23:55 35 07/27/22 00:00 35 07/26/22 23:00 80 07/26/22 22:00 80 07/26/22 21:00 80 07/26/22 20:15 80 07/26/22 20:05 80 07/26/22 20:00 07/26/22 19:31 07/26/22 19:00 07/26/22 19:21 07/26/22 18:31 07/26/22 18:01 07/26/22 17:33 07/26/22 17:00 07/26/22 16:57 07/26/22 17:15 07/26/22 14:57 07/26/22 16:21 07/26/22 16:06 07/26/22 15:29 07/26/22 16:13 80 Intake and Output 07/26/22 07/27/22 07/27/22 23:59 07:59 15:59 Intake Total 2450 / 2475 1264 / 1264 Output Total 170 / 190 365 / 365 Balance 2280 / 2285 899 / 899 Intake: Intake, Oral Amount 0 / 0 Intake, Total IV Amount 2450 / 2475 1264 / 1264 0.9 % Sodium Chloride 1000ML 1, 982 / 982 000 ml @ 500 mls/hr IV .Q2H [facility] Rx#:[id number] 0.9 % Sodium Chloride 1000ML 1, 257 / 257 000 ml @ 75 mls/hr IV .[id number] [facility] Rx#:[id number] 0.9 % Sodium Chloride 1000ML 500 / 500 500 ml @ 999 mls/hr IV .Q31M [facility] Rx#:[id number] Cefepime HCl 1 gm In 0.9 % 50 / 50 Sodium Chloride 50 ml @ 100 mls /hr IV ONCE ONE Rx#:[id number] Lactated Ringers 1000ML 1,000 1000 / 1000 ml @ 999 mls/hr IV .Q1H1M [facility] Rx#:[id number] Lactated Ringers 1000ML 500 ml 500 / 500 @ 999 mls/hr IV .Q31M [facility] Rx#: [id number] Metronidaz/Sod Chl 500 mg In 100 / 100 100 ml @ 100 mls/hr IV ONCE ONE Rx#:[id number] Thiamine HCl 100 mg In 0.9 % 25 / 25 Sodium Chloride 25 ml @ 100 mls /hr IV ONCE ONE Rx#:[id number] Vancomycin/Water For Inj (Peg) 300 / 300 1.5 gm In 300 ml @ 150 mls/hr IV Q24H [facility] Rx#:[id number] Output: Output, Urine Amount 195 / 195 Output, Urine Amount (Catheter) 170 / 190 170 / 170 [place] 170 / 190 170 / 170 Other: Number of Unmeasured Voids 0 Number of B
--- NOTE | 2022-07-27 09:10 | SW/DCPLANNER ---
Addendum entered by Angeles Castellon 07/29/22 11:40: I have updated Florencia pringle/ Kala Bridges that patient will discharge back today. Original Note: Patient currently resides at [facility] level of care. I will continue to update Florencia pringle/ Kala until patient is medically stable for discharge. Discharge date is unknown at this time.
--- NOTE | 2022-07-27 10:38 | XR_ITS ---
FINAL REPORT CLINICAL HISTORY: picc placement COMPARISON: 5 hours prior FINDINGS: Right upper extremity PICC line is malpositioned in the left innominate vein. Bibasilar atelectasis is noted. There is no evidence of effusion or pneumothorax. Mediastinum is unremarkable. Heart size is mildly enlarged. IMPRESSION: Right PICC line in the left innominate vein. Reviewed, Interpreted and Dictated by Velma Carrasquillo MD Transcribed by Brittany Barr Authenticated and [facility]
--- NOTE | 2022-07-27 11:02 | XR_ITS ---
FINAL REPORT CLINICAL HISTORY: picc placement attempt number 2 COMPARISON: 07/27/2022 FINDINGS: Mild atelectasis versus scarring is present in the left lower lobe. There is no evidence of effusion or pneumothorax. A right upper extremity PICC line is present with its tip in the left innominate vein. Mediastinum is unremarkable. Heart size is normal. IMPRESSION: Right upper extremity PICC line tip is positioned in the left innominate vein. Retraction by [address] the catheter in the right innominate vein. Reviewed, Interpreted and Dictated by Velma Carrasquillo MD Transcribed by Vicky Olvera Authenticated and [facility] [place]
--- NOTE | 2022-07-27 11:24 | XR_ITS ---
FINAL REPORT CLINICAL HISTORY: line placement COMPARISON: 07/27/2022 FINDINGS: The PICC line has been withdrawn since the prior chest x-ray of 07/27/2022 and is now in the right internal jugular vein. The catheter extends 4.5 cm into the right internal jugular vein. Mild cardiomegaly is again noted. The lung sky are stable. There is no evidence of effusion or pneumothorax. Mediastinum is unremarkable. IMPRESSION: The PICC line has been withdrawn with its tip now in the right internal jugular vein, extending 4.5 cm into the right internal jugular vein. Reviewed, Interpreted and Dictated by Velma Carrasquillo MD Transcribed by Vicky Olvera Authenticated and [facility]
[2022-07-27 13:08] LABS: INR 2.77 (0.9-1.1); Prothrombin Time 28.2 seconds (10.1-12.5)
--- NOTE | 2022-07-27 17:18 | PC.NURSE ---
Called Damon, patient brother, she spoke to him.
[2022-07-27 21:05] LABS: POC Glucose,Bedside 151 (70-110)
[2022-07-28] VITALS (18 sets, daily range): BP systolic 95–146; BP diastolic 49–79; PULSE 80–109; RESP 16–32; TEMP 36.6–36.9; O2SAT 90–98; BMI 38.2
[2022-07-28 05:48] LABS: POC Glucose,Bedside 90 (70-110)
[2022-07-28 08:39] LABS: Basophils # 0.1 K/mm3 (0-0.2); Basophils % 0.5 % (0.1-2.0); Eosinophils # 0.3 K/mm3 (0.0-0.4); Eosinophils % 3.1 % (0.1-12.0); Hematocrit 34.5 % (37.0-47.0); Hemoglobin 10.9 g/dL (12.2-16.2); Lymphocytes % 9.4 % (10-50); Mean Corpuscular HGB Conc 31.6 g/dL (31.8-35.4); Mean Corpuscular Hemoglobin 29.1 pg (27.0-31.2); Mean Platelet Volume 8.4 fl (7.4-10.4); Monocytes # 0.6 K/mm3 (0.1-1.0); Monocytes % 5.1 % (1.7-9.3); Neutrophils # 8.9 K/mm3 (1.8-7.8); Neutrophils % 81.9 % (37.0-80.0); Platelet Count 303 K/mm3 (142-424); Red Blood Count 3.74 M/mm3 (4.20-5.40); Red Cell Distribution Width 16.3 % (11.5-17.5); White Blood Count 10.8 K/mm3 (4.8-10.8)
[2022-07-28 08:44] LABS: Chloride 105 mmol/L (98-107); Potassium 3.2 mmoL/L (3.5-5.1); Sodium 136 mmol/L (136-145)
[2022-07-28 08:47] LABS: Alanine Aminotransferase 40 U/L (12-78); Albumin Level 2.3 g/dl (3.5-5.0); Alkaline Phosphatase 96 U/L (38-126); Anion Gap 9.2 mEq/L (5-15); Aspartate Amino Transferase 75 U/L (14-36); Bilirubin,Total 0.5 mg/dl (0.2-1.3); Blood Urea Nitrogen 18 mg/dl (7-17); Calcium 7.7 mg/dl (8.4-10.2); Carbon Dioxide 25 mmol/L (22.0-30.0); Creatinine Clearance Estimated 70 mL/min (50-200); Estimated Glomerular Filt Rate 44 ml/min (>60); GFR (African American) 53 ML/MIN (>60); Globulin 2.4 g/dL (1.3-3.2); Glucose 91 mg/dl (74-100); Magnesium 1.9 mg/dl (1.6-2.3); Total Protein,Serum 4.7 g/dl (6.3-8.2)
[2022-07-28 08:48] LABS: INR 1.74 (0.9-1.1); Prothrombin Time 18.2 seconds (10.1-12.5)
--- NOTE | 2022-07-28 10:48 | HMH.SLDYSPHA ---
Speech & Language Evaluation Speech/Language Dysphagia Evaluation Start: 07/28/22 10:35 Freq: ONCE Status: Active Protocol: Document 07/28/22 10:36 RAFAEL (Rec: 07/28/22 10:48 [email or web address] [id number]) Dysphagia Assess/Goals/Plan Assessment Date of Evaluation: 07/28/22 Evaluation Type Initial Certification Assessment/Problems Dysphagia per MD order. NSG reports pt is coughing and spitting out solids. Does Patient Qualify for Service Yes Qualify/Failure Comment Based on the results of the clinical swallow evaluation, [employer] ATTENDANT downgrading pt diet and she would benefit from skilled ST services for continued diet texture analysis. Recommendations PHYSICIAN CERTIFICATION: The specified therapy services are required, authorized, and reviewed every 30 days. Pt will be seen # times/week 3 for # weeks [address] [facility] soft - ground Liquid Type Recommendations Normal/Thin SL Swallow Guidelines Standard Aspiration Prec.,Eat at slow rate Dysphagia Swallow Precautions/Strategies Sitting Upright (90 deg),Small Bites and Sips,Alternate Liquids/Solids Place Food on Either side of Mouth Plan Anticipate reaching STG in # weeks 2 Anticipate reaching LTG in # weeks 4 Pt/Guardian verbally ack understanding Yes of dx/prognosis/goals Pt/Guardian verbally ack understanding Yes of/consent to tx prog G -code Required No STG-Other Comment/Non-Specific 1. Pt will tolerate trials of LRD w/o any s/sxs of discomfort or distress i.e. coughing, expectorating material from oral cavity on 10/10 trials in a therapy session. Solvent Station Attendant Goals Diet LRD with Liquids Thin Liquids Education Instructions provided CSE results and recommendations discussed with pt, nursing, and care management who expressed understanding. Pt/Caregiver able to recall information Able to recall/restate Reinforcement needed No Speech & Language HPI History Present Illness Description of Patient Problem Ms. Williamson is a 72 y.o. female presenting to [facility] from her [facility] with [facility]. Upon arrival,
--- NOTE | 2022-07-28 10:55 | PC.NURSE ---
COURTESY TECH NOTE; ROUNDED ON PT 0830, ASSISTED PT WITH MEAL, PT DENIED NEED TO USE RESTROOM, NEED TO REPOSITION, CALL LIGHT WITHIN REACH, NO FURTHER REQUESTS AT THIS TIME Henry DURAN, SRNA
[2022-07-28 12:05] LABS: POC Glucose,Bedside 109 (70-110)
[2022-07-28 16:04] LABS: POC Glucose,Bedside 93 (70-110)
--- NOTE | 2022-07-28 16:14 | PC.NURSE ---
no changes noted.
--- NOTE | 2022-07-28 19:48 | EXP.ACUTE.PN ---
Subjective *Date: 07/28/22 *Time: 19:48 Interval history: Patient is done well over the past 24 hours. Weaned off oxygen this morning. Alert and oriented to self on exam. Denies any nausea or vomiting. Hemodynamic stable. No growth on blood cultures at 48 hours. Medical Exam Vital signs and Labs for Last 24 Hours: Vital Signs Temp Pulse Pulse Resp BP Pulse Ox 07/28/22 18:00 98.4 F 07/28/22 18:08 100 H 07/28/22 18:08 99 H 07/28/22 18:08 95 07/28/22 15:52 84 07/28/22 16:03 98.5 F 07/28/22 16:00 92 H 16 146/70 H 90 L 07/28/22 12:00 90 07/28/22 14:00 97.9 F 07/28/22 12:00 98.3 F 07/28/22 11:37 93 H 07/28/22 11:37 108 H 07/28/22 11:37 93 L 07/28/22 10:00 98.0 F 07/28/22 08:00 100 H 07/28/22 08:07 97.8 F 07/28/22 07:34 109 H 20 145/61 H 95 07/28/22 06:36 106 H 07/28/22 06:36 96 H 07/28/22 06:36 98 07/28/22 04:00 80 07/28/22 06:00 101 H 19 104/49 L 94 L 07/28/22 04:00 106 H 16 115/79 96 07/28/22 04:00 96 07/28/22 04:00 97.9 F 07/28/22 00:00 103 H 07/28/22 02:00 109 H 28 H 120/70 93 L 07/28/22 00:00 102 H 32 H 95/49 L 96 07/28/22 00:00 98.0 F 07/27/22 23:17 108 H 07/27/22 23:17 115 H 07/27/22 20:00 96 07/27/22 20:00 105 H 07/27/22 22:00 111 H 22 127/70 94 L 07/27/22 20:00 97.8 F 07/27/22 20:00 87 25 H 106/58 L 95 Intake and Output 07/28/22 07/28/22 07/28/22 07:59 15:59 23:59 Intake Total 480 / 1540 480 / 1540 580 / 1540 Balance 480 / 1540 480 / 1540 580 / 1540 Intake: Intake, Oral Amount 480 / 1440 480 / 1440 480 / 1440 Intake, Total IV Amount 100 / 100 Cefepime HCl 2 gm In 0.9 % 100 / 100 Sodium Chloride 100 ml @ 200 mls/hr IV Q8H [facility] Rx#:[id number] Other: Number of Unmeasured Voids 1 Number of Bowel Movements 1 Weight 107.757 kg Patient Weight 07/28/22 23:59 Weight 107.757 kg Laboratory Results - last 24 hr 07/27/22 20:57: POC Glucose 151 H 07/28/22 05:36: POC Glucose 90 07/28/22 08:30: PT 18.2 H, INR 1.74 H 07/28/22 08:30: WBC 10.8, RBC 3.74 L, Hgb 10.9 L, Hct 34.5 L, MCV 92.0, MCH 29.1, MCHC 31.6 L, RDW 16.3, Plt Count 303, MPV 8.4, Neut % (Auto) 81.9 H, Lymph % (Auto) 9.4 L, [place] % (Auto) 5.1, Eos % (Auto) 3.1, Baso % (Auto) 0.5, Neut # (Auto) 8.9 H, Lymph # (Auto) 1.0, [place] # (Auto) 0.6, Eos # (Auto) 0.3, Baso # (Auto) 0.1 07/28/22 08:30: Sodium 136, Potassium 3.2 L, Chloride 105, Carbon Dioxide 25, Anion Gap 9.2, BUN 18 H, Creatinine 1.20 H, Estimated Creat Clear 70, Estimated GFR 44 L, Est GFR ( Amer) 53 L, Glucose 91, Calcium 7.7 L, Magnesium 1.9 D, Total Bilirubin 0.5, AST 75 H, ALT 40, Alkaline Phosphatase 96, Total Protein 4.7 L, Albumin 2.3 L, Globulin 2.4, Albumin/Globulin Ratio 1.0 L 07/28/22 11:43: POC Glucose 109 07/28/22 15:57: POC Glucose 93 I & O for Labs for Last 24 Hours: Intake & Output 07/25/22 07/26/22 07/27/22 07/28/22 23:59 23:59 23:59 23:59 Intake Total 2450 / 2475 3878 / 4358 1540 / 1540 Output Total 170 / 190 620 / 620 Balance 2280 / 2285 3258 / 3738 1540 / 1540 Weight 105.8 kg 93.6 kg 107.757 kg Microbiology Reports for the Last 24 Hours: Microbiology 07/26/22 15:05 Blood Blood Culture - Preliminary NO GROWTH AFTER 48 HOURS 07/26/22 15:47 Blood Blood Culture - Preliminary NO GROWTH AFTER 48 HOURS Constitutional: Present no acute distress, obese and chronically ill appearing Head: Present atraumatic and normocephalic ENT: Present normal exam Neck: Present normal inspection Respiratory: Present normal respiratory effort; Absent rhonchi, wheezes or crackles Cardiac: Present Reg Rate and Rhythm GI: Present soft; Absent distention or tenderness Neuro: Present alert, awake and moves all extremities
[2022-07-29] VITALS: PULSE 87
[2022-07-29 00:02] LABS: POC Glucose,Bedside 112 (70-110)
[2022-07-29 04:00] VITALS: PULSE 95; BMI 39.6
[2022-07-29 06:26] LABS: POC Glucose,Bedside 84 (70-110)
[2022-07-29 08:00] VITALS: BP 111/41; PULSE 85; PULSE 87; RESP 22; TEMP 36.6; O2SAT 93
[2022-07-29 08:58] LABS: Basophils % 0.3 % (0.1-2.0); Eosinophils # 0.4 K/mm3 (0.0-0.4); Eosinophils % 4.6 % (0.1-12.0); Hematocrit 34.9 % (37.0-47.0); Hemoglobin 11.1 g/dL (12.2-16.2); Lymphocytes # 0.7 K/mm3 (0.7-4.5); Lymphocytes % 7.3 % (10-50); Mean Corpuscular HGB Conc 31.8 g/dL (31.8-35.4); Mean Corpuscular Volume 91.2 fl (81-99); Mean Platelet Volume 9.2 fl (7.4-10.4); Monocytes # 0.4 K/mm3 (0.1-1.0); Monocytes % 4.5 % (1.7-9.3); Neutrophils # 7.6 K/mm3 (1.8-7.8); Neutrophils % 83.4 % (37.0-80.0); Platelet Count 250 K/mm3 (142-424); Red Blood Count 3.82 M/mm3 (4.20-5.40); Red Cell Distribution Width 16.1 % (11.5-17.5); White Blood Count 9.2 K/mm3 (4.8-10.8)
--- NOTE | 2022-07-29 09:04 | EXP.PHA.PN ---
Subjective *Date: 07/29/22 *Time: 09:04 Medical Exam Vital signs and Labs for Last 24 Hours: Vital Signs Temp Pulse Pulse Resp BP Pulse Ox 07/29/22 08:00 97.8 F 85 22 111/41 L 93 L 07/29/22 04:00 95 H 07/29/22 00:00 87 07/28/22 20:00 93 H 07/28/22 20:00 98.3 F 103 H 20 119/54 L 93 L 07/28/22 20:00 99 H 16 119/54 L 92 L 07/28/22 18:00 98.4 F 07/28/22 18:08 100 H 07/28/22 18:08 99 H 07/28/22 18:08 95 07/28/22 15:52 84 07/28/22 16:03 98.5 F 07/28/22 16:00 92 H 16 146/70 H 90 L 07/28/22 12:00 90 07/28/22 14:00 97.9 F 07/28/22 12:00 98.3 F 07/28/22 11:37 93 H 07/28/22 11:37 108 H 07/28/22 11:37 93 L 07/28/22 10:00 98.0 F Intake and Output 07/28/22 07/29/22 07/29/22 23:59 07:59 15:59 Intake Total 580 / 1640 100 / 220 120 / 220 Output Total 0 / 0 0 / 0 Balance 580 / 1640 100 / 220 120 / 220 Intake: Intake, Oral Amount 480 / 1440 120 / 120 Intake, Total IV Amount 100 / 200 100 / 100 Cefepime HCl 2 gm In 0.9 % 100 / 200 100 / 100 Sodium Chloride 100 ml @ 200 mls/hr IV Q8H [facility] Rx#:[id number] Output: Output, Urine Amount 0 / 0 0 / 0 Other: Number of Unmeasured Voids 1 1 Weight 111.765 kg Patient Weight 07/29/22 23:59 Weight 111.765 kg Laboratory Results - last 24 hr 07/28/22 11:43: POC Glucose 109 07/28/22 15:57: POC Glucose 93 07/28/22 20:31: POC Glucose 112 H 07/29/22 06:17: POC Glucose 84 I & O for Labs for Last 24 Hours: Intake & Output 07/26/22 07/27/22 07/28/22 07/29/22 23:59 23:59 23:59 23:59 Intake Total 2450 / 2475 3878 / 4358 1540 / 1640 220 / 220 Output Total 170 / 190 620 / 620 0 / 0 0 / 0 Balance 2280 / 2285 3258 / 3738 1540 / 1640 220 / 220 Weight 105.8 kg 93.6 kg 107.757 kg 111.765 kg Microbiology Reports for the Last 24 Hours: Microbiology 07/26/22 15:05 Blood Blood Culture - Preliminary NO GROWTH AFTER 48 HOURS 07/26/22 15:47 Blood Blood Culture - Preliminary NO GROWTH AFTER 48 HOURS The patient's infection will respond to the chosen ABx?: Yes (CEFEPIME, VANCOMYCIN; BLOOD CULTURES NEGATIVE.) Is the patient receiving the right drug, dose, and route?: Yes Could a more targeted ABx be ordered?: No
[2022-07-29 09:06] LABS: Chloride 104 mmol/L (98-107); Potassium 3.8 mmoL/L (3.5-5.1); Sodium 131 mmol/L (136-145)
[2022-07-29 09:09] LABS: Alanine Aminotransferase 33 U/L (12-78); Albumin/Globulin Ratio 0.8 (1.1-1.8); Alkaline Phosphatase 82 U/L (38-126); Anion Gap 12.8 mEq/L (5-15); Aspartate Amino Transferase 72 U/L (14-36); Bilirubin,Total 0.8 mg/dl (0.2-1.3); Blood Urea Nitrogen 18 mg/dl (7-17); Calcium 7.7 mg/dl (8.4-10.2); Carbon Dioxide 18 mmol/L (22.0-30.0); Creatinine Clearance Estimated 79 mL/min (50-200); Estimated Glomerular Filt Rate 49 ml/min (>60); GFR (African American) 59 ML/MIN (>60); Globulin 2.4 g/dL (1.3-3.2); Glucose 101 mg/dl (74-100); Magnesium 1.6 mg/dl (1.6-2.3); Total Protein,Serum 4.4 g/dl (6.3-8.2)
--- NOTE | 2022-07-29 09:29 | PC.NURSE ---
COURTESY TECH NOTE; ROUNDED ON PT 0800, ASSISTED PRIMARY TECH WITH Q2H TURN, PT LEFT SIDE LYING. PRIMARY TECH BRITTA PENNY ASSISTED PT WITH DRINK, PT DENIED NEED FOR ASSISTANCE WITH RESTROOM, CALL LIGHT WITHIN REACH, NO FURTHER REQUESTS AT THIS TIME Henry DURAN, SRNA
[2022-07-29 11:39] LABS: POC Glucose,Bedside 179 (70-110)
[2022-07-29 12:00] VITALS: BP 118/64; PULSE 103; PULSE 67; RESP 18; TEMP 36.8; O2SAT 96
[2022-07-29 13:02] VITALS: PULSE 101; PULSE 102
--- NOTE | 2022-07-29 14:41 | PC.NURSE ---
COURTESY TECH NOTE; ROUNDED ON PT 1430, PT DENIED NEED FOR ASSISTANCE WITH RESTROOM, OR NEED TO REPOSITIONED. ASSISTED PT WITH DRINK, CALL LIGHT WITHIN REACH, NO FURTHER REQUESTS AT THIS TIME VIELKA DREW
--- NOTE | 2022-07-29 15:44 | EXP.DC.SUM ---
General Admission date:: 07/26/22 Discharge date: 07/29/22 HPI HPI HPI: Ms. Williamson is a 72-year-old female who is a resident of a long-term care facility. She has a past medical history of Schizophrenia, h/o DVT on chronic anticoagulation, Anemia, HTN, GERD and is wheel chair bound. She presents to [facility] from the local [place] due to a change in mental status. She was noted to have a similar presentation at this hospital 3-weeks earlier for similar symptoms. At that time there was concern for CVA and the patient was transferred to [facility]. Per ER documentation there was no report of CVA, but the [place] was unsure as to patient's diagnosis at that time of admission. In the ER at [facility] today, the patient was noted on arrival to have a temperature of 90.1, HR was 105, RR was 21, WBC was 23.1, Lactic Acid was 4.6, Ammonia was 40. TSH was elevated at 7.35. Cxray showed no acute findings. CT of the head and CTA of the neck and head showed no acute occlusions. The patient was admitted with initial impression: Sepsis, she was placed on broad spectrum antibiotics, cultures were drawn in the ER. Hospital Course Hospital Course Hospital Course: The patient met sepsis criteria on admission: temperature 90.1 - HR 105 - RR 21 - WBC 23.1. The patient was given broad spectrum antibiotics throughout the hospital course but no source of infection was found. CXR was without acute findings, stool studies were negative, covid and flu studies were negative, blood cultures were negative. The patient's hypothermia and confusion was thought to be due to polypharmacy. The patient had significant improvement within one day of holding multiple psychotropic medications including amantadine, bethanechol, olanzapine, oxcarbazepine, risperidone, ropinirole and venlafaxine. Per staff at [facility], the patient has been taking many psychotropic medications since 2017; no recent changes in medications. The patient's oxcarbazepine was resumed. At discharge her bethanochol and olanzapine were resumed. Exam Data for Last 24 hours Vital signs and Labs for Last 24 Hours: Temp Pulse Resp BP Pulse Ox FiO2 98.3 F 102 H 18 118/64 96 35 07/29/22 12:00 07/29/22 13:02 07/29/22 12:00 07/29/22 12:00 07/29/22 12:00 07/27/22 08:00 Laboratory Results - last 24 hr 07/28/22 15:57: POC Glucose 93 07/28/22 20:31: POC Glucose 112 H 07/29/22 06:17: POC Glucose 84 07/29/22 08:40: Sodium 131 L, Potassium 3.8, Chloride 104, Carbon Dioxide 18 L, Anion Gap 12.8, BUN 18 H, Creatinine 1.10 H, Estimated Creat Clear 79, Estimated GFR 49 L, Est GFR ( Amer) 59, Glucose 101 H, Calcium 7.7 L, Total Bilirubin 0.8, AST 72 H, ALT 33, Alkaline Phosphatase 82, Total Protein 4.4 L, Albumin 2.0 L D, Globulin 2.4, Albumin/Globulin Ratio 0.8 L 07/29/22 08:40: WBC 9.2, RBC 3.82 L, Hgb 11.1 L, Hct 34.9 L, MCV 91.2, MCH 29.0, MCHC 31.8, RDW 16.1, Plt Count 250, MPV 9.2, Neut % (Auto) 83.4 H, Lymph % (Auto) 7.3 L, [place] % (Auto) 4.5, Eos % (Auto) 4.6, Baso % (Auto) 0.3, Neut # (Auto) 7.6, Lymph # (Auto) 0.7, [place] # (Auto) 0.4, Eos # (Auto) 0.4, Baso # (Auto) 0.0 07/29/22 08:40: Magnesium 1.6 D 07/29/22 11:21: POC Glucose 179 H I & O for Last 24 hours: Intake & Output 07/26/22 07/27/22 07/28/22 07/29/22 23:59 23:59 23:59 23:59 Intake Total 2450 / 2475 3878 / 4358 1540 / 1640 700 / 700 Output Total 170 / 190 620 / 620 0 / 0 0 / 0 Balance 2280 / 2285 3258 / 3738 1540 / 1640 700 / 700 Weight 105.8 kg 93.6 kg 107.757 kg 111.765 kg Microbiology Reports for the Last 24 Hours: Microbiology 07/26/22 15:05 Blood Blood Culture - Preliminary NO GROWTH AFTER 48 HOURS 07/26/22 15:47 Blood Blood Culture - Preliminary NO GROWTH AFTER 48 HOURS Constitutional Constitutional: no acute distress *Routine HEENT Exam Head: Present normocephalic Eye: Present EOMI and PERRL
[2022-07-29 16:00] VITALS: BP 95/50; PULSE 88; PULSE 92; RESP 21; TEMP 36.4; O2SAT 95
--- NOTE | 2022-07-29 16:27 | PC.NURSE ---
PT IS ALERT TO SELF WITH INTERMITTENT CONFUSION NOTED. THIS IS PT'S BASELINE. PT HAS HAD NO ISSUES TODAY. NOT MUCH OF AN APPETITE. GOING BACK TO [facility]. LINES REMOVED-PT TOLERATED WELL. VSS.
--- NOTE | 2022-08-01 14:30 | CARE MANAGER ---
Spoke with nurse at [facility] for post-discharge phone interview, nurse states that patient has been back to the ER and is not getting much better. Patient PCP is coming to see her.
[2022-08-01 21:19] LABS: Oxcarbazepine 24 ug/mL (10-35)
== END 2022-07-29 17:05 | DRG 871 ==
LOC: ER 16:53 → 2ND 17:43
PROVIDERS: Nurse Practitioner Family; Admitting Provider Internal Medicine Adolescent Medicine; Emergency Provider Student in an Organized Health Care Education/Training Program; PCP Emergency Medicine; Visit Provider Internal Medicine Adolescent Medicine
DX: A41.9 Sepsis, unspecified organism (principal); J96.01 Acute respiratory failure with hypoxia; G93.40 Encephalopathy, unspecified; E87.20 Acidosis, unspecified; Z87.891 Personal history of nicotine dependence; Z99.3 Dependence on wheelchair; Z86.718 Personal history of other venous thrombosis and embolism; Z79.01 Long term (current) use of anticoagulants; K21.9 Gastro-esophageal reflux disease without esophagitis; F20.9 Schizophrenia, unspecified; R68.0 Hypothermia, not associated with low environmental temperature; E03.9 Hypothyroidism, unspecified; I12.9 Hypertensive chronic kidney disease with stage 1 through stage 4 chronic kidney disease, or unspecified chronic kidney disease; N18.9 Chronic kidney disease, unspecified; T50.915A Adverse effect of multiple unspecified drugs, medicaments and biological substances, initial encounter; Z85.118 Personal history of other malignant neoplasm of bronchus and lung
CPT/HCPCS: 36410; 36415; 70450; 70496; 70498; 71045; 80053; 80183; 81001; 82140; 82803; 82962; 83036; 83605; 83735; 84439; 84443; 85007; 85025; 85610; 85730; 87040; 87507; 87635; 87636; 92526; 92610; 93005; 93976; 94640; 94760; 94761; 99291; C1751; C9803; J0692; J3475; Q9967; U0003; U0005

== ENCOUNTER 2022-07-31 15:50 | Emergency (ER) | payer MEDICARE, MEDICAID, SELFPAY ==
[2022-07-31] VITALS (12 sets, daily range): BP systolic 112–148; BP diastolic 55–123; PULSE 88–111; RESP 19–28; TEMP 36.7–36.9; O2SAT 96–99; BMI 34.9
--- NOTE | 2022-07-31 15:48 | HMH.EDGENADL ---
Discharge Plan Disposition Patient Disposition: Home, Self-Care Prescriptions Prescriptions: No Action atorvastatin 40 mg tablet 40 mg PO HS ferrous sulfate 325 mg (65 mg iron) tablet 325 mg PO DAILY budesonide 0.25 mg/2 mL suspension for nebulization 0.25 mg inhalation BID omeprazole 40 mg capsule,delayed release(DR/EC) 40 mg PO DAILY bisoprolol fumarate 5 mg tablet 5 mg PO DAILY bethanechol chloride 25 mg tablet 25 mg PO DAILY meclizine 25 mg tablet 25 mg PO TID PRN (Reason: Dizziness) oxcarbazepine 600 mg tablet 600 mg PO BID allopurinol 300 mg tablet 300 mg PO DAILY fluticasone propionate 50 mcg/actuation spray,suspension 2 spray INTRANASAL HS olanzapine 20 mg tablet 20 mg PO HS glipizide 5 mg tablet 5 mg PO DAILY lactulose 10 gram/15 mL solution 30 ml PO DAILYP PRN (Reason: Constipation) levocetirizine 5 mg tablet 2.5 mg PO Q48H warfarin 3 mg Tablet 3 mg PO DAILY sennosides-docusate sodium [Senna Plus] 8.6-50 mg Tablet 2 tab PO BID melatonin 5 mg Tablet 5 mg PO HS Activity Restrictions/Add. Instructions Additional Instructions/Restrictions: There is no medical emergency that is identified specifically no evidence of decompensated heart failure or need for admission for IV diuretics. In fact the patient was 10 kg less at her ER visit today than she was last time she was in the hospital. She has low potassium which was placed in the emergency department and advised that you follow-up with your primary care physician regarding chronic treatment of her peripheral edema. Clinical Impressions Clinical Impression: Edema, peripheral, Hypokalemia Discharge ED Provider: Valerio Delacruz General Adult HPI General Chief complaint: Recheck/Abnormal Lab/Rx Stated complaint: CHF exacerbation Time Seen by Provider: 07/31/22 15:48 History of Present Illness HPI narrative: Patient is a 72-year-old female sent in by [facility] for increasing lower extremity edema and concerns for possible CHF exacerbation. Patient is a very poor historian however she has dramatically improved since last time I saw her in the emergency department which was when she was admitted for encephalopathy and sepsis at that time but was found to be having polypharmacy causing her symptoms. The patient is unable to tell me whether not she has increasing shortness of breath or any other symptoms and all we were told from [facility] and EMS this is that she had lower extremity edema that was worsening. Related Data Home Medications Medication Instructions Recorded Confirmed allopurinol 300 mg tablet 300 mg PO DAILY Gout 07/12/22 07/27/22 bethanechol chloride 25 mg tablet 25 mg PO DAILY Urinary retention 07/12/22 07/27/22 bisoprolol fumarate 5 mg tablet 5 mg PO DAILY Hypertension 07/12/22 07/27/22 fluticasone propionate 50 2 spray intranasal HS Allergy 07/12/22 07/27/22 mcg/actuation nasal symptoms spray,suspension glipizide 5 mg tablet 5 mg PO DAILY Diabetes 07/12/22 07/27/22 lactulose 10 gram/15 mL oral 30 ml PO DAILYP PRN Constipation 07/12/22 07/27/22 solution levocetirizine 5 mg tablet 2.5 mg PO Q48H Allergy symptoms 07/12/22 07/27/22 meclizine 25 mg tablet 25 mg PO TID PRN Dizziness 07/12/22 07/27/22 olanzapine 20 mg tablet 20 mg PO HS Mood 07/12/22 07/27/22 omeprazole 40 mg capsule,delayed 40 mg PO DAILY Acid reflux 07/12/22 07/27/22 release oxcarbazepine 600 mg tablet 600 mg PO BID Seizure 07/12/22 07/27/22 atorvastatin 40 mg tablet 40 mg PO HS Cholesterol 07/21/22 07/27/22 budesonide 0.25 mg/2 mL suspension 0.25 mg inhalation BID Breathing 07/21/22 07/27/22 for nebulization problems ferrous sulfate 325 mg (65 mg 325 mg PO DAILY Supplement 07/21/22 07/27/22 iron) tablet melatonin 5 mg tablet 5 mg PO HS SLEEP 07/27/22 07/27/22 sennosides 8.6 mg-docusate sodium 2 tab PO BID CONSTIPATION 07/27/22
--- NOTE | 2022-07-31 15:51 | XR_ITS ---
PROCEDURE INFORMATION: Exam: XR Chest Exam date and time: 07/31/2022 4:06 PM Age: 72 years old Clinical indication: Dyspnea TECHNIQUE: Imaging protocol: Radiologic exam of the chest. Views: 1 view. COMPARISON: CR XR CHEST PORTABLE 07/27/2022 11:49 AM FINDINGS: Lungs: Asymmetric ground-glass opacity in the right hemithorax is at least in part on account of summation artifact related to patient rotation. No definite acute airspace consolidation or pulmonary edema. Pleural spaces: No large pleural effusion. No pneumothorax. Heart/Mediastinum: Cardiomediastinal silouhette is within normal limits. Bones/joints: No evidence of acute osseous abnormality. IMPRESSION: No evidence of acute cardiopulmonary disease within the limits this exam.
--- NOTE | 2022-07-31 16:08 | ECG_ITS ---
APPROVED REPORT Exam: Resting ECG HR:87 bpm ECG Measurements Heart Rate 87 AXES QRSd 85 QRS 10 QT 345 T 49 QTc 390 Conclusion SUPRAVENTRICULAR RHYTHM LOW QRS VOLTAGE IN PRECORDIAL LEADS [QRS DEFLECTION < 1.0 mV IN CHEST LEADS] POSSIBLE ANTERIOR MYOCARDIAL INFARCTION , OF INDETERMINATE AGE [30 ms Q WAVE IN V3/V4, OR R < 0.2 mV IN V4] MARKED ST ELEVATION, CONSIDER INFERIOR INJURY [MARKED ST ELEVATION W/O NORMALLY INFLECTED T-WAVE IN II/aVF] ACUTE MA UNCONFIRMED REPORT Electronically signed by : Hernandez Yi MD 08/02/2022 20:14:32
--- NOTE | 2022-07-31 16:29 | PC.NURSE ---
YUMIKO ROUNDED ON PT
[2022-07-31 16:43] LABS: Basophils # 0.1 K/mm3 (0-0.2); Basophils % 0.3 % (0.1-2.0); Eosinophils # 0.3 K/mm3 (0.0-0.4); Hematocrit 29.2 % (37.0-47.0); Lymphocytes # 2.2 K/mm3 (0.7-4.5); Lymphocytes % 13.5 % (10-50); Mean Corpuscular HGB Conc 30.7 g/dL (31.8-35.4); Mean Corpuscular Hemoglobin 28.5 pg (27.0-31.2); Mean Corpuscular Volume 92.8 fl (81-99); Mean Platelet Volume 8.8 fl (7.4-10.4); Monocytes # 1.1 K/mm3 (0.1-1.0); Monocytes % 6.6 % (1.7-9.3); Neutrophils # 12.6 K/mm3 (1.8-7.8); Neutrophils % 77.7 % (37.0-80.0); Platelet Count 379 K/mm3 (142-424); Red Blood Count 3.15 M/mm3 (4.20-5.40); Red Cell Distribution Width 16.9 % (11.5-17.5); White Blood Count 16.3 K/mm3 (4.8-10.8)
[2022-07-31 16:47] LABS: Chloride 100 mmol/L (98-107); MANUAL DIFFERENTIAL MANUAL DIFFERENTIAL (MANUAL DIFF); Sodium 129 mmol/L (136-145)
[2022-07-31 16:49] LABS: Alanine Aminotransferase 49 U/L (12-78); Aspartate Amino Transferase 81 U/L (14-36); Blood Urea Nitrogen 18 mg/dl (7-17); Creatinine Clearance Estimated 61 mL/min (50-200); Estimated Glomerular Filt Rate 40 ml/min (>60); GFR (African American) 48 ML/MIN (>60)
[2022-07-31 16:50] LABS: Albumin Level 2.5 g/dl (3.5-5.0); Alkaline Phosphatase 161 U/L (38-126); Anion Gap 12.8 mEq/L (5-15); Bilirubin,Total 0.4 mg/dl (0.2-1.3); Carbon Dioxide 19 mmol/L (22.0-30.0); Globulin 2.6 g/dL (1.3-3.2); Glucose 146 mg/dl (74-100); Total Protein,Serum 5.1 g/dl (6.3-8.2)
[2022-07-31 16:57] LABS: Potassium 2.8 mmoL/L (3.5-5.1)
[2022-07-31 16:59] LABS: NT Pro Brain Natriuretic Pep. 1060 pg/mL (0-125)
[2022-07-31 17:00] LABS: Eosinophils % 1 % (0-3); Lymphocytes % 17 % (10-50); Monocytes % 5 % (2-9); Neutrophils % 77 % (42-76); Total Cells Counted 100
[2022-07-31 17:01] LABS: Platelet Estimate Normal; RBC Morphology Normal
[2022-07-31 17:02] LABS: Troponin I 0.02 ng/ml (0.00-0.034)
--- NOTE | 2022-07-31 18:55 | PC.NURSE ---
report called to Yesika at [facility]. Pt receiving second dose of K+ IV, will be discharged back to SNF once that is finished.
--- NOTE | 2022-07-31 19:31 | PC.NURSE ---
Pt waiting for ambulance transportation availability at this time.
--- NOTE | 2022-07-31 20:05 | PC.NURSE ---
notified [facility] that pt is ready to go back to [place]. Medicare/Medicaid does not require pre-auth. Awaiting other truck to get back into the [facility].
--- NOTE | 2022-07-31 21:02 | PC.NURSE ---
Rounded on pt. No needs or complaints voiced at this time.
== END 2022-07-31 21:52 | disposition home or self-care (01) ==
PROVIDERS: Emergency Provider Student in an Organized Health Care Education/Training Program; PCP Emergency Medicine
DX: E87.6 Hypokalemia (principal); D64.9 Anemia, unspecified; F25.9 Schizoaffective disorder, unspecified; N18.9 Chronic kidney disease, unspecified; I12.9 Hypertensive chronic kidney disease with stage 1 through stage 4 chronic kidney disease, or unspecified chronic kidney disease
CPT/HCPCS: 71045; 80053; 83880; 84484; 85007; 85025; 93005; 96360; 96361; 99285; J2405

== ENCOUNTER → 2022-08-04 15:47 | Outpatient (CLI) | payer MEDICARE, MEDICAID, SELFPAY ==
[2022-08-04 16:19] LABS: Chloride 102 mmol/L (98-107); Sodium 132 mmol/L (136-145)
[2022-08-04 16:22] LABS: Alanine Aminotransferase 43 U/L (12-78); Albumin Level 1.9 g/dl (3.5-5.0); Albumin/Globulin Ratio 0.9 (1.1-1.8); Alkaline Phosphatase 124 U/L (38-126); Anion Gap 9.9 mEq/L (5-15); Aspartate Amino Transferase 42 U/L (14-36); Bilirubin,Total 0.5 mg/dl (0.2-1.3); Blood Urea Nitrogen 11 mg/dl (7-17); Carbon Dioxide 23 mmol/L (22.0-30.0); Estimated Glomerular Filt Rate 70 ml/min (>60); GFR (African American) 85 ML/MIN (>60); Globulin 2.1 g/dL (1.3-3.2); Glucose 158 mg/dl (74-100)
[2022-08-04 16:30] LABS: Potassium 2.9 mmoL/L (3.5-5.1)
== END ==
PROVIDERS: PCP Emergency Medicine; Visit Provider Emergency Medicine
DX: I10 Essential (primary) hypertension (principal)
CPT/HCPCS: 80053

== ENCOUNTER 2022-08-08 08:10 | Inpatient (IN) | payer MEDICAID, MEDICARE, SELFPAY ==
[2022-08-08] VITALS (22 sets, daily range): BP systolic 89–146; BP diastolic 43–71; PULSE 90–106; RESP 18–32; TEMP 36.6–37; O2SAT 90–98; BMI 41.5; BMI 34.3; BMI 34.2
--- NOTE | 2022-08-08 08:12 | PC.NURSE ---
[id number] DR BROWN AT BEDSIDE
--- NOTE | 2022-08-08 08:17 | XR_ITS ---
FINAL REPORT CLINICAL HISTORY: Shortness of breath, fluid overload, rales COMPARISON: 07/31/2022 FINDINGS: The heart size is at the upper limits of normal. There is a moderate hiatal hernia. There is no focal infiltrate or edema. There are chronic changes at the lung bases. There are no pleural effusions. There is no pneumothorax. There is no osseous abnormality. IMPRESSION: No acute cardiopulmonary process Reviewed, Interpreted and Dictated by Meño Torre MD Transcribed by Brittany Barr Authenticated and [facility]
--- NOTE | 2022-08-08 08:19 | HMH.EDGENADL ---
Discharge Plan Disposition Patient Disposition: Admitted Chief Complaint: Shortness of Breath/Dyspnea Clinical Impressions Clinical Impression: Sepsis Discharge ED Provider: Catalino Diez General Adult HPI General Chief complaint: Shortness of Breath/Dyspnea Stated complaint: soa Time Seen by Provider: 08/08/22 08:16 Mode of Arrival: EMS Source of Information: EMS Limitations: Altered Mental Status History of Present Illness HPI narrative: This is a 72-year-old female with history of hypertension, hyperlipidemia, CKD, diabetes, DVTs on warfarin, mild intellectual disability currently residing at long-term care facility presenting with altered mental status, difficulty breathing. Per outside facility, patient typically on 3 L nasal cannula for appropriate saturations at facility, but was saturating in the mid to high 80s on this today. Was increased to 6 L and only able to saturate low 90s. Because abnormal for patient plus visible respiratory distress, brought to [facility]. Patient states she has been feeling unwell for some time. Denies any pain anywhere, but is feeling short of breath. Also notes having chest pain. Chest pain unable to be characterized during interview secondary to disorientation. Patient unable to differentiate whether or not symptoms get worse when sitting up or lying flat, or positional in any sense. States that her legs have been more swollen than usual. Denies any abdominal pain, nausea or vomiting, fevers or chills, diarrhea, rash, known sick contacts. Patient thinks she has been taking her medication as prescribed. Related Data Home Medications Medication Instructions Recorded Confirmed allopurinol 300 mg tablet 300 mg PO DAILY Gout 07/12/22 07/27/22 bethanechol chloride 25 mg tablet 25 mg PO DAILY Urinary retention 07/12/22 07/27/22 bisoprolol fumarate 5 mg tablet 5 mg PO DAILY Hypertension 07/12/22 07/27/22 fluticasone propionate 50 2 spray intranasal HS Allergy 07/12/22 07/27/22 mcg/actuation nasal symptoms spray,suspension glipizide 5 mg tablet 5 mg PO DAILY Diabetes 07/12/22 07/27/22 lactulose 10 gram/15 mL oral 30 ml PO DAILYP PRN Constipation 07/12/22 07/27/22 solution levocetirizine 5 mg tablet 2.5 mg PO Q48H Allergy symptoms 07/12/22 07/27/22 meclizine 25 mg tablet 25 mg PO TID PRN Dizziness 07/12/22 07/27/22 olanzapine 20 mg tablet 20 mg PO HS Mood 07/12/22 07/27/22 omeprazole 40 mg capsule,delayed 40 mg PO DAILY Acid reflux 07/12/22 07/27/22 release oxcarbazepine 600 mg tablet 600 mg PO BID Seizure 07/12/22 07/27/22 atorvastatin 40 mg tablet 40 mg PO HS Cholesterol 07/21/22 07/27/22 budesonide 0.25 mg/2 mL suspension 0.25 mg inhalation BID Breathing 07/21/22 07/27/22 for nebulization problems ferrous sulfate 325 mg (65 mg 325 mg PO DAILY Supplement 07/21/22 07/27/22 iron) tablet melatonin 5 mg tablet 5 mg PO HS SLEEP 07/27/22 07/27/22 sennosides 8.6 mg-docusate sodium 2 tab PO BID CONSTIPATION 07/27/22 07/27/22 50 mg tablet (Senna Plus) warfarin 3 mg tablet 3 mg PO DAILY HX OF DVT 07/27/22 07/27/22 Allergies Allergy/AdvReac Type Severity Reaction Status Date / Time Antihistamines - Alkylamine Allergy Unknown Verified 07/31/22 15:57 [ANTIHISTAMINES - ALKYLAMINE] aspirin [ASPIRIN] Allergy Unknown Verified 07/31/22 15:57 loratadine [LORATADINE] Allergy Unknown Verified 07/31/22 15:57 sertraline [SERTRALINE] Allergy Unknown Verified 07/31/22 15:57 PFSH PFS Disclaimer: The information contained in this section may have been updated after the patient was seen, as this information can be updated by other users. 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
--- NOTE | 2022-08-08 08:21 | ECG_ITS ---
APPROVED REPORT Exam: Resting ECG HR:105 bpm ECG Measurements Heart Rate 105 AXES FL 225 P 121 QRSd 84 QRS -24 QT 338 T -1 QTc 399 Conclusion SINUS TACHYCARDIA WITH FIRST DEGREE AV BLOCK POSSIBLE ANTERIOR MYOCARDIAL INFARCTION , OF INDETERMINATE AGE [30 ms Q WAVE IN V3/V4, OR R < 0.2 mV IN V4] INFERIOR MYOCARDIAL INFARCTION , OF INDETERMINATE AGE [40+ ms Q WAVE AND/OR ST/T ABNORMALITY IN II/aVF] ABNORMAL ECG UNCONFIRMED REPORT Electronically signed by : Hernandez Yi MD 08/08/2022 17:11:12
--- NOTE | 2022-08-08 08:30 | PC.NURSE ---
xr at bedside
[2022-08-08 08:38] LABS: Coronavirus 19, PCR Not Detected (NotDetected); Influenza A, PCR Not Detected (NotDetected); Influenza B, PCR Not Detected (NotDetected)
[2022-08-08 08:40] LABS: Basophils % 0.1 % (0.1-2.0); Eosinophils # 0.1 K/mm3 (0.0-0.4); Eosinophils % 0.5 % (0.1-12.0); Hematocrit 30.8 % (37.0-47.0); Hemoglobin 9.6 g/dL (12.2-16.2); Lymphocytes # 1.5 K/mm3 (0.7-4.5); Mean Corpuscular HGB Conc 31.2 g/dL (31.8-35.4); Mean Corpuscular Hemoglobin 29.3 pg (27.0-31.2); Mean Corpuscular Volume 93.7 fl (81-99); Mean Platelet Volume 8.2 fl (7.4-10.4); Microscopic, Urine URINE MICROSCOPIC (MICROSCOPIC); Monocytes # 0.8 K/mm3 (0.1-1.0); Monocytes % 3.5 % (1.7-9.3); Platelet Count 454 K/mm3 (142-424); Red Blood Count 3.29 M/mm3 (4.20-5.40); Red Cell Distribution Width 20.5 % (11.5-17.5); White Blood Count 21.3 K/mm3 (4.8-10.8)
--- NOTE | 2022-08-08 08:40 | PC.NURSE ---
RESPIRATORY AT BEDSIDE FOR ABG
[2022-08-08 08:41] LABS: Appearance,Urine CLEAR (Clear); Bilirubin,Urine Negative (Negative); Blood, Urine Negative (Negative); Color,Urine YELLOW (Yellow); Glucose,Urine (UA) Negative (Negative); Ketones,Urine Negative (Negative); Leukocyte Esterase,Urine Negative (Negative); Nitrate,Urine Negative (Negative); Protein,Urine TRACE (Negative); Urobilinogen,Urine 0.2 EU/dl (0.2)
--- NOTE | 2022-08-08 08:45 | PC.NURSE ---
AT BEDSIDE TO REEVALUATE PT
[2022-08-08 08:48] LABS: Chloride 101 mmol/L (98-107); Sodium 132 mmol/L (136-145)
[2022-08-08 08:49] LABS: Lactic Acid 1.9 mmol/L (0.7-2.1); Potassium 4.1 mmoL/L (3.5-5.1)
[2022-08-08 08:49] LABS: ABG Base Excess -2.8 mmol/L (-2.4-2.3); ABG HCO3 20.6 mmhg (22.0-26.0); ABG Oxygen Saturation 90 % (90-100); ABG PCO2 27.8 mmhg (35.0-45.0); ABG PH 7.49 mmol/L (7.35-7.45); ABG PO2 57.6 mmhg (80-100); ABG TCO2 21.4 mmhg (23-27)
[2022-08-08 08:51] LABS: Source Left Radial
[2022-08-08 08:51] LABS: Alanine Aminotransferase 44 U/L (12-78); Albumin Level 2.3 g/dl (3.5-5.0); Albumin/Globulin Ratio 0.9 (1.1-1.8); Alkaline Phosphatase 162 U/L (38-126); Anion Gap 12.1 mEq/L (5-15); Aspartate Amino Transferase 39 U/L (14-36); Bilirubin,Total 0.7 mg/dl (0.2-1.3); Blood Urea Nitrogen 12 mg/dl (7-17); Carbon Dioxide 23 mmol/L (22.0-30.0); Creatinine Clearance Estimated 37 mL/min (50-200); Estimated Glomerular Filt Rate 44 ml/min (>60); GFR (African American) 53 ML/MIN (>60); Globulin 2.6 g/dL (1.3-3.2); Total Protein,Serum 4.9 g/dl (6.3-8.2)
[2022-08-08 08:52] LABS: Calcium 7.1 mg/dl (8.4-10.2); Glucose 92 mg/dl (74-100)
[2022-08-08 08:53] LABS: Bacteria,Urine Trace /lpf; WBC,Urine Occasional #/hpf (0-3)
[2022-08-08 08:56] LABS: MANUAL DIFFERENTIAL MANUAL DIFFERENTIAL (MANUAL DIFF)
[2022-08-08 08:58] LABS: NT Pro Brain Natriuretic Pep. 433 pg/mL (0-125)
--- NOTE | 2022-08-08 09:01 | PC.NURSE ---
PT REPOSITIONED FOR COMFORT AT THIS TIME
--- NOTE | 2022-08-08 09:08 | EXP.PHA.CONS ---
Pharmacy Consult Date: 08/08/22 Time: 09:08 Referring provider: DR. BROWN Reason for Consult:: VANCOMYCIN DOSING Allergies Allergy/AdvReac Type Severity Reaction Status Date / Time Antihistamines - Alkylamine Allergy Unknown Verified 07/31/22 15:57 [ANTIHISTAMINES - ALKYLAMINE] aspirin [ASPIRIN] Allergy Unknown Verified 07/31/22 15:57 loratadine [LORATADINE] Allergy Unknown Verified 07/31/22 15:57 sertraline [SERTRALINE] Allergy Unknown Verified 07/31/22 15:57 Home Medications Medication Instructions Recorded Confirmed Type allopurinol 300 mg tablet 300 mg PO DAILY Gout 07/12/22 07/27/22 History bethanechol chloride 25 mg tablet 25 mg PO DAILY Urinary retention 07/12/22 07/27/22 History bisoprolol fumarate 5 mg tablet 5 mg PO DAILY Hypertension 07/12/22 07/27/22 History fluticasone propionate 50 2 spray intranasal HS Allergy 07/12/22 07/27/22 History mcg/actuation nasal symptoms spray,suspension glipizide 5 mg tablet 5 mg PO DAILY Diabetes 07/12/22 07/27/22 History lactulose 10 gram/15 mL oral 30 ml PO DAILYP PRN Constipation 07/12/22 07/27/22 History solution levocetirizine 5 mg tablet 2.5 mg PO Q48H Allergy symptoms 07/12/22 07/27/22 History meclizine 25 mg tablet 25 mg PO TID PRN Dizziness 07/12/22 07/27/22 History olanzapine 20 mg tablet 20 mg PO HS Mood 07/12/22 07/27/22 History omeprazole 40 mg capsule,delayed 40 mg PO DAILY Acid reflux 07/12/22 07/27/22 History release oxcarbazepine 600 mg tablet 600 mg PO BID Seizure 07/12/22 07/27/22 History atorvastatin 40 mg tablet 40 mg PO HS Cholesterol 07/21/22 07/27/22 History budesonide 0.25 mg/2 mL suspension 0.25 mg inhalation BID Breathing 07/21/22 07/27/22 History for nebulization problems ferrous sulfate 325 mg (65 mg 325 mg PO DAILY Supplement 07/21/22 07/27/22 History iron) tablet melatonin 5 mg tablet 5 mg PO HS SLEEP 07/27/22 07/27/22 History sennosides 8.6 mg-docusate sodium 2 tab PO BID CONSTIPATION 07/27/22 07/27/22 History 50 mg tablet (Senna Plus) warfarin 3 mg tablet 3 mg PO DAILY HX OF DVT 07/27/22 07/27/22 History New Prescriptions to Start Prescriptions: Height: 1.65 m Weight: 113.398 kg Laboratory Results:: Laboratory Results - last 24 hr 08/08/22 08:18: Specimen Source Left radial, O2 % 4 lpm nc, ABG pH 7.49 H, ABG pCO2 27.8 L, ABG pO2 57.6 L, ABG HCO3 20.6 L, ABG Total CO2 21.4 L, ABG O2 Saturation 90, ABG Base Excess -2.8 L 08/08/22 08:22: Urine Color Yellow, Urine Appearance Clear, Urine pH 6.0, Ur Specific [place] 1.010, Urine Protein Trace, Urine Glucose (UA) Negative, Urine Ketones Negative, Urine Blood Negative, Urine Nitrate Negative, Urine Bilirubin Negative, Urine Urobilinogen 0.2, Ur Leukocyte Esterase Negative, Urine RBC None, Urine WBC Occasional, Ur Squamous Epith Cells 3-5, Urine Bacteria Trace 08/08/22 08:22: WBC 21.3 H*, RBC 3.29 L, Hgb 9.6 L, Hct 30.8 L, MCV 93.7, MCH 29.3, MCHC 31.2 L, RDW 20.5 H, Plt Count 454 H, MPV 8.2, Neut % (Auto) 89.0 H, Lymph % (Auto) 7.0 L, [place] % (Auto) 3.5, Eos % (Auto) 0.5, Baso % (Auto) 0.1, Neut # (Auto) 19.0 H, Lymph # (Auto) 1.5, [place] # (Auto) 0.8, Eos # (Auto) 0.1, Baso # (Auto) 0.0 08/08/22 08:22: Sodium 132 L, Potassium 4.1, Chloride 101, Carbon Dioxide 23, Anion Gap 12.1, BUN 12, Creatinine 1.20 H, Estimated Creat Clear 37, Estimated GFR 44 L, Est GFR ( Amer) 53 L, Glucose 92, Calcium 7.1 L, Total Bilirubin 0.7, AST 39 H, ALT 44, Alkaline Phosphatase 162 H, NT-Pro-B Natriuret Pep 433 H, Total Protein 4.9 L, Albumin 2.3 L, Globulin 2.6, Albumin/Globulin Ratio 0.9 L 08/08/22 08:22: Lactate 1.9 Medical History: Medical History (Updated 08/02/22 @ 00:23 by Background Daemon) Anemia BMI 30.0-30.9,adult 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
[2022-08-08 09:10] LABS: Troponin I < 0.01 ng/ml (0.00-0.034)
[2022-08-08 09:15] LABS: INR 5.41 (0.9-1.1); Prothrombin Time 53.1 seconds (10.1-12.5)
--- NOTE | 2022-08-08 09:17 | CT_ITS ---
FINAL REPORT TECHNIQUE: multiple axial CT images were performed from the foramen magnum to the vertex without enhancement. CLINICAL HISTORY: ams, elevated INR/PTT COMPARISON: 07/12/2022 FINDINGS: The ventricles are enlarged. There is diffuse moderate atrophy. There is moderate periventricular white matter change likely related to small vessel disease. There is no evidence of hemorrhage. No masses are identified. No extra-axial fluid is seen. The sinuses are normal. No significant changes noted since the prior CT of July 12. IMPRESSION: Atrophy and chronic changes without acute process. MRI with diffusion-weighted images might be helpful for further evaluation. Reviewed, Interpreted and Dictated by Meño Torre MD Transcribed by Vicky Olvera Authenticated and [facility]
[2022-08-08 09:21] LABS: Eosinophils % 1 % (0-3); Lymphocytes % 10 % (10-50); Monocytes % 4 % (2-9); Neutrophils % 85 % (42-76); Platelet Estimate Normal; RBC Morphology Normal; Total Cells Counted 100
--- NOTE | 2022-08-08 09:27 | PC.NURSE ---
DR BROWN SPEAKING WITH DR GALLEGOS FOR ADMISSION
--- NOTE | 2022-08-08 09:28 | PC.NURSE ---
Dr dubois speaking with Dr Newberry hospitalist
--- NOTE | 2022-08-08 09:40 | PC.NURSE ---
PT TO CT
--- NOTE | 2022-08-08 09:52 | PC.NURSE ---
PT RETURNED FROM CT
--- NOTE | 2022-08-08 09:56 | PC.NURSE ---
Dr. Newberry, Hospitalist at
--- NOTE | 2022-08-08 10:02 | PC.NURSE ---
notified care management of admission, per dr. cuenca wants pt in step down unit dr. cuenca also request pt get a midline- have notified staff that he is requesting a midline for states they will get line put in pt when she gets to assigned room
--- NOTE | 2022-08-08 10:30 | PC.NURSE ---
REPORT GIVEN TO JULIETH MONTGOMERY
--- NOTE | 2022-08-08 10:46 | PC.NURSE ---
arrived to floor by stretcher from ED
--- NOTE | 2022-08-08 11:25 | PC.WOUNDNOTE ---
bruises noted during skin assessment upon admission r hip bilateral inner thighs
--- NOTE | 2022-08-08 11:36 | EXP.HP ---
History of Present Illness *Admission Date: 08/08/22 *Reason for visit:: Shortness of breath at residential *History of present illness: Patient with past medical history of mood disorder, diabetes, hypertension, hyperlipidemia, history of DVTs on warfarin, CKD. Patient presents from nursing facility with shortness of breath. assisted staff noticed patient struggling on 3 L nasal cannula with gurgling. O2 saturation 85 to 90% on 3 L nasal cannula. Patient normally sats in mid 90s on 3 L nasal cannula. Patient's O2 saturation increased to 6 L by residential staff, with oxygenation returning to mid 90% range. Patient subsequently sent to hospital by ambulance for evaluation of hypoxia. Patient noted to be hypotensive in emergency room with respiratory rate 20 to 25%. Lactic acid 1.9. Warfarin level above 5. Compensated respiratory acidosis with PCO2 around 27 noted on review of ABG. Patient confused at time of admission, and unable to give salient details of medical history. [facility] Disclaimer: The information contained in this section may have been updated after the patient was seen, as this information can be updated by other users. 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lux disease Hiatal hernia Hiatal hernia History of DVT of lower extremity Major depressive disorder, recurrent, unspecified Malignant neoplasm of left lung Malignant neoplasm of right lung Nontoxic thyroid nodule Schizo affective schizophrenia Tachycardia Wheelchair bound Surgical History History of hysterectomy Family History (Updated 08/08/22 @ 10:05 by Libra Mcpherson RN) Other No significant family history Social History (Updated 08/08/22 @ 10:05 by Libra Mcpherson RN) Smoking Status: Never smoker alcohol intake: never substance use type: denies use current occupational status: disabled Travel in the last 8 weeks: None household members: other housing: residential residential: Yes diet: diabetic caffeine: Yes physical activity: none Review of Systems Review of Systems Review of systems:: unable to obtain Review of systems (narrative): Patient confused at time of presentation Meds Home Medications and Allergies Home Medications Medication Instructions Recorded Confirmed Type allopurinol 300 mg tablet 300 mg PO DAILY Gout 07/12/22 07/27/22 History bethanechol chloride 25 mg tablet 25 mg PO DAILY Urinary retention 07/12/22 07/27/22 History bisoprolol fumarate 5 mg tablet 5 mg PO DAILY Hypertension 07/12/22 07/27/22 History fluticasone propionate 50 2 spray intranasal HS Allergy 07/12/22 07/27/22 History mcg/actuation nasal symptoms spray,suspension glipizide 5 mg tablet 5 mg PO DAILY Diabetes 07/12/22 07/27/22 History lactulose 10 gram/15 mL oral 30 ml PO DAILYP PRN Constipation 07/12/22 07/27/22 History solution levocetirizine 5 mg tablet 2.5 mg PO Q48H Allergy symptoms 07/12/22 07/27/22 History meclizine 25 mg tablet 25 mg PO TID PRN Dizziness 07/12/22 07/27/22 History olanzapine 20 mg tablet 20 mg PO HS Mood 07/12/22 07/27/22 History omeprazole 40 mg capsule,delayed 40 mg PO DAILY Acid reflux 07/12/22 07/27/22 History release oxcarbazepine 600 mg tablet 600 mg PO BID Seizure 07/12/22 07/27/22 History atorvastatin 40 mg tablet 40 mg PO HS Cholesterol 07/21/22 07/27/22 History ferrous sulfate 325 mg (65 mg 325 mg PO DAILY Supplement 07/21/22 07/27/22 History iron) tablet melatonin 5 mg tablet 5 mg PO HS SLEEP 07/27/22 07/27/22 History sennosides 8.6 mg-docusate sodium 2 tab PO BID CONSTIPATION 07/27/22
--- NOTE | 2022-08-08 11:52 | P.CONPHA_ITS ---
Pharmacy Intervention Comments: MEDICATION RECONCILIATION COMPLETED ON PATIENT USING MAR FROM [facility]. -MARIUM CLOUD, [place]
--- NOTE | 2022-08-08 11:52 | HMH.PHAINT1 ---
Pharmacy Intervention Comments: MEDICATION RECONCILIATION COMPLETED ON PATIENT USING MAR FROM [facility]. -MARIUM CLOUD, [place]
--- NOTE | 2022-08-08 11:57 | SW/DCPLANNER ---
Patient currently resides at [facility] level of care. I will continue to follow up with Florencia at [facility] until patient is medically stable for discharge.
--- NOTE | 2022-08-08 12:09 | DIET.NUTRFU ---
Called [facility] verified diet as pureed, thin liquids. She is following [employer] at [facility] and requiring 1:[address] was consulted for Chance score of 13-putting her at moderate risk. Adjusted diet and will evaluation need for supplements.
[2022-08-08 12:35] LABS: POC Glucose,Bedside 89 (70-110)
--- NOTE | 2022-08-08 12:38 | PC.NURSE ---
1215 Clarified order for Levophed with MD. drip is ordered on apr as needed if pt develops low Map/sbp. notified that pt has bolus infusing at this time, per Dr Newberry infuse remaining bolus at 200ml/hr. order for midline entered, notified that midline will not be inserted until approx 2-3p.
[2022-08-08 15:57] LABS: Basophils % 0.1 % (0.1-2.0); Eosinophils # 0.1 K/mm3 (0.0-0.4); Eosinophils % 0.8 % (0.1-12.0); Hematocrit 28.1 % (37.0-47.0); Hemoglobin 8.7 g/dL (12.2-16.2); Mean Corpuscular HGB Conc 30.8 g/dL (31.8-35.4); Mean Corpuscular Volume 94.1 fl (81-99); Mean Platelet Volume 8.6 fl (7.4-10.4); Monocytes # 0.5 K/mm3 (0.1-1.0); Monocytes % 3.4 % (1.7-9.3); Neutrophils # 13.2 K/mm3 (1.8-7.8); Neutrophils % 88.8 % (37.0-80.0); Platelet Count 351 K/mm3 (142-424); Red Blood Count 2.98 M/mm3 (4.20-5.40); Red Cell Distribution Width 20.9 % (11.5-17.5); White Blood Count 14.8 K/mm3 (4.8-10.8)
[2022-08-08 15:57] LABS: Adenovirus,PCR Not Detected (NotDetected); Bordetella Pertussis Not Detected (NotDetected); Chlamydophila Pneumoniae, PCR Not Detected (NotDetected); Coronavirus 19, PCR Not Detected (NotDetected); Coronavirus 229E Not Detected (NotDetected); Coronavirus NL63 Not Detected (NotDetected); Coronavirus OC43 Not Detected (NotDetected); Coronovirus HKU1,PCR Not Detected (NotDetected); Human Metapneumovirus Not Detected (NotDetected); Influenza A, PCR Not Detected (NotDetected); Influenza AH1, 2009 Not Detected (NotDetected); Influenza AH1, PCR Not Detected (NotDetected); Influenza AH3,PCR Not Detected (NotDetected); Influenza B, PCR Not Detected (NotDetected); Mycoplasma Pneumoniae, PCR Not Detected (NotDetected); Parainfluenza 1, PCR Not Detected (NotDetected); Parainfluenza 2, PCR Not Detected (NotDetected); Parainfluenza 3, PCR Not Detected (NotDetected); Parainfluenza 4, PCR Not Detected (NotDetected); Respiratory Syncytial Virus Not Detected (NotDetected); Rhinovirus/Enterovirus Not Detected (NotDetected)
[2022-08-08 16:15] LABS: Procalcitonin 0.855 ng/mL (0.0-2.0); Troponin I < 0.01 ng/ml (0.00-0.034)
[2022-08-08 16:57] LABS: POC Glucose,Bedside 94 (70-110)
--- NOTE | 2022-08-08 21:12 | PC.NURSE ---
courtesy note: assisted with bed bath & gown change.
[2022-08-08 22:10] LABS: POC Glucose,Bedside 114 (70-110)
[2022-08-09] VITALS (15 sets, daily range): BP systolic 111–162; BP diastolic 50–79; PULSE 70–107; RESP 18–20; TEMP 36.4–37.1; O2SAT 94–100; BMI 34.7
[2022-08-09 06:05] LABS: POC Glucose,Bedside 106 (70-110)
[2022-08-09 08:48] LABS: Basophils % 0.3 % (0.1-2.0); Eosinophils # 0.4 K/mm3 (0.0-0.4); Eosinophils % 2.4 % (0.1-12.0); Hematocrit 27.5 % (37.0-47.0); Hemoglobin 8.6 g/dL (12.2-16.2); Lymphocytes # 0.9 K/mm3 (0.7-4.5); Lymphocytes % 6.4 % (10-50); Mean Corpuscular HGB Conc 31.2 g/dL (31.8-35.4); Mean Corpuscular Hemoglobin 29.5 pg (27.0-31.2); Mean Corpuscular Volume 94.5 fl (81-99); Mean Platelet Volume 8.5 fl (7.4-10.4); Monocytes # 0.7 K/mm3 (0.1-1.0); Monocytes % 4.7 % (1.7-9.3); Neutrophils # 12.5 K/mm3 (1.8-7.8); Neutrophils % 86.2 % (37.0-80.0); Platelet Count 272 K/mm3 (142-424); Red Blood Count 2.91 M/mm3 (4.20-5.40); Red Cell Distribution Width 20.7 % (11.5-17.5); White Blood Count 14.5 K/mm3 (4.8-10.8)
[2022-08-09 08:50] LABS: MANUAL DIFFERENTIAL MANUAL DIFFERENTIAL (MANUAL DIFF)
[2022-08-09 08:53] LABS: Chloride 105 mmol/L (98-107)
[2022-08-09 08:54] LABS: Potassium 3.2 mmoL/L (3.5-5.1); Sodium 135 mmol/L (136-145)
[2022-08-09 08:56] LABS: Blood Urea Nitrogen 15 mg/dl (7-17); Creatinine Clearance Estimated 78 mL/min (50-200); Estimated Glomerular Filt Rate 49 ml/min (>60); GFR (African American) 59 ML/MIN (>60)
[2022-08-09 08:57] LABS: Anion Gap 9.2 mEq/L (5-15); Calcium 6.6 mg/dl (8.4-10.2); Carbon Dioxide 24 mmol/L (22.0-30.0); Glucose 94 mg/dl (74-100); Magnesium 1.1 mg/dl (1.6-2.3); Phosphorous 3.9 mg/dl (2.5-4.5)
[2022-08-09 09:15] LABS: Eosinophils % 2 % (0-3); Lymphocytes % 8 % (10-50); Monocytes % 4 % (2-9); Neutrophils % 86 % (42-76); Platelet Estimate Normal; RBC Morphology Normal; Total Cells Counted 100
--- NOTE | 2022-08-09 12:56 | DIET.NUTRFU ---
Meal intake today has been poor for both breakfast and lunch. Nursing reports only 10% at lunch, but drank her water well. Will start glucerna with meals to help meet calories and protein.Labs/meds reviewed. No BM noted yet this admit.
--- NOTE | 2022-08-09 15:34 | EXP.PN ---
Subjective *Date: 08/09/22 *Time: 15:34 Interval history: Patient normotensive, with less gurgling and respiratory distress versus yesterday examination. Sleeping comfortably at time of exam by Dr. Newberry this AM. Exam Data for Last 24 hours Vital signs and Labs for Last 24 Hours: Temp Pulse Resp BP Pulse Ox FiO2 97.9 F 105 H 22 121/63 99 97 08/09/22 15:02 08/09/22 14:00 08/08/22 18:00 08/09/22 14:00 08/09/22 14:00 08/08/22 21:59 Laboratory Results - last 24 hr 08/08/22 08:25: Chlamy pneumoniae PCR Not detected, Adenovirus (PCR) Not detected, B. pertussis DNA (PCR) Not detected, Coronavirus OC43 (PCR) Not detected, Coronavirus HKU1 (PCR) Not detected, Coronavirus 229E (PCR) Not detected, SARS-CoV-2 (PCR) Not detected, Coronavirus NL63 (PCR) Not detected, Human Metapneumovir PCR Not detected, Influenza A (H1) PCR Not detected, Influ A (H1N1/09) PCR Not detected, Influenza A (H3) PCR Not detected, Influenza Type A (PCR) Not detected, Influenza Type B (PCR) Not detected, M. pneumoniae (PCR) Not detected, Parainfluenza 1 (PCR) Not detected, Parainfluenza 2 (PCR) Not detected, Parainfluenza 3 (PCR) Not detected, Parainfluenza 4 (PCR) Not detected, RSV (PCR) Not detected, Entero/Rhino (PCR) Not detected 08/08/22 15:20: Troponin I < 0.01 08/08/22 15:20: WBC 14.8 H D, RBC 2.98 L, Hgb 8.7 L, Hct 28.1 L, MCV 94.1, MCH 29.0, MCHC 30.8 L, RDW 20.9 H, Plt Count 351, MPV 8.6, Neut % (Auto) 88.8 H, Lymph % (Auto) 7.0 L, [place] % (Auto) 3.4, Eos % (Auto) 0.8, Baso % (Auto) 0.1, Neut # (Auto) 13.2 H, Lymph # (Auto) 1.0, [place] # (Auto) 0.5, Eos # (Auto) 0.1, Baso # (Auto) 0.0 08/08/22 15:20: Lactate 2.0 08/08/22 15:20: Procalcitonin 0.855 08/08/22 16:24: POC Glucose 94 08/08/22 20:42: POC Glucose 114 H 08/09/22 05:56: POC Glucose 106 08/09/22 08:40: WBC 14.5 H, RBC 2.91 L, Hgb 8.6 L, Hct 27.5 L, MCV 94.5, MCH 29.5, MCHC 31.2 L, RDW 20.7 H, Plt Count 272, MPV 8.5, Neut % (Auto) 86.2 H, Lymph % (Auto) 6.4 L, [place] % (Auto) 4.7, Eos % (Auto) 2.4, Baso % (Auto) 0.3, Neut # (Auto) 12.5 H, Lymph # (Auto) 0.9, [place] # (Auto) 0.7, Eos # (Auto) 0.4, Baso # (Auto) 0.0, Total Counted 100, Neutrophils % (Manual) 86 H, Lymphocytes % (Manual) 8 L, Monocytes % (Manual) 4, Eosinophils % (Manual) 2, Platelet Estimate Normal, RBC Morphology Normal 08/09/22 08:40: Sodium 135 L, Potassium 3.2 L D, Chloride 105, Carbon Dioxide 24, Anion Gap 9.2, BUN 15, Creatinine 1.10 H, Estimated Creat Clear 78, Estimated GFR 49 L, Est GFR ( Amer) 59, Glucose 94, Calcium 6.6 L, Phosphorus 3.9, Magnesium 1.1 L I & O for Last 24 hours: Intake & Output 08/06/22 08/07/22 08/08/22 08/09/22 23:59 23:59 23:59 23:59 Intake Total 2790 / 2840 650 / 650 Output Total 1400 / 1400 2600 / 2600 Balance 1390 / 1440 -1950 / -1950 Weight 108.5 kg 110.223 kg Constitutional Constitutional: no acute distress *Routine HEENT Exam Head: Present normocephalic Eye: Present EOMI ENT: Present mucous membranes moist *Routine Neck Exam Neck: Present supple and full ROM *Routine Respiratory Exam Respiratory: Present decreased breath sounds and diminished air movement; Absent accessory muscle use *Routine Cardiovascular Exam Cardiovascular: Present RRR, Normal S1 and Normal S2 *Routine Abdominal Exam Abdominal: Present soft, normoactive bowel sounds and guarding; Absent rebound *Routine Rectal Exam Comments: deferred *Routine Exam Comments: deffered *Routine Extremities Exam Extremities: Present full ROM and normal capillary refill *Routine Skin Exam Skin: Present intact and dry *Routine Neurological Exam Neurological: Present alert and oriented X3 Assessment and Plan *Assessment and plan (1) Sepsis: Status: Acute Qualifiers: Sepsis acute organ dysfunction status: with acute organ dysfunction Sepsis type: sepsis due to unspecified organism Severe sepsis acute organ dysfunction type: unspecified Severe sepsis shock status: without septic shock Qualified
[2022-08-09 18:24] LABS: INR 2.01 (0.9-1.1); Prothrombin Time 20.9 seconds (10.1-12.5)
[2022-08-09 23:24] LABS: POC Glucose,Bedside 107 (70-110)
[2022-08-10] VITALS: BP 134/72; PULSE 87; PULSE 90; RESP 16; TEMP 36.8; O2SAT 95
[2022-08-10 02:00] VITALS: BP 153/106; PULSE 80; RESP 20; O2SAT 95
[2022-08-10 04:00] VITALS: BP 148/75; PULSE 81; PULSE 90; RESP 18; TEMP 36.5; O2SAT 93; BMI 34.4
[2022-08-10 05:47] LABS: POC Glucose,Bedside 102 (70-110)
[2022-08-10 06:00] VITALS: BP 116/46; PULSE 87; RESP 16; O2SAT 98
[2022-08-10 07:32] VITALS: O2SAT 93
[2022-08-10 07:38] VITALS: TEMP 36.7
--- NOTE | 2022-08-10 07:54 | EXP.DC.SUM ---
General Admission date:: 08/08/22 Discharge date: 08/10/22 HPI HPI HPI: Patient with past medical history of mood disorder, diabetes, hypertension, hyperlipidemia, history of DVTs on warfarin, CKD. Patient presents from nursing facility with shortness of breath. [facility] staff noticed patient struggling on 3 L nasal cannula with gurgling. O2 saturation 85 to 90% on 3 L nasal cannula. Patient normally sats in mid 90s on 3 L nasal cannula. Patient's O2 saturation increased to 6 L by [facility] staff, with oxygenation returning to mid 90% range. Patient subsequently sent to hospital by ambulance for evaluation of hypoxia. Patient noted to be hypotensive in emergency room with respiratory rate 20 to 25%. Lactic acid 1.9. Warfarin level above 5. Compensated respiratory acidosis with PCO2 around 27 noted on review of ABG. Patient confused at time of admission, and unable to give salient details of medical history. Hospital Course Hospital Course Hospital Course: Patient admitted with hypotension, respiratory distress and diagnosed with early sepsis. Patient initially given sepsis bolus in emergency room for resolution of hypotension. Patient then diuresed rapidly over [address] Newberry, with rapid improvement in respiratory function noted. Admission chest x-ray showed no acute cardiopulmonary disease. Admission serial lactic acid level normal limits. Admission procalcitonin 0.855 implying possible bacterial infection. Patient subsequently started on broad-spectrum IV vancomycin, Flagyl, cefepime therapy. Respiratory PCR cultures negative for infectious pathogen. UA showed no signs of infection at time of hospital admission. Blood cultures no growth to date after 48 hours observation during hospitalization. Patient's white blood count steadily trended downward, and patient afebrile throughout hospitalization. Patient ultimately diagnosed with early sepsis secondary to healthcare associated pneumonia, and discharged back to [facility] on 7 additional days of Omnicef therapy. Also special note, echocardiogram done at time of hospital admission, with results pending at time of hospital discharge. Exam Data for Last 24 hours Vital signs and Labs for Last 24 Hours: Temp Pulse Resp BP Pulse Ox FiO2 98.0 F 87 16 116/46 L 93 L 97 08/10/22 07:38 08/10/22 06:00 08/10/22 06:00 08/10/22 06:00 08/10/22 07:32 08/08/22 21:59 Laboratory Results - last 24 hr 08/09/22 08:40: WBC 14.5 H, RBC 2.91 L, Hgb 8.6 L, Hct 27.5 L, MCV 94.5, MCH 29.5, MCHC 31.2 L, RDW 20.7 H, Plt Count 272, MPV 8.5, Neut % (Auto) 86.2 H, Lymph % (Auto) 6.4 L, Gonzales % (Auto) 4.7, Eos % (Auto) 2.4, Baso % (Auto) 0.3, Neut # (Auto) 12.5 H, Lymph # (Auto) 0.9, [place] # (Auto) 0.7, Eos # (Auto) 0.4, Baso # (Auto) 0.0, Total Counted 100, Neutrophils % (Manual) 86 H, Lymphocytes % (Manual) 8 L, Monocytes % (Manual) 4, Eosinophils % (Manual) 2, Platelet Estimate Normal, RBC Morphology Normal 08/09/22 08:40: Sodium 135 L, Potassium 3.2 L D, Chloride 105, Carbon Dioxide 24, Anion Gap 9.2, BUN 15, Creatinine 1.10 H, Estimated Creat Clear 78, Estimated GFR 49 L, Est GFR ( Amer) 59, Glucose 94, Calcium 6.6 L, Phosphorus 3.9, Magnesium 1.1 L 08/09/22 18:07: PT 20.9 H, INR 2.01 H 08/09/22 20:19: POC Glucose 107 08/10/22 05:41: POC Glucose 102 I & O for Last 24 hours: Intake & Output 08/07/22 08/08/22 08/09/22 08/10/22 23:59 23:59 23:59 23:59 Intake Total 2790 / 2840 1010 / 1010 820 / 820 Output Total 1400 / 1400 3475 / 3575 2500 / 2500 Balance 1390 / 1440 -2465 / -2565 -1680 / -1680 Weight 108.5 kg 110.223 kg 109.27 kg Microbiology Reports for the Last 24 Hours: Microbiology 08/08/22 08:18 Urine,Catheterized Urine Culture - Preliminary NO GROWTH AFTER 24 HOURS Constitutional Constitutional: no acute distress and obese *Routine HEENT Exam Head: Present normocephalic Eye: Present EOMI and normal acc
--- NOTE | 2022-08-10 08:29 | DIET.NUTRFU ---
Patient was able to feed self dinner and breakfast this AM at 25%, she also drank 100% glucerna this morning and should continue at [place]. Plans to discharge back today. 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
--- NOTE | 2022-08-10 09:30 | PC.NURSE ---
Called report to Christine. Right AC IV removed. Left UA midline removed. Dressing with coban applied to both sites. Ulloa Cath removed.
[2022-08-10 11:37] LABS: Basophils % 0.1 % (0.1-2.0); Eosinophils # 0.3 K/mm3 (0.0-0.4); Eosinophils % 2.6 % (0.1-12.0); Hematocrit 27.2 % (37.0-47.0); Hemoglobin 8.3 g/dL (12.2-16.2); Lymphocytes # 0.9 K/mm3 (0.7-4.5); Lymphocytes % 8.9 % (10-50); Mean Corpuscular HGB Conc 30.7 g/dL (31.8-35.4); Mean Corpuscular Volume 94.5 fl (81-99); Mean Platelet Volume 8.6 fl (7.4-10.4); Monocytes # 0.5 K/mm3 (0.1-1.0); Monocytes % 5.5 % (1.7-9.3); Neutrophils % 82.8 % (37.0-80.0); Platelet Count 316 K/mm3 (142-424); Red Blood Count 2.87 M/mm3 (4.20-5.40); White Blood Count 9.7 K/mm3 (4.8-10.8)
[2022-08-10 11:39] LABS: Chloride 98 mmol/L (98-107); Sodium 131 mmol/L (136-145)
[2022-08-10 11:42] LABS: Blood Urea Nitrogen 18 mg/dl (7-17); Creatinine Clearance Estimated 77 mL/min (50-200); Estimated Glomerular Filt Rate 49 ml/min (>60); GFR (African American) 59 ML/MIN (>60)
[2022-08-10 11:43] LABS: Anion Gap 10.4 mEq/L (5-15); Calcium 6.4 mg/dl (8.4-10.2); Carbon Dioxide 25 mmol/L (22.0-30.0); Glucose 99 mg/dl (74-100); Magnesium 1.1 mg/dl (1.6-2.3); Phosphorous 3.3 mg/dl (2.5-4.5)
[2022-08-10 11:44] LABS: INR 1.74 (0.9-1.1); Prothrombin Time 18.2 seconds (10.1-12.5)
[2022-08-10 11:45] LABS: Potassium 2.4 mmoL/L (3.5-5.1)
== END 2022-08-10 12:33 | DRG 871 ==
LOC: ER 08:49 → 2ND 10:27
PROVIDERS: Admitting Provider Internal Medicine; Emergency Provider Emergency Medicine; Visit Provider Internal Medicine
DX: A41.9 Sepsis, unspecified organism (principal); J18.9 Pneumonia, unspecified organism; I13.0 Hypertensive heart and chronic kidney disease with heart failure and stage 1 through stage 4 chronic kidney disease, or unspecified chronic kidney disease; F33.9 Major depressive disorder, recurrent, unspecified; N17.9 Acute kidney failure, unspecified; E11.22 Type 2 diabetes mellitus with diabetic chronic kidney disease; N18.9 Chronic kidney disease, unspecified; I50.9 Heart failure, unspecified; Z86.718 Personal history of other venous thrombosis and embolism; E66.9 Obesity, unspecified; Z68.34 Body mass index [BMI] 34.0-34.9, adult; K21.9 Gastro-esophageal reflux disease without esophagitis; F70 Mild intellectual disabilities; F25.9 Schizoaffective disorder, unspecified; Z99.3 Dependence on wheelchair; E03.9 Hypothyroidism, unspecified; F39 Unspecified mood [affective] disorder; Y95 Nosocomial condition; Z79.84 Long term (current) use of oral hypoglycemic drugs; Z85.118 Personal history of other malignant neoplasm of bronchus and lung; R65.20 Severe sepsis without septic shock
CPT/HCPCS: 36410; 36415; 51702; 70450; 71045; 80048; 80053; 81001; 82803; 82962; 83605; 83735; 83880; 84100; 84145; 84484; 85007; 85025; 85610; 87040; 87086; 87581; 87632; 87636; 87798; 93005; 93306; 99285; C9803; J0692; J0696; U0003; U0005

== ENCOUNTER 2022-08-14 14:14 | Inpatient (IN) | payer MEDICAID, OTHER, SELFPAY ==
[2022-08-14] VITALS (12 sets, daily range): BP systolic 37–154; BP diastolic 20–110; PULSE 107–131; RESP 22–38; TEMP 36.8–37.3; O2SAT 84–100; BMI 41.8; BMI 39.6
--- NOTE | 2022-08-14 14:17 | ECG_ITS ---
APPROVED REPORT Exam: Resting ECG HR:120 bpm ECG Measurements Heart Rate 120 AXES MT 190 P 54 QRSd 85 QRS -31 QT 337 T 18 QTc 409 Conclusion SINUS TACHYCARDIA LOW QRS VOLTAGE IN PRECORDIAL LEADS [QRS DEFLECTION < 1.0 mV IN CHEST LEADS] POSSIBLE ANTERIOR MYOCARDIAL INFARCTION , PROBABLY OLD [30 ms Q WAVE IN V3/V4, OR R < 0.2 mV IN V4] INFERIOR MYOCARDIAL INFARCTION , PROBABLY OLD [40+ ms Q WAVE AND/OR ST/T ABNORMALITY IN II/aVF] ABNORMAL ECG UNCONFIRMED REPORT Electronically signed by : Hernandez Yi MD 08/16/2022 21:37:30
--- NOTE | 2022-08-14 14:40 | XR_ITS ---
PROCEDURE INFORMATION: Exam: XR Chest Exam date and time: 08/14/2022 2:42 PM Age: 72 years old Clinical indication: Shortness of breath; Additional info: SOA, hypoxemiua TECHNIQUE: Imaging protocol: Radiologic exam of the chest. Views: 1 view. COMPARISON: CR XR CHEST PORTABLE 08/08/2022 8:19 AM FINDINGS: Lungs: Streaky airspace opacities can be seen in the context of atelectasis versus pneumonia/aspiration. Pleural spaces: Unremarkable. No pleural effusion. No pneumothorax. Heart/Mediastinum: Hiatal hernia noted. Heart size is unchanged. Bones/joints: Unremarkable. IMPRESSION: Streaky airspace opacities can be seen in the context of atelectasis versus pneumonia/aspiration.
[2022-08-14 14:42] LABS: VBG Base Excess -5.2 mmol/L (-2.4-2.3); VBG HCO3 19.2 mmol/L (23-30); VBG Oxygen Saturation 87.4 % (50-70); VBG PH 7.42 mmol/L (7.31-7.41); VBG PO2 57.5 mmol/L (28-40); VBG Total CO2 20.1 mmol/L (23-27)
--- NOTE | 2022-08-14 14:43 | HMH.EDGENADL ---
Discharge Plan Disposition Patient Disposition: Admitted Condition: Serious Clinical Impressions Clinical Impression: Acute and chronic respiratory failure with hypoxia, Acute exacerbation of CHF (congestive heart failure) Discharge ED Provider: Catalino Diez General Adult HPI General Chief complaint: Shortness of Breath/Dyspnea Stated complaint: Respiratory disress Time Seen by Provider: 08/14/22 14:20 Mode of Arrival: EMS Source of Information: EMS Limitations: Physical Limitations Description of Symptoms (Recalled from ER Triage Doc. by RN): 72 F presents via EMS from [facility] for respiratory distress. prison called out for increased work of breathing, audible wheezing/crackles, increased peripheral edema, and overall decline. EMS reports patient was mid 80's on 4L/NC and a duoneb mask. Patient arrives here in respiratory distress. Attending at bedside. History of Present Illness HPI narrative: Is a 72-year-old female with history of hypertension, hyperlipidemia, psychiatric disorders, CHF, CAD, COPD, type 2 diabetes, hypothyroidism presenting with difficulty breathing. Patient was at nursing facility today when she seemed to be working harder to breathe. 80% on room air at nursing facility. Was transferred to [facility] for further evaluation. Patient 86% on 6 L nasal cannula with EMS. Given patient largely nonverbal, no further history available. Related Data Home Medications Medication Instructions Recorded Confirmed allopurinol 300 mg tablet 300 mg PO DAILY Gout 07/12/22 08/14/22 bethanechol chloride 25 mg tablet 25 mg PO DAILY Urinary retention 07/12/22 08/14/22 bisoprolol fumarate 5 mg tablet 5 mg PO DAILY Hypertension 07/12/22 08/14/22 fluticasone propionate 50 2 spray intranasal HS Allergy 07/12/22 08/14/22 mcg/actuation nasal symptoms spray,suspension glipizide 5 mg tablet 5 mg PO DAILY Diabetes 07/12/22 08/14/22 lactulose 10 gram/15 mL oral 30 ml PO DAILYP PRN Constipation 07/12/22 08/14/22 solution levocetirizine 5 mg tablet 2.5 mg PO Q48H Allergy symptoms 07/12/22 08/14/22 meclizine 25 mg tablet 25 mg PO TIDP PRN Dizziness 07/12/22 08/14/22 olanzapine 20 mg tablet 20 mg PO HS Mood 07/12/22 08/14/22 omeprazole 40 mg capsule,delayed 40 mg PO DAILY Acid reflux 07/12/22 08/14/22 release oxcarbazepine 600 mg tablet 600 mg PO BID Seizure 07/12/22 08/14/22 atorvastatin 40 mg tablet 40 mg PO HS Cholesterol 07/21/22 08/14/22 ferrous sulfate 325 mg (65 mg 325 mg PO DAILY Supplement 07/21/22 08/14/22 iron) tablet melatonin 5 mg tablet 5 mg PO HS SLEEP 07/27/22 08/14/22 sennosides 8.6 mg-docusate sodium 2 tab PO BID CONSTIPATION 07/27/22 08/14/22 50 mg tablet (Senna Plus) warfarin 3 mg tablet 3 mg PO DAILY HX OF DVT 07/27/22 08/14/22 amino acids-protein hydrolysate 17 1 ea PO DAILY WOUND HEALING 08/08/22 08/14/22 gram-100 kcal/30 mL liquid packet (Pro-Stat AWC) potassium chloride 20 mEq 20 meq PO DAILY Supplement 08/08/22 08/14/22 tablet,extended release(part/cryst) cefdinir 300 mg capsule 300 mg PO BID Infection 08/14/22 08/14/22 magnesium oxide 400 mg PO BID Supplement 08/14/22 08/14/22 Allergies Allergy/AdvReac Type Severity Reaction Status Date / Time Antihistamines - Alkylamine Allergy Unknown Verified 07/31/22 15:57 [ANTIHISTAMINES - ALKYLAMINE] aspirin [ASPIRIN] Allergy Unknown Verified 07/31/22 15:57 loratadine [LORATADINE] Allergy Unknown Verified 07/31/22 15:57 sertraline [SERTRALINE] Allergy Unknown Verified 07/31/22 15:57 [facility] Disclaimer: The information contained in this section may have been updated after the patient was seen, as this information can be updated by other users. 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, unspecified site COVID-19 Dizziness DVT of lower limb, acute
--- NOTE | 2022-08-14 14:50 | PC.NURSE ---
covid swab sent to lab
[2022-08-14 14:55] LABS: Basophils % 0.2 % (0.1-2.0); Eosinophils # 0.1 K/mm3 (0.0-0.4); Eosinophils % 1.6 % (0.1-12.0); Hemoglobin 9.7 g/dL (12.2-16.2); Lymphocytes % 13.8 % (10-50); Mean Corpuscular HGB Conc 29.4 g/dL (31.8-35.4); Mean Corpuscular Hemoglobin 29.2 pg (27.0-31.2); Mean Corpuscular Volume 99.3 fl (81-99); Mean Platelet Volume 9.3 fl (7.4-10.4); Monocytes # 0.4 K/mm3 (0.1-1.0); Monocytes % 5.2 % (1.7-9.3); Neutrophils # 5.7 K/mm3 (1.8-7.8); Neutrophils % 79.2 % (37.0-80.0); Platelet Count 401 K/mm3 (142-424); Red Blood Count 3.32 M/mm3 (4.20-5.40); Red Cell Distribution Width 20.6 % (11.5-17.5); White Blood Count 7.2 K/mm3 (4.8-10.8)
--- NOTE | 2022-08-14 14:55 | PC.NURSE ---
contacted pt brother Damon Williamson. verified that pt is dnr. pt code status verified with brother by Dr Diez [id number]
[2022-08-14 15:03] LABS: Coronavirus 19, PCR Not Detected (NotDetected); Influenza A, PCR Not Detected (NotDetected); Influenza B, PCR Not Detected (NotDetected)
[2022-08-14 15:07] LABS: Lactic Acid 3.2 mmol/L (0.7-2.1)
[2022-08-14 15:12] LABS: Alanine Aminotransferase 48 U/L (12-78); Albumin Level 2.3 g/dl (3.5-5.0); Albumin/Globulin Ratio 0.8 (1.1-1.8); Alkaline Phosphatase 158 U/L (38-126); Anion Gap 14.9 mEq/L (5-15); Aspartate Amino Transferase 55 U/L (14-36); Bilirubin,Total 0.8 mg/dl (0.2-1.3); Blood Urea Nitrogen 19 mg/dl (7-17); Calcium 7.4 mg/dl (8.4-10.2); Carbon Dioxide 21 mmol/L (22.0-30.0); Chloride 103 mmol/L (98-107); Creatinine Clearance Estimated 44 mL/min (50-200); Estimated Glomerular Filt Rate 61 ml/min (>60); GFR (African American) 74 ML/MIN (>60); Globulin 2.8 g/dL (1.3-3.2); Glucose 167 mg/dl (74-100); Potassium 3.9 mmoL/L (3.5-5.1); Sodium 135 mmol/L (136-145); Total Protein,Serum 5.1 g/dl (6.3-8.2)
[2022-08-14 15:25] LABS: NT Pro Brain Natriuretic Pep. 543 pg/mL (0-125)
[2022-08-14 15:26] LABS: Troponin I < 0.01 ng/ml (0.00-0.034)
[2022-08-14 15:29] LABS: Procalcitonin 0.376 ng/mL (0.0-2.0)
--- NOTE | 2022-08-14 15:38 | PC.NURSE ---
Rn and Tech @ [facility] placing Ulloa catheter for urine and output measuring
--- NOTE | 2022-08-14 15:48 | PC.NURSE ---
ER on phone with hospitalist at this time
[2022-08-14 16:01] LABS: Microscopic, Urine URINE MICROSCOPIC (MICROSCOPIC)
[2022-08-14 16:04] LABS: Appearance,Urine CLEAR (Clear); Bilirubin,Urine Negative (Negative); Blood, Urine TRACE-I (Negative); Color,Urine YELLOW (Yellow); Glucose,Urine (UA) Negative (Negative); Ketones,Urine Negative (Negative); Leukocyte Esterase,Urine Negative (Negative); Nitrate,Urine Negative (Negative); PH,Urine 6.5 (5.0-8.5); Protein,Urine Negative (Negative); Specific Gravity, Urine 1.015 (1.005-1.030); Urobilinogen,Urine 0.2 EU/dl (0.2)
[2022-08-14 16:19] LABS: RBC,Urine Occasional #/hpf (0-3); WBC,Urine Occasional #/hpf (0-3); Yeast,Urine 2+ /lpf
--- NOTE | 2022-08-14 16:24 | PC.NURSE ---
Report given to Sachi Cassidy Rn-- Waiting for transport now
--- NOTE | 2022-08-14 16:25 | EXP.HP ---
History of Present Illness *Admission Date: 08/14/22 *Reason for visit:: Respiratory failure *History of present illness: 72-year-old female with history of hypertension, hyperlipidemia, psychiatric disorders, CHF, CAD, COPD, type 2 diabetes, hypothyroidism presenting with difficulty breathing.? Patient was at nursing facility today when she seemed to be working harder to breathe.? 80% on room air at nursing facility.? Was transferred to [facility] for further evaluation.? Patient 86% on 6 L nasal cannula with EMS.? Given patient largely nonverbal, no further history available. In emergency department patient was found with BMP 33, INR 1.74 with elevated lactic acid at 3.2 chest x-ray with streaky airspace opacities concerning for atelectasis versus aspiration pneumonia. Patient placed on nonrebreather significant improvement on oxygenation. [facility] Disclaimer: The information contained in this section may have been updated after the patient was seen, as this information can be updated by other users. 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lux disease Hiatal hernia Hiatal hernia History of DVT of lower extremity Major depressive disorder, recurrent, unspecified Malignant neoplasm of left lung Malignant neoplasm of right lung Nontoxic thyroid nodule Schizo affective schizophrenia Tachycardia Wheelchair bound Surgical History History of hysterectomy Family History Other No significant family history Social History (Updated 08/08/22 @ 11:43 by Libra Yeung RN) Smoking Status: Former smoker alcohol intake: never substance use type: denies use current occupational status: disabled Travel in the last 8 weeks: None household members: other housing: prison prison: Yes diet: diabetic caffeine: Yes physical activity: none Review of Systems Review of Systems Review of systems:: unable to obtain Meds Home Medications and Allergies Home Medications Medication Instructions Recorded Confirmed Type allopurinol 300 mg tablet 300 mg PO DAILY Gout 07/12/22 08/14/22 History bethanechol chloride 25 mg tablet 25 mg PO DAILY Urinary retention 07/12/22 08/14/22 History bisoprolol fumarate 5 mg tablet 5 mg PO DAILY Hypertension 07/12/22 08/14/22 History fluticasone propionate 50 2 spray intranasal HS Allergy 07/12/22 08/14/22 History mcg/actuation nasal symptoms spray,suspension glipizide 5 mg tablet 5 mg PO DAILY Diabetes 07/12/22 08/14/22 History lactulose 10 gram/15 mL oral 30 ml PO DAILYP PRN Constipation 07/12/22 08/14/22 History solution levocetirizine 5 mg tablet 2.5 mg PO Q48H Allergy symptoms 07/12/22 08/14/22 History meclizine 25 mg tablet 25 mg PO TIDP PRN Dizziness 07/12/22 08/14/22 History olanzapine 20 mg tablet 20 mg PO HS Mood 07/12/22 08/14/22 History omeprazole 40 mg capsule,delayed 40 mg PO DAILY Acid reflux 07/12/22 08/14/22 History release oxcarbazepine 600 mg tablet 600 mg PO BID Seizure 07/12/22 08/14/22 History atorvastatin 40 mg tablet 40 mg PO HS Cholesterol 07/21/22 08/14/22 History ferrous sulfate 325 mg (65 mg 325 mg PO DAILY Supplement 07/21/22 08/14/22 History iron) tablet melatonin 5 mg tablet 5 mg PO HS SLEEP 07/27/22 08/14/22 History sennosides 8.6 mg-docusate sodium 2 tab PO BID CONSTIPATION 07/27/22 08/14/22 History 50 mg tablet (Senna Plus) warfarin 3 mg tablet 3 mg PO DAILY HX OF DVT 07/27/22 08/14/22 History amino acids-protein hydrolysate 17 1 ea PO DAILY WOUND HEALING 08/08/22 08/14/22 History
--- NOTE | 2022-08-14 16:52 | PC.NURSE ---
after many attempts to obtain BP, was extremely low adn notified RN and ERMD of results
--- NOTE | 2022-08-14 17:07 | PC.NURSE ---
Notified Sachi Cassidy RN that patient is now on Lorepi gtt for hypotension. Attending in ED notified that vasopressor started in peripheral IV and will need central access if continued infusion.
--- NOTE | 2022-08-14 17:10 | PC.NURSE ---
Attempted to call report. Nurse not available and will call back
--- NOTE | 2022-08-14 17:28 | PC.NURSE ---
arrived to floor by stretcher from ED
[2022-08-14 18:05] LABS: Troponin I 0.01 ng/ml (0.00-0.034)
[2022-08-14 18:52] LABS: Reflex Lactic Add Lactic Reflex
--- NOTE | 2022-08-14 19:42 | PC.NURSE ---
LEVOPHED DRIP STOPPED AT 1900. BP 144/61.
[2022-08-14 20:58] LABS: Lactic Acid Follow Up (RFLX 1) 3.5 mmol/L (0.7-2.1)
[2022-08-14 21:10] LABS: Troponin I 0.01 ng/ml (0.00-0.034)
[2022-08-14 22:49] LABS: Reflex Lactic (2 hrs) Add Lactic Reflex
[2022-08-14 22:51] LABS: POC Glucose,Bedside 64 (70-110)
[2022-08-14 23:36] LABS: POC Glucose,Bedside 91 (70-110)
[2022-08-15] VITALS (33 sets, daily range): BP systolic 64–126; BP diastolic 25–65; PULSE 74–121; RESP 19–28; TEMP 36.3–36.8; O2SAT 88–100; BMI 39.6
[2022-08-15] LABS: Lactic Acid Follow up (RFLX 2) 3.7 mmol/L (0.7-2.1)
[2022-08-15 00:49] LABS: Troponin I < 0.01 ng/ml (0.00-0.034)
[2022-08-15 05:43] LABS: POC Glucose,Bedside 86 (70-110)
[2022-08-15 07:45] LABS: Basophils # 0.1 K/mm3 (0-0.2); Basophils % 0.3 % (0.1-2.0); Eosinophils # 0.2 K/mm3 (0.0-0.4); Eosinophils % 1.1 % (0.1-12.0); Lymphocytes # 1.1 K/mm3 (0.7-4.5); Lymphocytes % 6.3 % (10-50); Mean Corpuscular HGB Conc 29.9 g/dL (31.8-35.4); Mean Corpuscular Hemoglobin 29.2 pg (27.0-31.2); Mean Corpuscular Volume 97.7 fl (81-99); Mean Platelet Volume 8.4 fl (7.4-10.4); Monocytes # 0.4 K/mm3 (0.1-1.0); Monocytes % 2.2 % (1.7-9.3); Neutrophils # 15.9 K/mm3 (1.8-7.8); Neutrophils % 90.2 % (37.0-80.0); Platelet Count 285 K/mm3 (142-424); Red Blood Count 3.07 M/mm3 (4.20-5.40); Red Cell Distribution Width 20.3 % (11.5-17.5); White Blood Count 17.6 K/mm3 (4.8-10.8)
[2022-08-15 07:47] LABS: MANUAL DIFFERENTIAL MANUAL DIFFERENTIAL (MANUAL DIFF)
--- NOTE | 2022-08-15 08:08 | P.CONPHA_ITS ---
Pharmacy Intervention Comments: MEDICATION RECONCILIATION COMPLETED ON PATIENT USING MAR FROM [facility]. -MARIUM CLOUD, [place]
--- NOTE | 2022-08-15 08:08 | HMH.PHAINT1 ---
Pharmacy Intervention Comments: MEDICATION RECONCILIATION COMPLETED ON PATIENT USING MAR FROM [facility]. -MARIUM CLOUD, [place]
[2022-08-15 08:32] LABS: Lymphocytes % 9 % (10-50); Monocytes % 1 % (2-9); Neutrophils % 77 % (42-76); Total Cells Counted 100
[2022-08-15 08:33] LABS: Anisocytosis 1+; Hypochromasia 1+; Macrocytosis 1+; Ovalocytes 1+; Platelet Estimate Normal
[2022-08-15 08:49] LABS: Chloride 107 mmol/L (98-107); Potassium 4.3 mmoL/L (3.5-5.1); Sodium 136 mmol/L (136-145)
[2022-08-15 08:52] LABS: Alanine Aminotransferase 40 U/L (12-78); Albumin Level 1.8 g/dl (3.5-5.0); Albumin/Globulin Ratio 0.9 (1.1-1.8); Alkaline Phosphatase 103 U/L (38-126); Anion Gap 11.3 mEq/L (5-15); Aspartate Amino Transferase 52 U/L (14-36); Bilirubin,Total 0.9 mg/dl (0.2-1.3); Blood Urea Nitrogen 22 mg/dl (7-17); Calcium 7.4 mg/dl (8.4-10.2); Carbon Dioxide 22 mmol/L (22.0-30.0); Creatinine Clearance Estimated 84 mL/min (50-200); Estimated Glomerular Filt Rate 54 ml/min (>60); GFR (African American) 66 ML/MIN (>60); Globulin 2.1 g/dL (1.3-3.2); Glucose 71 mg/dl (74-100); Total Protein,Serum 3.9 g/dl (6.3-8.2)
--- NOTE | 2022-08-15 08:52 | FL_ITS ---
FINAL REPORT CLINICAL HISTORY: . 1:28 fluoro time FINDINGS: MODIFIED BARIUM SWALLOW History: Dysphagia FINDINGS: Fluoroscopy was provided for the speech pathologist to evaluate the swallowing mechanism. The patient was given several different consistencies of barium while the swallow was visualized fluoroscopically. The report of the speech pathologist should be consulted prior to making dietary decisions. FLUOROSCOPY TIME: 1.28 minutes IMPRESSION: Modified barium swallow under fluoroscopic guidance. Please see the report of the speech pathologist for Dietary recommendations. Films reviewed , interpreted and dictated by Dr. Wan Transcribed by Vasquez Marrufo PA-C. Reviewed, Interpreted and Dictated by Keenan Wan III, MD Transcribed by JESUS Jackson Authenticated and . [facility]
[2022-08-15 08:53] LABS: Magnesium 1.5 mg/dl (1.6-2.3)
--- NOTE | 2022-08-15 09:26 | HMH.SLDYSPHA ---
Speech & Language Evaluation Speech/Language Dysphagia Evaluation Start: 08/15/22 09:06 Freq: ONCE Status: Active Protocol: Document 08/15/22 09:06 RAFAEL (Rec: 08/15/22 09:25 RAFAEL [id number]) Dysphagia Assess/Goals/Plan Assessment Date of Evaluation: 08/15/22 Evaluation Type Initial Certification Assessment/Problems Clinical swallow evaluation per MD order. Does Patient Qualify for Service Yes Qualify/Failure Comment Based on the results of the clinical swallow evaluation, further assessment required to determine current swallow function. Recommendations PHYSICIAN CERTIFICATION: The specified therapy services are required, authorized, and reviewed every 30 days. Diet Recommendations Pureed Liquid Type Recommendations Normal/Thin SL Swallow Guidelines Assist w/all meals,High aspiration risk,Standard Aspiration Prec.,Reflux precautions Dysphagia Swallow Precautions/Strategies Sitting Upright (90 deg), Liquids from Straw,Small Bites and Sips,Alternate Liquids/ Solids Place Food on Either side of Mouth Plan Pt/Guardian verbally ack understanding Yes of dx/prognosis/goals Pt/Guardian verbally ack understanding Yes of/consent to tx prog G -code Required No Education Instructions provided Results of the clinical swallow evaluation were discussed with nursing staff and care management who expressed understanding. Pt/Caregiver able to recall information Able to recall/restate Reinforcement needed No Speech & Language HPI History Present Illness Description of Patient Problem Ms. Williamson is a 72 y.o. female who presented to the ER with acute and chronic respiratory failure with hypoxia and acute exacerbation of CHF. Pt has a hx of hypertension, hyperlipidemia, psychiatric disorder, CHF, CAD , COPD, type 2 diabetes, and hypothyroidism. Pt is currently on a cardiac diet and a non-rebreather. Pt chest x-ray shown signs of atelectasis vs pneumonia. She
[2022-08-15 10:01] LABS: Procalcitonin 3.22 ng/mL (0.0-2.0)
--- NOTE | 2022-08-15 10:33 | XR_ITS ---
FINAL REPORT CLINICAL HISTORY: Nonspecific epigastric pain COMPARISON: None chest 08/08/2022 FINDINGS: Chest: The heart and mediastinal within normal limits. There are mild pulmonary opacities which may represent atelectasis or pneumonia. There is no pneumothorax. Osseous structures are unremarkable. There is a large hiatal hernia. Abdomen: AP and upright views of the abdomen were obtained. There are air-filled bowel loops in a nonspecific pattern. There is moderate amount of retained stool. Residual contrast is noted in the duodenum. There is no free air. No abnormal calcifications are identified. IMPRESSION: Mild pulmonary opacities may represent atelectasis or pneumonia. Nonspecific bowel gas pattern with a moderate amount of retained stool. Reviewed, Interpreted and Dictated by Keenan Wan III, MD Transcribed by Brittany Barr Authenticated and [facility]
--- NOTE | 2022-08-15 10:45 | DIET.NUTRFU ---
Addendum entered by Brittny Ugarte RD, LD 08/15/22 15:33: MBSS was unable to be completed, was unable to position patient correctly. Maybe able to attempt again when more alert and able to hold head in correct position. Will continue pureed diet, 25% consumed at lunch Original Note: Patient was just here, she was able to feed herself at times but needed assistance also. She does better with beverages, started glucerna with meals to help meet calories and protein needs. 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 WAXING MACHINE OPERATOR HELPER feel she demonstrates a decline since last admit. She is from [place] and was following WAXING MACHINE OPERATOR HELPER there also. Wt is stable with chronic edema present. Will continue to follow MBSS results to determine safest way to provide calories/protein
--- NOTE | 2022-08-15 10:50 | EXP.PULM.CON ---
History of Present Illness History of present illness: Ms. Williamson is a 72-[facility]-old [facility] with history hypertension, dyslipidemia, psychiatric disorder, hypothyroidism presented to the hospital with worsening respiratory distress and pulmonary was called for further evaluation. [facility] Disclaimer: The information contained in this section may have been updated after the patient was seen, as this information can be updated by other users. Medical History (Updated 08/15/22 @ 10:50 by Hank Cavanaugh MD) Anemia BMI 30.0-30.9,adult 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lux disease Hiatal hernia Hiatal hernia History of DVT of lower extremity Major depressive disorder, recurrent, unspecified Malignant neoplasm of left lung Malignant neoplasm of right lung Nontoxic thyroid nodule Schizo affective schizophrenia Shock Tachycardia Wheelchair bound Surgical History History of hysterectomy Family History Other No significant family history Social History (Updated 08/14/22 @ 18:01 by Sachi Robertson RN) Smoking Status: Former smoker alcohol intake: never substance use type: denies use current occupational status: disabled Travel in the last 8 weeks: None household members: other housing: [facility]: Yes diet: diabetic caffeine: Yes physical activity: none Review of Systems Review of Systems Review of systems (narrative): Limited review of symptoms given patient's mentation Constitutional Constitutional: Reports body ache(s) and Reports headache(s) ENT Ears, Nose, Mouth, and Throat: Reports headache(s) *Cardiovascular Cardiovascular: Reports dyspnea and Reports dyspnea on exertion *Respiratory Respiratory: Reports dyspnea and Reports dyspnea on exertion *Gastrointestinal Gastrointestinal: Reports abdominal pain *Musculoskeletal Musculoskeletal: Reports back pain Comments: Bilateral lower extremity pain and swelling *Neurologic Neurologic: Reports headache(s) Pulmonology Exam Inpatient Vital signs and Labs for Last 24 Hours: Temp Pulse Resp BP Pulse Ox FiO2 98.0 F 110 H 19 113/55 L 100 100 08/15/22 07:20 08/15/22 08:00 08/15/22 03:46 08/15/22 03:46 08/15/22 03:46 08/14/22 23:14 Laboratory Results - last 24 hr 08/14/22 13:25: WBC 7.2, RBC 3.32 L, Hgb 9.7 L, Hct 33.0 L, MCV 99.3 H, MCH 29.2, MCHC 29.4 L, RDW 20.6 H, Plt Count 401, MPV 9.3, Neut % (Auto) 79.2, Lymph % (Auto) 13.8, [place] % (Auto) 5.2, Eos % (Auto) 1.6, Baso % (Auto) 0.2, Neut # (Auto) 5.7, Lymph # (Auto) 1.0, [place] # (Auto) 0.4, Eos # (Auto) 0.1, Baso # (Auto) 0.0 08/14/22 13:25: Sodium 135 L, Potassium 3.9, Chloride 103, Carbon Dioxide 21 L, Anion Gap 14.9, BUN 19 H, Creatinine 0.90, Estimated Creat Clear 44, Estimated GFR 61, Est GFR ( Amer) 74, Glucose 167 H, Calcium 7.4 L, Total Bilirubin 0.8, AST 55 H, ALT 48, Alkaline Phosphatase 158 H, Troponin I < 0.01, NT-Pro-B Natriuret Pep 543 H, Total Protein 5.1 L, Albumin 2.3 L, Globulin 2.8, Albumin/Globulin Ratio 0.8 L, Procalcitonin 0.376 08/14/22 13:25: Lactate 3.2 H 08/14/22 14:19: SARS-CoV-2 (PCR) Not detected, Influenza A Untype (PCR) Not detected, Influenza Type B (PCR) Not detected 08/14/22 14:22: VBG pH 7.42 H, VBG pCO2 30.0 L, VBG pO2 57.5 H, VBG HCO3 19.2 L, VBG Total CO2 20.1 L, VBG O2 Saturation 87.4 H, VBG Base Excess -5.2 L 08/14/22 15:45: Urine Color Yellow, Urine Appearance Clear, Urine pH 6.5, Ur Specific [place] 1.015, Urine Protein Negative, Urine Glucose (UA) Negative, Urine Ketones Negative, Urine Blood Trace-i, Urine Nitrate Negative, Urine Bilirubin Negative, Urine Urobilin
--- NOTE | 2022-08-15 10:57 | CA_ITS ---
FINAL REPORT CLINICAL HISTORY: Hypoxia H/o DVT, psychiatric disorder, legs contracted, Hx john lung CA, DM, COPD, on coumadin FINDINGS: Color Doppler, duplex Doppler and compression sonography of the bilateral lower extremities was performed. The exam is limited secondary to technical limitations from the patient's bilateral leg contractions. There is no evidence of deep venous thrombosis from the level of the groin to the knee. The calf veins are not well seen, but the portions that were seen are unremarkable. The deep veins are patent and compressible. IMPRESSION: No evidence of deep venous thrombosis bilateral lower extremities, although overall exam is extremely limited particularly below the knee. Reviewed, Interpreted and Dictated by Keenan Wan III, MD Transcribed by Vicky Olvera Authenticated and [facility]
[2022-08-15 11:05] LABS: PHA INR Fingerstick 4.7 (0.9-1.1)
--- NOTE | 2022-08-15 11:07 | EXP.PHA.CONS ---
Pharmacy Consult Date: 08/15/22 Time: 11:08 Referring provider: DR LITTLEJOHN Reason for Consult:: VANCOMYCIN DOSING CONSULT Allergies Allergy/AdvReac Type Severity Reaction Status Date / Time Antihistamines - Alkylamine Allergy Unknown Verified 07/31/22 15:57 [ANTIHISTAMINES - ALKYLAMINE] aspirin [ASPIRIN] Allergy Unknown Verified 07/31/22 15:57 loratadine [LORATADINE] Allergy Unknown Verified 07/31/22 15:57 sertraline [SERTRALINE] Allergy Unknown Verified 07/31/22 15:57 Home Medications Medication Instructions Recorded Confirmed Type allopurinol 300 mg tablet 300 mg PO DAILY Gout 07/12/22 08/14/22 History bethanechol chloride 25 mg tablet 25 mg PO DAILY Urinary retention 07/12/22 08/14/22 History bisoprolol fumarate 5 mg tablet 5 mg PO DAILY Hypertension 07/12/22 08/14/22 History fluticasone propionate 50 2 spray intranasal HS Allergy 07/12/22 08/14/22 History mcg/actuation nasal symptoms spray,suspension glipizide 5 mg tablet 5 mg PO DAILY Diabetes 07/12/22 08/14/22 History lactulose 10 gram/15 mL oral 30 ml PO DAILYP PRN Constipation 07/12/22 08/14/22 History solution levocetirizine 5 mg tablet 2.5 mg PO Q48H Allergy symptoms 07/12/22 08/14/22 History meclizine 25 mg tablet 25 mg PO TIDP PRN Dizziness 07/12/22 08/14/22 History olanzapine 20 mg tablet 20 mg PO HS Mood 07/12/22 08/14/22 History omeprazole 40 mg capsule,delayed 40 mg PO DAILY Acid reflux 07/12/22 08/14/22 History release oxcarbazepine 600 mg tablet 600 mg PO BID Seizure 07/12/22 08/14/22 History atorvastatin 40 mg tablet 40 mg PO HS Cholesterol 07/21/22 08/14/22 History ferrous sulfate 325 mg (65 mg 325 mg PO DAILY Supplement 07/21/22 08/14/22 History iron) tablet melatonin 5 mg tablet 5 mg PO HS SLEEP 07/27/22 08/14/22 History sennosides 8.6 mg-docusate sodium 2 tab PO BID CONSTIPATION 07/27/22 08/14/22 History 50 mg tablet (Senna Plus) warfarin 3 mg tablet 3 mg PO DAILY HX OF DVT 07/27/22 08/14/22 History amino acids-protein hydrolysate 17 1 ea PO DAILY WOUND HEALING 08/08/22 08/14/22 History gram-100 kcal/30 mL liquid packet (Pro-Stat AW) cefdinir 300 mg capsule 300 mg PO BID Infection 08/14/22 08/14/22 History magnesium oxide 400 mg PO BID Supplement 08/14/22 08/14/22 History potassium chloride 20 mEq 20 meq PO DAILY Supplement 08/15/22 08/15/22 History tablet,extended release(part/cryst) triamterene 37.5 1 tab PO MOWEFR Fluid 08/15/22 08/15/22 History mg-hydrochlorothiazide 25 mg tablet New Prescriptions to Start Prescriptions: Height: 1.65 m Weight: 107.955 kg Laboratory Results:: Laboratory Results - last 24 hr 08/14/22 13:25: WBC 7.2, RBC 3.32 L, Hgb 9.7 L, Hct 33.0 L, MCV 99.3 H, MCH 29.2, MCHC 29.4 L, RDW 20.6 H, Plt Count 401, MPV 9.3, Neut % (Auto) 79.2, Lymph % (Auto) 13.8, [place] % (Auto) 5.2, Eos % (Auto) 1.6, Baso % (Auto) 0.2, Neut # (Auto) 5.7, Lymph # (Auto) 1.0, [place] # (Auto) 0.4, Eos # (Auto) 0.1, Baso # (Auto) 0.0 08/14/22 13:25: Sodium 135 L, Potassium 3.9, Chloride 103, Carbon Dioxide 21 L, Anion Gap 14.9, BUN 19 H, Creatinine 0.90, Estimated Creat Clear 44, Estimated GFR 61, Est GFR ( Amer) 74, Glucose 167 H, Calcium 7.4 L, Total Bilirubin 0.8, AST 55 H, ALT 48, Alkaline Phosphatase 158 H, Troponin I < 0.01, NT-Pro-B Natriuret Pep 543 H, Total Protein 5.1 L, Albumin 2.3 L, Globulin 2.8, Albumin/Globulin Ratio 0.8 L, Procalcitonin 0.376 08/14/22 13:25: Lactate 3.2 H 08/14/22 14:19: SARS-CoV-2 (PCR) Not detected, Influenza A Untype (PCR) Not detected, Influenza Type B (PCR) Not detected 08/14/22 14:22: VBG pH 7.42 H, VBG pCO2 30.0 L, VBG pO2 57.5 H, VBG HCO3 19.2 L, VBG Total CO2 20.1 L, VBG O2 Saturation 87.4 H, VBG Base Excess -5.2 L 08/14/22 15:45: Urine Color Yellow, Urine Appearance Clear, Urine pH 6.5, Ur Specific [place] 1.015, Urine Protein Negative, Urine Glucose (UA) Negative, Urine Ketones Negative, Urine Blood Trace-i, Urine Nitrate Negative, Urine Bilirubin Negative, Urine Urobilinoge
[2022-08-15 11:49] LABS: POC Glucose,Bedside 101 (70-110)
[2022-08-15 12:25] LABS: Thyroid Stimulating Hormone 3.14 uIU/mL (0.465-4.68)
--- NOTE | 2022-08-15 12:48 | PC.NURSE ---
ATTEMPTED MIDLINE TO LEFT SIDE X 3. ECOGENIC NEEDLE USED WITH EACH STICK AND BLOOD RETURN WAS VERIFIED WITH EACH STICK. THE GUIDE WIRE WOULD THREAD PAST 4-5 CM EACH TIME. LEFT MESSAGE WITH NURSE SARKIS TO LET MD KNOW THAT MIDLINE WAS NOT SUCCESSFUL.
--- NOTE | 2022-08-15 15:17 | XR_ITS ---
FINAL REPORT CLINICAL HISTORY: POSSIBLE PNEUMO COMPARISON: 1 day prior FINDINGS: A single portable view of the chest was obtained. The heart size is enlarged. Pulmonary vascularity is within normal limits. The mediastinum is within normal limits. No acute pulmonary abnormality is identified. No pneumothorax. The bony thorax is intact. IMPRESSION: No active cardiopulmonary disease. Reviewed, Interpreted and Dictated by Keenan Wan III, MD Transcribed by Brittany Barr Authenticated and [facility]
--- NOTE | 2022-08-15 15:23 | EXP.ACUTE.PN ---
Subjective *Date: 08/15/22 *Time: 15:23 Interval history: Minimally verbal on nasal cannula oxygen today. Nursing staff not able to get peripheral lines Medical Exam Vital signs and Labs for Last 24 Hours: Vital Signs Temp Pulse Pulse Resp BP BP Pulse Ox 08/15/22 12:00 100 H 08/15/22 11:15 98.3 F 08/15/22 08:00 110 H 08/15/22 07:20 98.0 F 08/15/22 04:00 110 H 08/15/22 03:46 106 H 19 113/55 L 100 08/15/22 00:00 110 H 08/14/22 23:52 109 H 22 119/68 100 08/14/22 23:14 08/14/22 20:00 120 H 08/14/22 20:00 99.2 F 107 H 102/67 L 100 08/14/22 17:02 36 H 90/59 L 99 08/14/22 16:50 129 H 36 H 60/22 L 99 08/14/22 16:47 129 H 36 H 59/38 L 99 08/14/22 16:44 128 H 35 H 37/20 L 97 08/14/22 16:33 131 H 35 H 41/22 L 99 08/14/22 16:25 98.3 F 119 H 27 H 110/84 08/14/22 16:01 128 H 110/84 93 L 08/14/22 15:32 122 H 25 H 111/84 98 FiO2 08/15/22 12:00 08/15/22 11:15 08/15/22 08:00 08/15/22 07:20 08/15/22 04:00 08/15/22 03:46 08/15/22 00:00 08/14/22 23:52 08/14/22 23:14 100 08/14/22 20:00 08/14/22 20:00 08/14/22 17:02 08/14/22 16:50 08/14/22 16:47 08/14/22 16:44 08/14/22 16:33 08/14/22 16:25 08/14/22 16:01 08/14/22 15:32 Intake and Output 08/14/22 08/15/22 08/15/22 23:59 07:59 15:59 Intake Total 1100 / 1250 150 / 476.888 326.888 / 476.888 Output Total 400 / 400 700 / 700 0 / 700 Balance 700 / 850 -550 / -223.112 326.888 / -223.112 Intake: Intake, Oral Amount 0 / 0 0 / 240 240 / 240 Intake, Total IV Amount 1100 / 1250 150 / 236.888 86.888 / 236.888 Cefepime HCl 2 gm In 0.9 % 100 / 100 Sodium Chloride 100 ml @ 200 mls/hr IV Q8H [facility] Rx#:[id number] Piperacillin/Tazo 3.375 gm In 0 50 / 50 .9 % Sodium Chloride 50 ml @ 100 mls/hr IV Q6H [facility] Rx#: [id number] Output: Output, Urine Amount 400 / 400 700 / 700 0 / 700 Other: Number of Unmeasured Voids 0 0 0 Weight 107.983 kg 107.955 kg 107.955 kg Patient Weight 08/15/22 23:59 Weight 107.955 kg Laboratory Results - last 24 hr 08/14/22 13:25: Troponin I < 0.01, NT-Pro-B Natriuret Pep 543 H, Procalcitonin 0.376 08/14/22 14:19: SARS-CoV-2 (PCR) Not detected, Influenza A Untype (PCR) Not detected, Influenza Type B (PCR) Not detected 08/14/22 15:45: Urine Color Yellow, Urine Appearance Clear, Urine pH 6.5, Ur Specific [place] 1.015, Urine Protein Negative, Urine Glucose (UA) Negative, Urine Ketones Negative, Urine Blood Trace-i, Urine Nitrate Negative, Urine Bilirubin Negative, Urine Urobilinogen 0.2, Ur Leukocyte Esterase Negative, Urine RBC Occasional, Urine WBC Occasional, Ur Squamous Epith Cells None, Urine Bacteria None, Urine Yeast 2+ 08/14/22 17:25: Troponin I 0.01 08/14/22 20:35: Troponin I 0.01 08/14/22 20:35: Lactate 3.5 H 08/14/22 22:45: POC Glucose 64 L 08/14/22 23:27: POC Glucose 91 08/14/22 23:40: Lactate 3.7 H 08/15/22 00:00: Troponin I < 0.01 08/15/22 05:37: POC Glucose 86 08/15/22 07:35: WBC 17.6 H D, RBC 3.07 L, Hgb 9.0 L, Hct 30.0 L, MCV 97.7, MCH 29.2, MCHC 29.9 L, RDW 20.3 H, Plt Count 285 D, MPV 8.4, Neut % (Auto) 90.2 H, Lymph % (Auto) 6.3 L, [place] % (Auto) 2.2, Eos % (Auto) 1.1, Baso % (Auto) 0.3, Neut # (Auto) 15.9 H, Lymph # (Auto) 1.1, [place] # (Auto) 0.4, Eos # (Auto) 0.2, Baso # (Auto) 0.1, Total Counted 100, Neutrophils % (Manual) 77 H, Band Neutrophils % 13.0 H, Lymphocytes % (Manual) 9 L, Monocytes % (Manual) 1 L, Platelet Estimate Normal, Hypochromasia 1+, Anisocytosis 1+, Macrocytosis 1+, Ovalocytes 1+ 08/15/22 07:35: Sodium 136, Potassium 4.3, Chloride 107, Carbon Dioxide 22, Anion Gap 11.3, BUN 22 H, Creatinine 1.00, Estimated Creat Clear 84, Estimated GFR 54 L, Est GFR ( Amer) 66, Glucose 71 L D, Calcium 7.4 L, Magnesium 1.5 L, Total Bilirubin 0.9, AST 52 H, ALT 40, Alkaline Phosphatase 103, Total Protein 3.9
--- NOTE | 2022-08-15 16:17 | XR_ITS ---
PROCEDURE INFORMATION: Exam: XR Chest Exam date and time: 08/15/2022 4:35 PM Age: 72 years old Clinical indication: Device placement; Other: Central line; Additional info: Central line placement TECHNIQUE: Imaging protocol: Radiologic exam of the chest. Views: 1 view. COMPARISON: CR XR CHEST PORTABLE 08/15/2022 3:37 PM FINDINGS: Tubes, catheters and devices: Central venous catheter with the tip in the region of the proximal superior vena cava. Lungs: Patchy persistent bibasilar airspace regions of opacification. Findings suggestive of interstitial pneumonitis. Pleural spaces: Unremarkable. No pleural effusion. No pneumothorax. Heart/Mediastinum: Linear regions of opacification superimposed upon the mediastinum which may reflect residual contrast within known hiatal hernia. Bones/joints: Unremarkable. IMPRESSION: 1. Central venous catheter with the tip in the region of the proximal superior vena cava. 2. Patchy persistent bibasilar airspace regions of opacification. Findings suggestive of interstitial pneumonitis.
--- NOTE | 2022-08-15 16:22 | EXP.SURG.CON ---
History of Present Illness *Admission Date: 08/14/22 *Reason for visit:: Central venous access *History of present illness: This is a 72-year-old female seen in consultation from the primary service for central venous access catheter placement. Please see HPI forwarded from admission H&P below. Forwarded from admission H&P: 72-year-old female with history of hypertension, hyperlipidemia, psychiatric disorders, CHF, CAD, COPD, type 2 diabetes, hypothyroidism presenting with difficulty breathing.? Patient was at nursing facility today when she seemed to be working harder to breathe.? 80% on room air at nursing facility.? [facility].? Patient 86% on 6 L nasal cannula with EMS.? Given patient largely nonverbal, no further history available. In emergency department patient was found with BMP 33, INR 1.74 with elevated lactic acid at 3.2 chest x-ray with streaky airspace opacities concerning for atelectasis versus aspiration pneumonia. Patient placed on nonrebreather significant improvement on oxygenation. [facility] Disclaimer: The information contained in this section may have been updated after the patient was seen, as this information can be updated by other users. Medical History (Updated 08/15/22 @ 16:23 by George Gallo MD) Anemia BMI 30.0-30.9,adult 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lux disease Hiatal hernia Hiatal hernia History of DVT of lower extremity Major depressive disorder, recurrent, unspecified Malignant neoplasm of left lung Malignant neoplasm of right lung Nontoxic thyroid nodule Schizo affective schizophrenia Shock Tachycardia Wheelchair bound Surgical History History of hysterectomy Family History No significant family history Social History (Updated 08/14/22 @ 18:01 by Sachi Robertson RN) Smoking Status: Former smoker alcohol intake: never substance use type: denies use current occupational status: disabled Travel in the last 8 weeks: None household members: other housing: snf snf: Yes diet: diabetic caffeine: Yes physical activity: none Review of Systems Constitutional Constitutional: Reports headache(s) ENT Ears, Nose, Mouth, and Throat: Reports headache(s) *Neurologic Neurologic: Reports headache(s) Meds Home Medications and Allergies Home Medications Medication Instructions Recorded Confirmed Type allopurinol 300 mg tablet 300 mg PO DAILY Gout 07/12/22 08/14/22 History bethanechol chloride 25 mg tablet 25 mg PO DAILY Urinary retention 07/12/22 08/14/22 History bisoprolol fumarate 5 mg tablet 5 mg PO DAILY Hypertension 07/12/22 08/14/22 History fluticasone propionate 50 2 spray intranasal HS Allergy 07/12/22 08/14/22 History mcg/actuation nasal symptoms spray,suspension glipizide 5 mg tablet 5 mg PO DAILY Diabetes 07/12/22 08/14/22 History lactulose 10 gram/15 mL oral 30 ml PO DAILYP PRN Constipation 07/12/22 08/14/22 History solution levocetirizine 5 mg tablet 2.5 mg PO Q48H Allergy symptoms 07/12/22 08/14/22 History meclizine 25 mg tablet 25 mg PO TIDP PRN Dizziness 07/12/22 08/14/22 History olanzapine 20 mg tablet 20 mg PO HS Mood 07/12/22 08/14/22 History omeprazole 40 mg capsule,delayed 40 mg PO DAILY Acid reflux 07/12/22 08/14/22 History release oxcarbazepine 600 mg tablet 600 mg PO BID Seizure 07/12/22 08/14/22 History atorvastatin 40 mg tablet 40 mg PO HS Cholesterol 07/21/22 08/14/22 History ferrous sulfate 325 mg (65 mg 325 mg PO DAILY Supplement 07/21/22 08/14/22 History iron) tablet melatonin 5 mg tablet 5 mg PO HS SLEEP
--- NOTE | 2022-08-15 16:24 | P.OP_ITS ---
Date of procedure: 08/15/22 Pre-op Diagnosis:: Inadequate venous access Post-op Diagnosis:: Same Procedure performed:: Central venous access catheter placement Surgeon:: George Gallo MD Anesthesia: local and other (0.5 Ativan) Estimated blood loss (mL): 5 Operative findings:: Carotid artery accessed at landmark site and lateral Subclavian vein attempt unsuccessful secondary to patient movement Internal jugular access after ultrasound confirmation Operative note:: This procedure was deemed emergent secondary to need for pressor agents .. The patient was initially maintained in the supine position in her hospital bed. Her left neck and chest were prepped and draped in a sterile fashion. After infiltration local anesthetic attempts were made to access the left internal jugular vein. Arterial access noted. Attempts more lateral were unsuccessful. Attempts at subclavian access were also made after infiltration with local anesthetic. Secondary to patient movement these were unsuccessful. An interval chest x-ray was completed and the patient was re-prepped and draped after ultrasound confirmation of the internal jugular (site more medial). Please note, 0.5 of Ativan also given. After infiltration local anesthetic the left internal jugular vein was accessed. Utilizing a modified Seldinger technique the 7 [place] triple-lumen catheter was secured at 16 cm. All ports flushed without difficulty after the catheter was secured with interrupted silk suture. Dressings were applied. Chest x-ray pending. Condition: other (Unchanged) Disposition: no change Complications:: No immediate. Chest x-ray pending.
[2022-08-15 16:56] LABS: POC Glucose,Bedside 113 (70-110)
--- NOTE | 2022-08-15 18:21 | PC.NURSE ---
Levophed drip titrated per protocol. Currently at 8mcg, 15ml/hr. Patient's family notified of IJ placement as midline placement failed. Patient weaned from non-rebreather to 3LNC without difficulty.
[2022-08-15 21:14] LABS: POC Glucose,Bedside 159 (70-110)
--- NOTE | 2022-08-15 21:15 | PC.NURSE ---
Levo gtt titrated up to 10mcg/min at this time.
--- NOTE | 2022-08-15 23:30 | PC.NURSE ---
Levo titrated up to 12 mcg/min
[2022-08-16] VITALS (26 sets, daily range): BP systolic 73–129; BP diastolic 29–86; PULSE 87–102; RESP 18–26; TEMP 36.1–36.7; O2SAT 92–100; BMI 41.6
--- NOTE | 2022-08-16 | PC.NURSE ---
levo titrated up to 14mcg/min at this time.
--- NOTE | 2022-08-16 02:00 | PC.NURSE ---
Levo gtt titrated down to 12mcg/min at this time.
--- NOTE | 2022-08-16 02:42 | PC.NURSE ---
Levo titrated up to 12mcg/min at this time.
--- NOTE | 2022-08-16 02:44 | PC.NURSE ---
Levo titrated up to 14mcg/min at this time.
--- NOTE | 2022-08-16 03:59 | PC.NURSE ---
Levo titrated up to 16mcg/min at this time.
--- NOTE | 2022-08-16 05:23 | PC.NURSE ---
Titrated Levo gtt down to 10mcg/min
[2022-08-16 05:46] LABS: Basophils # 0.1 K/mm3 (0-0.2); Basophils % 0.3 % (0.1-2.0); Eosinophils # 0.4 K/mm3 (0.0-0.4); Hemoglobin 9.2 g/dL (12.2-16.2); Lymphocytes # 1.6 K/mm3 (0.7-4.5); Lymphocytes % 8.5 % (10-50); Mean Corpuscular HGB Conc 29.8 g/dL (31.8-35.4); Mean Corpuscular Hemoglobin 29.6 pg (27.0-31.2); Mean Corpuscular Volume 99.1 fl (81-99); Mean Platelet Volume 8.7 fl (7.4-10.4); Monocytes # 0.6 K/mm3 (0.1-1.0); Monocytes % 2.9 % (1.7-9.3); Neutrophils # 16.6 K/mm3 (1.8-7.8); Neutrophils % 86.4 % (37.0-80.0); Platelet Count 395 K/mm3 (142-424); Red Blood Count 3.13 M/mm3 (4.20-5.40); Red Cell Distribution Width 19.9 % (11.5-17.5); White Blood Count 19.3 K/mm3 (4.8-10.8)
--- NOTE | 2022-08-16 05:49 | PC.NURSE ---
Levo titrated down to 8mcg/min
[2022-08-16 05:51] LABS: Chloride 98 mmol/L (98-107)
[2022-08-16 05:52] LABS: MANUAL DIFFERENTIAL MANUAL DIFFERENTIAL (MANUAL DIFF); Potassium 3.4 mmoL/L (3.5-5.1); Sodium 130 mmol/L (136-145)
[2022-08-16 05:54] LABS: Alanine Aminotransferase 46 U/L (12-78); Albumin Level 2.2 g/dl (3.5-5.0); Albumin/Globulin Ratio 0.8 (1.1-1.8); Alkaline Phosphatase 133 U/L (38-126); Aspartate Amino Transferase 46 U/L (14-36); Bilirubin,Total 0.6 mg/dl (0.2-1.3); Blood Urea Nitrogen 22 mg/dl (7-17); Creatinine Clearance Estimated 36 mL/min (50-200); Estimated Glomerular Filt Rate 44 ml/min (>60); GFR (African American) 53 ML/MIN (>60); Globulin 2.7 g/dL (1.3-3.2); Total Protein,Serum 4.9 g/dl (6.3-8.2)
[2022-08-16 05:55] LABS: Anion Gap 11.4 mEq/L (5-15); Calcium 7.6 mg/dl (8.4-10.2); Carbon Dioxide 24 mmol/L (22.0-30.0); Glucose 98 mg/dl (74-100); Magnesium 1.6 mg/dl (1.6-2.3)
[2022-08-16 06:08] LABS: INR 5.44 (0.9-1.1); Prothrombin Time 53.4 seconds (10.1-12.5)
[2022-08-16 06:09] LABS: POC Glucose,Bedside 108 (70-110)
[2022-08-16 06:57] LABS: Anisocytosis 1+; Eosinophils % 1 % (0-3); Lymphocytes % 10 % (10-50); Macrocytosis 1+; Monocytes % 1 % (2-9); Neutrophils % 84 % (42-76); Ovalocytes 1+; Platelet Estimate Normal; Total Cells Counted 100
--- NOTE | 2022-08-16 07:19 | PC.NURSE ---
norepinephrine titrated to 6 mcg/min at this time
--- NOTE | 2022-08-16 09:37 | DIET.NUTRFU ---
Addendum entered by Brittny Ugarte RD, LD 08/16/22 11:08: Patient receiving bolus fluids ad enema today. Nursing reported edema. This RD expressed concern for poor intake to IDT in rounds. Original Note: Spoke to nursing aid this AM, she reported patient tolerated pureed with thin liquids with no coughing. Her po intake was still poor at 10-15% of oatmeal and applesauce. She also did not want her glucerna thia morning. Nursing aid said she would try to encourage the glucerna at lunch. Patient's po intake has been poor this admit, multiple hospital stays with a decline in meal intake puts her at high risk for malnutrition. Her albumin is low at 2.2
--- NOTE | 2022-08-16 09:47 | EXP.PULM.PN ---
Subjective *Date: 08/16/22 *Time: 10:38 Interval history: No acute respiratory vents overnight. Patient mentation remained stable. No improvement. Pulmonology Exam Inpatient Vital signs and Labs for Last 24 Hours: Temp Pulse Resp BP Pulse Ox FiO2 97.9 F 90 20 92/65 L 95 100 08/16/22 07:58 08/16/22 08:00 08/16/22 08:00 08/16/22 08:00 08/16/22 08:00 08/14/22 23:14 Laboratory Results - last 24 hr 08/15/22 07:35: Procalcitonin 3.22 H 08/15/22 07:35: TSH 3.14 08/15/22 10:04: INR (Fingerstick) 4.7 H 08/15/22 11:38: POC Glucose 101 08/15/22 16:40: POC Glucose 113 H 08/15/22 20:57: POC Glucose 159 H 08/16/22 05:19: PT 53.4 H, INR 5.44 H 08/16/22 05:19: Magnesium 1.6 08/16/22 05:19: WBC 19.3 H, RBC 3.13 L, Hgb 9.2 L, Hct 31.0 L, MCV 99.1 H, MCH 29.6, MCHC 29.8 L, RDW 19.9 H, Plt Count 395 D, MPV 8.7, Neut % (Auto) 86.4 H, Lymph % (Auto) 8.5 L, [place] % (Auto) 2.9, Eos % (Auto) 2.0, Baso % (Auto) 0.3, Neut # (Auto) 16.6 H, Lymph # (Auto) 1.6, [place] # (Auto) 0.6, Eos # (Auto) 0.4, Baso # (Auto) 0.1, Total Counted 100, Neutrophils % (Manual) 84 H, Band Neutrophils % 4.0, Lymphocytes % (Manual) 10, Monocytes % (Manual) 1 L, Eosinophils % (Manual) 1, Platelet Estimate Normal, Anisocytosis 1+, Macrocytosis 1+, Ovalocytes 1+ 08/16/22 05:19: Sodium 130 L, Potassium 3.4 L D, Chloride 98, Carbon Dioxide 24, Anion Gap 11.4, BUN 22 H, Creatinine 1.20 H, Estimated Creat Clear 36, Estimated GFR 44 L, Est GFR ( Amer) 53 L, Glucose 98 D, Calcium 7.6 L, Total Bilirubin 0.6, AST 46 H, ALT 46, Alkaline Phosphatase 133 H, Total Protein 4.9 L D, Albumin 2.2 L D, Globulin 2.7, Albumin/Globulin Ratio 0.8 L 08/16/22 06:02: POC Glucose 108 I & O for Labs for Last 24 Hours: Intake & Output 08/13/22 08/14/22 08/15/22 08/16/22 23:59 23:59 23:59 23:59 Intake Total 1100 / 1250 1326.888 / 1326.888 964.972 / 964.972 Output Total 400 / 400 1100 / 1100 350 / 350 Balance 700 / 850 226.888 / 226.888 614.972 / 614.972 Weight 238 lb 1 oz 238 lb 250 lb Constitutional: Present moderate distress Head: Present normocephalic and atraumatic ENT: Present normal exam, normal oropharynx and mucous membranes moist Neck: Present normal inspection and full ROM Respiratory: Present respiratory distress and able to speak in complete sentences; Absent accessory muscle use, prolonged expiratory phase or wheezes Cardiac: Present S1/S2, Tachycardia and radial pulses present GI: Present soft, distention, tenderness and rigidity; Absent guarding Comments:: LUQ tendernedd with no guarding Rectal (female): Present deferred (female): Present deferred Skin: Present intact; Absent cyanosis or jaundice Neuro: Present awake; Absent alert or oriented x 3 Extremities: Present normal inspection and edema; Absent clubbing or cyanosis Psychiatric: Present normal affect and cooperative Assessment and Plan *Assessment and plan (1) Shock: Status: Acute Category: Medical Code(s): R57.9 - Shock, unspecified (2) Acute and chronic respiratory failure with hypoxia: Status: Acute Category: Medical Code(s): J96.21 - Acute and chronic respiratory failure with hypoxia Plan Ms. Williamson is a 72-year-old female [place] [facility] resident with history hypertension, dyslipidemia, psychiatric disorder, hypothyroidism presented to the hospital with worsening respiratory distress and pulmonary was called for further evaluation. Patient on admission also found to be in hypotension needing vasopressor support. Leukocytosis upon admission, neutrophilic predominant. Afebrile. ABG upon admission did not show any evidence of hypercarbic respiratory failure. Lactate elevated at 3.2 upon admission, increased to 3.7 on subsequent labs chest x-ray bilateral lower lobe airspace disease/atelectasis. No dense consolidation noted. Echo from 08/08/2022 no evidence of systolic heart failure EF of greater than 70%. Inadequate TR to evaluate RVSP. Patient also receiving sabino
[2022-08-16 10:09] LABS: VBG Base Excess -3.2 mmol/L (-2.4-2.3); VBG HCO3 20.9 mmol/L (23-30); VBG Oxygen Saturation 57.2 % (50-70); VBG PCO2 31.4 mmol/L (35-51); VBG PH 7.44 mmol/L (7.31-7.41); VBG PO2 32.1 mmol/L (28-40); VBG Total CO2 21.9 mmol/L (23-27)
--- NOTE | 2022-08-16 10:11 | SW/DCPLANNER ---
Addendum entered by Angeles Castellon 08/19/22 10:19: I have updated Florencia pringle/ Kala Bridges [facility] Note: Patient currently resides at [facility] level of care. Discharge date is unknown at this time: updated patient information has been faxed. I will continue to follow up with Florencia at [facility] until discharge date is known.
[2022-08-16 10:18] LABS: Lactate Arterial 1.5 mmol/L (0.4-2.0)
[2022-08-16 11:11] LABS: POC Glucose,Bedside 105 (70-110)
--- NOTE | 2022-08-16 13:07 | PC.NURSE ---
norepinephrine titrated to 4 mcg/min at this time
--- NOTE | 2022-08-16 13:27 | EXP.ACUTE.PN ---
Subjective *Date: 08/16/22 *Time: 14:24 Interval history: Patient more alert this morning. Blood pressure still necessitating Levophed. Complaining of abdominal discomfort. States she has not had a bowel movement almost a week. No nausea or vomiting. More alert today per nursing than yesterday. On room air this morning on rounds. Medical Exam Vital signs and Labs for Last 24 Hours: Vital Signs Temp Pulse Pulse Resp BP Pulse Ox 08/16/22 13:05 92 H 08/16/22 13:05 93 H 08/16/22 12:00 97.2 F L 08/16/22 08:00 90 08/16/22 08:00 90 20 92/65 L 95 08/16/22 08:00 90 95 08/16/22 07:58 97.9 F 08/16/22 06:12 87 08/16/22 06:12 90 08/16/22 06:12 92 L 08/16/22 05:49 103/71 L 08/16/22 05:00 129/42 L 08/16/22 04:00 90 08/16/22 04:00 97.1 F L 08/16/22 03:59 88 22 73/41 L 96 08/16/22 00:00 90 08/15/22 20:00 90 08/16/22 00:00 89 18 82/54 L 93 L 08/15/22 23:30 84 81/51 L 08/15/22 21:15 87 20 85/49 L 93 L 08/15/22 20:00 89 22 94/57 L 94 L 08/16/22 02:00 87 26 H 120/86 92 L 08/16/22 00:00 97.5 F L 08/15/22 23:28 74 08/15/22 23:28 74 08/15/22 20:00 97.4 F L 08/15/22 20:00 89 94 L 08/15/22 18:20 88 08/15/22 18:20 86 08/15/22 18:20 98 08/15/22 18:00 83 27 H 88/49 L 100 08/15/22 17:45 89 27 H 95/38 L 97 08/15/22 17:15 90 26 H 87/33 L 96 08/15/22 16:30 83 28 H 90/61 L 99 08/15/22 16:00 91 H 26 H 115/47 L 91 L 08/15/22 15:30 103 H 27 H 82/50 L 100 08/15/22 15:15 93 H 26 H 126/44 L 98 08/15/22 14:30 88 26 H 64/25 L 88 L 08/15/22 14:00 83 25 H 84/56 L 100 08/15/22 13:30 100 H 26 H 87/65 L 95 08/15/22 16:00 90 Intake and Output 08/15/22 08/16/22 08/16/22 23:59 07:59 15:59 Intake Total 850 / 1326.888 484.972 / 1444.972 960 / 1444.972 Output Total 0 / 1100 350 / 450 100 / 450 Balance 850 / 226.888 134.972 / 994.972 860 / 994.972 Intake: Intake, Oral Amount 240 / 480 960 / 960 Intake, Total IV Amount 610 / 846.888 484.972 / 484.972 Cefepime HCl 2 gm In 0.9 % 100 / 200 Sodium Chloride 100 ml @ 200 mls/hr IV Q8H [facility] Rx#:[id number] Cefepime HCl 2 gm In 0.9 % 100 / 100 Sodium Chloride 100 ml @ 200 mls/hr IV Q8H [facility] Rx#:[id number] Magnesium Sulfate 1 gm In 0.9 % 50 / 50 Sodium Chloride 50 ml @ 50 mls /hr IV ONCE ONE Rx#:[id number] Norepinephrine Bitartrate 8 mg 110 / 110 236 / 236 In Dextrose 5 % in Water 250 ml @ 3 MCG/MIN 5.805 mls/hr IV . Q24H [facility] Rx#:[id number] Vancomycin/Water For Inj (Peg) 350 / 350 1.75 gm In 350 ml @ 175 mls/hr IV Q24H [facility] Rx#:[id number] Output: Output, Urine Amount 0 / 700 350 / 450 100 / 450 Other: Number of Unmeasured Voids 0 0 Weight 113.398 kg Patient Weight 08/16/22 23:59 Weight 113.398 kg Laboratory Results - last 24 hr 08/15/22 16:40: POC Glucose 113 H 08/15/22 20:57: POC Glucose 159 H 08/16/22 05:19: PT 53.4 H, INR 5.44 H 08/16/22 05:19: Magnesium 1.6 08/16/22 05:19: WBC 19.3 H, RBC 3.13 L, Hgb 9.2 L, Hct 31.0 L, MCV 99.1 H, MCH 29.6, MCHC 29.8 L, RDW 19.9 H, Plt Count 395 D, MPV 8.7, Neut % (Auto) 86.4 H, Lymph % (Auto) 8.5 L, [place] % (Auto) 2.9, Eos % (Auto) 2.0, Baso % (Auto) 0.3, Neut # (Auto) 16.6 H, Lymph # (Auto) 1.6, [place] # (Auto) 0.6, Eos # (Auto) 0.4, Baso # (Auto) 0.1, Total Counted 100, Neutrophils % (Manual) 84 H, Band Neutrophils % 4.0, Lymphocytes % (Manual) 10, Monocytes % (Manual) 1 L, Eosinophils % (Manual) 1, Platelet Estimate Normal, Anisocytosis 1+, Macrocytosis 1+, Ovalocytes 1+ 08/16/22 05:19: Sodium 130 L, Potassium 3.4 L D, Chloride 98, Carbon Dioxide 24, Anion Gap 11.4, BUN 22 H, Creatinine 1.20 H, Estimated Creat Clear 36, Estimated GFR 44 L, Est GFR ( Amer) 53 L, Glucose 98
--- NOTE | 2022-08-16 14:00 | PC.NURSE ---
norephinephrine titrated to 2 mcg/min
--- NOTE | 2022-08-16 15:00 | PC.NURSE ---
norepinephrine put on standby at this time
--- NOTE | 2022-08-16 15:31 | PC.NURSE ---
per Dr. Cavanaugh if norepinephrine needs to be turned back on, give 250 mL LR bolus first
--- NOTE | 2022-08-16 16:05 | PC.NURSE ---
SRNA NOTE: nurse made aware of low pt temperature @ 1600 vitals.
[2022-08-16 16:21] LABS: POC Glucose,Bedside 113 (70-110)
--- NOTE | 2022-08-16 18:15 | PC.NURSE ---
pt has been awake most of shift, has not ate well but has drank some, norepi is currently off, LR bolus running per Dr. Cavanaugh, norepi on standby for low pressures, pitting edema to BLE and BUE
--- NOTE | 2022-08-16 18:50 | PC.NURSE ---
SRNA NOTE: pt requested a snack. pt was then given pudding. pt tolerated pudding well.
--- NOTE | 2022-08-16 20:02 | PC.NURSE ---
Levo gtt restarted at 2mcg/min at this time.
--- NOTE | 2022-08-16 20:17 | PC.NURSE ---
Levo to 4mcg/min at this time.
[2022-08-16 20:29] LABS: POC Glucose,Bedside 120 (70-110)
--- NOTE | 2022-08-16 21:30 | PC.NURSE ---
[place] pt gargling down hallway, when entering pt had thrown up a large amount of greenish yellow emesis. Pt was sat up, suctioned, zofran administered. Pt cleaned up.
[2022-08-17] VITALS (28 sets, daily range): BP systolic 70–120; BP diastolic 44–71; PULSE 84–103; RESP 16–20; TEMP 36.6–37; O2SAT 94–98; BMI 43.2
--- NOTE | 2022-08-17 03:17 | PC.NURSE ---
Levo up to 6mcg/min
--- NOTE | 2022-08-17 05:03 | PC.NURSE ---
levo down to 4mcg/min
[2022-08-17 05:09] LABS: POC Glucose,Bedside 97 (70-110)
--- NOTE | 2022-08-17 05:45 | PC.NURSE ---
levo up to 6 mcg/min
[2022-08-17 07:46] LABS: Chloride 97 mmol/L (98-107); Sodium 127 mmol/L (136-145)
[2022-08-17 07:48] LABS: Blood Urea Nitrogen 27 mg/dl (7-17); Creatinine Clearance Estimated 39 mL/min (50-200)
[2022-08-17 07:49] LABS: Alanine Aminotransferase 36 U/L (12-78); Albumin Level 1.8 g/dl (3.5-5.0); Albumin/Globulin Ratio 0.7 (1.1-1.8); Alkaline Phosphatase 127 U/L (38-126); Anion Gap 9.7 mEq/L (5-15); Aspartate Amino Transferase 41 U/L (14-36); Bilirubin,Total 0.6 mg/dl (0.2-1.3); Calcium 7.2 mg/dl (8.4-10.2); Carbon Dioxide 23 mmol/L (22.0-30.0); Estimated Glomerular Filt Rate 49 ml/min (>60); GFR (African American) 59 ML/MIN (>60); Globulin 2.5 g/dL (1.3-3.2); Glucose 80 mg/dl (74-100); Magnesium 1.4 mg/dl (1.6-2.3); Total Protein,Serum 4.3 g/dl (6.3-8.2)
[2022-08-17 07:54] LABS: Basophils % 0.2 % (0.1-2.0); Eosinophils # 0.4 K/mm3 (0.0-0.4); Eosinophils % 2.4 % (0.1-12.0); Hematocrit 28.6 % (37.0-47.0); Hemoglobin 8.6 g/dL (12.2-16.2); Lymphocytes # 1.3 K/mm3 (0.7-4.5); Lymphocytes % 8.3 % (10-50); Mean Corpuscular HGB Conc 30.1 g/dL (31.8-35.4); Mean Corpuscular Hemoglobin 29.4 pg (27.0-31.2); Mean Corpuscular Volume 97.6 fl (81-99); Mean Platelet Volume 8.9 fl (7.4-10.4); Monocytes # 0.5 K/mm3 (0.1-1.0); Monocytes % 3.1 % (1.7-9.3); Neutrophils # 13.8 K/mm3 (1.8-7.8); Neutrophils % 86.1 % (37.0-80.0); Platelet Count 294 K/mm3 (142-424); Red Blood Count 2.94 M/mm3 (4.20-5.40); Red Cell Distribution Width 19.9 % (11.5-17.5)
[2022-08-17 08:00] LABS: Potassium 2.7 mmoL/L (3.5-5.1)
[2022-08-17 08:08] LABS: MANUAL DIFFERENTIAL MANUAL DIFFERENTIAL (MANUAL DIFF)
--- NOTE | 2022-08-17 08:13 | PC.NURSE ---
0800 critical lab result received from lab. K+ 2.7. results repeated and verified back [address] Marie via phone of critical lab results. no new orders received at this time.
[2022-08-17 08:21] LABS: Prothrombin Time 61.3 seconds (10.1-12.5)
[2022-08-17 09:12] LABS: Lymphocytes % 17 % (10-50); Monocytes % 2 % (2-9); Neutrophils % 81 % (42-76); Platelet Estimate Normal; RBC Morphology Normal; Total Cells Counted 100
--- NOTE | 2022-08-17 09:25 | DIET.NUTRFU ---
Addendum entered by Brittny Ugarte RD, [place] 08/17/22 11:43: She continues to take her prostat BID to provide additional protein/calories along with vitamin C, zinc and [employer] to help with skin integrity. Her Chance score is 12- high risk. Patient is dependent on staff for most positioning and mobility Addendum entered by Brittny Ugarte RD, [place] 08/17/22 11:26: Spoke to nursing confirmed no BM yesterday, lactulose was changed to scheduled. She is also receiving another bolus IVF fluid today Addendum entered by Brittny Ugarte RD, [place] 08/17/22 09:30: liberalized diet- discontinued the cardiac and diabetic restrictions- she is not consuming enough to put herself at risk. Her last A1c was 5.5 and BS have been fairly controlled during admit. She likes ketchup on most foods, seems to like oatmeal. Based on current po intake, increased edema with possible weight loss, severely depleted albumin and lack of mobility she now triggers for severe PCM. Made some menu changes- added pudding with meals, high protein mashed potatoes lunch and dinner. glucerna with all trays Original Note: spoke to nursing aid, she was able to get patient to drink 2 glucerna yesterday and she was going to try 1 again this morning. Patient continues to have poor po intake. She dislikes the pureed food. She except some pudding yesterday. Will try to provide foods that do not appear puree and see if that helps. No BM noted yesterday, enema and lactulose was given yesterday. Labs reviewed potassium was 2.7-provider aware. Albumin is now 1.8 and edema continues to be noted to BLE
--- NOTE | 2022-08-17 09:36 | EXP.PULM.PN ---
Subjective *Date: 08/17/22 *Time: 11:11 Interval history: No acute respiratory events overnight. Patient continued remain on room air Pulmonology Exam Inpatient Vital signs and Labs for Last 24 Hours: Temp Pulse Resp BP Pulse Ox FiO2 98.0 F 97 H 20 93/57 L 97 100 08/17/22 07:46 08/17/22 08:00 08/17/22 08:00 08/17/22 08:00 08/17/22 08:00 08/14/22 23:14 Laboratory Results - last 24 hr 08/16/22 10:06: VBG pH 7.44 H, VBG pCO2 31.4 L, VBG pO2 32.1, VBG HCO3 20.9 L, VBG Total CO2 21.9 L, VBG O2 Saturation 57.2, VBG Base Excess -3.2 L 08/16/22 10:17: ABG Lactate 1.5 08/16/22 11:03: POC Glucose 105 08/16/22 16:14: POC Glucose 113 H 08/16/22 20:06: POC Glucose 120 H 08/17/22 05:02: POC Glucose 97 08/17/22 07:32: Sodium 127 L, Potassium 2.7 L* D, Chloride 97 L, Carbon Dioxide 23, Anion Gap 9.7, BUN 27 H, Creatinine 1.10 H, Estimated Creat Clear 39, Estimated GFR 49 L, Est GFR ( Amer) 59, Glucose 80, Calcium 7.2 L, Magnesium 1.4 L D, Total Bilirubin 0.6, AST 41 H, ALT 36, Alkaline Phosphatase 127 H, Total Protein 4.3 L, Albumin 1.8 L D, Globulin 2.5, Albumin/Globulin Ratio 0.7 L 08/17/22 07:51: PT 61.3 H, INR 6.30 H 08/17/22 07:51: WBC 16.0 H, RBC 2.94 L, Hgb 8.6 L, Hct 28.6 L, MCV 97.6, MCH 29.4, MCHC 30.1 L, RDW 19.9 H, Plt Count 294 D, MPV 8.9, Neut % (Auto) 86.1 H, Lymph % (Auto) 8.3 L, [place] % (Auto) 3.1, Eos % (Auto) 2.4, Baso % (Auto) 0.2, Neut # (Auto) 13.8 H, Lymph # (Auto) 1.3, [place] # (Auto) 0.5, Eos # (Auto) 0.4, Baso # (Auto) 0.0, Total Counted 100, Neutrophils % (Manual) 81 H, Lymphocytes % (Manual) 17, Monocytes % (Manual) 2, Platelet Estimate Normal, RBC Morphology Normal I & O for Labs for Last 24 Hours: Intake & Output 08/14/22 08/15/22 08/16/22 08/17/22 23:59 23:59 23:59 23:59 Intake Total 1100 / 1250 1326.888 / 9511.961 4753.972 / 3570.972 580 / 580 Output Total 400 / 400 1100 / 1100 750 / 750 600 / 600 Balance 700 / 850 226.888 / 260.322 9062.972 / 2820.972 -20 / -20 Weight 238 lb 1 oz 238 lb 250 lb 259 lb 4.8 oz Microbiology Reports for the Last 24 Hours: Microbiology 08/14/22 15:20 Blood Blood Culture - Preliminary NO GROWTH AFTER 48 HOURS 08/14/22 14:20 Blood Blood Culture - Preliminary NO GROWTH AFTER 48 HOURS 08/15/22 12:40 Urine,[place] Urine Culture - Preliminary NO GROWTH AFTER 24 HOURS Constitutional: Present moderate distress Head: Present normocephalic and atraumatic ENT: Present normal exam, normal oropharynx and mucous membranes moist Neck: Present normal inspection and full ROM Respiratory: Present respiratory distress and able to speak in complete sentences; Absent accessory muscle use, prolonged expiratory phase or wheezes Cardiac: Present S1/S2, Tachycardia and radial pulses present GI: Present soft, distention, tenderness and rigidity; Absent guarding Comments:: LUQ tendernedd with no guarding Rectal (female): Present deferred (female): Present deferred Skin: Present intact; Absent cyanosis or jaundice Neuro: Present awake; Absent alert or oriented x 3 Extremities: Present normal inspection and edema; Absent clubbing or cyanosis Psychiatric: Present normal affect and cooperative Assessment and Plan *Assessment and plan (1) Shock: Status: Acute Category: Medical Code(s): R57.9 - Shock, unspecified (2) Acute and chronic respiratory failure with hypoxia: Status: Acute Category: Medical Code(s): J96.21 - Acute and chronic respiratory failure with hypoxia (3) Acute respiratory failure with hypoxia: Status: Acute Category: Medical Code(s): J96.01 - Acute respiratory failure with hypoxia Plan Ms. Williamson is a 72-year-old female prison resident with history hypertension, dyslipidemia, psychiatric disorder, hypothyroidism presented to the hospital with worsening respiratory distress and pulmonary was called for fu
--- NOTE | 2022-08-17 09:48 | PC.NURSE ---
Addendum entered by Libra Yeung RN 08/17/22 15:58: 1520 drip decreased to 4mcg/min r/t bp 91/56 (67) 102/50 (67) Addendum entered by Libra Yeung RN 08/17/22 10:56: 1054 drip increased to 6mcg/min r/t bp 82/39 (53) 80/36 (50) Original Note: start of shift pt Levophed drip infusing at 6mcg/min. 0900 pt drip decreased to 4mcg/min r/t bp 112/74 (86) 120/66 (84)
[2022-08-17 12:16] LABS: Vancomycin,Trough 25.3 ug/mL (5.0-10.0)
[2022-08-17 12:18] LABS: POC Glucose,Bedside 102 (70-110)
[2022-08-17 17:34] LABS: POC Glucose,Bedside 124 (70-110)
--- NOTE | 2022-08-17 23:17 | EXP.ACUTE.PN ---
Subjective *Date: 08/17/22 *Time: 13:17 Interval history: Patient put back on norepinephrine last night. Currently weaning dosage. Goal blood pressure greater than 65. Patient alert on exam this morning. Remains afebrile. Continues to have significant edema. Poor p.o. intake. Does like her supplements however. No source of infection as of yet.INR continues to increase. Medical Exam Vital signs and Labs for Last 24 Hours: Vital Signs Temp Pulse Pulse Resp BP Pulse Ox 08/17/22 20:00 98.6 F 98 H 16 90/55 L 96 08/17/22 20:00 100 H 08/17/22 17:00 95 H 18 94/58 L 96 08/17/22 18:00 93 H 20 96/62 L 95 08/17/22 18:00 98.3 F 08/17/22 16:00 90 08/17/22 16:10 98.1 F 08/17/22 16:00 96 H 18 88/53 L 97 08/17/22 15:50 96 H 97 08/17/22 15:00 94 H 18 91/56 L 96 08/17/22 14:00 96 H 20 96/65 L 97 08/17/22 14:00 97.8 F 08/17/22 13:00 93 H 20 91/56 L 98 08/17/22 12:00 90 18 88/58 L 96 08/17/22 11:00 88 18 97/53 L 96 08/17/22 10:00 97 H 20 93/57 L 94 L 08/17/22 09:00 94 H 18 120/66 96 08/17/22 12:00 91 H 08/17/22 11:40 97.9 F 08/17/22 11:35 84 08/17/22 11:35 91 H 08/17/22 10:00 97.8 F 08/17/22 08:00 90 08/17/22 08:00 97 H 20 93/57 L 97 08/17/22 08:00 97 H 97 08/17/22 07:46 98.0 F 08/17/22 03:25 95 08/17/22 05:45 70/46 L 08/17/22 06:00 101 H 20 90/48 L 96 08/17/22 04:00 100 H 08/17/22 06:14 94 H 08/17/22 06:14 103 H 08/17/22 05:04 113/71 08/17/22 04:00 98.4 F 98 H 20 91/51 L 97 08/17/22 03:17 81/47 L 08/17/22 00:00 100 H 08/17/22 02:00 94 H 18 92/59 L 97 08/17/22 00:00 97.8 F 92 H 20 89/55 L 95 08/16/22 23:35 88 08/16/22 23:35 89 Intake and Output 08/17/22 08/17/22 08/17/22 07:59 15:59 23:59 Intake Total 100 / 1540 960 / 1540 480 / 1540 Output Total 600 / 1600 1000 / 1600 Balance -500 / -60 960 / -60 -520 / -60 Intake: Intake, Oral Amount 960 / 1440 480 / 1440 Intake, Total IV Amount 100 / 100 Cefepime HCl 2 gm In 0.9 % 100 / 100 Sodium Chloride 100 ml @ 200 mls/hr IV Q12H [facility] Rx#:[id number] Output: Output, Urine Amount 600 / 1600 1000 / 1600 Other: Number of Unmeasured Voids 0 0 Weight 117.617 kg Patient Weight 08/17/22 23:59 Weight 117.617 kg Laboratory Results - last 24 hr 08/17/22 05:02: POC Glucose 97 08/17/22 07:32: Sodium 127 L, Potassium 2.7 L* D, Chloride 97 L, Carbon Dioxide 23, Anion Gap 9.7, BUN 27 H, Creatinine 1.10 H, Estimated Creat Clear 39, Estimated GFR 49 L, Est GFR ( Amer) 59, Glucose 80, Calcium 7.2 L, Magnesium 1.4 L D, Total Bilirubin 0.6, AST 41 H, ALT 36, Alkaline Phosphatase 127 H, Total Protein 4.3 L, Albumin 1.8 L D, Globulin 2.5, Albumin/Globulin Ratio 0.7 L 08/17/22 07:51: PT 61.3 H, INR 6.30 H 08/17/22 07:51: WBC 16.0 H, RBC 2.94 L, Hgb 8.6 L, Hct 28.6 L, MCV 97.6, MCH 29.4, MCHC 30.1 L, RDW 19.9 H, Plt Count 294 D, MPV 8.9, Neut % (Auto) 86.1 H, Lymph % (Auto) 8.3 L, [place] % (Auto) 3.1, Eos % (Auto) 2.4, Baso % (Auto) 0.2, Neut # (Auto) 13.8 H, Lymph # (Auto) 1.3, [place] # (Auto) 0.5, Eos # (Auto) 0.4, Baso # (Auto) 0.0, Total Counted 100, Neutrophils % (Manual) 81 H, Lymphocytes % (Manual) 17, Monocytes % (Manual) 2, Platelet Estimate Normal, RBC Morphology Normal 08/17/22 10:47: Vancomycin Trough 25.3 H 08/17/22 12:10: POC Glucose 102 08/17/22 17:10: POC Glucose 124 H I & O for Labs for Last 24 Hours: Intake & Output 08/14/22 08/15/22 08/16/22 08/17/22 23:59 23:59 23:59 23:59 Intake Total 1100 / 1250 1326.888 / 0367.446 2686.972 / 3570.972 1540 / 1540 Output Total 400 / 400 1100 / 1100 750 / 750 1600 / 1600 Balance 700 / 850 226.888 / 892.821 1931.972 / 2820.972 -60 / -60 Weight 107.983 kg 107.955 kg 113.398 kg 117.617 kg Microbiology Reports for the Last 24
[2022-08-18] VITALS (22 sets, daily range): BP systolic 82–115; BP diastolic 40–70; PULSE 88–113; RESP 16–20; TEMP 36.1–36.6; O2SAT 91–98; BMI 43.7
[2022-08-18 06:51] LABS: POC Glucose,Bedside 92 (70-110)
[2022-08-18 06:58] LABS: Chloride 101 mmol/L (98-107); Potassium 3.9 mmoL/L (3.5-5.1); Sodium 129 mmol/L (136-145)
--- NOTE | 2022-08-18 06:59 | PC.NURSE ---
Levophed gtt titrated to 3mcg/min at 0545. BP 97/60 (72).
[2022-08-18 07:01] LABS: Alanine Aminotransferase 36 U/L (12-78); Albumin Level 1.9 g/dl (3.5-5.0); Albumin/Globulin Ratio 0.8 (1.1-1.8); Alkaline Phosphatase 149 U/L (38-126); Anion Gap 10.9 mEq/L (5-15); Aspartate Amino Transferase 43 U/L (14-36); Bilirubin,Total 0.9 mg/dl (0.2-1.3); Blood Urea Nitrogen 29 mg/dl (7-17); Calcium 7.5 mg/dl (8.4-10.2); Carbon Dioxide 21 mmol/L (22.0-30.0); Creatinine Clearance Estimated 39 mL/min (50-200); Estimated Glomerular Filt Rate 49 ml/min (>60); GFR (African American) 59 ML/MIN (>60); Globulin 2.5 g/dL (1.3-3.2); Glucose 85 mg/dl (74-100); Magnesium 1.8 mg/dl (1.6-2.3); Total Protein,Serum 4.4 g/dl (6.3-8.2)
[2022-08-18 07:05] LABS: Basophils # 0.1 K/mm3 (0-0.2); Basophils % 0.3 % (0.1-2.0); Eosinophils # 0.4 K/mm3 (0.0-0.4); Eosinophils % 2.7 % (0.1-12.0); Hematocrit 29.6 % (37.0-47.0); Hemoglobin 8.7 g/dL (12.2-16.2); Lymphocytes # 1.4 K/mm3 (0.7-4.5); Lymphocytes % 8.6 % (10-50); Mean Corpuscular HGB Conc 29.4 g/dL (31.8-35.4); Mean Corpuscular Hemoglobin 29.6 pg (27.0-31.2); Mean Corpuscular Volume 100.6 fl (81-99); Mean Platelet Volume 9.1 fl (7.4-10.4); Monocytes # 0.7 K/mm3 (0.1-1.0); Monocytes % 4.4 % (1.7-9.3); Neutrophils # 13.6 K/mm3 (1.8-7.8); Platelet Count 294 K/mm3 (142-424); Red Blood Count 2.94 M/mm3 (4.20-5.40); White Blood Count 16.2 K/mm3 (4.8-10.8)
[2022-08-18 07:13] LABS: MANUAL DIFFERENTIAL MANUAL DIFFERENTIAL (MANUAL DIFF)
[2022-08-18 07:14] LABS: INR 4.25 (0.9-1.1); Prothrombin Time 42.3 seconds (10.1-12.5)
--- NOTE | 2022-08-18 07:49 | US_ITS ---
FINAL REPORT CLINICAL HISTORY: abdominal pain, RUQ eval COMPARISON: None FINDINGS: Sonographic images of the right upper quadrant were obtained. The pancreas is obscured.The liver has an unremarkable appearance. There is sludge in the gallbladder with questionable small stones. Shadowing is not well demonstrated. There is no evidence of biliary ductal dilatation.The common duct is normal. Limited images of the right kidney are unremarkable. IMPRESSION: Gallbladder sludge. Questionable small gallstones. Reviewed, Interpreted and Dictated by Keenan Wan III, MD Transcribed by Brittany Barr Authenticated and [facility]
[2022-08-18 08:48] LABS: Eosinophils % 1 % (0-3); Lymphocytes % 15 % (10-50); Macrocytosis 1+; Monocytes % 2 % (2-9); Neutrophils % 82 % (42-76); Platelet Estimate Normal; Total Cells Counted 100
--- NOTE | 2022-08-18 09:50 | EXP.PULM.PN ---
Subjective *Date: 08/18/22 *Time: 13:03 Interval history: No acute respiratory events overnight. Pulmonology Exam Inpatient Vital signs and Labs for Last 24 Hours: Temp Pulse Resp BP Pulse Ox FiO2 97.5 F L 99 H 18 96/61 L 91 L 100 08/18/22 07:54 08/18/22 06:00 08/18/22 06:00 08/18/22 06:00 08/18/22 06:00 08/14/22 23:14 Laboratory Results - last 24 hr 08/17/22 10:47: Vancomycin Trough 25.3 H 08/17/22 12:10: POC Glucose 102 08/17/22 17:10: POC Glucose 124 H 08/18/22 06:30: WBC 16.2 H, RBC 2.94 L, Hgb 8.7 L, Hct 29.6 L, MCV 100.6 H, MCH 29.6, MCHC 29.4 L, RDW 20.0 H, Plt Count 294, MPV 9.1, Neut % (Auto) 84.0 H, Lymph % (Auto) 8.6 L, [place] % (Auto) 4.4, Eos % (Auto) 2.7, Baso % (Auto) 0.3, Neut # (Auto) 13.6 H, Lymph # (Auto) 1.4, [place] # (Auto) 0.7, Eos # (Auto) 0.4, Baso # (Auto) 0.1, Total Counted 100, Neutrophils % (Manual) 82 H, Lymphocytes % (Manual) 15, Monocytes % (Manual) 2, Eosinophils % (Manual) 1, Platelet Estimate Normal, Macrocytosis 1+, PT 42.3 H, INR 4.25 H, Sodium 129 L, Potassium 3.9 D, Chloride 101, Carbon Dioxide 21 L, Anion Gap 10.9, BUN 29 H, Creatinine 1.10 H, Estimated Creat Clear 39, Estimated GFR 49 L, Est GFR ( Amer) 59, Glucose 85, Calcium 7.5 L, Magnesium 1.8 D, Total Bilirubin 0.9, AST 43 H, ALT 36, Alkaline Phosphatase 149 H, Total Protein 4.4 L, Albumin 1.9 L, Globulin 2.5, Albumin/Globulin Ratio 0.8 L 08/18/22 06:39: POC Glucose 92 I & O for Labs for Last 24 Hours: Intake & Output 08/15/22 08/16/22 08/17/22 08/18/22 23:59 23:59 23:59 23:59 Intake Total 1326.888 / 5593.994 2963.972 / 3570.972 1540 / 1540 402 / 402 Output Total 1100 / 1100 750 / 750 1600 / 1600 850 / 850 Balance 226.888 / 933.362 2523.972 / 2820.972 -60 / -60 -448 / -448 Weight 238 lb 250 lb 259 lb 4.8 oz 262 lb 6.4 oz Microbiology Reports for the Last 24 Hours: Microbiology 08/15/22 12:40 Urine,[place] Urine Culture - Preliminary Yeast Constitutional: Present moderate distress Head: Present normocephalic and atraumatic ENT: Present normal exam, normal oropharynx and mucous membranes moist Neck: Present normal inspection and full ROM Respiratory: Present respiratory distress, rhonchi and able to speak in complete sentences; Absent accessory muscle use, prolonged expiratory phase or wheezes Cardiac: Present S1/S2, Tachycardia and radial pulses present GI: Present soft, distention, tenderness and rigidity; Absent guarding Comments:: LUQ tendernedd with no guarding Rectal (female): Present deferred (female): Present deferred Skin: Present intact; Absent cyanosis or jaundice Neuro: Present awake; Absent alert or oriented x 3 Extremities: Present normal inspection and edema; Absent clubbing or cyanosis Psychiatric: Present normal affect and cooperative Assessment and Plan *Assessment and plan (1) Shock: Status: Acute Category: Medical Code(s): R57.9 - Shock, unspecified (2) Acute and chronic respiratory failure with hypoxia: Status: Acute Category: Medical Code(s): J96.21 - Acute and chronic respiratory failure with hypoxia (3) Acute respiratory failure with hypoxia: Status: Acute Category: Medical Code(s): J96.01 - Acute respiratory failure with hypoxia Plan Ms. Williamson is a 72-year-old female skilled nursing resident with history hypertension, dyslipidemia, psychiatric disorder, hypothyroidism presented to the hospital with worsening respiratory distress and pulmonary was called for further evaluation. Patient on admission also found to be in hypotension needing vasopressor support. Leukocytosis upon admission, neutrophilic predominant. Afebrile. ABG upon admission did not show any evidence of hypercarbic respiratory failure. Lactate elevated at 3.2 upon admission, increased to 3.7 on subsequent labs chest x-ray bilateral lower lobe airspace disease/atelectasis. No dense consolidation noted. Echo from 08/08/2022
--- NOTE | 2022-08-18 10:38 | PC.NURSE ---
COURTESY TECH NOTE; ROUNDED ON PT 0845, ASSISTED PT WITH BREAKFAST MEAL, ASSISTED PRIMARY TECH TO CHANGE LINENS AND REPOSITION PT IN BED. CALL LIGHT WITHIN REACH, NO FURTHER REQUESTS AT THIS TIME VIELKA DREW
[2022-08-18 12:52] LABS: POC Glucose,Bedside 109 (70-110)
--- NOTE | 2022-08-18 15:17 | PC.NURSE ---
at start of shift pt levophed was infusing at 2mcg/min 0800 Levophed drip decreased to 1mcg/min r/t bp 106/70 (82) 1500 levophed drip stopped r/t bp 110/70 (83)
--- NOTE | 2022-08-18 15:46 | PC.NURSE ---
mineral oil enema administered using red rubber catheter at 1530. awaiting results/output at this time
[2022-08-18 17:14] LABS: POC Glucose,Bedside 104 (70-110)
--- NOTE | 2022-08-18 18:36 | EXP.ACUTE.PN ---
Subjective *Date: 08/18/22 *Time: 20:18 Interval history: Alert this morning. Somewhat interactive. Follows commands. Oriented to self. No fevers. Stable on room air. Doing well weaning on Levophed. On 3 mcg/hr. Denies any nausea or vomiting. Still having abdominal pain. Still no bowel movement by morning rounds. Medical Exam Vital signs and Labs for Last 24 Hours: Vital Signs Temp Pulse Pulse Resp BP Pulse Ox 08/18/22 16:00 99 H 08/18/22 17:00 109 H 20 111/64 97 08/18/22 16:00 103 H 18 100/65 L 93 L 08/18/22 16:00 113 H 97 08/18/22 15:00 101 H 18 110/70 96 08/18/22 14:00 99 H 20 109/65 L 97 08/18/22 13:00 100 H 18 106/52 L 97 08/18/22 12:00 101 H 18 82/40 L 97 08/18/22 15:24 97.7 F 08/18/22 12:00 102 H 08/18/22 11:48 97.7 F 08/18/22 08:00 104 H 08/18/22 07:45 105 H 94 L 08/18/22 10:00 106 H 18 85/52 L 98 08/18/22 09:00 107 H 20 103/64 L 95 08/18/22 08:00 104 H 20 106/70 L 94 L 08/18/22 07:54 97.5 F L 08/18/22 06:00 99 H 18 96/61 L 91 L 08/18/22 04:00 97.8 F 94 H 16 96/66 L 95 08/18/22 03:42 101 H 08/18/22 02:00 99 H 18 106/67 L 93 L 08/18/22 02:00 91 L 08/18/22 00:00 90 08/18/22 00:00 97.8 F 88 16 96/61 L 92 L 08/17/22 20:00 96 08/17/22 22:30 93 H 16 90/59 L 95 08/17/22 22:00 99 H 18 91/44 L 95 08/17/22 20:00 98.6 F 98 H 16 90/55 L 96 08/17/22 20:00 100 H Intake and Output 08/18/22 08/18/22 08/18/22 07:59 15:59 23:59 Intake Total 402 / 1301 480 / 1301 419 / 1301 Output Total 850 / 850 Balance -448 / 451 480 / 451 419 / 451 Intake: Intake, Oral Amount 240 / 840 480 / 840 120 / 840 Intake, Total IV Amount 162 / 461 299 / 461 Cefepime HCl 2 gm In 0.9 % 100 / 150 50 / 150 Sodium Chloride 100 ml @ 200 mls/hr IV Q12H [facility] Rx#:[id number] Fluconazole in NaCl,Iso-Osm 400 200 / 200 mg In 200 ml @ 400 mls/hr IV Q24H [facility] Rx#:[id number] Norepinephrine Bitartrate 8 mg 62 / 111 49 / 111 In Dextrose 5 % in Water 250 ml @ 3 MCG/MIN 5.805 mls/hr IV . Q24H [facility] Rx#:[id number] Output: Output, Urine Amount 850 / 850 Other: Number of Unmeasured Voids 0 0 Number of Bowel Movements 1 Weight 119.023 kg Patient Weight 08/18/22 23:59 Weight 119.023 kg Laboratory Results - last 24 hr 08/18/22 06:30: WBC 16.2 H, RBC 2.94 L, Hgb 8.7 L, Hct 29.6 L, MCV 100.6 H, MCH 29.6, MCHC 29.4 L, RDW 20.0 H, Plt Count 294, MPV 9.1, Neut % (Auto) 84.0 H, Lymph % (Auto) 8.6 L, [place] % (Auto) 4.4, Eos % (Auto) 2.7, Baso % (Auto) 0.3, Neut # (Auto) 13.6 H, Lymph # (Auto) 1.4, [place] # (Auto) 0.7, Eos # (Auto) 0.4, Baso # (Auto) 0.1, Total Counted 100, Neutrophils % (Manual) 82 H, Lymphocytes % (Manual) 15, Monocytes % (Manual) 2, Eosinophils % (Manual) 1, Platelet Estimate Normal, Macrocytosis 1+, PT 42.3 H, INR 4.25 H, Sodium 129 L, Potassium 3.9 D, Chloride 101, Carbon Dioxide 21 L, Anion Gap 10.9, BUN 29 H, Creatinine 1.10 H, Estimated Creat Clear 39, Estimated GFR 49 L, Est GFR ( Amer) 59, Glucose 85, Calcium 7.5 L, Magnesium 1.8 D, Total Bilirubin 0.9, AST 43 H, ALT 36, Alkaline Phosphatase 149 H, Total Protein 4.4 L, Albumin 1.9 L, Globulin 2.5, Albumin/Globulin Ratio 0.8 L 08/18/22 06:39: POC Glucose 92 08/18/22 12:38: POC Glucose 109 08/18/22 16:34: POC Glucose 104 I & O for Labs for Last 24 Hours: Intake & Output 08/15/22 08/16/22 08/17/22 08/18/22 23:59 23:59 23:59 23:59 Intake Total 1326.888 / 3375.295 3180.972 / 3570.972 2390 / 2390 1301 / 1301 Output Total 1100 / 1100 750 / 750 1600 / 1600 850 / 850 Balance 226.888 / 068.372 9355.972 / 2820.972 790 / 790 451 / 451 Weight 107.955 kg 113.398 kg 117.617 kg 119.023 kg Microbiology Reports for the Last 24 Hours: Microbiology 08/15/22 12:40 Urine,[place] Urine Culture - Prelimina
[2022-08-18 20:24] LABS: POC Glucose,Bedside 164 (70-110)
--- NOTE | 2022-08-18 20:33 | EXP.EVENT.NO ---
Advance care planning note: Active diagnosis: Severe protein calorie malnutrition, recurrent hospitalizations, recurrent shock/sepsis, anasarca, heart failure, progressive debility. The patient's active diagnoses are of sufficient risk that focused discussion on advanced care planning is indicated in order to allow the patient to thoughtfully consider personal goals of care; and, if situations arise that prevent the ability to personally give input, to ensure appropriate representation of their personal desires through documentation or informed surrogate decision makers. Discussion: Persons present and participating in discussion: Patient's brother Damon Williamson Discussion: Extensive discussion about patient's recurrent admissions and progressive decline. Discussion about her worsening nutritional status, anasarca, persistent hypotension. In light of her declining mentation and recurrent episodes with shock and sepsis, expressed strong concern for patient's prognosis and ability to get better. Discussed goals of care with brother. Continuing with current course at this time. Patient is DNR. We will reevaluate in the coming days given her response to current treatment, potential need to change course in her treatment. Family has good understanding of patient's progressive decline. Time spent: Total time spent [id number] in education and discussion directly related to advance care plannin minutes Shilo Marie MD 08/18/22 18:35-18:58
[2022-08-19] VITALS (19 sets, daily range): BP systolic 88–112; BP diastolic 46–65; PULSE 90–110; RESP 16–35; TEMP 36.3–36.7; O2SAT 94–100; BMI 43.3
[2022-08-19 05:31] LABS: POC Glucose,Bedside 97 (70-110)
[2022-08-19 06:04] LABS: Basophils # 0.1 K/mm3 (0-0.2); Basophils % 0.6 % (0.1-2.0); Eosinophils # 0.4 K/mm3 (0.0-0.4); Eosinophils % 2.9 % (0.1-12.0); Hematocrit 29.3 % (37.0-47.0); Hemoglobin 8.4 g/dL (12.2-16.2); Lymphocytes # 1.5 K/mm3 (0.7-4.5); Lymphocytes % 10.5 % (10-50); Mean Corpuscular HGB Conc 28.7 g/dL (31.8-35.4); Mean Corpuscular Hemoglobin 28.7 pg (27.0-31.2); Mean Platelet Volume 8.9 fl (7.4-10.4); Monocytes # 0.8 K/mm3 (0.1-1.0); Platelet Count 272 K/mm3 (142-424); Red Blood Count 2.93 M/mm3 (4.20-5.40); White Blood Count 13.7 K/mm3 (4.8-10.8)
[2022-08-19 06:08] LABS: Chloride 104 mmol/L (98-107)
[2022-08-19 06:09] LABS: Potassium 3.9 mmoL/L (3.5-5.1); Sodium 131 mmol/L (136-145)
[2022-08-19 06:11] LABS: Alanine Aminotransferase 35 U/L (12-78); Alkaline Phosphatase 150 U/L (38-126); Aspartate Amino Transferase 39 U/L (14-36); Bilirubin,Total 0.8 mg/dl (0.2-1.3); Blood Urea Nitrogen 30 mg/dl (7-17); Creatinine Clearance Estimated 39 mL/min (50-200); Estimated Glomerular Filt Rate 49 ml/min (>60); GFR (African American) 59 ML/MIN (>60)
[2022-08-19 06:12] LABS: Albumin Level 1.9 g/dl (3.5-5.0); Albumin/Globulin Ratio 0.7 (1.1-1.8); Anion Gap 8.9 mEq/L (5-15); Calcium 7.8 mg/dl (8.4-10.2); Carbon Dioxide 22 mmol/L (22.0-30.0); Globulin 2.6 g/dL (1.3-3.2); Glucose 89 mg/dl (74-100); Total Protein,Serum 4.5 g/dl (6.3-8.2)
[2022-08-19 06:13] LABS: Prothrombin Time 40.9 seconds (10.1-12.5)
[2022-08-19 06:47] LABS: Magnesium 1.7 mg/dl (1.6-2.3)
--- NOTE | 2022-08-19 08:40 | EXP.PHA.PN ---
Subjective *Date: 08/19/22 *Time: 08:40 Medical Exam Vital signs and Labs for Last 24 Hours: Vital Signs Temp Pulse Pulse Resp BP Pulse Ox 08/19/22 07:32 97.7 F 08/19/22 06:00 102 H 18 112/64 97 08/19/22 04:00 105 H 08/19/22 04:00 97.4 F L 08/19/22 04:00 104 H 16 97/58 L 96 08/19/22 03:48 94 L 08/19/22 02:00 110 H 18 109/53 L 98 08/19/22 00:00 105 H 08/19/22 00:00 97.5 F L 08/19/22 00:00 106 H 18 97/56 L 96 08/18/22 22:01 109 H 18 99/62 L 95 08/18/22 20:00 110 H 20 102/57 L 98 08/18/22 20:00 110 H 08/18/22 20:00 95 08/18/22 20:00 97.0 F L 08/18/22 19:00 110 H 20 115/46 L 97 08/18/22 18:00 113 H 20 93/60 L 96 08/18/22 16:00 99 H 08/18/22 17:00 109 H 20 111/64 97 08/18/22 16:00 103 H 18 100/65 L 93 L 08/18/22 16:00 113 H 97 08/18/22 15:00 101 H 18 110/70 96 08/18/22 14:00 99 H 20 109/65 L 97 08/18/22 13:00 100 H 18 106/52 L 97 08/18/22 12:00 101 H 18 82/40 L 97 08/18/22 15:24 97.7 F 08/18/22 12:00 102 H 08/18/22 11:48 97.7 F 08/18/22 10:00 106 H 18 85/52 L 98 08/18/22 09:00 107 H 20 103/64 L 95 Intake and Output 08/18/22 08/19/22 08/19/22 23:59 07:59 15:59 Intake Total 419 / 1401 340 / 340 Output Total 450 / 450 Balance 419 / 551 -110 / -110 Intake: Intake, Oral Amount 120 / 840 240 / 240 Intake, Total IV Amount 299 / 561 100 / 100 Cefepime HCl 2 gm In 0.9 % 50 / 250 100 / 100 Sodium Chloride 100 ml @ 200 mls/hr IV Q12H [facility] Rx#:[id number] Fluconazole in NaCl,Iso-Osm 400 200 / 200 mg In 200 ml @ 400 mls/hr IV Q24H [facility] Rx#:[id number] Norepinephrine Bitartrate 8 mg 49 / 111 In Dextrose 5 % in Water 250 ml @ 3 MCG/MIN 5.805 mls/hr IV . Q24H [facility] Rx#:[id number] Output: Output, Urine Amount 450 / 450 Other: Number of Unmeasured Voids 0 1 Weight 117.991 kg Patient Weight 08/19/22 23:59 Weight 117.991 kg Laboratory Results - last 24 hr 08/18/22 06:30: Total Counted 100, Neutrophils % (Manual) 82 H, Lymphocytes % (Manual) 15, Monocytes % (Manual) 2, Eosinophils % (Manual) 1, Platelet Estimate Normal, Macrocytosis 1+ 08/18/22 12:38: POC Glucose 109 08/18/22 16:34: POC Glucose 104 08/18/22 20:10: POC Glucose 164 H 08/19/22 05:20: POC Glucose 97 08/19/22 05:50: WBC 13.7 H, RBC 2.93 L, Hgb 8.4 L, Hct 29.3 L, MCV 100.0 H, MCH 28.7, MCHC 28.7 L, RDW 20.0 H, Plt Count 272, MPV 8.9, Neut % (Auto) 80.0, Lymph % (Auto) 10.5, [place] % (Auto) 6.0, Eos % (Auto) 2.9, Baso % (Auto) 0.6, Neut # (Auto) 11.0 H, Lymph # (Auto) 1.5, [place] # (Auto) 0.8, Eos # (Auto) 0.4, Baso # (Auto) 0.1, PT 40.9 H, INR 4.10 H, Sodium 131 L, Potassium 3.9, Chloride 104, Carbon Dioxide 22, Anion Gap 8.9, BUN 30 H, Creatinine 1.10 H, Estimated Creat Clear 39, Estimated GFR 49 L, Est GFR ( Amer) 59, Glucose 89, Calcium 7.8 L, Magnesium 1.7, Total Bilirubin 0.8, AST 39 H, ALT 35, Alkaline Phosphatase 150 H, Total Protein 4.5 L, Albumin 1.9 L, Globulin 2.6, Albumin/Globulin Ratio 0.7 L I & O for Labs for Last 24 Hours: Intake & Output 08/16/22 08/17/22 08/18/22 08/19/22 23:59 23:59 23:59 23:59 Intake Total 3470.972 / 3570.972 2390 / 2390 1301 / 1401 340 / 340 Output Total 750 / 750 1600 / 1600 850 / 850 450 / 450 Balance 2720.972 / 2820.972 790 / 790 451 / 551 -110 / -110 Weight 113.398 kg 117.617 kg 119.023 kg 117.991 kg Microbiology Reports for the Last 24 Hours: Microbiology 08/15/22 12:40 Nose - Nasal MRSA Culture - Final Negative 08/15/22 12:40 Urine,[place] Urine Culture - Preliminary Yeast The patient's infection will respond to the chosen ABx?: Yes Is the patient receiving the right drug, dose, and route?: Yes Could a more targeted ABx be ordered?: No (WBC STILL ELEVATED B
--- NOTE | 2022-08-19 09:13 | PC.NURSE ---
COURTESY TECH NOTE; ROUNDED ON PT 0810, PT DENIED NEED FOR ASSISTANCE WITH RESTROOM AND NEED TO REPOSITION IN BED, ASSISTED PT WITH MEAL, CALL LIGHT WITHIN REACH, NO FURTHER REQUESTS AT THIS TIME Henry DURAN, VIELKA
--- NOTE | 2022-08-19 11:09 | EXP.PULM.PN ---
Subjective *Date: 08/19/22 *Time: 11:09 Interval history: No acute respiratory vents overnight Pulmonology Exam Inpatient Vital signs and Labs for Last 24 Hours: Temp Pulse Resp BP Pulse Ox FiO2 97.7 F 105 H 35 H 91/59 L 99 100 08/19/22 08:00 08/19/22 08:00 08/19/22 08:00 08/19/22 08:00 08/19/22 08:00 08/14/22 23:14 Laboratory Results - last 24 hr 08/18/22 12:38: POC Glucose 109 08/18/22 16:34: POC Glucose 104 08/18/22 20:10: POC Glucose 164 H 08/19/22 05:20: POC Glucose 97 08/19/22 05:50: WBC 13.7 H, RBC 2.93 L, Hgb 8.4 L, Hct 29.3 L, MCV 100.0 H, MCH 28.7, MCHC 28.7 L, RDW 20.0 H, Plt Count 272, MPV 8.9, Neut % (Auto) 80.0, Lymph % (Auto) 10.5, [place] % (Auto) 6.0, Eos % (Auto) 2.9, Baso % (Auto) 0.6, Neut # (Auto) 11.0 H, Lymph # (Auto) 1.5, [place] # (Auto) 0.8, Eos # (Auto) 0.4, Baso # (Auto) 0.1, PT 40.9 H, INR 4.10 H, Sodium 131 L, Potassium 3.9, Chloride 104, Carbon Dioxide 22, Anion Gap 8.9, BUN 30 H, Creatinine 1.10 H, Estimated Creat Clear 39, Estimated GFR 49 L, Est GFR ( Amer) 59, Glucose 89, Calcium 7.8 L, Magnesium 1.7, Total Bilirubin 0.8, AST 39 H, ALT 35, Alkaline Phosphatase 150 H, Total Protein 4.5 L, Albumin 1.9 L, Globulin 2.6, Albumin/Globulin Ratio 0.7 L I & O for Labs for Last 24 Hours: Intake & Output 08/16/22 08/17/22 08/18/22 08/19/22 23:59 23:59 23:59 23:59 Intake Total 3470.972 / 3570.972 2390 / 2390 1301 / 1401 700 / 700 Output Total 750 / 750 1600 / 1600 850 / 850 450 / 450 Balance 2720.972 / 2820.972 790 / 790 451 / 551 250 / 250 Weight 250 lb 259 lb 4.8 oz 262 lb 6.4 oz 260 lb 2 oz Microbiology Reports for the Last 24 Hours: Microbiology 08/15/22 12:40 Nose - Nasal MRSA Culture - Final Negative 08/15/22 12:40 Urine,[place] Urine Culture - Preliminary Yeast Constitutional: Present moderate distress Head: Present normocephalic and atraumatic ENT: Present normal exam, normal oropharynx and mucous membranes moist Neck: Present normal inspection and full ROM Respiratory: Present respiratory distress, rhonchi and able to speak in complete sentences; Absent accessory muscle use, prolonged expiratory phase or wheezes Cardiac: Present S1/S2, Tachycardia and radial pulses present GI: Present soft, distention, tenderness and rigidity; Absent guarding Comments:: LUQ tendernedd with no guarding Rectal (female): Present deferred (female): Present deferred Skin: Present intact; Absent cyanosis or jaundice Neuro: Present awake; Absent alert or oriented x 3 Extremities: Present normal inspection and edema; Absent clubbing or cyanosis Psychiatric: Present normal affect and cooperative Assessment and Plan *Assessment and plan (1) Acute and chronic respiratory failure with hypoxia: Status: Acute Category: Medical Code(s): J96.21 - Acute and chronic respiratory failure with hypoxia (2) Acute respiratory failure with hypoxia: Status: Acute Category: Medical Code(s): J96.01 - Acute respiratory failure with hypoxia (3) Sepsis: Status: Acute Qualifiers: Sepsis acute organ dysfunction status: with acute organ dysfunction Sepsis type: sepsis due to unspecified organism Severe sepsis acute organ dysfunction type: unspecified Severe sepsis shock status: without septic shock Qualified Code(s): A41.9 - Sepsis, unspecified organism; R65.20 - Severe sepsis without septic shock Category: Medical Code(s): A41.9 - Sepsis, unspecified organism Plan Ms. Williamson is a 72-year-old female [facility] resident with history hypertension, dyslipidemia, psychiatric disorder, hypothyroidism presented to the hospital with worsening respiratory distress and pulmonary was called for further evaluation. Patient on admission also found to be in hypotension needing vasopressor support. Leukocytosis upon admission, neutrophilic predominant. Afebrile. ABG upon admission did n
[2022-08-19 12:19] LABS: POC Glucose,Bedside 136 (70-110)
[2022-08-19 12:19] LABS: POC Glucose,Bedside 156 (70-110)
--- NOTE | 2022-08-19 15:39 | EXP.ACUTE.PN ---
Subjective *Date: 08/19/22 *Time: 18:55 Interval history: Patient has been off vasopressors for 24 hours. She is less interactive today. Took her morning meds but has been minimally interactive. Not speaking to staff. No p.o. intake at breakfast. More somnolent. Stable on room air. Afebrile. MAP remaining between 65 and 75. Still having urine output in her [place], adequate at this time. Medical Exam Vital signs and Labs for Last 24 Hours: Vital Signs Temp Pulse Pulse Resp BP Pulse Ox 08/19/22 14:00 98.1 F 103 H 21 110/54 L 99 08/19/22 12:00 90 08/19/22 08:00 110 H 08/19/22 12:28 97.5 F L 102 H 16 110/58 L 100 08/19/22 11:47 98.1 F 100 H 19 95/51 L 96 08/19/22 08:00 97.7 F 105 H 35 H 91/59 L 99 08/19/22 07:32 97.7 F 08/19/22 06:00 102 H 18 112/64 97 08/19/22 04:00 105 H 08/19/22 04:00 97.4 F L 08/19/22 04:00 104 H 16 97/58 L 96 08/19/22 03:48 94 L 08/19/22 02:00 110 H 18 109/53 L 98 08/19/22 00:00 105 H 08/19/22 00:00 97.5 F L 08/19/22 00:00 106 H 18 97/56 L 96 08/18/22 22:01 109 H 18 99/62 L 95 08/18/22 20:00 110 H 20 102/57 L 98 08/18/22 20:00 110 H 08/18/22 20:00 95 08/18/22 20:00 97.0 F L 08/18/22 19:00 110 H 20 115/46 L 97 08/18/22 18:00 113 H 20 93/60 L 96 08/18/22 16:00 99 H 08/18/22 17:00 109 H 20 111/64 97 08/18/22 16:00 103 H 18 100/65 L 93 L 08/18/22 16:00 113 H 97 Intake and Output 08/18/22 08/19/22 08/19/22 23:59 07:59 15:59 Intake Total 419 / 1401 340 / 700 360 / 700 Output Total 450 / 850 400 / 850 Balance 419 / 551 -110 / -150 -40 / -150 Intake: Intake, Oral Amount 120 / 840 240 / 600 360 / 600 Intake, Total IV Amount 299 / 561 100 / 100 Cefepime HCl 2 gm In 0.9 % 50 / 250 100 / 100 Sodium Chloride 100 ml @ 200 mls/hr IV Q12H [facility] Rx#:[id number] Fluconazole in NaCl,Iso-Osm 400 200 / 200 mg In 200 ml @ 400 mls/hr IV Q24H [facility] Rx#:[id number] Norepinephrine Bitartrate 8 mg 49 / 111 In Dextrose 5 % in Water 250 ml @ 3 MCG/MIN 5.805 mls/hr IV . Q24H [facility] Rx#:[id number] Output: Output, Urine Amount 450 / 850 400 / 850 Other: Number of Unmeasured Voids 0 1 1 Weight 117.991 kg Patient Weight 08/19/22 23:59 Weight 117.991 kg Laboratory Results - last 24 hr 08/18/22 16:34: POC Glucose 104 08/18/22 20:10: POC Glucose 164 H 08/19/22 05:20: POC Glucose 97 08/19/22 05:50: WBC 13.7 H, RBC 2.93 L, Hgb 8.4 L, Hct 29.3 L, MCV 100.0 H, MCH 28.7, MCHC 28.7 L, RDW 20.0 H, Plt Count 272, MPV 8.9, Neut % (Auto) 80.0, Lymph % (Auto) 10.5, [place] % (Auto) 6.0, Eos % (Auto) 2.9, Baso % (Auto) 0.6, Neut # (Auto) 11.0 H, Lymph # (Auto) 1.5, [place] # (Auto) 0.8, Eos # (Auto) 0.4, Baso # (Auto) 0.1, PT 40.9 H, INR 4.10 H, Sodium 131 L, Potassium 3.9, Chloride 104, Carbon Dioxide 22, Anion Gap 8.9, BUN 30 H, Creatinine 1.10 H, Estimated Creat Clear 39, Estimated GFR 49 L, Est GFR ( Amer) 59, Glucose 89, Calcium 7.8 L, Magnesium 1.7, Total Bilirubin 0.8, AST 39 H, ALT 35, Alkaline Phosphatase 150 H, Total Protein 4.5 L, Albumin 1.9 L, Globulin 2.6, Albumin/Globulin Ratio 0.7 L 08/19/22 11:23: POC Glucose 156 H 08/19/22 12:12: POC Glucose 136 H I & O for Labs for Last 24 Hours: Intake & Output 08/16/22 08/17/22 08/18/22 08/19/22 23:59 23:59 23:59 23:59 Intake Total 3470.972 / 3570.972 2390 / 2390 1301 / 1401 700 / 700 Output Total 750 / 750 1600 / 1600 850 / 850 850 / 850 Balance 2720.972 / 2820.972 790 / 790 451 / 551 -150 / -150 Weight 113.398 kg 117.617 kg 119.023 kg 117.991 kg Microbiology Reports for the Last 24 Hours: Microbiology 08/14/22 15:20 Blood Blood Culture - Final NO GROWTH AFTER 5 DAYS 08/14/22 14:20 Blood Blood Culture - Final NO GROWTH AFTER 5 DAYS 08/15/22 1
[2022-08-19 16:38] LABS: POC Glucose,Bedside 133 (70-110)
--- NOTE | 2022-08-19 17:15 | PC.NURSE ---
PT B/P HAS DROPPED AT FREQUENT INTERVAL, PT UNABLE TO EAT LUNCH OR SUPPER, PT NOT FOLLOWING COMMANDS OR TALKING LIKE SHE WAS ON AM ASSESSMENT. MD HAS BEEN NOTIFIED OF PTS DECLINES T/O SHIFT. CLOSE MONITORING. PT PALE IN COLOR. INCREASE EDEMA, +4 PITTING, RT ARM SEEPING. PER ALESHIA WRAP BLE IN JANET BANDAGES NOT TOO TIGHT .
--- NOTE | 2022-08-19 17:49 | PC.NURSE ---
B/P AT 1740 70/51 MAP 57. NOTIFIED MD. SANTIAGO RCALDER: TRANSFER BACK TO STEP DOWN, RESUME LEVOPHED AT 4
--- NOTE | 2022-08-19 18:08 | PC.NURSE ---
Levophed started at 1757. Currently infusing @ 4 mcg/min.
--- NOTE | 2022-08-19 19:41 | PC.NURSE ---
1914- BP 69/44 MAP 52- levophed titrated to 6mcg at this time
[2022-08-19 20:50] LABS: POC Glucose,Bedside 132 (70-110)
--- NOTE | 2022-08-19 23:47 | PC.NURSE ---
Levophed titrated up to 6mcg at this time, BP 83/45 MAP 57
--- NOTE | 2022-08-19 23:48 | PC.NURSE ---
2200-Levophed titrated down to 4mcg at this time, BP 108/65 MAP 79
[2022-08-20] VITALS (14 sets, daily range): BP systolic 76–127; BP diastolic 41–77; PULSE 11–118; RESP 20–24; TEMP 36.4–36.7; O2SAT 90–100; BMI 42.5
--- NOTE | 2022-08-20 06:30 | PC.NURSE ---
Patient remains on levophed at 4mcg at this time, has been hard to arouse at times during the night, was able to swallow her medications crushed in pudding without difficulty, remains on RA, 3+ edema noted to BUE and BLE, Central line in left IJ in place flushes and draws appropriately, patient had one moderate sized BM this shift, 700cc urine output FC, has been turned q2h and provided oral care throughout the night, bed in lowest position with call light in reach, bed alarm safety activated.
[2022-08-20 10:15] LABS: Basophils # 0.1 K/mm3 (0-0.2); Basophils % 0.6 % (0.1-2.0); Eosinophils # 0.4 K/mm3 (0.0-0.4); Eosinophils % 2.5 % (0.1-12.0); Hematocrit 30.2 % (37.0-47.0); Hemoglobin 9.1 g/dL (12.2-16.2); Lymphocytes # 1.6 K/mm3 (0.7-4.5); Lymphocytes % 10.4 % (10-50); MANUAL DIFFERENTIAL MANUAL DIFFERENTIAL (MANUAL DIFF); Mean Corpuscular Hemoglobin 29.8 pg (27.0-31.2); Mean Corpuscular Volume 99.3 fl (81-99); Mean Platelet Volume 9.3 fl (7.4-10.4); Monocytes # 0.8 K/mm3 (0.1-1.0); Monocytes % 5.2 % (1.7-9.3); Neutrophils # 12.8 K/mm3 (1.8-7.8); Neutrophils % 81.3 % (37.0-80.0); Platelet Count 387 K/mm3 (142-424); Red Blood Count 3.05 M/mm3 (4.20-5.40); Red Cell Distribution Width 20.4 % (11.5-17.5); White Blood Count 15.7 K/mm3 (4.8-10.8)
[2022-08-20 10:19] LABS: Chloride 106 mmol/L (98-107); Sodium 132 mmol/L (136-145)
[2022-08-20 10:20] LABS: Potassium 4.1 mmoL/L (3.5-5.1)
[2022-08-20 10:22] LABS: Alanine Aminotransferase 37 U/L (12-78); Albumin/Globulin Ratio 0.7 (1.1-1.8); Alkaline Phosphatase 159 U/L (38-126); Anion Gap 8.1 mEq/L (5-15); Aspartate Amino Transferase 38 U/L (14-36); Bilirubin,Total 0.8 mg/dl (0.2-1.3); Blood Urea Nitrogen 34 mg/dl (7-17); Carbon Dioxide 22 mmol/L (22.0-30.0); Creatinine Clearance Estimated 39 mL/min (50-200); Estimated Glomerular Filt Rate 49 ml/min (>60); GFR (African American) 59 ML/MIN (>60); Globulin 2.7 g/dL (1.3-3.2); Total Protein,Serum 4.7 g/dl (6.3-8.2)
[2022-08-20 10:23] LABS: Calcium 8.2 mg/dl (8.4-10.2); Glucose 130 mg/dl (74-100)
[2022-08-20 10:26] LABS: INR 2.97 (0.9-1.1); Prothrombin Time 30.2 seconds (10.1-12.5)
[2022-08-20 10:54] LABS: Lymphocytes % 20 % (10-50); Monocytes % 2 % (2-9); Neutrophils % 78 % (42-76); Platelet Estimate Normal; RBC Morphology Normal; Total Cells Counted 100
--- NOTE | 2022-08-20 11:14 | PC.NURSE ---
Pt transitioning to comfort care, hospice. Levophed DC by MD Marie. Family at bedside.
--- NOTE | 2022-08-20 11:16 | PC.NURSE ---
Started referral for hospice per Dr. Marie
[2022-08-20 11:36] LABS: POC Glucose,Bedside 150 (70-110)
--- NOTE | 2022-08-20 15:04 | EXP.ACUTE.PN ---
Subjective *Date: 08/20/22 *Time: 15:04 Interval history: Patient has had no meaningful improvement overnight. Opens eyes to verbal stimuli but no meaningful response. Not following commands. Briefly drink part of her protein shake this morning. Has developed an oxygen requirement over the past 24 hours. Brother at bedside this morning. Discussed goals of care. Given patient's continued admission, recurrent visits to the hospital with similar symptoms, and failure to respond with meaningful recovery at this time, will plan to transition to hospice care. Patient has completed empiric course of antibiotics. Unfortunately showing no meaningful response. Medical Exam Vital signs and Labs for Last 24 Hours: Vital Signs Temp Pulse Pulse Resp BP Pulse Ox 08/20/22 12:00 118 H 24 87/41 L 95 08/20/22 11:22 97.7 F 08/20/22 10:00 117 H 20 119/73 90 L 08/20/22 08:00 110 H 08/20/22 08:00 112 H 22 99/50 L 96 08/20/22 07:17 98.1 F 08/20/22 06:00 112 H 20 119/67 97 08/20/22 05:00 103 H 24 101/56 L 99 08/20/22 04:00 97.6 F 08/20/22 04:00 11 L 08/20/22 04:00 98 H 20 127/77 99 08/20/22 04:00 97 08/20/22 03:00 92 H 20 102/58 L 100 08/20/22 00:00 100 H 08/20/22 02:00 94 H 22 113/67 100 08/20/22 01:00 94 H 24 90/56 L 96 08/20/22 00:00 103 H 22 94/52 L 98 08/19/22 23:00 106 H 22 97/46 L 95 08/20/22 00:00 97.9 F 08/19/22 22:00 106 H 24 108/65 L 97 08/19/22 21:00 100 H 22 89/48 L 97 08/19/22 20:00 109 H 22 100/53 L 97 08/19/22 19:00 102 H 20 88/52 L 96 08/19/22 20:00 110 H 08/19/22 20:00 94 L 08/19/22 20:00 97.8 F 08/19/22 18:35 109 H 29 H 100/55 L 97 08/19/22 18:00 103 H 29 H 108/59 L 94 L 08/19/22 16:00 90 Intake and Output 08/19/22 08/20/22 08/20/22 23:59 07:59 15:59 Intake Total 117 / 817 447 / 570 123 / 570 Output Total 0 / 850 0 / 0 0 / 0 Balance 117 / -33 447 / 570 123 / 570 Intake: Intake, Oral Amount 237 / 237 Intake, Total IV Amount 117 / 217 210 / 333 123 / 333 Cefepime HCl 2 gm In 0.9 % 100 / 200 Sodium Chloride 100 ml @ 200 mls/hr IV Q12H [facility] Rx#:[id number] Cefepime HCl 2 gm In 0.9 % 100 / 200 100 / 200 Sodium Chloride 100 ml @ 200 mls/hr IV Q8H [facility] Rx#:[id number] Norepinephrine Bitartrate 8 mg 17 / 17 110 / 133 23 / 133 In Dextrose 5 % in Water 250 ml @ 4 MCG/MIN 7.74 mls/hr IV . Q24H [facility] Rx#:[id number] Output: Output, Urine Amount 0 / 850 0 / 0 0 / 0 Other: Number of Unmeasured Voids 1 0 0 Number of Bowel Movements 1 Weight 115.938 kg Patient Weight 08/20/22 23:59 Weight 115.938 kg Laboratory Results - last 24 hr 08/19/22 16:25: POC Glucose 133 H 08/19/22 20:38: POC Glucose 132 H 08/20/22 10:00: WBC 15.7 H, RBC 3.05 L, Hgb 9.1 L, Hct 30.2 L, MCV 99.3 H, MCH 29.8, MCHC 30.0 L, RDW 20.4 H, Plt Count 387 D, MPV 9.3, Neut % (Auto) 81.3 H, Lymph % (Auto) 10.4, [place] % (Auto) 5.2, Eos % (Auto) 2.5, Baso % (Auto) 0.6, Neut # (Auto) 12.8 H, Lymph # (Auto) 1.6, [place] # (Auto) 0.8, Eos # (Auto) 0.4, Baso # (Auto) 0.1, Total Counted 100, Neutrophils % (Manual) 78 H, Lymphocytes % (Manual) 20, Monocytes % (Manual) 2, Platelet Estimate Normal, RBC Morphology Normal, PT 30.2 H, INR 2.97 H, Sodium 132 L, Potassium 4.1, Chloride 106, Carbon Dioxide 22, Anion Gap 8.1, BUN 34 H, Creatinine 1.10 H, Estimated Creat Clear 39, Estimated GFR 49 L, Est GFR ( Amer) 59, Glucose 130 H, Calcium 8.2 L, Total Bilirubin 0.8, AST 38 H, ALT 37, Alkaline Phosphatase 159 H, Total Protein 4.7 L, Albumin 2.0 L, Globulin 2.7, Albumin/Globulin Ratio 0.7 L 08/20/22 11:28: POC Glucose 150 H I & O for Labs for Last 24 Hours: Intake & Output 08/17/22 08/18/22 08/19/22 08/20/22 23:59 23:59 23:59 23:59 Intake Total 2390 / 2390 1301 / 1401 817 / 817 570 / 570 Output
--- NOTE | 2022-08-20 17:48 | PC.NURSE ---
Hospice nurse met with family this afternoon. Pt is admitted inpatient hospice at this time. Pt is sleeping and does not appear to be anxious or uncomfortable. Medicated per mar. VS are declining. Family remains at bedside.
[2022-08-21] VITALS: BP 103/62; PULSE 120; RESP 10; TEMP 36.9; O2SAT 90
[2022-08-21 04:00] VITALS: PULSE 130
--- NOTE | 2022-08-21 07:25 | EXP.ACUTE.PN ---
Subjective *Date: 08/21/22 *Time: 09:25 Interval history: Patient has had no meaningful response to stimuli overnight. Snoring, comfortable in bed. on 2L NC. family at bedside. BP stable, tachycardic. Medical Exam Vital signs and Labs for Last 24 Hours: Vital Signs Temp Pulse Pulse Resp BP Pulse Ox 08/21/22 04:00 130 H 08/21/22 00:00 120 H 08/21/22 00:00 98.4 F 120 H 10 L 103/62 L 90 L 08/20/22 20:00 110 H 08/20/22 17:00 109 H 24 76/47 L 97 08/20/22 12:00 118 H 24 87/41 L 95 08/20/22 11:22 97.7 F 08/20/22 10:00 117 H 20 119/73 90 L 08/20/22 08:00 110 H 08/20/22 08:00 112 H 22 99/50 L 96 Intake and Output 08/20/22 08/20/22 08/21/22 15:59 23:59 07:59 Intake Total 123 / 570 Output Total 0 / 400 400 / 400 Balance 123 / 170 -400 / 170 Intake: Intake, Total IV Amount 123 / 333 Cefepime HCl 2 gm In 0.9 % 100 / 200 Sodium Chloride 100 ml @ 200 mls/hr IV Q8H [facility] Rx#:[id number] Norepinephrine Bitartrate 8 mg 23 / 133 In Dextrose 5 % in Water 250 ml @ 4 MCG/MIN 7.74 mls/hr IV . Q24H [facility] Rx#:[id number] Output: Output, Urine Amount 0 / 400 400 / 400 Other: Number of Unmeasured Voids 0 0 Laboratory Results - last 24 hr 08/20/22 10:00: WBC 15.7 H, RBC 3.05 L, Hgb 9.1 L, Hct 30.2 L, MCV 99.3 H, MCH 29.8, MCHC 30.0 L, RDW 20.4 H, Plt Count 387 D, MPV 9.3, Neut % (Auto) 81.3 H, Lymph % (Auto) 10.4, [place] % (Auto) 5.2, Eos % (Auto) 2.5, Baso % (Auto) 0.6, Neut # (Auto) 12.8 H, Lymph # (Auto) 1.6, [place] # (Auto) 0.8, Eos # (Auto) 0.4, Baso # (Auto) 0.1, Total Counted 100, Neutrophils % (Manual) 78 H, Lymphocytes % (Manual) 20, Monocytes % (Manual) 2, Platelet Estimate Normal, RBC Morphology Normal, PT 30.2 H, INR 2.97 H, Sodium 132 L, Potassium 4.1, Chloride 106, Carbon Dioxide 22, Anion Gap 8.1, BUN 34 H, Creatinine 1.10 H, Estimated Creat Clear 39, Estimated GFR 49 L, Est GFR ( Amer) 59, Glucose 130 H, Calcium 8.2 L, Total Bilirubin 0.8, AST 38 H, ALT 37, Alkaline Phosphatase 159 H, Total Protein 4.7 L, Albumin 2.0 L, Globulin 2.7, Albumin/Globulin Ratio 0.7 L 08/20/22 11:28: POC Glucose 150 H I & O for Labs for Last 24 Hours: Intake & Output 08/18/22 08/19/22 08/20/22 08/21/22 23:59 23:59 23:59 23:59 Intake Total 1301 / 1401 817 / 817 570 / 570 Output Total 850 / 850 850 / 850 400 / 400 Balance 451 / 551 -33 / -33 170 / 170 Weight 119.023 kg 117.991 kg 115.938 kg Constitutional: Present mild distress and obtunded Assessment and Plan *Assessment and plan (1) Hospice care: Status: Acute Category: Medical Code(s): Z51.5 - Encounter for palliative care (2) Encephalopathy: Status: Acute Category: Medical Code(s): G93.40 - Encephalopathy, unspecified (3) Severe protein-calorie malnutrition: Status: Acute Category: Medical Code(s): E43 - Unspecified severe protein-calorie malnutrition (4) Acute and chronic respiratory failure with hypoxia: Status: Acute Category: Medical Code(s): J96.21 - Acute and chronic respiratory failure with hypoxia (5) Edema, peripheral: Status: Acute Category: Medical Code(s): R60.9 - Edema, unspecified (6) Schizophrenia: Status: Acute Category: Medical Code(s): F20.9 - Schizophrenia, unspecified (7) Hypothyroidism: Status: Acute Category: Medical Code(s): E03.9 - Hypothyroidism, unspecified (8) Type 2 diabetes mellitus without complications: Status: Chronic Qualifiers: Diabetes mellitus predatory animal exterminator insulin use: unspecified predatory animal exterminator insulin use status Qualified Code(s): E11.9 - Type 2 diabetes mellitus without complications Category: Medical Code(s): E11.9 - Type 2 diabetes mellitus without complications (9) Constipation: Status: Acute Category: Medical Code(s): K5
[2022-08-21 08:00] VITALS: BP 106/52; PULSE 130; PULSE 136; RESP 22; TEMP 36.7; O2SAT 89
--- NOTE | 2022-08-21 18:28 | PC.NURSE ---
PT HAS STEADILY DECLINED T/O THE DAY. FAMILY HAS REMAINED AT BEDSIDE FOR MOST OF SHIFT. PT APPEARS COMFORTABLE. 2 DOSES OF PRN ROBINUL GIVEN THIS SHIFT. ORAL CARE PERFORMED NEEDED. O2 SAT MAINTAINING IN MID TO LOW 80S FOR MOST OF SHIFT WITH TACHYCARDIA NOTED ON TELE. MD AWARE.
[2022-08-21 20:00] VITALS: BP 106/50; PULSE 130; PULSE 70; RESP 18; TEMP 37; O2SAT 78
[2022-08-21 22:10] VITALS: PULSE 130
[2022-08-22] VITALS: PULSE 120
--- NOTE | 2022-08-22 02:00 | PC.NURSE ---
Pt and pronounced by CHIP Gusman.
--- NOTE | 2022-08-22 02:08 | P.DN_ITS ---
Discharge Sum: Prov Provider Primary care physician: Jose Antoine MD Visit Care Team Role Provider Type Jose Antoine MD Primary Care Provider Staff Physician George Gallo MD Other Providers Staff Physician Hank Cavanaugh MD Other Providers Staff Physician Demetrice Mason MD Other Providers Staff Physician Meño Renteria MD Other Providers Staff Physician Keenan Castellanos MD Other Providers Staff Physician Catalino Diez MD Emergency Provider ER Physician Lashell Lopez MD Admit Provider Staff Physician Attending Provider Admitting clinician: Lashell Lopez Attending physician on admission: Lashell Lopez Consults: 08/15/22 12:58 Consult to Surgeon On-Call [Consult to On-Call Gen'l Surgeon] [CONS] Routine Comment: Consulting Provider: General Surgery Consult on-call surgeon?: Yes Reason For Consult: need central line. failed midline and picc 08/15/22 15:15 Consult to Pulmonology [CONS] Routine Consulting Provider: Hank Cavanaugh Reason For Consult: Pneumonia Pronouncing clinician: Maximiliano Mason Discharge Sum: Diag PCOD Cause of : Acute respiratory failure Contributing Factors (1) Hospice care: (2) Encephalopathy: (3) Severe protein-calorie malnutrition: (4) Acute and chronic respiratory failure with hypoxia: (5) Edema, peripheral: (6) Schizophrenia: (7) Hypothyroidism: (8) Type 2 diabetes mellitus without complications: (9) Constipation: Discharge Sum: Summary Date and Time Date of admission: 08/14/22 17:14 Date of : 08/22/22 Time of : 02:00 Hospital Course prior to Hospital Course Information: 72-year-old female with long history of schizophrenia. Long-term resident at nursing facility. Nonambulatory at baseline. Presented to [facility] with third admission of similar presentation over the past month. Decision made yesterday to transition to hospice care. Patient receiving morphine and Ativan as needed for agitation and pain. Blood pressure stable overnight. Increased heart rate. No meaningful response. Family at bedside. Continue with hospice care. Additional Data Confirmation of as documented by pronouncing clinician: no pulse Family: at bedside Attending/PCP notified?: No Attending physician: Lashell Lopez MD Was code activated?: No Autopsy requested?: No estate tax examiner notified?: No Organ bank notified?: No Advance directives: Yes Hospice patient?: Yes
--- NOTE | 2022-08-22 02:25 | PC.NURSE ---
[facility] called per protocol. Spoke with Domenica Roldan and patient was ruled out as donor. #[id number]
--- NOTE | 2022-08-22 04:45 | PC.NURSE ---
[facility] at bedside and body released.
== END 2022-08-22 04:45 | disposition expired | DRG 871 ==
LOC: ER 15:59 → 2ND 16:16
PROVIDERS: Internal Medicine Adolescent Medicine; Internal Medicine Pulmonary Disease; Admitting Provider Family Medicine; Emergency Provider Emergency Medicine; PCP Emergency Medicine; Visit Provider Family Medicine
DX: A41.9 Sepsis, unspecified organism (principal); E43 Unspecified severe protein-calorie malnutrition; J96.21 Acute and chronic respiratory failure with hypoxia; R65.21 Severe sepsis with septic shock; F33.9 Major depressive disorder, recurrent, unspecified; I50.9 Heart failure, unspecified; E78.5 Hyperlipidemia, unspecified; Z51.5 Encounter for palliative care; J44.9 Chronic obstructive pulmonary disease, unspecified; E11.9 Type 2 diabetes mellitus without complications; E03.9 Hypothyroidism, unspecified; F25.9 Schizoaffective disorder, unspecified; Z99.3 Dependence on wheelchair; Z87.891 Personal history of nicotine dependence; I11.0 Hypertensive heart disease with heart failure; Z86.718 Personal history of other venous thrombosis and embolism; Z79.01 Long term (current) use of anticoagulants; E88.09 Other disorders of plasma-protein metabolism, not elsewhere classified; K59.00 Constipation, unspecified; Z66 Do not resuscitate; Z79.84 Long term (current) use of oral hypoglycemic drugs
CPT/HCPCS: 36556; 36415; 51702; 70371; 71045; 74021; 76705; 80053; 80202; 81001; 82803; 82962; 83605; 83735; 83880; 84145; 84443; 84484; 85007; 85025; 85610; 87040; 87081; 87086; 87106; 87636; 92526; 92610; 93005; 93970; 94640; 94760; 94761; 99291; C1751; C9803; J1450; J2405; J2543; J3475; U0003; U0005